=== PATIENT | female | born 1935 | race Caucasian/White ===

== ENCOUNTER 2016-11-09 23:03 | Inpatient (IN) | payer OTHER ==
[~2016-11-09] VITALS: Ht 157.5 cm; Wt 49.9 kg
--- NOTE | 2016-11-09 23:14 | NUR ---
TRIAGE: 81 Y/O FEMALE BIBA FROM HOME C/O INCREASED SOB X THIS WEEK. REPORTS HISTORY OF CHF, BUT HAS NOT SEEN A PCP IN YEARS. RECENTLY QUIT TOBACCO SMOKING. UPON EMS ARRIVAL, SPO2 LOW 80s. PLACED ON NASAL CANNULA, SPO2 IMPROVED TO 96% ON 4-5 LITERS. PLACED ON 4-5 LITERS UPON ARRIVAL - DIFFICULTY OBTAINING ACCURATE SPO2 READING ON MONITOR. WILL CONTINUE TO ATTEMPT DIFFERENT METHODS. PLACED ON APPAREL TRIMMINGS SALES REPRESENTATIVE. DR GATES AT BEDSIDE. EKG IN PROGRESS.
--- NOTE | 2016-11-09 23:15 | ED DYSPNEA/ASTHMA COMPLAINT ---
History of Present Illness General Chief Complaint: Dyspnea (COPD, CHF, Other) Stated Complaint: BIBA WITH SOB Source: patient, family, EMS Exam Limitations: no limitations Vital Signs & Intake/Output Vital Signs & Intake/Output Vital Signs Date Time Temp Pulse Resp B/P B/P Pulse O2 O2 Flow FiO2 Mean Ox Delivery Rate 11/10 0115 94 Nasal 5.0L Cannula 11/09 2307 96.1 125 22 104/58 89 Nasal 5.0L Cannula ED Intake and Output 11/10 0000 11/09 1200 Intake Total Output Total Balance Patient 120 lb Weight Weight Reported by Patient Measurement Method Allergies Coded Allergies: No Known Allergies (11/09/16) Triage Nurses Notes Reviewed? yes HPI: Patient stopped smoking approximately 4 weeks ago. Patient has not seen a primary care physician in over 20 years. Over the past week she's been having worsening dyspnea on exertion as well as occasional orthopnea. Patient states she has been sleeping on one pillow but a few times as well. She cannot breathe. Positive nonproductive but wet sounding cough. Positive anorexia. No fevers or chills. Patient denies any chest pain or chest tightness. Past History Travel History Traveled to [place] past 21 day No Medical History Any Pertinent Medical History? see below for history Cardiovascular: CHF Surgical History Surgical History: non-contributory Psychosocial History What is your primary language Chinese Tobacco Use: Quit <30 days ago ETOH Use: denies use Illicit Drug Use: denies illicit drug use Family History Hx Contributory? No Review of Systems Review of Systems Constitutional: Reports: no symptoms. EENTM: Reports: no symptoms. Respiratory: Reports: see HPI, cough, orthopnea, short of breath. Cardiovascular: Reports: no symptoms. GI: Reports: no symptoms. Genitourinary: Reports: no symptoms. Musculoskeletal: Reports: no symptoms. Skin: Reports: no symptoms. Neurological/Psychological: Reports: no symptoms. Hematologic/Endocrine: Reports: no symptoms. Immunologic/Allergic: Reports: no symptoms. All Other Systems: Reviewed and Negative Physical Exam Physical Exam General Appearance: well developed/nourished, alert, awake, anxious, moderate distress Head: atraumatic, normal appearance Eyes: Bilateral: PERRL, EOMI. Ears, Nose, Throat: normal pharynx, normal ENT inspection Neck: normal inspection, supple, full range of motion, JVD Respiratory: decreased breath sounds, rhonchi, rales, respiratory distress Cardiovascular: normal peripheral pulses, tachycardia Gastrointestinal: normal bowel sounds, soft, non-tender, no organomegaly Extremities: normal inspection, normal capillary refill, normal range of motion, no edema Neurologic/Psych: no motor/sensory deficits, awake, alert, oriented x 3, normal mood/affect Skin: intact, normal color, warm/dry Lymphatic: no anterior cervical stephanie Core Measures ACS in differential dx? Yes ASA ordered for poss ACS? Yes-ordered Severe Sepsis Present: No Septic Shock Present: No Progress Differential Diagnosis: asthma, AMI, bronchitis, CHF, COPD, pulmonary embolism, pneumonia Plan of Care: Orders Procedure Date/time Status Admit to inpatient 11/10 0131 Active Patient Data 11/10 124 Active BLOOD CULTURE 11/10 36 Active ARTERIAL BLOOD GAS (GEN) 11/09 2312 Complete Telemetry/Legal Researcher 11/09 2312 Active TROPONIN LEVEL 11/09 2312 Complete D-DIMER 11/09 2312 Complete COMPREHENSIVE METABOLIC PANEL 11/09 2312 Complete CBC WITHOUT DIFFERENTIAL 11/09 2312 Complete B-TYPE NATRIURETIC PEP (BNP) 11/09 2312 Complete EKG 11/09 2304 Active Current Medications Sig/Irma Start time Last Medication Dose Stop Time Status Admin Furosemide 40 MG ONCE ONE 11/10 144 UNVr (Lasix) 11/10 145 Azithromycin 500 MG ONCE ONE 11/10 114 AC (Zithromax) 11/104 Sodium Chloride 250 ML (Normal Saline 0.9%) Heparin Sodium 4,000 UNIT ONCE ONE 11/10 114 CAN (Porcine) 11/11 115 Heparin Sodium/ 25,000 UNIT Q24H 11/10 114 UNVr Dextrose (Heparin) Dextrose/Water 500 ML (D5W) Laboratory Tests 11/09/165: Anion Gap 16, Estimated GFR 36 L, BUN/Creatinine Ratio 27.1 H, Glucose 210 H, Calcium 8.4, Total Bilirubin 1.6 H, AST 1591 H, ALT 847 H, Alkaline Phosphatase 93, Troponin I 0.44 *H, Pbq-Q-Gtbqpkexexa Pept 42932 H, Total Protein 6.5, Albumin 3.1 L, Globulin 3.4, Albumin/Globulin Ratio 0.9 L, D- Dimer 1048 H, CBC w Diff NO MAN DIFF REQ, RBC 3.37 L, MCV 82.1, MCH 26.2 L, RDW 16.7 H, MPV 8.6, Gran % 85.8 H, Lymphocytes % 6.6 L, Monocytes % 7.5, Eosinophils % 0, Basophils % 0.1, Absolute Granulocytes 12.9 H, Absolute Lymphocytes 1.0 L, Absolute Monocytes 1.1 H, Absolute Eosinophils 0, Absolute Basophils 0, PUBS MCHC 31.9 L 11/09/165: pH 7.36, pCO2 35, pO2 77 L, HCO3 20 L, ABG O2 Sat (Measured) 93.0 L, Carboxyhemoglobin 0.1 L, O2 Concentration % 4.5L, O2 Delivery Method NC, Phlebotomy Draw Site RIGHT BRACHIAL Microbiology 11/10 36 BLOOD: Blood Culture - ORD 11/10 36 BLOOD: Blood Culture - ORD Diagnostic Imaging: Viewed by Me: Radiology Read. Discussed w/RAD: Radiology Read. CXR Impression: PATIENT: FERNANDO DALE PRESENT AGE: 81 PATIENT ACCOUNT NO: [id number] : 37 LOCATION: ER ORDERING PHYSICIAN: AFSHIN GATES MD SERVICE DATE: 11/09/16 EXAM TYPE: RAD - XRY-PORTABLE CHEST XRAY EXAMINATION: XR PORTABLE CHEST CLINICAL INFORMATION: Shortness of breath. COMPARISON: None TECHNIQUE: Portable AP view of the chest was obtained. FINDINGS: Cardiac leads overlie the chest. The lungs appear hyperexpanded. There is a right basilar patchy opacity. No large pleural effusion. No pneumothorax. The cardiomediastinal silhouette is prominent, with a calcified aorta. IMPRESSION: Hyperexpanded lungs. Patchy right basilar opacity may represent atelectasis or pneumonia. DICTATED BY: TAWANA HAILE MD DATE/ TIME DICTATED:11/09/162347 FIELD RECORDER:MIHIR DATE/TIME TRANSCRIBED: 11/09/162347 CONFIDENTIAL, DO NOT COPY WITHOUT APPROPRIATE AUTHORIZATION. < Electronically signed in Other Vendor System> SIGNED BY: TAWANA HAILE MD 11/09/16 1243 Initial ED EKG: SINUS TACHYCARDIA AT 128, BIFASCICULAR BLOCK, NONSPECIFIC st-t CHANGES, NO OLD TO COMPARE. Rhythm Strip: sinus tachycardia Departure Departure Disposition: STILL A PATIENT Condition: Stable Clinical Impression Primary Impression: ACS (acute coronary syndrome) Secondary Impressions: Pneumonia Departure Forms: Customer Survey General Discharge Information Admission Note Spoke With: MEGGAN SANCHEZ MD Documentation of Exam: Documentation of any treatments & extenuating circumstances including Concerns Regarding Discharge (functional status, medication knowledge or non-compliance, living conditions, etc.) that warrant an admission rather than observation: [ Patient has a 16,000 white count, pneumonia versus atelectasis in her chest x- ray, wet sounding cough, elevated BNP, elevated d-dimer, positive troponin. Patient's GFR is low so unable to perform a CT angiogram rule out a PE. Patient will be started on heparin for her positive troponin as well as possible PE. The patient will also receive IV Lasix for her elevated BNP. Patient given IV antibiotics as well as IV steroids and nebulizers for her pneumonia and long- standing smoking history. Patient will need telemetry monitoring and cardiology consultation. Patient she probably will need to be followed serially. Patient will need a VQ scan to rule out a PE.] Critical Care Note Critical Care Note Critical Care Time: mins: (45 MIN)
--- NOTE | 2016-11-09 23:16 | NUR ---
SUPPLEMENTAL OXYGEN REMAINS AT 5L, SPO2 94%. REMAISN SOB AT REST.
--- NOTE | 2016-11-09 23:25 | NUR ---
EKG DONE AND SHOWN TO DR. GATES.
--- NOTE | 2016-11-09 23:52 | RADIOLOGY REPORT ---
EXAMINATION: XR PORTABLE CHEST CLINICAL INFORMATION: Shortness of breath. COMPARISON: None TECHNIQUE: Portable AP view of the chest was obtained. FINDINGS: Cardiac leads overlie the chest. The lungs appear hyperexpanded. There is a right basilar patchy opacity. No large pleural effusion. No pneumothorax. The cardiomediastinal silhouette is prominent, with a calcified aorta. IMPRESSION: Hyperexpanded lungs. Patchy right basilar opacity may represent atelectasis or pneumonia.
[2016-11-10 00:21] LABS: ABSOLUTE BASOPHIL COUNT 0 /CUMM (0.0-0.2); ABSOLUTE EOSINOPHIL COUNT 0 /CUMM (0.0-0.7); ABSOLUTE GRANULOCYTE CT 12.9 /CUMM (1.4-6.5); ABSOLUTE MONOCYTE COUNT 1.1 /CUMM (0.10-0.60); BASOPHIL % 0.1 % (0.0-2.0); EOSINOPHIL % 0 % (0-5); GRANULOCYTE % 85.8 % (42.2-75.2); HEMATOCRIT 27.7 % (37-47); MEAN CORPUSCULAR HGB 26.2 PG (27.0-31.0); MEAN CORPUSCULAR HGB CONC 31.9 G/DL (33.0-37.0); MEAN CORPUSCULAR VOLUME 82.1 FL (81.0-99.0); MEAN PLATELET VOLUME 8.6 FL (7.4-10.4); PLATELET COUNT 497 /CUMM (130-400); RBC DISTRIBUTION WIDTH 16.7 % (11.5-14.5); RED BLOOD CELL CT 3.37 /CUMM (4.20-5.40)
[2016-11-10 00:53] LABS: WHITE BLOOD CELL COUNT 15.1 /CUMM (4.8-10.8)
--- NOTE | 2016-11-10 01:09 | NUR ---
CRITICAL TEST RESULTS [id number] FERNANDO DALE 81 F TESTS AND RESULTS: TROPONIN 0.44 Results received and read back by: CALI HEALY Results received date and time: 11/10/16 0110 The following provider was notified of the results, and read the results back: KODY Notified date and time: 11/10/16 at 0110
--- NOTE | 2016-11-10 01:13 | NUR ---
PAGED @ 0100 FOR Endovention RX
--- NOTE | 2016-11-10 01:59 | History & Physical ---
MARY SUAREZ,ARTI 11/10/16 0144: General Information and HPI MD Statement: I have seen and personally examined FERNANDO DALE and documented this H&P. The patient is a 81 year old F who presented with a patient stated chief complaint of [shortness of breath]. Source of Information: patient, old records Exam Limitations: no limitations History of Present Illness: This is a 81-year-old lady with no diagnosed medical problems because she has not seen a physician in over 20 years. She has a 50+ pack year smoking history quit smoking about a month ago. No history of drug or alcohol use, hepatitis, HIV, cancers, no significant family history. Per patient and family over the course of the last week or so she has been having progressive dyspnea with a wet cough, orthopnea, paroxysmal nocturnal dyspnea. She gets easily winded after barely walking 10 feet. Per ER nursing notes, she was found to be hypoxic by the paramedics and subsequently was placed on nasal cannula with appropriate correction of her oxygen saturation. At present her only complaint is dyspnea, she denies any chest pain, nausea, vomiting, diarrhea. Denies any sick contacts or recent travels. In the emergency room she was found to have a proBNP of over 22,000, and elevated white blood cell count on a positive troponin 0.44 and some T-wave flattening on the EKG. She is being admitted for the same. Allergies/Medications Allergies: Coded Allergies: No Known Allergies (11/09/16) Past History Travel History Traveled to [place] past 21 day No Surgical History Surgical History: hysterectomy Past Family/Social History Psychosocial History Smoking Status: Former Smoker ETOH Use: denies use Illicit Drug Use: denies illicit drug use Functional Ability ADLs Independent: dressing, eating, toileting, bathing. IADLs Independent: shopping, housework, finances, food prep, telephone, transportation , medication admin. Review of Systems Review of Systems Constitutional: Reports: see HPI. Exam & Diagnostic Data Last 24 Hrs of Vital Signs/I&O Vital Signs Date Time Temp Pulse Resp B/P B/P Pulse O2 O2 Flow FiO2 Mean Ox Delivery Rate 11/10 0115 94 Nasal 5.0L Cannula 11/09 2307 96.1 125 22 104/58 89 Nasal 5.0L Cannula Intake & Output 11/10 0800 11/10 0000 11/09 1600 Intake Total Output Total Balance Patient 120 lb Weight Weight Reported by Patient Measurement Method Physical Exam General Appearance Alert, Oriented X3, Cooperative, Mild Distress Skin No Rashes, No Breakdown HEENT Atraumatic, PERRLA, EOMI Neck Supple, No JVD Cardiovascular Regular Rate, Normal S1, Normal S2 Lungs Normal Air Movement, b/l crackles, rales, ronchii and wheezing Abdomen Normal Bowel Sounds, Soft, No Tenderness Neurological Normal Speech, Strength at 5/5 X4 Ext, Normal Tone, Sensation Intact, Cranial Nerves 3-12 NL Extremities No Clubbing, No Cyanosis, No Edema Last 24 Hrs of Labs/Jamaal: Laboratory Tests 11/09/16 2335: Anion Gap 16, Estimated GFR 36 L, BUN/Creatinine Ratio 27.1 H, Glucose 210 H, Calcium 8.4, Total Bilirubin 1.6 H, AST 1591 H, ALT 847 H, Alkaline Phosphatase 93, Troponin I 0.44 *H, Lxg-C-Ggktwoixjwo Pept 72395 H, Total Protein 6.5, Albumin 3.1 L, Globulin 3.4, Albumin/Globulin Ratio 0.9 L, D- Dimer 1048 H, CBC w Diff NO MAN DIFF REQ, RBC 3.37 L, MCV 82.1, MCH 26.2 L, RDW 16.7 H, MPV 8.6, Gran % 85.8 H, Lymphocytes % 6.6 L, Monocytes % 7.5, Eosinophils % 0, Basophils % 0.1, Absolute Granulocytes 12.9 H, Absolute Lymphocytes 1.0 L, Absolute Monocytes 1.1 H, Absolute Eosinophils 0, Absolute Basophils 0, PUBS MCHC 31.9 L 11/09/16 2315: pH 7.36, pCO2 35, pO2 77 L, HCO3 20 L, ABG O2 Sat (Measured) 93.0 L, Carboxyhemoglobin 0.1 L, O2 Concentration % 4.5L, O2 Delivery Method NC, Phlebotomy Draw Site RIGHT BRACHIAL Microbiology 11/10 36 BLOOD: Blood Culture - ORD 11/10 36 BLOOD: Blood Culture - ORD Diagnostic Data EKG Results Rate 129, IN 128, QRS 112, QTC 475 neck sinusitis echocardiac, mild T-wave flattening in leads 23 aVF, aVL CXR Results PATIENT: FERNANDO DALE PRESENT AGE: 81 PATIENT ACCOUNT NO: [id number] : 37 LOCATION: [facility] ORDERING PHYSICIAN: AFSHIN GATES MD SERVICE DATE: 11/09/16 EXAM TYPE: RAD - XRY-PORTABLE CHEST XRAY EXAMINATION: XR PORTABLE CHEST CLINICAL INFORMATION: Shortness of breath. COMPARISON: None TECHNIQUE: Portable AP view of the chest was obtained. FINDINGS: Cardiac leads overlie the chest. The lungs appear hyperexpanded. There is a right basilar patchy opacity. No large pleural effusion. No pneumothorax. The cardiomediastinal silhouette is prominent, with a calcified aorta. IMPRESSION: Hyperexpanded lungs. Patchy right basilar opacity may represent atelectasis or pneumonia. DICTATED BY: TAWANA HAILE MD DATE/TIME DICTATED:11/09/162347 MOLD CLAMPER:MIHIR DATE/TIME TRANSCRIBED:11/09/162347 CONFIDENTIAL, DO NOT COPY WITHOUT APPROPRIATE AUTHORIZATION. <Electronically signed in Other Vendor System> SIGNED BY: MIC SUAREZ,TAWANA 11/09 0218 Assessment/Plan Assessment: Assessment - 1. Hypoxic respiratory failure; likely secondary to CHF versus COPD versus pneumonia 2. Positive troponin 0.44, and STEMI versus secondary to acute renal failure 3. Leukocytosis of 15,100; no bands, likely secondary to pneumonia 4. Congestive heart failure, new onset, proBNP 22,600 5. Hyperkalemia, potassium 5.2 6. D-dimer elevated at 1048 7. Anemia 8. Likely newly diagnosed COPD 9. Sepsis, likely secondary to community-acquired pneumonia 10. Former smoker, 50+ pack year smoking history, quit smoking 1 month ago 11. Transaminitis 12. Hyperbilirubinemia Plan- - Telemetry admission - Vitals per protocol - Trend troponin EKG - Aspirin 325 once (already given by the ER), 81 mg daily thereafter - Hold off on beta fred for now given hypotension - Echocardiogram - Cardiology consult in the morning - Continue heparin GTT for now - Lasix 40 mg IV given in ER, reassess need for further diuresis in the AM after checking volume status and BEP - Panculture - Accu-Cheks, daily weight, strict I's and out - IV ceftriaxone and azithromycin - Hemoccult - RUQ U/S - Fractionate bilirubin - IV Solu-Medrol 40 mg every 12 hours - TRC evaluation and treatment - Add on lipid panel, TSH, free T4, vitamin B12, folic acid, iron studies, HbA1c - Reevaluate need for CT angiogram in the morning after renal function has hopefully normalized - Pain pathway - DVT prophylaxis being addressed with heparin drip - DNR/ DNI As Ranked By This Provider Problem List: 1. Pneumonia 2. ACS (acute coronary syndrome) Core Measures/Miscellaneous Acute Coronary Syndrome ACS Diagnosis: Yes No STEPHANIE/ARB d/t no echo in record ASA W/I 24hr of admit Yes Beta-Fred W/I 24hrs No No Beta-Fred d/t Hypotension LDL assessed W/I 24 hrs Yes Currently on Statin No No Statin d/t Elevated LFT Cerebrovascular Accident CVA/TIA Diagnosis: No Congestive Heart Failure CHF Diagnosis: Yes Comment: no echo in EMR Venous Thromboembolism VTE Risk Factors: Age > 40 No [facility] VTE prophylaxis d/t: No contraindications No VTE Pharm Prophylaxis d/t: No contraindications VTE Diagnosis: No VTE Type: NONE VTE Confirmed by (Test): NONE Severe Sepsis Severe Sepsis Present: No Septic Shock Septic Shock Present: No Miscellaneous Documentation Attending Case Discussed With: DR. RUEDA Primary Care Physician: PATIENT HAS NO PRIMARY CARE DR Patient sees these Specialists none Level of Patient Care: Telemetry Resident Review Statement Resident Statement: examined this patient, discussed with recording studio internship MEGGAN SANCHEZ 11/10/16 0506: General Information and HPI Allergies/Medications Home Med list No Known Home Medications Attending MD Review Statement Attending Statement Attending MD Statement: examined this patient, discuss w/resident/PA/QUALITY CONTROL REPRESENTATIVE, agreed w/resident/PA/QUALITY CONTROL REPRESENTATIVE, discussed with family, reviewed EMR data (avail), reviewed images, amended to note Attending Assessment/Plan: CC: SOB PMH: none According to patient's symptoms started approximately 2 weeks back with shortness of breath, nonproductive cough. Patient did not seek any medical help. She does not have PCP, not seen a physician in 20 years, quit smoking approximately 4 weeks back. Her breathing was progressively getting worse, family insisted to come to hospital, she kept denying. Finally the breathing was so bad that they had to call ambulance. Patient says she had some chills on and off, decreased appetite but denies fever, chest pain, chest tightness. No recent travels no sick contacts. When EMS arrived at the site patient was saturating in 80s on room air. Vitals: Max 96.1, pulse 125, RR 22 blood pressure 104/58, saturating 89% on 5 L at presentation. After patient received albuterol Atrovent treatment, IV methylprednisolone, Lasix 40 mg patient saturating 92% on 5 L, blood pressure 70 /30, heart rate in 100s. On exam: Tachypneic, tachycardic, accessory muscle and work, JVD markedly elevated, mucosa dry, no pedal edema, bibasilar crackles, S1-S2 RRR, abdomen soft nontender bowel sounds present, no obvious skin inflammation. Peripheral pulses present. No focal neurological deficit Labs: WBC 15.1, hemoglobin 8.8, MCV 82, RDW 16, platelet for 97, granulocyte 85% , sodium 138, potassium 5.2, chloride 97, bicarbonate 25, anion gap 16, BUN 38, creatinine 1.4, glucose 210, calcium 8.4, total bili 1.6, direct bilirubin 1.0, AST 1005 and 91, ALT 847, alkaline phosphatase 93, troponin 0.44, proBNP 22,600, d-dimer 1048 AB.36/35/77/20 on 4.5 L CXR:Hyperexpanded lungs. Patchy right basilar opacity may represent atelectasis or pneumonia. EKG: Right bundle branch block and left anterior fascicular block, no comparison available A and P Patient presented with severe dyspnea, desaturating on room air when EMS arrived at home, tachypneic accessory muscles in use, oxygenation improved with O2 supplementation and Lasix but her pressure dropped. Chest x-ray suggestive of pneumonia versus atelectasis she had leukocytosis with neutrophilia but no bands , no fever at home no documented hypothermia and hypothermia in ER. Her troponin is markedly elevated, along with elevated proBNP d-dimer. Patient's JVD is markedly elevated, Acute heart failure is more likely than pneumonia, or possibility of combination. PE cannot be excluded as well. Patient was started on heparin, received a dose of aspirin. Cardiology was called because of hypotension in setting of heart failure +/- pneumonia along with elevated troponins. Patient has transaminitis AST more ALT, unclear etiology, no alcohol history. I had a detailed discussion with patient and her granddaughter who is in medical profession and is well versed with all medical terms. She understand patient is critical. Patient mentions, DNR and DNI to be her wishes, but would want to give trial for pressors if required. #Acute hypoxic respiratory failure # Metabolic acidosis # Heart failure # Hypotension # Suspected pneumonia # NSTEMI # PE needs to be ruled out # Anemia # Hyperglycemia # Transaminitis # Long-standing smoking history: ? COPD - Admit to ICU - Vitals every hour - Start IV fluid normal saline at 75 mL per hour - If map persistently less than 60 start dopamine as recommended by cardiology - Check central venous pressure - Continue albuterol Atrovent nebulizations - Strict I's and O's - Continue heparin drip - CBC, BMP, LFT in Am - Trend troponin, check lactate, trend if elevated, serial EKGs - Cardiology consult, firm critical care consult - UA urine culture, blood culture, sputum culture if possible - 2-D echo in a.m. - Continue methylprednisolone 40 mg IV every 8 hour - Continue IV ceftriaxone and azithromycin - DNR/DNI, she wants her as healthcare proxy. I did not speak to , I spoke with granddaughter and patient. TTS 30 min
--- NOTE | 2016-11-10 03:14 | NUR ---
QUICK FLU SENT
--- NOTE | 2016-11-10 05:01 | NUR ---
bed 106
--- NOTE | 2016-11-10 05:07 | RADIOLOGY REPORT ---
EXAMINATION: XR PORTABLE CHEST CLINICAL INFORMATION: Central line placement COMPARISON: 11/09/2016 TECHNIQUE: Portable AP view of the chest was obtained. FINDINGS: There is a new right internal jugular central venous catheter. The catheter extends into the neck for looping and extending inferiorly. This terminates within the internal jugular vein. The lungs are hyperexpanded. Hazy right basilar opacity remains. No pleural effusion or pneumothorax. The cardiomediastinal silhouette is unchanged, with a calcified aorta. IMPRESSION: Right internal jugular central venous catheter extending superiorly into the neck before looping and terminating in the internal jugular vein. Unchanged appearance of the lungs. Hyperexpansion with hazy right basilar opacity. This critical result was discussed with Kushal Bull MD by telephone at 11/10/2016 5:02 AM and it was ascertained that the content and urgency of the report was understood at the time of direct communication.
--- NOTE | 2016-11-10 05:08 | Admission Certification ---
Admission Certification Certification Statement - As attending physician, I certify that at the time of - admission, based on clinical presentation, severity of - symptoms, need for further diagnostic testing and - therapeutic interventions, and risk of adverse outcomes - without in-hospital treatment, in my clinical assessment, - this patient requires an acute hospital stay for a minimum - of two nights or longer. I have also considered psychsocial - factors such as support system, advanced age, financial - issues, cognitive issues, and failed out-patient treatments, - past re-admission history, safety of patient, and lack of - compliance as applicable. Specific rationale supporting this admission is: Acute hypoxic respiratory failure, hypotension, suspected pneumonia, suspected heart failure
--- NOTE | 2016-11-10 05:15 | NUR ---
TLC PLACED CXR TO CONFIRM PLACEMENT
--- NOTE | 2016-11-10 05:45 | NUR ---
O2 SAT 80-84 % ON RA PLACED ON 40% VENTIMASK SAT INCREASED TO 90%
--- NOTE | 2016-11-10 05:52 | RADIOLOGY REPORT ---
EXAMINATION: XR PORTABLE CHEST CLINICAL INFORMATION: Readjustment of central venous line. COMPARISON: Radiograph from earlier today TECHNIQUE: Portable AP view of the chest was obtained. FINDINGS: Right internal jugular central venous catheter now takes a normal course and terminates over the mid SVC. Cardiac leads overlie the chest. The lungs are hyperexpanded. Minimal right basilar opacity. No pneumothorax or pleural effusion. The cardiomediastinal silhouette is unchanged, with a tortuous aorta. IMPRESSION: Right internal jugular central venous catheter terminating over the mid SVC. No pneumothorax. Lung hyperexpansion with persistent hazy right basilar opacity.
--- NOTE | 2016-11-10 05:52 | Proc Note Internal Medicine ---
Medicine Procedure Procedure Date: 11/10/16 Medical Procedure(s): central venous cath place Pre-Operative Diagnosis: hypotension Post-Operative Diagnosis: same Estimated Blood Loss: scant Anesthesia: local monitored anesthesi Procedure Findings: Informed consent was obtained from the patient regarding the procedure. Risks and benefits of the procedure were explained extensively, he wished to proceed. First, a timeout was obtained, patient identifying data was checked and verified by members of the team and by myself; after the proper patient and procedure was identified, we proceeded. The surgical area was cleaned with chlorhexidine scrub. Patient was draped in sterile fashion. Using ultrasound probe, the right internal jugular vein was isolated. 5 mL of local 1% lidocaine was used to numb the skin. Sidelinger technique used. Using a syringe the right IJ was punctured under ultrasound guidance. The syringe was again confirmed by the ultrasound. . The dilator was then removed. The 3 ports of the central line were flushed to make sure that all 3 ports Over the syringe, guidewire was placed as a syringe was removed. Skin dilator was placed over the guidewire, a small incision was made to advance the dilatorwere working appropriately. Over the guidewire, the central line was placed and advanced up to 14 cm. The central line was then secured by 4 anchor sutures. A Biopatch was applied. 3 hubs were applied to the central line and were flushed. A dry sterile Tegaderm was applied. Blood loss was scant, the patient handled the procedure extremely well. A STAT chest x-ray has been obtained, to confirm appropriate line placement, it showed the right IJ extending superiorly into the neck before looping and terminating in the neck. We then draped the patient again, cut out the anchor sutures, removed the biopatch. A guide wire was inserted through the line, the existing central line was removed. Over the guide wire a new, sterile line was placed. All hubs were flushed, bio-patch applied, anchor sutures placed and tegaderm was applied. A STAT CXR this time revealed appropriate line placement. was present during the procedure in its entiriety.
--- NOTE | 2016-11-10 06:11 | NUR ---
RPORT GIVEN TO ICU BY CALI ABEL
--- NOTE | 2016-11-10 06:12 | NUR ---
TRANSPORTED TO ICU WITH RN
--- NOTE | 2016-11-10 06:13 | NUR ---
TO ICU WITH RN
[2016-11-10 06:17] LABS: ABSOLUTE BASOPHIL COUNT 0 /CUMM (0.0-0.2); ABSOLUTE EOSINOPHIL COUNT 0 /CUMM (0.0-0.7); ABSOLUTE GRANULOCYTE CT 13.3 /CUMM (1.4-6.5); ABSOLUTE LYMPH COUNT 0.7 /CUMM (1.2-3.4); ABSOLUTE MONOCYTE COUNT 0.4 /CUMM (0.10-0.60); BASOPHIL % 0.1 % (0.0-2.0); EOSINOPHIL % 0.2 % (0-5); HEMATOCRIT 24.4 % (37-47); MEAN CORPUSCULAR HGB CONC 31.9 G/DL (33.0-37.0); MEAN CORPUSCULAR VOLUME 81.6 FL (81.0-99.0); MEAN PLATELET VOLUME 8.5 FL (7.4-10.4); PLATELET COUNT 393 /CUMM (130-400); RBC DISTRIBUTION WIDTH 16.6 % (11.5-14.5); RED BLOOD CELL CT 2.99 /CUMM (4.20-5.40)
[2016-11-10 06:41] LABS: WHITE BLOOD CELL COUNT 14.5 /CUMM (4.8-10.8)
--- NOTE | 2016-11-10 07:07 | Cons- CRCU ---
NHAN SUAREZ,[facility] 11/10/16 0707: General Information and HPI Consulting Request Date of Consult: 11/10/16 Requested By: Dr Flores Source of Information: patient, family, old records Exam Limitations: no limitations History of Present Illness: Ms. 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 Approximately 2 weeks ago the patient began to feel symptoms of a URI. This initially started with an episode of epistaxis and further developed a cough with productive sputum. Sputum was brown and green in color. Patient reports that sputum was approximately 1 tablespoon per day. She did take some over the counter medication (Mucinex). The patient resisted seeking any medical care even though it was suggested by her family members. Twenty four hours prior to admission the patients respiratory symptoms continued to worsen. Her Joe, called the EMS on 11/09/2016. At the time of arrival, the EMS found the patient to be hypoxic and desaturating to 8-% on RA. The patient does not take any medication on a daily basis. Patient does have a long-standing smoking history and has been smoking for over 70 years. She recently quit smoking approximately 2 and a half weeks ago, or has drastically reduced the amount of cigarettes she was smoking. Patient has no PCP. Patient lives at home with her Joe. Allergies/Medications Allergies: Coded Allergies: No Known Allergies (11/09/16) Home Med List: No Known Home Medications Current Medications: Current Medications Sig/Irma Start time Last Medication Dose Route Stop Time Status Admin Albuterol Sulfate 3 ML EVERY 4 HRS/AWAKE 11/10 1200 AC 11/10 INH 1158 Albuterol Sulfate 3 ML Q4H PRN 11/10 0800 AC 11/10 INH 0757 Albuterol Sulfate 3 ML ONCE ONE 11/09 2315 DC 11/10 INH 11/10 2315 0113 Aspirin 81 MG DAILY 11/10 1000 AC 11/10 PO 0924 Aspirin 325 MG ONCE ONE 11/10 011 DC 11/10 PO 11/10 0116 0142 Aspirin 0 .STK-MED ONE 11/10 0115 DC PO Azithromycin 500 MG 0200 11/11 0200 DC Sodium Chloride 250 ML IV Azithromycin 500 MG 0 11/10 2200 AC Sodium Chloride 250 ML IV Azithromycin 500 MG ONCE ONE 11/10 0115 DC 11/10 Sodium Chloride 250 ML IV 11/10 0214 0227 Ceftriaxone Sodium 1,000 MG 0 11/10 2199 AC IV Ceftriaxone Sodium 1,000 MG DAILY 11/10 0200 DC IV Ceftriaxone Sodium 0 .STK-MED ONE 11/10 0154 DC .ROUTE Ceftriaxone Sodium 1,000 MG ONCE ONE 11/10 0115 DC 11/10 IV 11/10 0116 0226 Dopamine HCl 400 MG Q12H 11/10 0500 DC Dextrose/Water 500 ML IV Furosemide 40 MG DAILY 11/10 1000 CAN IV Furosemide 0 .STK-MED ONE 11/10 0240 DC IV Furosemide 40 MG ONCE ONE 11/10 0145 DC 11/10 IV 11/10 014 0244 Heparin Sodium 2,993 UNIT ONCE ONE 11/10 1100 DC 11/10 (Porcine) IV 11/10 1101 1106 Heparin Sodium 0 .STK-MED ONE 11/10 0232 DC (Porcine) .ROUTE Heparin Sodium 4,000 UNIT ONCE ONE 11/10 0130 DC 11/10 (Porcine) IV 11/10 0131 0234 Heparin Sodium 4,000 UNIT ONCE ONE 11/10 0115 CAN (Porcine) IV 11/10 0116 Heparin Sodium/ 25,000 UNIT Q24H 11/10 1315 AC Dextrose IV Dextrose/Water 500 ML Heparin Sodium/ 0 .STK-MED ONE 11/10 0147 DC Dextrose IV Heparin Sodium/ 25,000 UNIT Q24H 11/10 0115 DC 11/10 Dextrose IV 0226 Dextrose/Water 500 ML Ipratropium [place] 2.5 ML EVERY 4 HRS/AWAKE 11/10 1200 AC 11/10 INH 1158 Ipratropium [place] 2.5 ML ONCE ONE 11/10 0800 DC 11/10 INH 11/10 0801 0757 Ipratropium [place] 2.5 ML ONCE ONE 11/09 2315 DC 11/10 INH 11/10 2315 0113 Lidocaine 0 .STK-MED ONE 11/10 0404 DC .ROUTE Lidocaine 20 ML ONCE ONE 11/10 0400 DC 11/10 ID 11/10 0401 0455 Methylprednisolone 40 MG Q12 11/10 1000 DC IV Methylprednisolone 40 MG Q12 11/10 1000 AC IV Methylprednisolone 40 MG Q8 11/10 0729 DC 11/10 IV 0923 Methylprednisolone 0 .STK-MED ONE 11/10 0153 DC .ROUTE Methylprednisolone 125 MG ONCE ONE 11/10 0115 DC 11/10 IV 11/10 0116 0227 Multivitamins 1 TAB DAILY 11/10 1000 AC 11/10 PO 0924 Sodium Chloride 1,000 ML BOLUS ONE 11/10 1100 DC 11/10 IV 11/10 1259 1056 Sodium Chloride 1,000 ML BOLUS ONE 11/10 0830 DC 11/10 IV 11/10 1029 0830 Sodium Chloride 1,000 ML Q13H 11/10 0715 AC 11/10 IV 0812 Review of Systems Review of Systems Constitutional: Reports: chills, weakness. Denies: diaphoresis, fever, malaise. EENTM: Denies: blurred vision, double vision, visual changes, eye pain. Cardiovascular: Denies: chest pain, edema, orthopena, palpitations. Respiratory: Reports: orthopnea, short of breath, sputum production. Denies: cough, hemoptysis. GI: Denies: abdominal pain, bloating, constipation, diarrhea, distention, nausea, vomiting. Genitourinary: Denies: discharge, dysuria, frequency, hematuria, hesitation. Musculoskeletal: Denies: back pain, gout, joint pain, joint swelling, muscle pain. Skin: Denies: change in skin color, change in hair/nails, dryness, erythema, jaundice, lesions. Past History Travel History Traveled to [place] past 21 day No Surgical History Surgical History: hysterectomy Family History Relations & Conditions If Any: FATHER, , Age 50-60; Cause: Hepatic artery injury. Psychosocial History Where Do You Live? Home Who Do You Live With? spouse Services at Home: None Primary Language: Mongolian Smoking Status: Former Smoker (70 PPD history) ETOH Use: occasional use Illicit Drug Use: denies illicit drug use Functional Ability ADLs Independent: dressing, eating, toileting, bathing. Ambulation: independent IADLs Independent: shopping, housework, finances, food prep, telephone, transportation , medication admin. Employment History Employment: Retired Profession/Employer: [employer] Exam & Diagnostic Data Last 24 Hrs of Vital Signs/I&O Vital Signs Date Time Temp Pulse Resp B/P B/P Pulse O2 O2 Flow FiO2 Mean Ox Delivery Rate 11/10 1222 93 Nasal 50% Cannula 11/10 1200 99 Nasal 50% Cannula 11/10 0851 Venti Mask 50% 11/10 0811 91 Venti Mask 50% 11/10 0800 94 Venti Mask 50% 11/10 0800 98.3 102 30 90/50 94 Ventilator 50% 11/10 0702 93 Venti Mask 40% 11/10 0441 95.1 98 20 80/52 92 Nasal 5.0L Cannula 11/10 0400 79/40 11/10 0355 80/37 11/10 0115 94 Nasal 5.0L Cannula 11/10 0030 94 Nasal 2.0L Cannula 11/09 2307 96.1 125 22 104/58 89 Nasal 5.0L Cannula Intake & Output 11/10 1600 11/10 0800 11/10 0000 Intake Total 0 Output Total 0 Balance 0 Intake, IV 0 Intake, Oral 0 Number 0 Bowel Movements Output, Urine 0 Patient 49.895 kg 54.431 kg Weight Weight Bed scale Reported by Patient Measurement Method Physical Exam General Appearance: alert, awake, anxious, moderate distress Head: atraumatic, normal appearance Eyes: Bilateral: normal appearance, PERRL, EOMI. Ears, Nose, Throat: normal ENT inspection, hearing grossly normal, Dry Mucous Membranes Neck: normal inspection Respiratory: normal breath sounds, chest non-tender Cardiovascular: regular rate/rhythm Breasts Inner aspect of right breast Rash. Non tender. 3 cm x 2cm. Gastrointestinal: normal bowel sounds, soft, non-tender Back: normal inspection Extremities: normal inspection, normal capillary refill, normal range of motion, no edema Neurologic/Psych: no motor/sensory deficits, awake, alert Cranial Nerves: normal hearing, normal speech, PERRL Skin: intact, normal color Last 48 Hrs of Labs/Jamaal: Laboratory Tests 11/10/16 1225: Lactic Acid 3.2 H, Troponin I 0.31 *H 11/10/16 0905: Urinalysis MOD H, Urine Color DU, Urine Clarity HAZY H, Urine pH 6.0, Ur Specific [place] >= 1.030, Urine Protein 100 H, Urine Ketones NEG, Urine Nitrite NEG, Urine Bilirubin POS@ICTO H, Urine Urobilinogen 4.0 H, Ur Leukocyte Esterase NEG, Ur Microscopic SEDIMENT EXAMINED, Urine RBC RARE, Urine WBC RARE, Ur Epithelial Cells MOD H, Urine Bacteria FEW H, Hyaline Casts 1-3 H, Urine Hemoglobin TRACE-INTACT, Urine Glucose NEG 11/10/16 0900: Lactic Acid 4.6 H, APTT 33 11/10/16 0605: Anion Gap 15, Estimated GFR 27 L, BUN/Creatinine Ratio 25.0, Troponin I 0.44 *H , CBC w Diff NO MAN DIFF REQ, RBC 2.99 L, MCV 81.6, MCH 26.0 L, RDW 16.6 H, MPV 8.5, Gran % 92.0 H, Lymphocytes % 5.1 L, Monocytes % 2.6, Eosinophils % 0.2, Basophils % 0.1, Absolute Granulocytes 13.3 H, Absolute Lymphocytes 0.7 L , Absolute Monocytes 0.4, Absolute Eosinophils 0, Absolute Basophils 0, PUBS MCHC 31.9 L 11/09/16 2335: Anion Gap 16, Estimated GFR 36 L, BUN/Creatinine Ratio 27.1 H, Glucose 210 H, Hemoglobin A1c Pending, Calcium 8.4, Iron 20 L, TIBC 257 L, Ferritin 154.0, Total Bilirubin 1.6 H, Direct Bilirubin 1.0 H, AST 1591 H, ALT 847 H, Alkaline Phosphatase 93, Troponin I 0.44 *H, Eql-E-Nlrshsymgks Pept 66509 H, Total Protein 6.5, Albumin 3.1 L, Globulin 3.4, Albumin/Globulin Ratio 0.9 L, Triglycerides 101, Cholesterol 102, LDL Cholesterol, Calc 58 L, HDL Cholesterol 24 L, Cholesterol/HDL Ratio 4, Vitamin B12 > 1000 H, 25-OH Vitamin D Total 4.7 L, Folate 18.6, TSH 0.430, Free T4 2.50 H, D-Dimer 1048 H, CBC w Diff NO MAN DIFF REQ, RBC 3.37 L, MCV 82.1, MCH 26.2 L, RDW 16.7 H, MPV 8.6, Gran % 85.8 H, Lymphocytes % 6.6 L, Monocytes % 7.5, Eosinophils % 0, Basophils % 0.1, Absolute Granulocytes 12.9 H, Absolute Lymphocytes 1.0 L, Absolute Monocytes 1.1 H, Absolute Eosinophils 0, Absolute Basophils 0, PUBS MCHC 31.9 L, Hepatitis A IgM Ab NONREACTIVE, Hep Bs Antigen NONREACTIVE, Hep B Core IgM Ab Conf NONREACTIVE, Hepatitis C Antibody NONREACTIVE, HIV 1&2 Ab Western Blot NONREACTIVE, Acetaminophen < 10.0 L, Serum Alcohol < 10.0 11/09/162314: pH 7.36, pCO2 35, pO2 77 L, HCO3 20 L, ABG O2 Sat (Measured) 93.0 L, Carboxyhemoglobin 0.1 L, O2 Concentration % 4.5L, O2 Delivery Method NC, Phlebotomy Draw Site RIGHT BRACHIAL Microbiology 11/10 309 NASOPHARYN: Influenza Virus A & B Rapid Smear - COMP Diagnostic Data CXR Results SERVICE DATE: 11/09/16 EXAM TYPE: RAD - XRY-PORTABLE CHEST XRAY EXAMINATION: XR PORTABLE CHEST CLINICAL INFORMATION: Shortness of breath. COMPARISON: None TECHNIQUE: Portable AP view of the chest was obtained. FINDINGS: Cardiac leads overlie the chest. The lungs appear hyperexpanded. There is a right basilar patchy opacity. No large pleural effusion. No pneumothorax. The cardiomediastinal silhouette is prominent, with a calcified aorta. IMPRESSION: Hyperexpanded lungs. Patchy right basilar opacity may represent atelectasis or pneumonia. DICTATED BY: MIC SUAREZ,TA[place] Other Results SERVICE DATE: 11/10/16- EXAM TYPE: CARD - ECHOCARDIOGRAM CONCLUSIONS Normal LV chamber size and wall thickness. The estimated LVEF is 60% there are no focal wall motion of modalities. There is septal wall dyssynchrony as well as flattening (predominantly in diastole). The RV chamber size is markedly dilated. There is severe global hypokinesis of the right ventricle. Right ventricular apex is akinetic. The estimated RV systolic pressure is greater than 70. Markedly dilated right atrium. There is trace to mild mitral regurgitation. There is moderate tricuspid regurgitation. Estimated PA systolic pressure is 50-60 mmHg. Assessment/Plan Impression/Plan: Ms Rosario is a 81-year-old female who presented to the emergency department with a long-standing standing smoking history with symptoms of increasing dyspnea progressively worsening over the last 2 weeks. At the time of arrival the patient was found to be hypoxic and was admitted to the ICU for further management. Respiratory. Patient is on high flow oxygen. She is saturating well. BiPAP to be needed PRN. Venous Doppler study done this a.m. did show evidence of DVT. Patient has been continued on IV heparin as per PE/DVT protocol. Repeat PTT as per protocol. Repeat chest x-ray in a.m. If symptoms continue worsen may consider VQ scan to rule out PE. May also want to consider high resolution CT with for further evaluation of chest owing to long-standing history of smoking. Solumederol 40 mg IV Q12 Continue ceftriaxone and azithromycin. Monitor cultures. Cardiology Patient has been profoundly hypotensive in the early part of this morning. Blood pressure as low as 80/30. The patient had a central line in place, however, have not needed pressors. Echocardiogram done this a.m. shows evidence of pulmonary pressures in the 70s. Likely attributed to long-standing smoking history. Elevated troponins have peaked at: 0.44. No Ekg Changes. Once patient is more stable and hemodynamically within normal physiological ranges we can begin aspirin and beta luz. The patient does have a central line and should the need for pressors arise, begin Levophed. Ensure MAP >60. Lactic acidosis elevated likley owing to hypoperfusion. Lactic Acid: 4.6-->3.2-- >2.2--> Alimentary Nicotine patch 21 mg PRN Heart healthy diet with ensure supplements given. Code DNR/DNI Consult Acknowledgment - Thank you for your consult request. JOSÉ MIGUEL VINSON MD 11/10/16 0840: Assessment/Plan Other Findings/Comments: José Miguel Luevano M.D. have examined this patient, reviewed available EMR data, personally reviewed images, discussed with resident/PA/DATA CENTER ENGINEER, discussed management plan with housestaff and nursing staff, discussed managment plan all of healthcare providers, discussed management plan with patient and/or family, agreed with resident/PA/DATA CENTER ENGINEER. The past history and parts of the chart have been autopopulated. Impression 81 year old woman * acute hypoxemic respiratory failure - desaturated to 80% on RA * hypotension secondary to severe sepsis vs cardiogenic etiology (BNP 46724) * troponinemia, can be nstemi or demand ischemia * transaminitis * tobacco dependence history Plan - cardiology consultation - monitor cvp - ins/outs, hydration - trc/nebs - monitor labs, electrolytes - troponin f/u - ECHO, and LE dopplers, previously mentioned VTE is less likely on the differential and if these tests are not suggestive, will not pursue VTE workup, however if PH, can consider v/q scan to evaluate for CTEPH - reduce solumedrol to 40mg iv q12h - cont empiric abx w/ceftriaxone/zithromax - f/u all cultures DNR/DNI TTS 40 min Consult Acknowledgment - Thank you for your consult request.
[2016-11-10 08:00] VITALS: BP 90/50
--- NOTE | 2016-11-10 08:00 | NUR ---
ADMIT ACCEPTANCE: REC'D REPORT FROM [facility] IN ER. DX: SOB & TROP+VE. RIJ TLC PLACED BUT NO DOPAMINE GTT STARTED YET SBP WAS IN 80'S WHEN ADMITTED IN THE ER & NOW SBP 100'S. CXR DONE. STARTED ON HEP GTT FOR ACS. 0625 PT ARRIVED IN THE ICU TO RM 106. TRANSFERRED PT SAFELY ONTO THE TOTAL CARE BED W/STAFF. NO SKIN ISSUES/BREAKDOWN. PLACED CARDIAC MAONITORING ST/SR W/HR 90-100'S, SBP 104/70/MANUAL & 80-90'S/AUTO. ON 40% VM UNABLE TO GET ACCURATE READING POX D/T COOL FINGERS. RT COLLINS STATED HER POX IN ABG WAS 93%. LS DIMINISHED TROUGHOUT THE LOBES. PT STATED HAD NOT VOIDED SINCE ADMITTED TO THE ER. HAD BM W/URINE 11/09 IN AM. UPDATED PT'S STATUS TO PT'S FAMILY. DENNYS IS THE POA. INFORMED DR. JUSTIN RE. NO U/O SINCE ADMITTED IN THE ER. & CAN USED THE TLC FOR IVF. ORDERS GIVEN. NO C/O PAIN VOICED. [facility].
--- NOTE | 2016-11-10 09:24 | NUR ---
0800 DO NOT START DOPAMINE PER 'S
[2016-11-10 09:40] LABS: PTT 33 SEC (25-37)
--- NOTE | 2016-11-10 11:26 | Cons- Cardiology ---
General Information and HPI Consulting Request Date of Consult: 11/10/16 Requested By: MEGGAN SANCHEZ MD Reason for Consult: Hypotension, elevated troponin isoenzyme, dyspnea Source of Information: patient, family, old records Exam Limitations: no limitations History of Present Illness: The patient is a 81-year-old woman with no significant past medical history (not followed by a medical professional), who has a long-standing smoking history. She presents with increasing dyspnea, progressive over a period of approximately 2 weeks. On arrival to the emergency room, she was noted to be hypotensive as well as hypoxic. She was noted to have a mildly elevated troponin isoenzyme as well as a markedly elevated BNP. As per the family, the patient has had a cough, occasionally productive with past several weeks as well as noting increasing dyspnea and inability to ambulate due to the same. There was no current chest pain or palpitations noted. On arrival to the emergency room, the patient was noted to have leukocytosis as well as an elevated. Her d-dimer level was markedly elevated as well as a BNP. Troponin isoenzymes were mildly elevated at 0.44. A lactic acid level (checked today) was as well elevated at 4.6. An initial chest x-ray as well demonstrated a possible right basilar infiltrate The patient was transferred to the ICU, and blood pressures improved following administration of saline. A bedside echocardiogram was as well performed which preliminarily demonstrates an overall preserved LV systolic function. The RV is markedly dilated and severely hypokinetic. There is severe pulmonary hypertension with an estimated PA systolic pressure in the 70s. There is moderate tricuspid regurgitation. Of note, blood pressures taken manually demonstrated a significantly improved level and sees 98/60 Allergies/Medications Allergies: Coded Allergies: No Known Allergies (11/09/16) Home Med List: No Known Home Medications Current Medications: Current Medications Sig/Irma Start time Last Medication Dose Route Stop Time Status Admin Albuterol Sulfate 3 ML EVERY 4 HRS/AWAKE 11/10 1200 AC INH Albuterol Sulfate 3 ML Q4H PRN 11/10 0800 AC 11/10 INH 0757 Albuterol Sulfate 3 ML ONCE ONE 11/09 2315 DC 11/10 INH 11/10 2315 0113 Aspirin 81 MG DAILY 11/10 1000 AC 11/10 PO 0924 Aspirin 325 MG ONCE ONE 11/10 0115 DC 11/10 PO 11/10 0116 0142 Aspirin 0 .STK-MED ONE 11/10 0115 DC PO Azithromycin 500 MG 0200 11/11 0200 DC Sodium Chloride 250 ML IV Azithromycin 500 MG 2200 11/100 AC Sodium Chloride 250 ML IV Azithromycin 500 MG ONCE ONE 11/10 0115 DC 11/10 Sodium Chloride 250 ML IV 11/10 0214 0227 Ceftriaxone Sodium 1,000 MG 2200 11/10 2200 AC IV Ceftriaxone Sodium 1,000 MG DAILY 11/10 0200 DC IV Ceftriaxone Sodium 0 .STK-MED ONE 11/10 0154 DC .ROUTE Ceftriaxone Sodium 1,000 MG ONCE ONE 11/10 0115 DC 11/10 IV 11/10 0116 0226 Dopamine HCl 400 MG Q12H 11/10 0500 DC Dextrose/Water 500 ML IV Furosemide 40 MG DAILY 11/10 1000 CAN IV Furosemide 0 .STK-MED ONE 11/10 0240 DC IV Furosemide 40 MG ONCE ONE 11/10 0145 DC 11/10 IV 11/10 0146 0244 Heparin Sodium 2,993 UNIT ONCE ONE 11/10 1100 DC 11/10 (Porcine) IV 11/10 1101 1106 Heparin Sodium 0 .STK-MED ONE 11/10 0232 DC (Porcine) .ROUTE Heparin Sodium 4,000 UNIT ONCE ONE 11/10 0130 DC 11/10 (Porcine) IV 11/10 013 0234 Heparin Sodium 4,000 UNIT ONCE ONE 11/10 0115 CAN (Porcine) IV 11/10 0116 Heparin Sodium/ 0 .STK-MED ONE 11/10 0147 DC Dextrose IV Heparin Sodium/ 25,000 UNIT Q24H 11/10 0115 AC 11/10 Dextrose IV 0226 Dextrose/Water 500 ML Ipratropium Terry 2.5 ML EVERY 4 HRS/AWAKE 11/10 1200 AC INH Ipratropium Terry 2.5 ML ONCE ONE 11/10 0800 DC 11/10 INH 11/10 0801 0757 Ipratropium Terry 2.5 ML ONCE ONE 11/09 2315 DC 11/10 INH 11/10 2315 0113 Lidocaine 0 .STK-MED ONE 11/10 0404 DC .ROUTE Lidocaine 20 ML ONCE ONE 11/10 0400 DC 11/10 ID 11/10 0401 0455 Methylprednisolone 40 MG Q12 11/10 1000 DC IV Methylprednisolone 40 MG Q12 11/10 1000 AC IV Methylprednisolone 40 MG Q8 11/10 0729 DC 11/10 IV 0923 Methylprednisolone 0 .STK-MED ONE 11/10 0153 DC .ROUTE Methylprednisolone 125 MG ONCE ONE 11/10 0115 DC 11/10 IV 11/10 0116 0227 Multivitamins 1 TAB DAILY 11/10 1000 AC 11/10 PO 0924 Sodium Chloride 1,000 ML BOLUS ONE 11/10 1100 AC 11/10 IV 11/10 1259 1056 Sodium Chloride 1,000 ML BOLUS ONE 11/10 0830 DC 11/10 IV 11/10 1029 0830 Sodium Chloride 1,000 ML Q13H 11/10 0715 AC 11/10 IV 0812 Review of Systems Review of Systems: The review of systems is negative for chest pains, palpitations nor lightheadedness. The remainder of the 14 point review of systems is noncontributory with the exception of above. Past History Travel History Traveled to [place] past 21 day No Medical History Blood Transfusion Hx: No Neurological: NONE EENT: NONE Cardiovascular: NONE Respiratory: NONE Gastrointestinal: NONE Hepatic: NONE Renal: NONE Musculoskeletal: NONE Psychiatric: NONE Endocrine: NONE Blood Disorders: NONE Cancer(s): NONE HEART DOCTOR/Reproductive: NONE Surgical History Surgical History: hysterectomy Psychosocial History Where Do You Live? Home Services at Home: None Smoking Status: Former Smoker ETOH Use: denies use Illicit Drug Use: denies illicit drug use Functional Ability ADLs Independent: dressing, eating, toileting, bathing. IADLs Independent: shopping, housework, finances, food prep, telephone, transportation , medication admin. Exam & Diagnostic Data Vital Signs and I&O Vital Signs Date Time Temp Pulse Resp B/P B/P Pulse O2 O2 Flow FiO2 Mean Ox Delivery Rate 11/10 0851 Venti Mask 50% 11/10 0811 91 Venti Mask 50% 11/10 0702 93 Venti Mask 40% 11/10 0441 95.1 98 20 80/52 92 Nasal 5.0L Cannula 11/10 0400 79/40 11/10 0355 80/37 11/10 0115 94 Nasal 5.0L Cannula 11/10 0030 94 Nasal 2.0L Cannula 11/09 2307 96.1 125 22 104/58 89 Nasal 5.0L Cannula Intake & Output 11/10 1600 11/10 0800 11/10 0000 11/09 1600 11/09 0800 11/09 0000 Intake Total 0 Output Total 0 Balance 0 Intake, IV 0 Intake, Oral 0 Number 0 Bowel Movements Output, Urine 0 Patient 110 lb 120 lb Weight Weight Bed scale Reported by Patient Measurement Method Physical Exam: General: Nontoxic, no apparent distress. HEENT: Sclera and conjunctiva within normal limits, without xanthelasmas. Neck: Carotids 2+ without bruits. Respiratory: Diffuse rhonchi, air movement is decreased at the right base, without accessory respiratory muscle use. Heart: Regular rate and rhythm, 2/6 systolic ejection murmur at the right sternal border, without JVD. Abdomen: Soft, nontender, no masses, normoactive bowel sounds. Extremities: Without clubbing, cyanosis, without edema. Neuro: Nonfocal exam, strength, 5 out of 5 Skin: Within normal limits without lesions. Psych: Mood and affect: Normal Labs/Jamaal Results: Laboratory Tests 11/10 11/10 0905 0900 Chemistry Lactic Acid (0.7 - 2.1 mmol/L) 4.6 H Coagulation APTT (25 - 37 SEC) 33 Urines Urinalysis MOD H Urine Color (YEL,AMB,STR) DU Urine Clarity (CLEAR) HAZY H Urine pH (5.0 - 8.0) 6.0 Ur Specific Hartman (1.001 - 1.035) >= 1.030 Urine Protein (NEG,<30 MG/DL) 100 H Urine Ketones (NEG) NEG Urine Nitrite (NEG) NEG Urine Bilirubin (NEG) POS@ICTO H Urine Urobilinogen (0.1 - 1.0 EU/dl) 4.0 H Ur Leukocyte Esterase (NEG) NEG Ur Microscopic SEDIMENT EXAMINED Urine RBC (0 - 5 /HPF) RARE Urine WBC (0 - 2 /HPF) RARE Ur Epithelial Cells (NONE,FEW) MOD H Urine Bacteria (NEG/NONE) FEW H Hyaline Casts (0/LPF) 1-3 H Urine Hemoglobin (NEG) TRACE-INTACT Urine Glucose (N MG/DL) NEG 11/10 11/09 0605 2335 Chemistry Sodium (137 - 145 mmol/L) 136 L 138 Potassium (3.5 - 5.1 mmol/L) 4.5 5.2 H Chloride (98 - 107 mmol/L) 97 L 97 L Carbon Dioxide (22 - 30 mmol/L) 24 25 Anion Gap (5 - 16) 15 16 BUN (7 - 17 mg/dL) 45 H 38 H Creatinine (0.5 - 1.0 mg/dL) 1.8 H 1.4 H Estimated GFR (>60 ml/min) 27 L 36 L BUN/Creatinine Ratio (7 - 25 %) 25.0 27.1 H Glucose (65 - 99 mg/dL) 210 H Hemoglobin A1c (4.2 - 5.8 %) Pending Calcium (8.4 - 10.2 mg/dL) 8.4 Iron (37 - 170 ug/dL) 20 L TIBC (265 - 497 ug/dL) 257 L Ferritin (11.1 - 264 ng/mL) 154.0 Total Bilirubin (0.2 - 1.3 mg/dL) 1.6 H Direct Bilirubin (< 0.4 mg/dL) 1.0 H AST (14 - 36 U/L) 1591 H ALT (9 - 52 U/L) 847 H Alkaline Phosphatase (<127 U/L) 93 Troponin I (< 0.11 ng/ml) 0.44 *H 0.44 *H [id number] Pept (<125 pg/mL) 53993 H Total Protein (6.3 - 8.2 g/dL) 6.5 Albumin (3.5 - 5.0 g/dL) 3.1 L Globulin (1.9 - 4.2 gm/dL) 3.4 Albumin/Globulin Ratio (1.1 - 2.2 %) 0.9 L Triglycerides (<150 mg/dL) 101 Cholesterol (<200 MG/DL) 102 LDL Cholesterol, Calc (65 - 129 mg/dL) 58 L HDL Cholesterol (40 - 60 mg/dL) 24 L Cholesterol/HDL Ratio (0.00 - 4.23 %) 4 Vitamin B12 (239 - 931 pg/mL) > 1000 H 25-OH Vitamin D Total (30 - 100 ng/ml) 4.7 L Folate (2.76 - 20.0 ng/mL) 18.6 TSH (0.270 - 4.200 uIU/mL) 0.430 Free T4 (0.78 - 2.44 ng/dL) 2.50 H Coagulation D-Dimer (70 - 232 ng/ml) 1048 H Hematology CBC w Diff NO MAN DIFF REQ NO MAN DIFF REQ WBC (4.8 - 10.8 /CUMM) 14.5 H 15.1 H RBC (4.20 - 5.40 /CUMM) 2.99 L 3.37 L Hgb (12.0 - 16.0 G/DL) 7.8 L 8.8 L Hct (37 - 47 %) 24.4 L 27.7 L MCV (81.0 - 99.0 FL) 81.6 82.1 MCH (27.0 - 31.0 PG) 26.0 L 26.2 L RDW (11.5 - 14.5 %) 16.6 H 16.7 H Plt Count (130 - 400 /CUMM) 393 497 H MPV (7.4 - 10.4 FL) 8.5 8.6 Gran % (42.2 - 75.2 %) 92.0 H 85.8 H Lymphocytes % (20.5 - 51.1 %) 5.1 L 6.6 L Monocytes % (1.7 - 9.3 %) 2.6 7.5 Eosinophils % (0 - 5 %) 0.2 0 Basophils % (0.0 - 2.0 %) 0.1 0.1 Absolute Granulocytes (1.4 - 6.5 /CUMM) 13.3 H 12.9 H Absolute Lymphocytes (1.2 - 3.4 /CUMM) 0.7 L 1.0 L Absolute Monocytes (0.10 - 0.60 /CUMM) 0.4 1.1 H Absolute Eosinophils (0.0 - 0.7 /CUMM) 0 0 Absolute Basophils (0.0 - 0.2 /CUMM) 0 0 PUBS MCHC (33.0 - 37.0 G/DL) 31.9 L 31.9 L Serology Hepatitis A IgM Ab (NONREACTIVE) NONREACTIVE Hep Bs Antigen (NONREACTIVE) NONREACTIVE Hep B Core IgM Ab Conf (NONREACTIVE) NONREACTIVE Hepatitis C Antibody (NONREACTIVE) NONREACTIVE HIV 1&2 Ab Western Blot (NONREACTIVE) NONREACTIVE Toxicology Acetaminophen (10.0 - 30.0 ug/mL) < 10.0 L Serum Alcohol (<10 MG/DL) < 10.0 11/095 Blood Gas pH (7.35 - 7.45 PH) 7.36 pCO2 (35 - 45 TORR) 35 pO2 (80 - 100 TORR) 77 L HCO3 (21 - 28 MEQ/L) 20 L ABG O2 Sat (Measured) (>96.0 %) 93.0 L Carboxyhemoglobin (1.5 - 5.0 %) 0.1 L O2 Concentration % 4.5L O2 Delivery Method NC Miscellaneous Phlebotomy Draw Site RIGHT BRACHIAL Assessment/Plan Assessment/Plan 81-year-old woman with no significant past medical history (not followed by a medical professional), who has a long-standing smoking history. She presents with increasing dyspnea, progressive over a period of approximately 2 weeks. On arrival to the emergency room, she was noted to be hypotensive as well as hypoxic. She was noted to have a mildly elevated troponin isoenzyme as well as a markedly elevated BNP. Hypotension: Likely multifactorial including slight volume depletion in the setting of likely systemic immune response syndrome/pneumonia. This has improved with volume resuscitation. Given the evidence of pulmonary hypertension, she is as well likely more volume dependent for maintenance of adequate cardiac output. We will continue with volume resuscitation and treatment of a possible infectious process. Elevated troponin isoenzymes: Levels should be followed to peak. In the setting of acute renal insufficiency as well as her overall presentation, the troponin isoenzyme elevation is likely not due to a type I myocardial infarction; however, rather likely due to either a type II (supply/demand mismatch) or elevation in the setting of sepsis/SIRS. If her blood pressure allows, a low-dose beta luz would prove beneficial. She has well has elevated cardiac risk, and aspirin at 81 mg daily should be initiated when acceptable. Severe pulmonary hypertension: The patient's pulmonary pressure is approximately 70s, and is likely multifactorial including long-standing smoking history. There is no clear left sided cause for her pulmonary hypertension by echocardiography. Thank you for allowing us to participate in the care of your patient. Please do not hesitate to contact us further with any questions. Sincerely, Henry Shelton MD [facility] Consult Acknowledgment - Thank you for your consult request.
--- NOTE | 2016-11-10 11:32 | NUR ---
RECEIVED REPORT FROM LUCAS RN AT 0730 PATIENT A&OX3, WEAK, TIRED, TURNER, ANXIOUS FAMILY AT BEDSIDE; T 98.3, ST 102, RR 30, BP 90/50, 50% VENTI MASK O2 SAT 94% DENIES LIGHT HEADEDNESS, CP, PALPITATIONS,PAIN, RIJ TLC, N/S @ 75 MLS/HR HUNG PER ORDER; 2 500 MLS NS BOLUS GIVEN; HEPARIN GTT INFUSING AT 12 UNITS/KG/HR PTT DRAW RESULT 33 HEPATIN BOLUS 2,993 UNITS GIVEN INCREASED HEPARIN GTT TO 16 UNITS/KG/HR PER PROTOCOL; LACTIC ACID DRAWN RESULT 4.6, NEXT TROPONIN/EKG DUE AT 1200, BEDSIDE ECHO DONE AT 0955 AHMADI INSERTED 60MLS ODOROUS CLOUDY SEDIMENT DU COLOR URINE OUPUT AHMADI AVERAGING 45 TO 60 MLS PER HOUR OUTPUT, UA/UC SENT TO LAB; B/L LE US DUE AT BEDSIDE FOR 1200 VQ SCAN ORDERED CVP SET-UP RESULT 3 PRODUCTIVE COUGH YELLOW THICK SPUTUM LUNGS DIMISHED SOLUMEDROL 40MG GIVEN ABD SOFT POSITIVE B.S., NPO OK TO GIVE SIPS W/ MEDS,ICE CHIPS ALLOWED; SKIN INTACT, MAHER IN COLOR, NO EDEMA, WARTS AT PUBIC AREA, ALL EXT. ELEVATED, CALL THOMPSON WITH IN REACH,WILL CONTINUE TO CLOSELY MONITOR
--- NOTE | 2016-11-10 13:00 | ECHOCARDIOGRAM REPORT ---
FERNANOD DALE Age: 81 : 1935 Gender: F Exam Date: 11/10/2016 09:49 Exam Location: [facility] Ht (in): 62 Wt (lb): 120 BSA: 1.55 BP: 80 / 52 Ordering Physician: ELLA HERNANDEZ M Referring Physician: Henry Shelton M.D. Technologist: Jaylyn Wylie YAYA Room Number: 106 Indications: CARDIAC MASS, ASSES LV FUNCTION Rhythm: Technical Quality: good FINDINGS Left Ventricle Normal LV chamber size and wall thickness. The estimated LVEF is 60% there are no focal wall motion of modalities. There is septal wall dyssynchrony as well as flattening (predominantly in diastole) Right Ventricle The RV chamber size is markedly dilated. There is severe global hypokinesis of the right ventricle. Right ventricular apex is akinetic. The estimated RV systolic pressure is greater than 70 Right Atrium Markedly dilated right atrium Left Atrium Grossly normal appearing left atrium Mitral Valve Normal-appearing mitral valvular leaflet structure and function. There is trace to mild mitral regurgitation Aortic Valve Mildly sclerotic aortic valvular leaflet structure and function with normal leaflet opening Tricuspid Valve Grossly normal appearing tricuspid valvular leaflets with suboptimal coaptation. There is moderate tricuspid regurgitation. Estimated PA systolic pressure is 50-60 mmHg Pulmonic Valve Grossly normal appearing pulmonic valvular leaflet structure and function Pericardium Normal pericardium Great Vessels Grossly normal appearing great vessels CONCLUSIONS Normal LV chamber size and wall thickness. The estimated LVEF is 60% there are no focal wall motion of modalities. There is septal wall dyssynchrony as well as flattening (predominantly in diastole). The RV chamber size is markedly dilated. There is severe global hypokinesis of the right ventricle. Right ventricular apex is akinetic. The estimated RV systolic pressure is greater than 70. Markedly dilated right atrium. There is trace to mild mitral regurgitation. There is moderate tricuspid regurgitation. Estimated PA systolic pressure is 50-60 mmHg. Henry Shelton M.D. (Electronically Signed) Final Date: 10 November 2016 13:00 MEASUREMENTS (Male / Female) Normal Values 2D ECHO LV Diastolic Diameter PLAX 3.1 cm 4.2 - 5.9 / 3.9 - 5.3 cm LV Systolic Diameter PLAX 1.9 cm 2.1 - 4.0 cm LV Fractional Shortening PLAX 38.7 % 25 - 46 % LV Ejection Fraction 2D Teich 70.6 % IVS Diastolic Thickness 1.2 cm LVPW Diastolic Thickness 1.1 cm LV Relative Wall Thickness 0.7 RV Internal Dim ED PLAX 4.2 cm 1.9 - 3.8 cm LVOT Diameter 1.9 cm Aortic Root Diameter 2.8 cm LA Systolic Diameter LX 3.3 cm 3.0 - 4.0 / 2.7 - 3.8 cm LA Volume 22.7 cm 18 - 58 / 22 - 52 cm LA Volume Index 14.7 cm/m 16 - 28 cm/m Ascending Aorta Diameter 3.3 cm DOPPLER AV Peak Velocity 129.0 cm/s AV Peak Gradient 6.7 mmHg AV Mean Velocity 84.8 cm/s AV Mean Gradient 4.0 mmHg AV Velocity Time Integral 18.1 cm LVOT Peak Velocity 96.1 cm/s LVOT Peak Gradient 3.7 mmHg LVOT Mean Velocity 58.1 cm/s LVOT Mean Gradient 2.0 mmHg LVOT Velocity Time Integral 12.9 cm LVOT Stroke Volume 36.6 cm AV Area Cont Eq vti 2.0 cm AV Area Cont Eq pk 2.1 cm MV Peak Velocity 93.1 cm/s MV Peak Gradient 3.5 mmHg MV Mean Velocity 47.8 cm/s MV Mean Gradient 1.0 mmHg Mitral E Point Velocity 51.3 cm/s Mitral A Point Velocity 77.5 cm/s Mitral E to A Ratio 0.7 MV PHT Velocity 52.3 cm/s MV Deceleration [place] 153.0 cm/s MV Pressure Half Time 102.5 ms MV Area PHT 2.1 cm MV Deceleration Time 214.0 ms TR Peak Velocity 402.0 cm/s TR Peak Gradient 64.6 mmHg Right Atrial Pressure 5.0 mmHg Pulmonary Artery Systolic Pressu 69.6 mmHg Right Ventricular Systolic Press 69.6 mmHg PV Peak Velocity 88.9 cm/s PV Peak Gradient 3.2 mmHg PV Mean Velocity 61.2 cm/s PV Mean Gradient 2.0 mmHg PV Velocity Time Integral 12.8 cm LV E' Lateral Velocity 12.3 cm/s Mitral E to LV E' Lateral Ratio 4.2 LV E' Septal Velocity 8.9 cm/s Mitral E to LV E' Septal Ratio 5.8
--- NOTE | 2016-11-10 13:15 | ULTRASOUND REPORT ---
EXAMINATION: US TRIPLEX LOWER EXTREMITY, BILATERAL CLINICAL INFORMATION: Increased oxygen requirements with hypotension and dyspnea COMPARISON: None TECHNIQUE: Color-flow triplex imaging with spectral analysis and compression Doppler were performed on the bilateral lower extremities. FINDINGS: Duplex Doppler compression ultrasound evaluation of the lower extremities performed bilaterally. There was normal compressibility in response to augmentation and compression maneuvers within the common femoral veins bilaterally and proximal and mid superficial femoral veins. Within the left lower extremity there is partially occluded thrombus for a short segment than what flow noted normally within the popliteal vein and proximal calf veins. Within the mid to distal left superficial femoral vein and popliteal vein there is noted to be partially occlusive thrombus. No popliteal fossa cyst identified. No popliteal artery aneurysm. IMPRESSION: Bilateral lower extremity DVT with partially occluded thrombus seen within both distal superficial femoral veins as well as left popliteal vein. This critical result was discussed with Dr. Perry at 1:10 PM on November 10, 2016 and it was ascertained that the content and urgency of the report was understood at the time of direct communication.
--- NOTE | 2016-11-10 15:30 | NUR ---
ASSUMED CARE OF PATIENT. LACTIC ACID DRAWN AND SENT TOP LAB. PATIENT SLEEPING BUT AROUSABLE, OR X 3 BIPAP ON AT 50% O2. LUNGS RHONCHOROUS AND DIMINISHED AT BASES. MONITOR SHOWS SINUS TACH WITHOUT ECTOPY, ABD SOFT NON TENDER WITH POSITIVE BOWEL SOUNDS. AHMADI INTACT DRAINING CLOUDY DU URINE. SKIN INTACT WITH ECCHYMOTIC AREA LL RIBS AND PATCHES OF MULTIPLE SKIN TAGS. FAMILY AT BEDSIDE. CENTRAL LINE INTACT DRESSING DRY RIJ.
[2016-11-10 16:00] VITALS: BP 100/54
[2016-11-10 19:09] LABS: PTT 33 SEC (25-37)
[2016-11-11] VITALS: BP 104/60; BP 108/82
[2016-11-11 00:29] LABS: PTT 54 SEC (25-37)
--- NOTE | 2016-11-11 02:19 | NUR ---
UO 20ML AT 0100 AND 10ML AT 0200. REPORTED TO . IVT INCREASED TO 100ML/H ORDERED.
[2016-11-11 06:46] LABS: ABSOLUTE BASOPHIL COUNT 0 /CUMM (0.0-0.2); ABSOLUTE EOSINOPHIL COUNT 0 /CUMM (0.0-0.7); ABSOLUTE MONOCYTE COUNT 0.4 /CUMM (0.10-0.60); BASOPHIL % 0 % (0.0-2.0); HEMATOCRIT 20.7 % (37-47); MEAN PLATELET VOLUME 8.9 FL (7.4-10.4); RBC DISTRIBUTION WIDTH 16.7 % (11.5-14.5); RED BLOOD CELL CT 2.55 /CUMM (4.20-5.40)
--- NOTE | 2016-11-11 06:48 | PN- Resident CRCU ---
Subjective HPI/CRCU Issues: Ms. Rosario was seen and examined this morning. She is resting comfortably in bed. She reports no issues overnight. Daughter was at bedside who spent part of the night with the patient states that the Mrs. Rosario was able to get some rest. She denies any fever, chills, nausea, vomiting. She is currently on high flow oxygen saturating well. 24 Hour Events: Drop In H/H: 6.6/20.7 Objective Vital Signs & I&O Last 8 Hrs of Vitals and I&O: T: 97.0 NH: 94 RR: 28 BP: 120/64 Pulse ox 94%. NC. 45% Exam General Appearance: well developed/nourished, no apparent distress, alert, awake , mild distress Head: atraumatic, normal appearance Neck: normal inspection Respiratory: normal breath sounds Cardiovascular: regular rate/rhythm Gastrointestinal: normal bowel sounds, soft, non-tender, no organomegaly Extremities: normal inspection, normal capillary refill, normal range of motion Cranial Nerves: normal hearing, normal speech Current Medications: Current Medications Sig/Irma Start time Last Medication Dose Route Stop Time Status Admin Albuterol Sulfate 3 ML EVERY 4 HRS/AWAKE 11/10 1200 AC 11/11 INH 0812 Albuterol Sulfate 3 ML Q4H PRN 11/10 0800 AC 11/10 INH 0757 Aspirin 81 MG DAILY 11/10 1000 AC 11/11 PO 0959 Azithromycin 500 MG 0200 11/11 0200 DC Sodium Chloride 250 ML IV Azithromycin 500 MG 2200 11/10 2200 AC 11/10 Sodium Chloride 250 ML IV 2209 Ceftriaxone Sodium 1,000 MG 11/10 2200 AC 11/10 IV 2210 Heparin Sodium 2,000 UNIT ONCE ONE 11/11 0050 DC 11/11 (Porcine) IV 11/11 0051 0050 Heparin Sodium 5,000 UNIT .STK-MED ONE 11/11 0046 DC (Porcine) IV 11/11 0047 Heparin Sodium 3,500 UNIT ONE ONE 11/10 1914 DC 11/10 (Porcine) IV 11/11 1915 1934 Heparin Sodium/ 25,000 UNIT Q24H 11/10 1315 AC Dextrose IV Dextrose/Water 500 ML Heparin Sodium/ 25,000 UNIT Q24H 11/10 0115 DC 11/10 Dextrose IV 0226 Dextrose/Water 500 ML Ipratropium [place] 2.5 ML EVERY 4 HRS/AWAKE 11/10 1200 AC 11/11 INH 0812 Methylprednisolone 40 MG Q12 11/10 1000 DC 11/11 IV 0959 Multivitamins 1 TAB DAILY 11/10 1000 AC 11/11 PO 0959 Prednisone 30 MG DAILY 11/14 1000 UNVr PO 11/15 1001 Prednisone 40 MG BID 11/11 2200 AC PO 11/12 1001 Sodium Chloride 1,000 ML Q10H 11/11 2015 AC IV Sodium Chloride 1,000 ML BOLUS ONE 11/10 1100 DC 11/10 IV 11/10 1259 1056 Sodium Chloride 1,000 ML Q13H 11/10 0715 DC 11/10 IV 0812 Miscellaneous Findings: SERVICE DATE: 11/11/16-599 EXAM TYPE: NUC - LUNG SCAN (V/Q) EXAMINATION: PULMONARY VENTILATION PERFUSION STUDY CLINICAL INFORMATION: Increased O2 requirements, evidence of DVT on Dopplers. COMPARISON: No previous lung scan is available for comparison. A chest radiograph dated 11/11/2016, the same date as this lung scan, is available for comparison. TECHNIQUE: Serial gamma scintillation camera images were obtained over the posterior chest during the single breath, equilibrium rebreathing and washout of 10.1 mCi Xe 133 gas. The patient then received 4.1 mCi Tc-99m MAA intravenously and a 6-view perfusion study was performed. FINDINGS: Ventilation images: On the single breath and equilibrium images there is diffusely decreased ventilation to the right lung. During the equilibrium phase there is significant redistribution into the right lung. During the washout phase there is marked retention diffusely in the right lung and mild diffuse retention in the left lung. Right hemidiaphragm appears elevated. Perfusion images: There is a segmental perfusion defect that is probably in the superior segment of the left additional subsegmental perfusion defects are present in the lung apices bilaterally in scattered in the right lung, likely involving old 3 lobes. The right hemidiaphragm appears higher than the left, but this is well matched to the ventilation images. The contemporaneous chest radiograph shows opacity in the right lower lung zone that corresponds to the region of decreased ventilation and perfusion described above but no significant abnormality is present in the region of the segmental defect that is likely in the superior segment of the left lower lobe. IMPRESSION: High probability of pulmonary embolism. A segmental defect in the left lung that is likely in the superior segment is present and in addition there are several subsegmental perfusion defects present bilaterally. DICTATED BY: BRYSON FLYNN MD Impression/Plan Impression/Problem List Impression: Ms Rosario is a 81-year-old female who presented to the emergency department with a long-standing standing smoking history with symptoms of increasing dyspnea progressively worsening over the last 2 weeks. At the time of arrival the patient was found to be hypoxic and was admitted to the ICU for further management. Respiratory. Patient is on high flow oxygen. She is saturating well. BiPAP to be needed PRN. Venous Doppler study done this a.m. did show evidence of DVT. Patient has been continued on IV heparin as per PE/DVT protocol. Repeat PTT as per protocol. Patient went for a V/Q Scan this am. Solumederol 40 mg IV Q12, Changed to Prednisone Taper, 40 mg (11/11 and 11/12.) 30mg (11/13 and 11/14), 20 mg (11/15 and 11/16), 10mg (11/17 and 11/18). Strep pneumo, Legionella negative. Continue Ceftriaxone and Czithromycin. Follow up Cultures: BC X1: [facility] Patient has been profoundly hypotensive in the early part of this morning. The patient had a central line in place, however, have not needed pressors. Consider discontinuing Central line 11/11/2016. Echocardiogram done this a.m. shows evidence of pulmonary pressures in the 70s. Likely attributed to long-standing smoking history. Elevated troponins have peaked at: 0.44. No Ekg Changes. Once patient is more stable and hemodynamically within normal physiological ranges we can begin aspirin and beta luz. The patient does have a central line and should the need for pressors arise, begin Levophed. Ensure MAP >60. Lactic acidosis elevated meryley owing to hypoperfusion. Lactic Acid: 4.6-->3.2-- >2.2-->1.7 Patient pressure has responded well to fluids. May consider decreasing fluids rate. Hematology Patient's H&H did fall from 7.8-6.6. She was transfused 1 unit of PRBC and has responded well. Will monitor CBC in the a.m. In the meantime we have ordered an extensive anemia workup. Vascular consultation obtained for evaluation of IVC placement, if AC is contraindicated. Alimentary Nicotine patch 21 mg PRN Heart healthy diet with ensure supplements given. Code DNR/DNI Problem List: 1. Pneumonia 2. ACS (acute coronary syndrome) Pain Ratin Tomorrow's Labs & Rationales: CBC ICU Bundle Plan DVT/Prophylaxis: pharmacological
[2016-11-11 06:50] LABS: ABSOLUTE GRANULOCYTE CT 18.7 /CUMM (1.4-6.5); ABSOLUTE LYMPH COUNT 0.8 /CUMM (1.2-3.4); EOSINOPHIL % 0.1 % (0-5); GRANULOCYTE % 93.8 % (42.2-75.2); MEAN CORPUSCULAR HGB 25.7 PG (27.0-31.0); MEAN CORPUSCULAR HGB CONC 31.7 G/DL (33.0-37.0); MEAN CORPUSCULAR VOLUME 81.1 FL (81.0-99.0); PLATELET COUNT 285 /CUMM (130-400); WHITE BLOOD CELL COUNT 19.9 /CUMM (4.8-10.8)
[2016-11-11 07:00] LABS: PTT 51 SEC (25-37)
[2016-11-11 08:00] VITALS: BP 120/64
--- NOTE | 2016-11-11 08:12 | RADIOLOGY REPORT ---
EXAMINATION: XR PORTABLE CHEST CLINICAL INFORMATION: Increased oxygen requirement. Abnormal chest radiograph. Evaluate worsening pulmonary opacities. Lower extremity deep vein thrombosis. COMPARISON: CXR from 11/10/2016 TECHNIQUE: Portable AP view of the chest was obtained. FINDINGS: Lungs are hyperexpanded. The bronchial garcias are thickened, as well. There is persistent airway wall thickening, linear and patchy opacity in the right lower lung zone. This could represent a combination of bronchitis and bronchopneumonia - if in the right clinical context. No pleural effusion. Cardiac silhouette exhibits stable enlargement. Thoracic aorta is calcified. Pulmonary arteries are large at each hilum. The tip of the right internal jugular central catheter is in the distal superior vena cava. Bones are unremarkable. IMPRESSION: 1. Chronic obstructive pulmonary disease is suspected. 2. Persistent bronchial wall thickening, linear and patchy opacity in right lower lung zone. This could reflect presence of bronchitis and bronchopneumonia - if in the right clinical context. 3. Cardiomegaly and large pulmonary arteries, suggestive of pulmonary arterial hypertension. No acute pulmonary edema. 4. Central line has been repositioned, its tip now located in the distal superior vena cava.
--- NOTE | 2016-11-11 10:20 | PN- CRCU ---
Subjective HPI/Critical Care Issues: Patient seen and examined this morning. She has no new complaints. She is somewhat lethargic but otherwise without any chest pain or shortness of breath at rest. Objective Current Medications: Current Medications Sig/Irma Start time Last Medication Dose Route Stop Time Status Admin Albuterol Sulfate 3 ML EVERY 4 HRS/AWAKE 11/10 1200 AC 11/11 INH 0812 Albuterol Sulfate 3 ML Q4H PRN 11/10 0800 AC 11/10 INH 0757 Aspirin 81 MG DAILY 11/10 1000 AC 11/11 PO 0959 Azithromycin 500 MG 0200 11/11 0200 DC Sodium Chloride 250 ML IV Azithromycin 500 MG 2200 11/10 2200 AC 11/10 Sodium Chloride 250 ML IV 2209 Ceftriaxone Sodium 1,000 MG 11/10 2200 AC 11/10 IV 2210 Heparin Sodium 2,000 UNIT ONCE ONE 11/11 0050 DC 11/11 (Porcine) IV 11/11 0051 0050 Heparin Sodium 5,000 UNIT .STK-MED ONE 11/11 0046 DC (Porcine) IV 11/11 0047 Heparin Sodium 3,500 UNIT ONE ONE 11/10 1915 DC 11/10 (Porcine) IV 11/10 191 1934 Heparin Sodium 2,993 UNIT ONCE ONE 11/10 1100 DC 11/10 (Porcine) IV 11/10 1101 1106 Heparin Sodium/ 25,000 UNIT Q24H 11/10 1315 AC Dextrose IV Dextrose/Water 500 ML Heparin Sodium/ 25,000 UNIT Q24H 11/10 0115 DC 11/10 Dextrose IV 0226 Dextrose/Water 500 ML Ipratropium [place] 2.5 ML EVERY 4 HRS/AWAKE 11/10 1200 AC 11/11 INH 0812 Methylprednisolone 40 MG Q12 11/10 1000 AC 11/11 IV 0959 Multivitamins 1 TAB DAILY 11/10 1000 AC 11/11 PO 0959 Sodium Chloride 1,000 ML Q10H 11/11 2015 AC IV Sodium Chloride 1,000 ML BOLUS ONE 11/10 1100 DC 11/10 IV 11/10 1259 1056 Sodium Chloride 1,000 ML BOLUS ONE 11/10 0830 DC 11/10 IV 11/10 1029 0830 Sodium Chloride 1,000 ML Q13H 11/10 0715 DC 11/10 IV 0812 Vital Signs & I&O Last 24 Hrs of Vitals and I&O: Vital Signs Date Time Temp Pulse Resp B/P B/P Pulse O2 O2 Flow FiO2 Mean Ox Delivery Rate 11/11 0834 95 Nasal 45% Cannula 11/11 0800 97.0 94 28 120/64 97 Nasal 45% Cannula 11/11 0400 96 Nasal 45% Cannula 11/11 0248 97 Nasal 45% Cannula 11/11 0103 92 Nasal 45% Cannula 11/11 0000 98 Nasal 45% Cannula 11/11 0000 96.9 100 29 104/60 98 Nasal 45% Cannula 11/10 2104 97 Nasal 45% Cannula 11/10 2000 97 Nasal 45% Cannula 11/10 1624 100 11/10 1600 92 BIPAP 45% 11/10 1600 97.4 96 22 100/54 92 BIPAP 50% 11/10 1445 109 11/10 1222 93 Nasal 50% Cannula 11/10 1200 99 Nasal 50% Cannula Intake & Output 11/11 1600 11/11 0800 11/11 0000 Intake Total 708 1156 Output Total 325 200 Balance 383 956 Intake, IV 856 Intake, Oral 300 Intake, 708 TPN/PPN Output, Gastric Drainage Output, Urine 325 200 Patient 110 lb Weight Exam Other Physical Findings: gen awake and alert heent ncat cvs s1, s2, +murmur lungs rare rhonchi abd soft bs+ ext without edema midline chest area with keratotic discoloration Results Last 24 Hrs of Lab Results: Laboratory Tests 11/11/16 0625: Anion Gap 11, Estimated GFR 36 L, Glucose 218 H, Calcium 7.1 L, Phosphorus 4.4, Magnesium 2.5 H, Iron < 10 L, TIBC 200 L, Ferritin 117.0, Total Bilirubin 0.8, AST 1172 H, ALT 1194 H, Albumin 2.4 L, Vitamin B12 Pending, Folate Pending, APTT 51 H, CBC w Diff MAN DIFF ORDERED, RBC 2.55 L, MCV 81.1, MCH 25.7 L, RDW 16.7 H, MPV 8.9, Gran % 93.8 H, Lymphocytes % 4.2 L, Monocytes % 1.9, Eosinophils % 0.1, Basophils % 0 L, Absolute Granulocytes 18.7 H, Segmented Neutrophils 87 H, Band Neutrophils 9 H, Absolute Lymphocytes 0.8 L, Lymphocytes 2 L, Monocytes 2, Absolute Monocytes 0.4, Absolute Eosinophils 0, Absolute Basophils 0, Platelet Estimate ADEQUATE, Hypochromic-Microcytic 2+, Poikilocytosis 1+, Microcytic Cells 1+, Ovalocytes 2+, PUBS MCHC 31.7 L 11/10/16 2350: APTT 54 H 11/10/16 1905: Lactic Acid 1.7 11/10/16 1710: APTT 33 11/10/16 1540: Lactic Acid 2.2 H 11/10/16 1225: Lactic Acid 3.2 H, Troponin I 0.31 *H Impression/Plan Impression/Plan Impression/Plan: Impression 81 year old woman * acute hypoxemic respiratory failure - desaturated to 80% on RA * hypotension secondary to severe sepsis vs cardiogenic etiology (BNP 85533) * troponinemia, can be nstemi or demand ischemia * transaminitis * tobacco dependence history * anemia * VTE - (DVTs) with presumed PE Plan - cardiology consultation - ins/outs, hydration - trc/nebs - monitor labs, electrolytes - dc solumedrol, begin prednisone 40mg today with a taper by 10mg every 2 days - cont empiric abx w/ceftriaxone/zithromax - f/u all cultures - vascular surgery consultation due to anemia and need for a/c, if still anemic would require an ivc filter - anemia workup, iron studies, b12, folate, guaiac, etc DNR/DNI TTS 35 min d/w pt and family
--- NOTE | 2016-11-11 10:27 | NUR ---
Received patient at 0800, sleepy from oriented x3 when awake. TURNER but c/o feeling weak. Poor skin turgor/dry mucous membranes/pale complexion noted. Otherwise skin intact/no edema. Positive pedal/radial pulses bilaterally. On 45% high flow nasal cannula satting well 94-97%. Denies SOB. Lungs clear in the upper/diminished to the bases. NSR-ST 90s-100s on the cost accounting manager. [id number]. Denies chest pain. On heparin gtt running through [place] [facility] at 24 mls/hr or 24 u/kg/hr increased to 26 mls/hr for PTT 51 and to be redrawn at 11/11 @ 1400. No signs of bleeding assessed. Abdomen soft/nontender, +BS. Shea in place draining clear janneth urine in adequate amounts. Patient to get 1 unit of PRBC's and VQ scan anticipated this morning/early afternoon. Patient given call quinteros, reoriented to room, family at bedside educated and support given.
--- NOTE | 2016-11-11 13:38 | NUCLEAR MEDICINE REPORT ---
EXAMINATION: PULMONARY VENTILATION PERFUSION STUDY CLINICAL INFORMATION: Increased O2 requirements, evidence of DVT on Dopplers. COMPARISON: No previous lung scan is available for comparison. A chest radiograph dated 11/11/2016, the same date as this lung scan, is available for comparison. TECHNIQUE: Serial gamma scintillation camera images were obtained over the posterior chest during the single breath, equilibrium rebreathing and washout of 10.1 mCi Xe 133 gas. The patient then received 4.1 mCi Tc-99m MAA intravenously and a 6-view perfusion study was performed. FINDINGS: Ventilation images: On the single breath and equilibrium images there is diffusely decreased ventilation to the right lung. During the equilibrium phase there is significant redistribution into the right lung. During the washout phase there is marked retention diffusely in the right lung and mild diffuse retention in the left lung. Right hemidiaphragm appears elevated. Perfusion images: There is a segmental perfusion defect that is probably in the superior segment of the left additional subsegmental perfusion defects are present in the lung apices bilaterally in scattered in the right lung, likely involving old 3 lobes. The right hemidiaphragm appears higher than the left, but this is well matched to the ventilation images. The contemporaneous chest radiograph shows opacity in the right lower lung zone that corresponds to the region of decreased ventilation and perfusion described above but no significant abnormality is present in the region of the segmental defect that is likely in the superior segment of the left lower lobe. IMPRESSION: High probability of pulmonary embolism. A segmental defect in the left lung that is likely in the superior segment is present and in addition there are several subsegmental perfusion defects present bilaterally.
--- NOTE | 2016-11-11 14:28 | PN- Cardiology ---
Subjective Subjective: Patient currently on high-flow oxygen. No chest pain or palpitations. Some lethargy but answers questions appropriately. Minimal dyspnea at this time. Objective Vital Signs and I&Os Vital Signs Date Time Temp Pulse Resp B/P B/P Pulse O2 O2 Flow FiO2 Mean Ox Delivery Rate 11/11 1335 94 Nasal 45% Cannula 11/11 1200 98 Nasal 45% Cannula 11/11 0834 95 Nasal 45% Cannula 11/11 0800 97.0 94 28 120/64 97 Nasal 45% Cannula 11/11 0800 95 Nasal 45% Cannula 11/11 0400 96 Nasal 45% Cannula 11/11 0248 97 Nasal 45% Cannula 11/11 0103 92 Nasal 45% Cannula 11/11 0000 98 Nasal 45% Cannula 11/11 0000 96.9 100 29 104/60 98 Nasal 45% Cannula 11/10 2104 97 Nasal 45% Cannula 11/10 2000 97 Nasal 45% Cannula 11/10 1624 100 11/10 1600 92 BIPAP 45% 11/10 1600 97.4 96 22 100/54 92 BIPAP 50% 11/10 1445 109 Intake & Output 11/11 1600 11/11 0800 11/11 0000 11/10 1600 11/10 0800 11/10 0000 Intake Total 708 1156 1917 0 Output Total 325 200 220 0 Balance 195 107 4146 0 Intake, IV 856 1737 0 Intake, Oral 300 180 0 Intake, 708 TPN/PPN Number 0 0 Bowel Movements Output, Gastric Drainage Output, Urine 325 200 220 0 Patient 110 lb 110 lb 120 lb Weight Weight Bed scale Reported by Patient Measurement Method Physical Exam: General: no apparent distress. On high-flow oxygen. Eyes: no scleral icterus HEENT: No jugular venous distention or abnormal jugular venous pulsations. Cardiovascular: Normal intensity S1/S2. Regular. Respiratory: Decreased air entry bilaterally Abdomen: no guarding or rebound tenderness. Musculoskeletal: No cyanosis noted, No edema Skin: warm Neuro: grossly nonfocal Current Medications: Current Medications Sig/Irma Start time Last Medication Dose Route Stop Time Status Admin Albuterol Sulfate 3 ML EVERY 4 HRS/AWAKE 11/10 1200 AC 11/11 INH 1321 Albuterol Sulfate 3 ML Q4H PRN 11/10 0800 AC 11/10 INH 0757 Aspirin 81 MG DAILY 11/10 1000 AC 11/11 PO 0959 Azithromycin 500 MG 0200 11/11 0200 DC Sodium Chloride 250 ML IV Azithromycin 500 MG 11/100 AC 11/10 Sodium Chloride 250 ML IV 2209 Ceftriaxone Sodium 1,000 MG 11/10 AC 11/10 IV 2210 Heparin Sodium 2,000 UNIT ONCE ONE 11/11 0050 DC 11/11 (Porcine) IV 11/11 005 0050 Heparin Sodium 5,000 UNIT .STK-MED ONE 11/11 0046 DC (Porcine) IV 11/11 0047 Heparin Sodium 3,500 UNIT ONE ONE 11/10 1914 DC 11/10 (Porcine) IV 11/11 1915 1934 Heparin Sodium/ 25,000 UNIT Q24H 11/10 1315 AC Dextrose IV Dextrose/Water 500 ML Ipratropium [place] 2.5 ML EVERY 4 HRS/AWAKE 11/10 1200 AC 11/11 INH 1321 Methylprednisolone 40 MG Q12 11/10 1000 DC 11/11 IV 0959 Multivitamins 1 TAB DAILY 11/10 1000 AC 11/11 PO 0959 Prednisone 30 MG DAILY 11/14 1000 UNVr PO 11/15 1001 Prednisone 40 MG BID 11/11 2200 AC PO 11/12 1001 Sodium Chloride 1,000 ML Q10H 11/11 2015 AC IV Sodium Chloride 1,000 ML Q13H 11/10 0715 DC 11/10 IV 0812 Results Last 48 Hrs of Labs/Mics: Laboratory Tests 11/11/16 0625: Anion Gap 11, Estimated GFR 36 L, Glucose 218 H, Calcium 7.1 L, Phosphorus 4.4, Magnesium 2.5 H, Iron < 10 L, TIBC 200 L, Ferritin 117.0, Total Bilirubin 0.8, AST 1172 H, ALT 1194 H, Albumin 2.4 L, Vitamin B12 > 1000 H, Folate 12.3, APTT 51 H, CBC w Diff MAN DIFF ORDERED, RBC 2.55 L, MCV 81.1, MCH 25.7 L, RDW 16.7 H, MPV 8.9, Gran % 93.8 H, Lymphocytes % 4.2 L, Monocytes % 1.9, Eosinophils % 0.1, Basophils % 0 L, Absolute Granulocytes 18.7 H, Segmented Neutrophils 87 H, Band Neutrophils 9 H, Absolute Lymphocytes 0.8 L, Lymphocytes 2 L, Monocytes 2, Absolute Monocytes 0.4, Absolute Eosinophils 0, Absolute Basophils 0, Platelet Estimate ADEQUATE, Hypochromic-Microcytic 2+, Poikilocytosis 1+, Microcytic Cells 1+, Ovalocytes 2+, PUBS MCHC 31.7 L 11/10/16 2350: APTT 54 H 11/10/16 1905: Lactic Acid 1.7 11/10/16 1710: APTT 33 11/10/16 1540: Lactic Acid 2.2 H 11/10/16 1225: Lactic Acid 3.2 H, Troponin I 0.31 *H 11/10/16 0905: Urinalysis MOD H, Urine Color DU, Urine Clarity HAZY H, Urine pH 6.0, Ur Specific [place] >= 1.030, Urine Protein 100 H, Urine Ketones NEG, Urine Nitrite NEG, Urine Bilirubin POS@ICTO H, Urine Urobilinogen 4.0 H, Ur Leukocyte Esterase NEG, Ur Microscopic SEDIMENT EXAMINED, Urine RBC RARE, Urine WBC RARE, Ur Epithelial Cells MOD H, Urine Bacteria FEW H, Hyaline Casts 1-3 H, Urine Hemoglobin TRACE-INTACT, Urine Glucose NEG 11/10/16 0900: Lactic Acid 4.6 H, APTT 33 11/10/16 0605: Anion Gap 15, Estimated GFR 27 L, BUN/Creatinine Ratio 25.0, Troponin I 0.44 *H , CBC w Diff NO MAN DIFF REQ, RBC 2.99 L, MCV 81.6, MCH 26.0 L, RDW 16.6 H, MPV 8.5, Gran % 92.0 H, Lymphocytes % 5.1 L, Monocytes % 2.6, Eosinophils % 0.2, Basophils % 0.1, Absolute Granulocytes 13.3 H, Absolute Lymphocytes 0.7 L , Absolute Monocytes 0.4, Absolute Eosinophils 0, Absolute Basophils 0, PUBS MCHC 31.9 L 11/09/16 2335: Anion Gap 16, Estimated GFR 36 L, BUN/Creatinine Ratio 27.1 H, Glucose 210 H, Hemoglobin A1c 6.2 H, Calcium 8.4, Iron 20 L, TIBC 257 L, Ferritin 154.0, Total Bilirubin 1.6 H, Direct Bilirubin 1.0 H, AST 1591 H, ALT 847 H, Alkaline Phosphatase 93, Troponin I 0.44 *H, Pkn-W-Ulybkvbdprm Pept 84250 H, Total Protein 6.5, Albumin 3.1 L, Globulin 3.4, Albumin/Globulin Ratio 0.9 L, Triglycerides 101, Cholesterol 102, LDL Cholesterol, Calc 58 L, HDL Cholesterol 24 L, Cholesterol/HDL Ratio 4, Vitamin B12 > 1000 H, 25-OH Vitamin D Total 4.7 L, Folate 18.6, TSH 0.430, Free T4 2.50 H, D-Dimer 1048 H, CBC w Diff NO MAN DIFF REQ, RBC 3.37 L, MCV 82.1, MCH 26.2 L, RDW 16.7 H, MPV 8.6, Gran % 85.8 H, Lymphocytes % 6.6 L, Monocytes % 7.5, Eosinophils % 0, Basophils % 0.1, Absolute Granulocytes 12.9 H, Absolute Lymphocytes 1.0 L, Absolute Monocytes 1.1 H, Absolute Eosinophils 0, Absolute Basophils 0, PUBS MCHC 31.9 L, Hepatitis A IgM Ab NONREACTIVE, Hep Bs Antigen NONREACTIVE, Hep B Core IgM Ab Conf NONREACTIVE, Hepatitis C Antibody NONREACTIVE, HIV 1&2 Ab Western Blot NONREACTIVE, Acetaminophen < 10.0 L, Serum Alcohol < 10.0 11/09/16 2315: pH 7.36, pCO2 35, pO2 77 L, HCO3 20 L, ABG O2 Sat (Measured) 93.0 L, Carboxyhemoglobin 0.1 L, O2 Concentration % 4.5L, O2 Delivery Method NC, Phlebotomy Draw Site RIGHT BRACHIAL Microbiology 11/10 904 URINE ROUT: Legionella Antigen - COMP 11/10 904 URINE ROUT: Streptococcus pneumoniae Antigen (M - COMP 11/10 0700 GI: Surveillance Culture - COMP 11/10 0645 UPPER RESP: Surveillance Culture - COMP 11/10 0310 NASOPHARYN: Influenza Virus A & B Rapid Smear - COMP Recent Imaging Studies: Telemetry tracings were personally reviewed and shows sinus rhythm and sinus tachycardia with a short SVT burst V/Q scan: IMPRESSION: High probability of pulmonary embolism. A segmental defect in the left lung that is likely in the superior segment is present and in addition there are several subsegmental perfusion defects present bilaterally. Echocardiogram Normal LV chamber size and wall thickness. The estimated LVEF is 60% there are no focal wall motion of modalities. There is septal wall dyssynchrony as well as flattening (predominantly in diastole). The RV chamber size is markedly dilated. There is severe global hypokinesis of the right ventricle. Right ventricular apex is akinetic. The estimated RV systolic pressure is greater than 70. Markedly dilated right atrium. There is trace to mild mitral regurgitation. There is moderate tricuspid regurgitation. Estimated PA systolic pressure is 50-60 mmHg. Henry Shelton M.D. (Electronically Signed) Final Date: 10 November 2016 13:00 Assessment/Plan Assessment/Plan 1. Respiratory insufficiency with evidence of pulmonary embolism/DVT 2. Extensive smoking history with pulmonary hypertension on Echo 3. Elevated troponin likely due to demand ischemia in the setting of acute pulmonary embolism with respiratory insufficiency 4. Renal insufficiency 5. Anemia of unclear etiology requiring transfusion 6. Severe right ventricular dilatation / dysfunction on echocardiogram 7. Hypotension, improving 8. Possible sepsis The patient was on high-flow O2 this morning but appeared reasonably comfortable. Blood pressure trend appears to be improving. I suspect she has a component of preload dependence given the significant RV dysfunction by echocardiogram. She is being treated for acute DVT/pulmonary embolism with intravenous heparin infusion. Anemia evaluation per the primary team but I would agree that if unable to continue safely with the anticoagulation she would then be a candidate for IVC filter placement. She is currently receiving IV antibiotics. Condition remains guarded. Code status is currently listed as DNR/ DNI. Tone Hernandez MD [facility] Continue telemetry? Yes
[2016-11-11 15:30] LABS: ABSOLUTE BASOPHIL COUNT 0 /CUMM (0.0-0.2); ABSOLUTE EOSINOPHIL COUNT 0 /CUMM (0.0-0.7); ABSOLUTE GRANULOCYTE CT 16.5 /CUMM (1.4-6.5); ABSOLUTE LYMPH COUNT 0.6 /CUMM (1.2-3.4); ABSOLUTE MONOCYTE COUNT 0.4 /CUMM (0.10-0.60); BASOPHIL % 0 % (0.0-2.0); EOSINOPHIL % 0 % (0-5); GRANULOCYTE % 94.3 % (42.2-75.2); HEMATOCRIT 25.5 % (37-47); MEAN CORPUSCULAR HGB 26.6 PG (27.0-31.0); MEAN CORPUSCULAR HGB CONC 32.3 G/DL (33.0-37.0); MEAN CORPUSCULAR VOLUME 82.3 FL (81.0-99.0); MEAN PLATELET VOLUME 9.4 FL (7.4-10.4); PLATELET COUNT 255 /CUMM (130-400); RBC DISTRIBUTION WIDTH 16.4 % (11.5-14.5); WHITE BLOOD CELL COUNT 17.5 /CUMM (4.8-10.8)
[2016-11-11 16:00] VITALS: BP 132/78
[2016-11-11 16:08] LABS: PTT 60 SEC (25-37)
--- NOTE | 2016-11-11 16:41 | Cons- Vascular Surgery ---
General Information and HPI Consulting Request Date of Consult: 11/11/16 Requested By: MEGGAN SANCHEZ MD Reason for Consult: DVT, possible IVC filter History of Present Illness: 81 yo female admitted with left leg DVT. Patient is quite inactive, had other issues, shortness of breath. Upon workup, found to have bilateral femoral vein DVT, left popliteal DVT. Started on IV heparin. Since starting IV heparin, her hemoglobin has dropped. However no evidence of bleeding at this time. No diarrhea, no GI issues, no abdominal pain. Patient is not seen primary care physician in many years. Upon further questioning, patient is quite an active overall. Vascular history has been asked to evaluate for possible IVC filter placement. Allergies/Medications Allergies: Coded Allergies: No Known Allergies (11/09/16) Home Med List: No Known Home Medications Current Medications: Current Medications Sig/Irma Start time Last Medication Dose Route Stop Time Status Admin Albuterol Sulfate 3 ML EVERY 4 HRS/AWAKE 11/10 1200 AC 11/11 INH 1635 Albuterol Sulfate 3 ML Q4H PRN 11/10 0800 AC 11/10 INH 0757 Aspirin 81 MG DAILY 11/10 1000 AC 11/11 PO 0959 Azithromycin 500 MG 0200 11/11 0200 DC Sodium Chloride 250 ML IV Azithromycin 500 MG 2200 11/10 2200 AC 11/10 Sodium Chloride 250 ML IV 2209 Ceftriaxone Sodium 1,000 MG 2200 11/10 2200 AC 11/10 IV 2210 Heparin Sodium 2,000 UNIT ONCE ONE 11/11 0050 DC 11/11 (Porcine) IV 11/11 0051 0050 Heparin Sodium 5,000 UNIT .STK-MED ONE 11/11 0046 DC (Porcine) IV 11/11 0047 Heparin Sodium 3,500 UNIT ONE ONE 11/10 1915 DC 11/10 (Porcine) IV 11/10 191 1934 Heparin Sodium/ 25,000 UNIT Q24H 11/10 1315 AC Dextrose IV Dextrose/Water 500 ML Ipratropium [place] 2.5 ML EVERY 4 HRS/AWAKE 11/10 1200 AC 11/11 INH 1631 Methylprednisolone 40 MG Q12 11/10 1000 DC 11/11 IV 0959 Multivitamins 1 TAB DAILY 11/10 1000 AC 11/11 PO 0959 Prednisone 30 MG DAILY 11/14 1000 CAN PO 11/15 1001 Prednisone 40 MG ONCE ONE 11/12 1000 AC PO 11/12 1001 Prednisone 40 MG BID 11/11 2199 CAN PO 11/12 1001 Prednisone 40 MG ONCE ONE 11/12 1999 AC PO 11/11 2000 Sodium Chloride 1,000 ML Q10H 11/11 2014 AC IV Sodium Chloride 1,000 ML Q13H 11/10 07 DC 11/10 IV 0812 Past History Medical History Blood Transfusion Hx: No Neurological: NONE EENT: NONE Cardiovascular: NONE Respiratory: NONE Gastrointestinal: NONE Hepatic: NONE Renal: NONE Musculoskeletal: NONE Psychiatric: NONE Endocrine: NONE Blood Disorders: NONE Cancer(s): NONE 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 Psychosocial History Where Do You Live? Home Who Do You Live With? spouse Services at Home: None Primary Language: Monegasque Smoking Status: Former Smoker (70 PPD history) ETOH Use: occasional use Illicit Drug Use: denies illicit drug use Functional Ability ADLs Independent: dressing, eating, toileting, bathing. Ambulation: independent IADLs Independent: shopping, housework, finances, food prep, telephone, transportation , medication admin. Employment History Employment: Retired Profession/Employer: [employer] Review of Systems Review of Systems Constitutional: Denies: no symptoms. EENTM: Denies: no symptoms. Cardiovascular: Denies: chest pain. Respiratory: Reports: short of breath. GI: Denies: abdominal pain. Musculoskeletal: Denies: no symptoms. Exam & Diagnostic Data Vital Signs and I&O Vital Signs Date Time Temp Pulse Resp B/P B/P Pulse O2 O2 Flow FiO2 Mean Ox Delivery Rate 11/11 1335 94 Nasal 45% Cannula 11/11 1200 98 Nasal 45% Cannula 11/11 0834 95 Nasal 45% Cannula 11/11 0800 97.0 94 28 120/64 97 Nasal 45% Cannula 11/11 0800 95 Nasal 45% Cannula 11/11 0400 96 Nasal 45% Cannula 11/11 0248 97 Nasal 45% Cannula 11/11 0103 92 Nasal 45% Cannula 11/11 0000 98 Nasal 45% Cannula 11/11 0000 96.9 100 29 104/60 98 Nasal 45% Cannula 11/10 2104 97 Nasal 45% Cannula 11/11 1999 97 Nasal 45% Cannula Intake & Output 11/11 1600 11/11 0800 11/11 0000 11/10 1600 11/10 0800 11/10 0000 Intake Total 708 1156 1917 0 Output Total 325 200 220 0 Balance 690 900 9010 0 Intake, IV 856 1737 0 Intake, Oral 300 180 0 Intake, 708 TPN/PPN Number 0 0 Bowel Movements Output, Gastric Drainage Output, Urine 325 200 220 0 Patient 49.895 kg 49.895 kg 54.431 kg Weight Weight Bed scale Reported by Patient Measurement Method Physical Exam General Appearance: well developed/nourished, no apparent distress Head: atraumatic, normal appearance Eyes: Bilateral: normal appearance. Ears, Nose, Throat: hearing grossly normal Neck: normal inspection Respiratory: no respiratory distress Cardiovascular: regular rate/rhythm Peripheral Pulses: 2+ popliteal (R), 2+ popliteal (L), 2+ dorsalis pedis (R), 2+ dorsalis pedis (L) Gastrointestinal: soft, non-tender Extremities: normal inspection, normal range of motion, no edema Assessment/Plan Assessment/Plan Bilateral lower extremity DVT. Would workup for DVT, possible hypercoagulability, other causes of DVT. Agree with anticoagulation indefinitely at this time. Ambulatory status as tolerated when on anticoagulation Although hemoglobin has dropped recently, there is no evidence of bleeding. Continue workup for decreased Hb. If there is a reason she can not tolerate or there is a contraindication to anticoagulation, then an IVC filter would be beneficial. Thank you. Problem List: 1. DVT, bilateral lower limbs Other Findings/Comments: PATIENT: FERNANDO DALE PRESENT AGE: 81 PATIENT ACCOUNT NO: [id number] : 37 LOCATION: [facility] ORDERING PHYSICIAN: ELIA JUSTIN MD SERVICE DATE: 11/10/16- EXAM TYPE: US - US-EXT BILAT VENOUS DOPPLER EXAMINATION: US TRIPLEX LOWER EXTREMITY, BILATERAL CLINICAL INFORMATION: Increased oxygen requirements with hypotension and dyspnea COMPARISON: None TECHNIQUE: Color-flow triplex imaging with spectral analysis and compression Doppler were performed on the bilateral lower extremities. FINDINGS: Duplex Doppler compression ultrasound evaluation of the lower extremities performed bilaterally. There was normal compressibility in response to augmentation and compression maneuvers within the common femoral veins bilaterally and proximal and mid superficial femoral veins. Within the left lower extremity there is partially occluded thrombus for a short segment than what flow noted normally within the popliteal vein and proximal calf veins. Within the mid to distal left superficial femoral vein and popliteal vein there is noted to be partially occlusive thrombus. No popliteal fossa cyst identified. No popliteal artery aneurysm. IMPRESSION: Bilateral lower extremity DVT with partially occluded thrombus seen within both distal superficial femoral veins as well as left popliteal vein. Consult Acknowledgment - Thank you for your consult request.
--- NOTE | 2016-11-11 18:15 | NUR ---
PT REMOVED HIGH FLOW O2, C/O OF IRRITATION TO NOSE, REFUSED TO USE HIGH FLOW. OFFERED PT BIPAP, BUT ALSO REFUSED. PLACED ON NASAL CANNULA AT 8L, WITH SATS OF 86-94%. RN AWARE. MASK OFFERED, BUT PT DECLINED AT THIS TIME.
--- NOTE | 2016-11-11 18:37 | NUR ---
1704: Patient's IVF decreased from 100 mls/hr normal saline to 75 mls/hr. Over the hour, patient's urine output went from 100 mls/hr to 15 mls/hr for 1800. Informed Dr. Ellis. Normal saline increased back to 100 mls/hr per Dr. Ellis at 1820. Scattered rhonchi noted upon auscultation of lung headley at this time. Patient denies worsening SOB. O2 sats 94-96% Continuing to monitor.
--- NOTE | 2016-11-11 18:41 | NUR ---
1805: Patient states nose is burning and wants to come off the high flow oxygen. Placed on 50% venti mask and patient states feeling better on the mask. 1840: Patient placed on 5 L nasal cannula by RT Reyez and tolerating well w/ o2 sats of 94%. Continuing to monitor.
[2016-11-11 23:00] VITALS: BP 108/82
[2016-11-11 23:24] LABS: PTT 77 SEC (25-37)
[2016-11-12 05:06] LABS: ABSOLUTE BASOPHIL COUNT 0 /CUMM (0.0-0.2); ABSOLUTE EOSINOPHIL COUNT 0 /CUMM (0.0-0.7); ABSOLUTE GRANULOCYTE CT 13.8 /CUMM (1.4-6.5); ABSOLUTE LYMPH COUNT 0.9 /CUMM (1.2-3.4); ABSOLUTE MONOCYTE COUNT 0.7 /CUMM (0.10-0.60); BASOPHIL % 0.1 % (0.0-2.0); EOSINOPHIL % 0 % (0-5); GRANULOCYTE % 89.3 % (42.2-75.2); HEMATOCRIT 25.4 % (37-47); MEAN CORPUSCULAR HGB 26.6 PG (27.0-31.0); MEAN CORPUSCULAR HGB CONC 32.2 G/DL (33.0-37.0); MEAN CORPUSCULAR VOLUME 82.8 FL (81.0-99.0); MEAN PLATELET VOLUME 9.3 FL (7.4-10.4); PLATELET COUNT 226 /CUMM (130-400); RBC DISTRIBUTION WIDTH 16.4 % (11.5-14.5); RED BLOOD CELL CT 3.07 /CUMM (4.20-5.40); WHITE BLOOD CELL COUNT 15.4 /CUMM (4.8-10.8)
--- NOTE | 2016-11-12 06:16 | PN- Resident CRCU ---
Subjective HPI/CRCU Issues: Ms. Rosario was seen and examined this morning. She is resting comfortably in bed. She endorses no acute issues overnight and states that she was able to get some rest. She is currently saturating well on nasal cannula 6 L. She denies any fever, chills, nausea, vomiting. She still continues to have poor by mouth intake owing to a decreased appetite. Her , daughter and great-granddaughter were at the bedside. 24 Hour Events: No Events Noted. Objective Vital Signs & I&O Last 8 Hrs of Vitals and I&O: T: 97-98.1 HR: 87-102. NSR RR: 19-35 Cuff: 91/54-139/77 HF NC 45%-->NC 7.0L O2 Sat: 88%-96% S I: 450 SII: 400 SIII: 250 Exam General Appearance: well developed/nourished, no apparent distress, alert, awake , anxious Neck: normal inspection, supple Respiratory: normal breath sounds, chest non-tender Cardiovascular: regular rate/rhythm, edema, gallop Gastrointestinal: normal bowel sounds, soft, non-tender, no organomegaly Extremities: normal inspection, normal capillary refill Cranial Nerves: normal hearing, normal speech Skin: intact, normal color Current Medications: Current Medications Sig/Irma Start time Last Medication Dose Route Stop Time Status Admin Albuterol Sulfate 3 ML EVERY 4 HRS/AWAKE 11/10 1200 AC 11/12 INH 0835 Albuterol Sulfate 3 ML Q4H PRN 11/10 0800 AC 11/10 INH 0757 Aspirin 81 MG DAILY 11/10 1000 AC 11/12 PO 0927 Azithromycin 500 MG 11/10 AC 11/11 Sodium Chloride 250 ML IV 220 Ceftriaxone Sodium 1,000 MG 11/10 2200 AC 11/11 IV 2205 Heparin Sodium/ 25,000 UNIT Q24H 11/10 1315 AC 11/11 Dextrose IV 2248 Dextrose/Water 500 ML Ipratropium [place] 2.5 ML EVERY 4 HRS/AWAKE 11/10 1200 AC 11/12 INH 0835 Multivitamins 1 TAB DAILY 11/10 1000 AC 11/12 PO 0927 Prednisone 30 MG DAILY 11/14 1000 CAN PO 11/15 1001 Prednisone 40 MG ONCE ONE 11/12 1000 DC 11/12 PO 11/12 1001 0928 Prednisone 40 MG BID 11/11 2200 CAN PO 11/12 1001 Prednisone 40 MG ONCE ONE 11/12 1999 DC 11/11 PO 11/11 Sodium Chloride 1,000 ML Q10H 11/11 2014 DC 11/12 IV 0459 Impression/Plan Impression/Problem List Impression: Ms Rosario is a 81-year-old female who presented to the emergency department with a long-standing standing smoking history with symptoms of increasing dyspnea progressively worsening over the last 2 weeks. At the time of arrival the patient was found to be hypoxic and was admitted to the ICU for further management. Respiratory. Patient is on high flow oxygen. She is saturating well. BiPAP to be needed PRN. Venous Doppler study done this a.m. did show evidence of DVT. Patient has been continued on IV heparin as per PE/DVT protocol. Repeat PTT as per protocol. Patient went for a V/Q Scan this am. Solumederol 40 mg IV Q12, Changed to Prednisone Taper, 40 mg (11/11 and 11/12.) 30mg (11/13 and 11/14), 20 mg (11/15 and 11/16), 10mg (11/17 and 11/18). Strep pneumo, Legionella negative. Continue Ceftriaxone (day three) and Azithromycin (day three). Follow up Cultures: BC X1: [facility] Patient has been profoundly hypotensive in the early part of this morning. The patient had a central line in place, however, have not needed pressors. Consider discontinuing Central line 11/12/2016. Echocardiogram done this a.m. shows evidence of pulmonary pressures in the 70s. Likely attributed to long-standing smoking history. Elevated troponins have peaked at: 0.44. No Ekg Changes. Once patient is more stable and hemodynamically within normal physiological ranges we can begin aspirin and beta luz. The patient does have a central line and should the need for pressors arise, begin Levophed. Ensure MAP >60. Lactic acidosis elevated meryley owing to hypoperfusion. Lactic Acid: 4.6-->3.2-- >2.2-->1.7 Patient pressure has responded well to fluids. Fluids decreased. Hematology Patient's H&H Stable: 8.2/25.4 She was transfused 1 unit of PRBC and has responded well. Will monitor CBC in the a.m. In the meantime we have ordered an extensive anemia workup. Vascular consultation obtained on 11/11/2016. If patient has contraindications to anticoagulation may consider IVC filter for now patient will likely be sent home on oral anticoagulants if H&H remains stable. CBC in a.m. Alimentary Nicotine patch 21 mg PRN Heart healthy diet with ensure supplements given. Code DNR/DNI Problem List: 1. DVT, bilateral lower limbs 2. DVT of axillary vein, acute right 3. Dvt femoral (deep venous thrombosis) 4. Pulmonary embolism Pain Ratin Tomorrow's Labs & Rationales: CBC ICU Bundle Plan DVT/Prophylaxis: pharmacological
[2016-11-12 08:00] VITALS: BP 112/58
--- NOTE | 2016-11-12 09:11 | PN- Cardiology ---
Subjective Subjective: Patient is awake and alert. She denies chest pain or shortness of breath. She still complains of cough but unable to produce sputum. Review of Systems: Eyes no blurred or double vision Ears no deafness or ringing Nose and throat no recurrent sinusitis Lungs per history of present illness Heart per history of present illness Abdomen no nausea vomiting Musculoskeletal occasional muscle and joint pains Psych no anxiety or depression Neuro without recurrent headache or seizures Endocrine no heat or cold intolerance Objective Vital Signs and I&Os Vital Signs Date Time Temp Pulse Resp B/P B/P Pulse O2 O2 Flow FiO2 Mean Ox Delivery Rate 11/12 0835 99 Nasal 8L Cannula 11/12 0800 95 Nasal 7.0L Cannula 11/12 0400 95 Nasal 7.0L Cannula 11/12 0000 96 Nasal 7.0L Cannula 11/11 2300 96.7 94 26 108/82 96 Nasal 7.0L Cannula 11/11 2000 93 Nasal 7.0L Cannula 11/11 1650 93 Nasal 45% Cannula 11/11 1600 93 Nasal 45% Cannula 11/11 1600 97.0 98 32 132/78 92 Nasal 45% Cannula 11/11 1335 94 Nasal 45% Cannula 11/11 1200 98 Nasal 45% Cannula Intake & Output 11/12 1600 11/12 0800 11/12 0000 11/11 1600 11/11 0800 11/11 0000 Intake Total 956 1073 9247 822 2802 Output Total 250 400 450 325 200 Balance 706 673 973 383 956 Intake, IV 722 603 8793 856 Intake, Oral 0 220 400 300 Intake, 708 TPN/PPN Number 0 0 Bowel Movements Output, Gastric Drainage Output, Urine 250 400 450 325 200 Patient 110 lb Weight Physical Exam: Patient is a well-developed well-nourished female appearing in mild respiratory distress HEENT is unremarkable Neck is supple there is no JVD Lungs diffuse rhonchi and wheezes bilaterally Heart regular rhythm S1 and S2 are normal no murmurs gallops or rubs Abdomen bowel sounds positive Extremities without edema Current Medications: Current Medications Sig/Irma Start time Last Medication Dose Route Stop Time Status Admin Albuterol Sulfate 3 ML EVERY 4 HRS/AWAKE 11/10 1200 AC 11/12 INH 0835 Albuterol Sulfate 3 ML Q4H PRN 11/10 0800 AC 11/10 INH 0757 Aspirin 81 MG DAILY 11/10 1000 AC 11/11 PO 0959 Azithromycin 500 MG 11/10 AC 11/11 Sodium Chloride 250 ML IV 2204 Ceftriaxone Sodium 1,000 MG 11/10 2200 AC 11/11 IV 2205 Heparin Sodium/ 25,000 UNIT Q24H 11/10 1315 AC 11/11 Dextrose IV 2248 Dextrose/Water 500 ML Ipratropium [place] 2.5 ML EVERY 4 HRS/AWAKE 11/10 1200 AC 11/12 INH 0835 Methylprednisolone 40 MG Q12 11/10 1000 DC 11/11 IV 0959 Multivitamins 1 TAB DAILY 11/10 1000 AC 11/11 PO 0959 Prednisone 30 MG DAILY 11/14 1000 CAN PO 11/15 1001 Prednisone 40 MG ONCE ONE 11/12 1000 AC PO 11/12 1001 Prednisone 40 MG BID 11/110 CAN PO 11/12 1001 Prednisone 40 MG ONCE ONE 11/12 1999 DC 11/11 PO 11/11 Sodium Chloride 1,000 ML Q10H 11/11 2014 AC 11/12 IV 0459 Results Last 48 Hrs of Labs/Mics: Laboratory Tests 11/12/16 0358: Anion Gap 10, Estimated GFR > 60, BUN/Creatinine Ratio 45.6 H, Phosphorus 3.6, Magnesium 2.7 H, CBC w Diff MAN DIFF ORDERED, RBC 3.07 L, MCV 82.8, MCH 26.6 L, RDW 16.4 H, MPV 9.3, Gran % 89.3 H, Lymphocytes % 6.1 L, Monocytes % 4.5, Eosinophils % 0, Basophils % 0.1, Absolute Granulocytes 13.8 H, Segmented Neutrophils 91 H, Absolute Lymphocytes 0.9 L, Lymphocytes 9 L, Absolute Monocytes 0.7 H, Absolute Eosinophils 0, Absolute Basophils 0, Nucleated RBCs 2 H, Platelet Estimate ADEQUATE, Polychromasia 1+, Hypochromic-Microcytic 1+, Poikilocytosis 1+, Basophilic Stippling 1+, Ovalocytes 1+, PUBS MCHC 32.2 L, Fld Total RBCs Counted 100 11/11/162304: APTT 77 H 11/11/162204: pH 7.39, pCO2 40, pO2 60 L, HCO3 23, ABG O2 Sat (Measured) 88.0 L, P-50 (Temp Corrected) N, Carboxyhemoglobin 0.3 L, O2 Concentration % 8L, Temperature 98.1, O2 Delivery Method NC, Phlebotomy Draw Site RIGHT BRACHIAL 11/11/16 1500: APTT 60 H, CBC w Diff MAN DIFF ORDERED, RBC 3.10 L, MCV 82.3, MCH 26.6 L, RDW 16.4 H, MPV 9.4, Gran % 94.3 H, Lymphocytes % 3.6 L, Monocytes % 2.1, Eosinophils % 0, Basophils % 0 L, Absolute Granulocytes 16.5 H, Segmented Neutrophils 88 H, Band Neutrophils 7 H, Absolute Lymphocytes 0.6 L, Lymphocytes 2 L, Monocytes 2, Absolute Monocytes 0.4, Absolute Eosinophils 0, Absolute Basophils 0, Metamyelocytes 1, Platelet Estimate VERIFIED BY SMEAR, Polychromasia 1+, Poikilocytosis 1+, Anisocytosis 1+, PUBS MCHC 32.3 L 11/11/16 0625: Anion Gap 11, Estimated GFR 36 L, Glucose 218 H, Calcium 7.1 L, Phosphorus 4.4, Magnesium 2.5 H, Iron < 10 L, TIBC 200 L, Ferritin 117.0, Total Bilirubin 0.8, AST 1172 H, ALT 1194 H, Albumin 2.4 L, Vitamin B12 > 1000 H, Folate 12.3, APTT 51 H, CBC w Diff MAN DIFF ORDERED, RBC 2.55 L, MCV 81.1, MCH 25.7 L, RDW 16.7 H, MPV 8.9, Gran % 93.8 H, Lymphocytes % 4.2 L, Monocytes % 1.9, Eosinophils % 0.1, Basophils % 0 L, Absolute Granulocytes 18.7 H, Segmented Neutrophils 87 H, Band Neutrophils 9 H, Absolute Lymphocytes 0.8 L, Lymphocytes 2 L, Monocytes 2, Absolute Monocytes 0.4, Absolute Eosinophils 0, Absolute Basophils 0, Platelet Estimate ADEQUATE, Hypochromic-Microcytic 2+, Poikilocytosis 1+, Microcytic Cells 1+, Ovalocytes 2+, PUBS MCHC 31.7 L 11/10/16 2350: APTT 54 H 11/10/16 1905: Lactic Acid 1.7 11/10/16 1710: APTT 33 11/10/16 1540: Lactic Acid 2.2 H 11/10/16 1225: Lactic Acid 3.2 H, Troponin I 0.31 *H 11/10/16 0905: Urinalysis MOD H, Urine Color DU, Urine Clarity HAZY H, Urine pH 6.0, Ur Specific [place] >= 1.030, Urine Protein 100 H, Urine Ketones NEG, Urine Nitrite NEG, Urine Bilirubin POS@ICTO H, Urine Urobilinogen 4.0 H, Ur Leukocyte Esterase NEG, Ur Microscopic SEDIMENT EXAMINED, Urine RBC RARE, Urine WBC RARE, Ur Epithelial Cells MOD H, Urine Bacteria FEW H, Hyaline Casts 1-3 H, Urine Hemoglobin TRACE-INTACT, Urine Glucose NEG Microbiology 11/10 904 URINE ROUT: Urine Culture - COMP 11/10 904 URINE ROUT: Legionella Antigen - COMP 11/10 904 URINE ROUT: Streptococcus pneumoniae Antigen (M - COMP Telemetry personally reviewed sinus rhythm Recent Imaging Studies: Echocardiogram CONCLUSIONS Normal LV chamber size and wall thickness. The estimated LVEF is 60% there are no focal wall motion of modalities. There is septal wall dyssynchrony as well as flattening (predominantly in diastole). The RV chamber size is markedly dilated. There is severe global hypokinesis of the right ventricle. Right ventricular apex is akinetic. The estimated RV systolic pressure is greater than 70. Markedly dilated right atrium. There is trace to mild mitral regurgitation. There is moderate tricuspid regurgitation. Estimated PA systolic pressure is 50-60 mmHg. Henry Shelton M.D. Assessment/Plan Assessment/Plan 1. Respiratory insufficiency with evidence of pulmonary embolism/DVT 2. Extensive smoking history with pulmonary hypertension on Echo 3. Elevated troponin likely due to demand ischemia in the setting of acute pulmonary embolism with respiratory insufficiency 4. Renal insufficiency 5. Anemia of unclear etiology requiring transfusion 6. Severe right ventricular dilatation / dysfunction on echocardiogram 7. Hypotension, improving 8. Possible sepsis Recommendations 1. Continue heparin for DVT/PE 2. Peripheral vascular surgery consult continue anticoagulation was unable to tolerate then would consider a IVC filter 3. Patient is DNR/DNI 4. Continue antibiotics Continue telemetry? Yes
--- NOTE | 2016-11-12 09:53 | PN- CRCU ---
Subjective HPI/Critical Care Issues: Patient seen and examined this morning. She appears to be doing significantly better and her anemia is stable. Her V/Q scan is consistent with segmental defects in the left lung and several subsegmental perfusion defects bilaterally. Objective Current Medications: Current Medications Sig/Irma Start time Last Medication Dose Route Stop Time Status Admin Albuterol Sulfate 3 ML EVERY 4 HRS/AWAKE 11/10 1200 AC 11/12 INH 0835 Albuterol Sulfate 3 ML Q4H PRN 11/10 0800 AC 11/10 INH 0757 Aspirin 81 MG DAILY 11/10 1000 AC 11/11 PO 0959 Azithromycin 500 MG 11/10 2200 AC 11/11 Sodium Chloride 250 ML IV 2205 Ceftriaxone Sodium 1,000 MG 11/10 2200 AC 11/11 IV 2205 Heparin Sodium/ 25,000 UNIT Q24H 11/10 1315 AC 11/11 Dextrose IV 2248 Dextrose/Water 500 ML Ipratropium [place] 2.5 ML EVERY 4 HRS/AWAKE 11/10 1200 AC 11/12 INH 0835 Methylprednisolone 40 MG Q12 11/10 1000 DC 11/11 IV 0959 Multivitamins 1 TAB DAILY 11/10 1000 AC 11/11 PO 0959 Prednisone 30 MG DAILY 11/14 1000 CAN PO 11/15 1001 Prednisone 40 MG ONCE ONE 11/12 1000 AC PO 11/12 1001 Prednisone 40 MG BID 11/11 2200 CAN PO 11/12 1001 Prednisone 40 MG ONCE ONE 11/11 2000 DC 11/11 PO 11/11 Sodium Chloride 1,000 ML Q10H 11/11 2015 AC 11/12 IV 0459 Vital Signs & I&O Last 24 Hrs of Vitals and I&O: Vital Signs Date Time Temp Pulse Resp B/P B/P Pulse O2 O2 Flow FiO2 Mean Ox Delivery Rate 11/12 0835 99 Nasal 8L Cannula 11/12 0800 95 Nasal 7.0L Cannula 11/12 0400 95 Nasal 7.0L Cannula 11/12 0000 96 Nasal 7.0L Cannula 11/11 2300 96.7 94 26 108/82 96 Nasal 7.0L Cannula 11/11 2000 93 Nasal 7.0L Cannula 11/11 1650 93 Nasal 45% Cannula 11/11 1600 93 Nasal 45% Cannula 11/11 1600 97.0 98 32 132/78 92 Nasal 45% Cannula 11/11 1335 94 Nasal 45% Cannula 11/11 1200 98 Nasal 45% Cannula Intake & Output 11/12 1600 11/12 0800 11/12 0000 Intake Total 956 1073 Output Total 250 400 Balance 706 673 Intake, IV 956 853 Intake, Oral 0 220 Number 0 0 Bowel Movements Output, Urine 250 400 Exam Other Physical Findings: gen awake and alert heent ncat cvs s1, s2, +murmur lungs rare rhonchi abd soft bs+ ext without edema midline chest area with keratotic discoloration Results Last 24 Hrs of Lab Results: Laboratory Tests 11/12/16 0358: Anion Gap 10, Estimated GFR > 60, BUN/Creatinine Ratio 45.6 H, Phosphorus 3.6, Magnesium 2.7 H, CBC w Diff MAN DIFF ORDERED, RBC 3.07 L, MCV 82.8, MCH 26.6 L, RDW 16.4 H, MPV 9.3, Gran % 89.3 H, Lymphocytes % 6.1 L, Monocytes % 4.5, Eosinophils % 0, Basophils % 0.1, Absolute Granulocytes 13.8 H, Segmented Neutrophils 91 H, Absolute Lymphocytes 0.9 L, Lymphocytes 9 L, Absolute Monocytes 0.7 H, Absolute Eosinophils 0, Absolute Basophils 0, Nucleated RBCs 2 H, Platelet Estimate ADEQUATE, Polychromasia 1+, Hypochromic-Microcytic 1+, Poikilocytosis 1+, Basophilic Stippling 1+, Ovalocytes 1+, PUBS MCHC 32.2 L, Fld Total RBCs Counted 100 11/11/165: APTT 77 H 11/11/162204: pH 7.39, pCO2 40, pO2 60 L, HCO3 23, ABG O2 Sat (Measured) 88.0 L, P-50 (Temp Corrected) N, Carboxyhemoglobin 0.3 L, O2 Concentration % 8L, Temperature 98.1, O2 Delivery Method NC, Phlebotomy Draw Site RIGHT BRACHIAL 11/11/16 1500: APTT 60 H, CBC w Diff MAN DIFF ORDERED, RBC 3.10 L, MCV 82.3, MCH 26.6 L, RDW 16.4 H, MPV 9.4, Gran % 94.3 H, Lymphocytes % 3.6 L, Monocytes % 2.1, Eosinophils % 0, Basophils % 0 L, Absolute Granulocytes 16.5 H, Segmented Neutrophils 88 H, Band Neutrophils 7 H, Absolute Lymphocytes 0.6 L, Lymphocytes 2 L, Monocytes 2, Absolute Monocytes 0.4, Absolute Eosinophils 0, Absolute Basophils 0, Metamyelocytes 1, Platelet Estimate VERIFIED BY SMEAR, Polychromasia 1+, Poikilocytosis 1+, Anisocytosis 1+, PUBS MCHC 32.3 L Impression/Plan Impression/Plan Impression/Plan: Impression 81 year old woman * acute hypoxemic respiratory failure - desaturated to 80% on RA * hypotension secondary to severe sepsis vs cardiogenic etiology (BNP 45538) * troponinemia, can be nstemi or demand ischemia * transaminitis * tobacco dependence history * anemia * VTE - DVT + PE, 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 Plan - cardiology consultation appreciated - ins/outs, hydration - trc/nebs - monitor labs, electrolytes - prednisone 40mg today with a taper by 10mg every 2 days - cont empiric abx w/ceftriaxone/zithromax - f/u all cultures - if significant anemia returns, then ivc filter would be warranted, in the meantime a/c and can transition to coumadin once stabilized DNR/DNI TTS 35 min d/w pt and family DG to tele if okay with cardiology
[2016-11-12 13:19] LABS: PTT 96 SEC (25-37)
[2016-11-12 16:00] VITALS: BP 100/70
--- NOTE | 2016-11-12 18:48 | NUR ---
Received patient at 0800 sleepy but easily arousable, bright eyed and in better spirits than yesterday. Titrated from 8L to 7L nasal cannula. Clear breath sounds in the upper and diminished to the lower. RR 30s and patient states she feels better and less short of breath than yesterday. Less distress noted. NSR-ST on the manager cardiac 90s-100s, YEY=[id number]. No complaints of chest pain. Positive pedal and radial pulses bilaterally. Skin intact. Right bottom red/blanching. Shea in place draining clear janneth urine. NS @ 75 mls/hr d/c'd by 11 am. RIJ TLC removed around 1700. Heparin gtt remains running but titrated from 28 mls/hr to 26 mls/hr per heparin protocol. Abdomen soft/nontender, +BS. Patient denies complaints. Encouraged to cough/deep breathe. Poor po intake. Given call quinteros and emotional reassurance.
--- NOTE | 2016-11-12 20:43 | NUR ---
PT DROWSY, EASILY AROUSABLE TO VERBAL STIMULI, FOLLOWS COMMANDS, ORIENTED X3. DENIES ANY PAIN AT PRESENT. BREATH SOUNDS CLEAR WITH DIMINISHED BREATH SOUNDS AT BASES BILATERALLY. CONGESTED COUGH NOTED-NO SPUTUM EXPECTORATED AT PRESENT. PT TACHYPENIC, SOB WITH SPEECH AND ON EXERTION. SEE FLOW SHEET FOR VS, 02 SAT, I/O'S. MONITOR SHOW ST, NO ECTOPY NOTED AT PRESENT. BP STABLE AT PRESENT. ABD SOFT, NONTENDER, NONDISTENDED, POSITIVE BOWEL SOUNDS. AHMADI IN PLACE-DRAINING ADEQUATE AMT OF CLEAR YELLOW URINE AT PRESENT. SKIN INTACT-BUTTOCKS SLIGHLTY RED, BLANCHABLE. DAUGHTER TO SPEND NIGHT WITH PT
[2016-11-12 20:59] LABS: PTT 82 SEC (25-37)
[2016-11-12 23:00] VITALS: BP 120/84
[2016-11-13 05:51] LABS: ABSOLUTE BASOPHIL COUNT 0 /CUMM (0.0-0.2); ABSOLUTE EOSINOPHIL COUNT 0 /CUMM (0.0-0.7); ABSOLUTE LYMPH COUNT 0.9 /CUMM (1.2-3.4); ABSOLUTE MONOCYTE COUNT 0.6 /CUMM (0.10-0.60); BASOPHIL % 0.1 % (0.0-2.0); EOSINOPHIL % 0.1 % (0-5); GRANULOCYTE % 85.8 % (42.2-75.2); HEMATOCRIT 24.6 % (37-47); MEAN CORPUSCULAR HGB 26.6 PG (27.0-31.0); MEAN CORPUSCULAR HGB CONC 31.9 G/DL (33.0-37.0); MEAN CORPUSCULAR VOLUME 83.6 FL (81.0-99.0); MEAN PLATELET VOLUME 9.7 FL (7.4-10.4); PLATELET COUNT 193 /CUMM (130-400); RBC DISTRIBUTION WIDTH 17.6 % (11.5-14.5); RED BLOOD CELL CT 2.94 /CUMM (4.20-5.40); WHITE BLOOD CELL COUNT 10.5 /CUMM (4.8-10.8)
--- NOTE | 2016-11-13 06:21 | PN- Resident CRCU ---
Subjective HPI/CRCU Issues: Ms Rosario was seen and examined this morning she is resting comfortably in bed. She states that she still feels tired although her daughter reports she was able to sleep from 11 PM onwards. She continues to saturate well on a nasal cannula currently on 7 L. She also reports poor by mouth intake, however family is encouraging patient to increase PO intake. Patient denies any fever, chills, nausea, vomiting. Objective Vital Signs & I&O Last 8 Hrs of Vitals and I&O: T: 97.9 AL: 95 RR: 29 BP: 118/60 Pulse Ox: 96 NC 6.0L Exam General Appearance: well developed/nourished, no apparent distress, alert, awake Ears, Nose, Throat: normal pharynx Neck: normal inspection Respiratory: normal breath sounds Cardiovascular: regular rate/rhythm, edema, gallop Gastrointestinal: normal bowel sounds, soft, non-tender Extremities: normal inspection, normal capillary refill, normal range of motion, no edema Cranial Nerves: PERRL Skin: intact, normal color Skin Temp/Moisture Exam: Warm/Dry Current Medications: Current Medications Sig/Irma Start time Last Medication Dose Route Stop Time Status Admin Albuterol Sulfate 3 ML EVERY 4 HRS/AWAKE 11/10 1200 AC 11/13 INH 1222 Albuterol Sulfate 3 ML Q4H PRN 11/10 0800 AC 11/10 INH 0757 Aspirin 81 MG DAILY 11/10 1000 AC 11/13 PO 1031 Azithromycin 500 MG 11/100 11/12 Sodium Chloride 250 ML IV 2123 Ceftriaxone Sodium 1,000 MG 0 11/10 2200 AC 11/12 IV 2114 Ferrous Sulfate 325 MG DAILY 11/13 1233 AC PO Guaifenesin 600 MG Q12 11/12 1245 AC 11/13 PO 1031 Heparin Sodium/ 25,000 UNIT Q24H 11/10 1315 AC 11/13 Dextrose IV 1024 Dextrose/Water 500 ML Ipratropium [place] 2.5 ML EVERY 4 HRS/AWAKE 11/10 1200 AC 11/13 INH 1222 Metoprolol Tartrate 12.5 MG BID 11/13 1228 AC PO Multivitamins 1 TAB DAILY 11/10 1000 AC 11/13 PO 1031 Phosphate 250 MG PC AND AT BEDTIME 11/13 1300 AC PO Prednisone 10 MG DAILY 11/17 1000 AC PO 11/18 1001 Prednisone 20 MG DAILY 11/15 1000 AC PO 11/16 1001 Prednisone 30 MG DAILY 11/13 1000 AC 11/13 PO 11/14 1001 1031 Impression/Plan Impression/Problem List Impression: Ms Rosario is a 81-year-old female who presented to the emergency department with a long-standing standing smoking history with symptoms of increasing dyspnea progressively worsening over the last 2 weeks. At the time of arrival the patient was found to be hypoxic and was admitted to the ICU for further management. Respiratory. Patient is on NC. She is saturating well. BiPAP to be needed PRN. Venous Doppler study, did show evidence of DVT. Patient has been continued on IV heparin as per PE/DVT protocol. Repeat PTT as per protocol. V/Q Scan: High probability of pulmonary embolism. Solumederol 40 mg IV Q12, Changed to Prednisone Taper, 40 mg (11/11 and 11/12.) 30mg (11/13 and 11/14), 20 mg (11/15 and 11/16), 10mg (11/17 and 11/18). Strep pneumo, Legionella negative. Continue Ceftriaxone (day Four) and Azithromycin (day Four). Follow up Cultures: BC X1: [facility] Line discontinued 11/12/2016. Echocardiogram done. shows evidence of pulmonary pressures in the 70s. Likely attributed to long-standing smoking history. Elevated troponins have peaked at: 0.44. No Ekg Changes. Once patient is more stable and hemodynamically within normal physiological ranges we Continue aspirin. Owing to some runs of SVT overnight, we will beging the patient on Metoprolol 12.5 mg BID. Lactic acidosis on admission hypoperfusion. Lactic Acid: 4.6-->3.2-->2.2-->1.7 Hematology Anemia, likely Patient's H&H: 7.8/24.6. She is S/P 1 unit PRBC. Repeat CBC in AM. If below &, transfuse additional Unit. Vascular consultation obtained on 11/11/2016. If patient has contraindications to anticoagulation may consider IVC filter. May consider GI work up as an outpatient for questionable blood loss anemoa, unless H/H falls 11/14/2018. Ferrous Sulfate Tab 325 mg Guiaic all stools. CBC in a.m. Alimentary Nicotine patch 21 mg PRN. Patient was counseled extensively on the importance of maintaining adequate nutritional intake. She does agree to comply. Regular diet with Ensure supplements given. Code DNR/DNI Problem List: 1. Dvt femoral (deep venous thrombosis) 2. DVT of axillary vein, acute right 3. DVT, bilateral lower limbs 4. Pulmonary embolism Pain Ratin Tomorrow's Labs & Rationales: CBC ICU Bundle Plan DVT/Prophylaxis: pharmacological
--- NOTE | 2016-11-13 07:43 | NUR ---
PT SLEPT THOUGHOUT NIGHT. PT'S DAUGHTER JUAN SPENT NIGHT WITH PT. 02 SATS 95-100% WHILE SLEEPING, EASILY SOBOE. BREATH SOUNDS REMAIN CLEAR. NSR, RARE PVC NOTED, BP STABLE THOUGHOUT SHIFT. NO EVIDENCE OF BLEEDING THOUGHOUT SHIFT. HEPARIN GTT INFUSING AT 26UNITS/KG/HR. NO OTHER CHANGE IN PT ASSESSMENTS THOUGHOUT SHIFT
[2016-11-13 08:00] VITALS: BP 118/60
--- NOTE | 2016-11-13 09:27 | PN- CRCU ---
Subjective HPI/Critical Care Issues: pt seen and examined 99% on 6LNC - will taper o2 afebrile hgb 7.8 and stable leukocytosis resolved feeling better macho resolved significant improvement in lfts Objective Current Medications: Current Medications Sig/Irma Start time Last Medication Dose Route Stop Time Status Admin Albuterol Sulfate 3 ML EVERY 4 HRS/AWAKE 11/10 1200 AC 11/13 INH 0821 Albuterol Sulfate 3 ML Q4H PRN 11/10 0800 AC 11/10 INH 0757 Aspirin 81 MG DAILY 11/10 1000 AC 11/12 PO 0927 Azithromycin 500 MG 11/10 2200 AC 11/12 Sodium Chloride 250 ML IV 212 Ceftriaxone Sodium 1,000 MG 11/10 2200 AC 11/12 IV 2114 Guaifenesin 600 MG Q12 11/12 1245 AC 11/12 PO 2123 Heparin Sodium/ 25,000 UNIT Q24H 11/10 1315 AC 11/12 Dextrose IV 1603 Dextrose/Water 500 ML Ipratropium [place] 2.5 ML EVERY 4 HRS/AWAKE 11/10 1200 AC 11/13 INH 0821 Multivitamins 1 TAB DAILY 11/10 1000 AC 11/12 PO 0927 Phosphate 250 MG PC AND AT BEDTIME 11/13 1300 AC PO Prednisone 10 MG DAILY 11/17 1000 AC PO 11/18 1001 Prednisone 20 MG DAILY 11/15 1000 AC PO 11/16 1001 Prednisone 30 MG DAILY 11/13 1000 AC PO 11/14 1001 Prednisone 40 MG ONCE ONE 11/12 1000 DC 11/12 PO 11/12 1001 0928 Sodium Chloride 1,000 ML Q10H 11/11 2015 DC 11/12 IV 0459 Vital Signs & I&O Last 24 Hrs of Vitals and I&O: Vital Signs Date Time Temp Pulse Resp B/P B/P Pulse O2 O2 Flow FiO2 Mean Ox Delivery Rate 11/13 0825 99 Nasal 6.0L Cannula 11/13 0400 97 Nasal 7.0L Cannula 11/13 0000 96 Nasal 7.0L Cannula 11/12 2300 96.8 87 20 120/84 96 Nasal 7.0L Cannula 11/12 2000 96 Nasal 7.0L Cannula 11/12 1614 94 Nasal 6.0L Cannula 11/12 1600 96 Nasal 7.0L Cannula 11/12 1600 96.9 100 33 100/70 96 Nasal 7.0L Cannula 11/12 1200 100 Nasal 8L Cannula Intake & Output 11/13 1600 11/13 0800 11/13 0000 Intake Total 263 669 Output Total 280 315 Balance -17 354 Intake, IV 203 449 Intake, Oral 60 220 Number 0 0 Bowel Movements Output, Urine 280 315 Exam Other Physical Findings: gen awake and alert heent ncat cvs s1, s2, +murmur lungs rare rhonchi abd soft bs+ ext without edema midline chest area with keratotic discoloration Results Last 24 Hrs of Lab Results: Laboratory Tests 11/13/16 0900: APTT Pending 11/13/16 0438: Anion Gap 9, Estimated GFR > 60, Glucose 252 H, Calcium 7.9 L, Phosphorus 2.6, Magnesium 2.7 H, Total Bilirubin 0.6, AST 150 H, ALT 620 H, Albumin 2.4 L, CBC w Diff MAN DIFF ORDERED, RBC 2.94 L, MCV 83.6, MCH 26.6 L, RDW 17.6 H, MPV 9.7, Gran % 85.8 H, Lymphocytes % 8.5 L, Monocytes % 5.5, Eosinophils % 0.1, Basophils % 0.1, Absolute Granulocytes 9.0 H, Segmented Neutrophils 92 H, Absolute Lymphocytes 0.9 L, Lymphocytes 5 L, Monocytes 3, Absolute Monocytes 0.6, Absolute Eosinophils 0, Absolute Basophils 0, Nucleated RBCs 4 H, Platelet Estimate ADEQUATE, Polychromasia 1+, Hypochromic-Microcytic 1+, Poikilocytosis 1 +, Basophilic Stippling SLIGHT, Ovalocytes 1+, Elliptocytes FEW, PUBS MCHC 31.9 L, Fld Total RBCs Counted 100 11/12/16 2026: APTT 82 H 11/12/16 1110: APTT 96 H Impression/Plan Impression/Plan Impression/Plan: Impression 81 year old woman * acute hypoxemic respiratory failure - desaturated to 80% on RA * RESOLVED hypotension secondary to severe sepsis vs cardiogenic etiology (BNP 07248) * troponinemia, can be nstemi or demand ischemia * resolving transaminitis * tobacco dependence history * anemia * VTE - DVT + PE, 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 Plan Respiratory - reduce fio2 as tolerated - prednisone taper as ordered - incentive spirometry - oob to chair ID - complete course of abx - monitor fevers, leukocytosis resolved CVS - f/u cardiology recommendations Heme - monitor hemoglobin and coags - anemia is likely underlying iron deficiency and chronic disease - would add iron supplementation and would require a gi workup likely as an outpatient unless any deterioration in hgb Metabolic - resolved macho and improved transaminitis all likely from initial hypotension Alimentary - diet as tolerated, monitor glucose Neuro - no acute issues DVT prophylaxis at all times - on heparin for VTE (DVT + PE) TTS 40 min DNR/DNI DG to telemetry if okay with cardiology
[2016-11-13 10:18] LABS: PTT 86 SEC (25-37)
--- NOTE | 2016-11-13 10:59 | PN- Cardiology ---
Subjective Subjective: Patient resting comfortably. She does feel her breathing is improving. Remains on nasal cannula oxygen. Denies chest pain. Feels her throat is dry. Objective Vital Signs and I&Os Vital Signs Date Time Temp Pulse Resp B/P B/P Pulse O2 O2 Flow FiO2 Mean Ox Delivery Rate 11/13 0825 99 Nasal 6.0L Cannula 11/13 0400 97 Nasal 7.0L Cannula 11/13 0000 96 Nasal 7.0L Cannula 11/12 2300 96.8 87 20 120/84 96 Nasal 7.0L Cannula 11/12 2000 96 Nasal 7.0L Cannula 11/12 1614 94 Nasal 6.0L Cannula 11/12 1600 96 Nasal 7.0L Cannula 11/12 1600 96.9 100 33 100/70 96 Nasal 7.0L Cannula 11/12 1200 100 Nasal 8L Cannula Intake & Output 11/13 1600 11/13 0800 11/13 0000 11/12 1600 11/12 0800 11/12 0000 Intake Total 236 725 8125 956 1073 Output Total 280 315 350 250 400 Balance -17 354 652 706 673 Intake, IV 203 449 652 956 853 Intake, Oral 60 220 350 0 220 Number 0 0 0 0 Bowel Movements Output, Urine 280 315 350 250 400 Physical Exam: General: no apparent distress. On NC oxygen. Eyes: no scleral icterus HEENT: No jugular venous distention or abnormal jugular venous pulsations. Cardiovascular: Normal intensity S1/S2. Regular. Respiratory: Decreased air entry bilaterally Abdomen: no guarding or rebound tenderness. Musculoskeletal: No cyanosis noted, No edema Skin: warm Neuro: grossly nonfocal Current Medications: Current Medications Sig/Irma Start time Last Medication Dose Route Stop Time Status Admin Albuterol Sulfate 3 ML EVERY 4 HRS/AWAKE 11/10 1200 11/13 INH 0821 Albuterol Sulfate 3 ML Q4H PRN 11/10 0800 11/10 INH 0757 Aspirin 81 MG DAILY 11/10 1000 11/13 PO 1031 Azithromycin 500 MG 11/10 Sodium Chloride 250 ML IV 2123 Ceftriaxone Sodium 1,000 MG 11/10 AC 11/12 IV 2114 Guaifenesin 600 MG Q12 11/12 1245 AC 11/13 PO 1031 Heparin Sodium/ 25,000 UNIT Q24H 11/10 1315 11/13 Dextrose IV 1024 Dextrose/Water 500 ML Ipratropium [place] 2.5 ML EVERY 4 HRS/AWAKE 11/10 1200 AC 11/13 INH 0821 Multivitamins 1 TAB DAILY 11/10 1000 AC 11/13 PO 1031 Phosphate 250 MG PC AND AT BEDTIME 11/13 1300 AC PO Prednisone 10 MG DAILY 11/17 1000 AC PO 11/18 1001 Prednisone 20 MG DAILY 11/15 1000 AC PO 11/16 1001 Prednisone 30 MG DAILY 11/13 1000 AC 11/13 PO 11/14 1001 1031 Sodium Chloride 1,000 ML Q10H 11/11 2014 DC 11/12 IV 0459 Results Last 48 Hrs of Labs/Mics: Laboratory Tests 11/13/16 0900: APTT 86 H 11/13/16 0438: Anion Gap 9, Estimated GFR > 60, Glucose 252 H, Calcium 7.9 L, Phosphorus 2.6, Magnesium 2.7 H, Total Bilirubin 0.6, AST 150 H, ALT 620 H, Albumin 2.4 L, CBC w Diff MAN DIFF ORDERED, RBC 2.94 L, MCV 83.6, MCH 26.6 L, RDW 17.6 H, MPV 9.7, Gran % 85.8 H, Lymphocytes % 8.5 L, Monocytes % 5.5, Eosinophils % 0.1, Basophils % 0.1, Absolute Granulocytes 9.0 H, Segmented Neutrophils 92 H, Absolute Lymphocytes 0.9 L, Lymphocytes 5 L, Monocytes 3, Absolute Monocytes 0.6, Absolute Eosinophils 0, Absolute Basophils 0, Nucleated RBCs 4 H, Platelet Estimate ADEQUATE, Polychromasia 1+, Hypochromic-Microcytic 1+, Poikilocytosis 1 +, Basophilic Stippling SLIGHT, Ovalocytes 1+, Elliptocytes FEW, PUBS MCHC 31.9 L, Fld Total RBCs Counted 100 11/12/16 2026: APTT 82 H 11/12/16 1110: APTT 96 H 11/12/16 0358: Anion Gap 10, Estimated GFR > 60, BUN/Creatinine Ratio 45.6 H, Phosphorus 3.6, Magnesium 2.7 H, CBC w Diff MAN DIFF ORDERED, RBC 3.07 L, MCV 82.8, MCH 26.6 L, RDW 16.4 H, MPV 9.3, Gran % 89.3 H, Lymphocytes % 6.1 L, Monocytes % 4.5, Eosinophils % 0, Basophils % 0.1, Absolute Granulocytes 13.8 H, Segmented Neutrophils 91 H, Absolute Lymphocytes 0.9 L, Lymphocytes 9 L, Absolute Monocytes 0.7 H, Absolute Eosinophils 0, Absolute Basophils 0, Nucleated RBCs 2 H, Platelet Estimate ADEQUATE, Polychromasia 1+, Hypochromic-Microcytic 1+, Poikilocytosis 1+, Basophilic Stippling 1+, Ovalocytes 1+, PUBS MCHC 32.2 L, Fld Total RBCs Counted 100 11/11/16 2305: APTT 77 H 11/11/165: pH 7.39, pCO2 40, pO2 60 L, HCO3 23, ABG O2 Sat (Measured) 88.0 L, P-50 (Temp Corrected) N, Carboxyhemoglobin 0.3 L, O2 Concentration % 8L, Temperature 98.1, O2 Delivery Method NC, Phlebotomy Draw Site RIGHT BRACHIAL 11/11/16 1500: APTT 60 H, CBC w Diff MAN DIFF ORDERED, RBC 3.10 L, MCV 82.3, MCH 26.6 L, RDW 16.4 H, MPV 9.4, Gran % 94.3 H, Lymphocytes % 3.6 L, Monocytes % 2.1, Eosinophils % 0, Basophils % 0 L, Absolute Granulocytes 16.5 H, Segmented Neutrophils 88 H, Band Neutrophils 7 H, Absolute Lymphocytes 0.6 L, Lymphocytes 2 L, Monocytes 2, Absolute Monocytes 0.4, Absolute Eosinophils 0, Absolute Basophils 0, Metamyelocytes 1, Platelet Estimate VERIFIED BY SMEAR, Polychromasia 1+, Poikilocytosis 1+, Anisocytosis 1+, PUBS MCHC 32.3 L Recent Imaging Studies: Telemetry tracings were personally reviewed and shows sinus rhythm with short SVT/atrial tachycardia bursts Assessment/Plan Assessment/Plan 1. Respiratory insufficiency with evidence of pulmonary embolism/DVT 2. Extensive smoking history with pulmonary hypertension on Echo 3. Elevated troponin likely due to demand ischemia in the setting of acute pulmonary embolism with respiratory insufficiency 4. Renal insufficiency 5. Anemia of unclear etiology requiring transfusion 6. Severe right ventricular dilatation / dysfunction on echocardiogram 7. Hypotension, improving 8. Possible sepsis Patient feels her breathing is improving. Still with some tachypnea on exam. Remains on intravenous heparin. Hemoglobin 7.8 today. Blood pressure has improved. If no objection from pulmonary would recommend starting on low-dose beta luz metoprolol titrate 12.5 mg by mouth twice a day given the short SVT runs on telemetry and the right ventricular dysfunction. OK from a cardiac standpoint to downgrade the patient to telemetry. She remains DNR/DNI. Tone Hernandez MD FAC Continue telemetry? Yes
[2016-11-13 19:07] VITALS: BP 118/70
[2016-11-13 22:08] LABS: PTT 81 SEC (25-37)
[2016-11-14] VITALS: BP 138/66
[2016-11-14 03:32] LABS: ABSOLUTE BASOPHIL COUNT 0.3 /CUMM (0.0-0.2); ABSOLUTE EOSINOPHIL COUNT 0 /CUMM (0.0-0.7); ABSOLUTE GRANULOCYTE CT 8.9 /CUMM (1.4-6.5); ABSOLUTE LYMPH COUNT 0.9 /CUMM (1.2-3.4); ABSOLUTE MONOCYTE COUNT 0.7 /CUMM (0.10-0.60); BASOPHIL % 2.4 % (0.0-2.0); EOSINOPHIL % 0.1 % (0-5); GRANULOCYTE % 82.5 % (42.2-75.2); HEMATOCRIT 26.2 % (37-47); MEAN CORPUSCULAR HGB 26.3 PG (27.0-31.0); MEAN CORPUSCULAR HGB CONC 31.6 G/DL (33.0-37.0); MEAN CORPUSCULAR VOLUME 83.3 FL (81.0-99.0); PLATELET COUNT 202 /CUMM (130-400); RBC DISTRIBUTION WIDTH 16.8 % (11.5-14.5); RED BLOOD CELL CT 3.14 /CUMM (4.20-5.40); WHITE BLOOD CELL COUNT 10.8 /CUMM (4.8-10.8)
--- NOTE | 2016-11-14 06:15 | PN- Resident CRCU ---
Subjective HPI/CRCU Issues: Ms. Rosario was seen and examined this morning. She is resting comfortably in bed. She denies any issues overnight. Continues to saturate well on nasal cannula,4L . Patient states she was able to get some sleep. Currently feels tired although denies any fever, chills, nausea, vomiting. She is currently pain free. Daughter Candace at bedside. 24 Hour Events: No acute events reported overnight. Objective Vital Signs & I&O Last 8 Hrs of Vitals and I&O: Telemetry hold. Exam General Appearance: well developed/nourished, no apparent distress, alert, awake , comfortable Respiratory: normal breath sounds Cardiovascular: regular rate/rhythm Gastrointestinal: normal bowel sounds, soft, non-tender Extremities: normal inspection, normal capillary refill Cranial Nerves: normal hearing, normal speech, PERRL Skin: intact Current Medications: Current Medications Sig/Irma Start time Last Medication Dose Route Stop Time Status Admin Albuterol Sulfate 3 ML EVERY 4 HRS/AWAKE 11/10 1200 AC 11/14 INH 0807 Albuterol Sulfate 3 ML Q4H PRN 11/10 0800 AC 11/10 INH 0757 Aspirin 81 MG DAILY 11/10 1000 AC 11/13 PO 1031 Azithromycin 500 MG 0 11/10 2200 AC 11/13 Sodium Chloride 250 ML IV 2255 Ceftriaxone Sodium 1,000 MG 0 11/10 2200 AC 11/13 IV 2255 Ferrous Sulfate 325 MG DAILY 11/13 1233 AC 11/13 PO 1336 Guaifenesin 600 MG Q12 11/12 1245 AC 11/13 PO 2257 Heparin Sodium/ 25,000 UNIT Q24H 11/10 1315 AC 11/13 Dextrose IV 1024 Dextrose/Water 500 ML Insulin Aspart 0 TIDAC 11/14 0800 AC 11/14 SC 0814 Ipratropium [place] 2.5 ML EVERY 4 HRS/AWAKE 11/10 1200 AC 11/14 INH 0807 Metoprolol Tartrate 25 MG BID 11/14 2200 AC PO Metoprolol Tartrate 12.5 MG BID 11/13 1228 DC 11/13 PO 2257 Multivitamins 1 TAB DAILY 11/10 1000 AC 11/13 PO 1031 Phosphate 250 MG ONCE ONE 11/14 0700 DC 11/14 PO 11/14 0701 0816 Phosphate 250 MG PC AND AT BEDTIME 11/13 1300 AC 11/14 PO 0816 Prednisone 10 MG DAILY 11/17 1000 AC PO 11/18 1001 Prednisone 20 MG DAILY 11/15 1000 AC PO 11/16 1001 Prednisone 30 MG DAILY 11/13 1000 DC 11/13 PO 11/14 1001 1031 Impression/Plan Impression/Problem List Impression: Ms Rosario is a 81-year-old female who presented to the emergency department with a long-standing standing smoking history with symptoms of increasing dyspnea progressively worsening over the last 2 weeks. At the time of arrival the patient was found to be hypoxic and was admitted to the ICU for further management. Respiratory. Patient is on NC. She is saturating well. BiPAP to be needed PRN. Venous Doppler study, did show evidence of DVT. Patient has been continued on IV heparin as per PE/DVT protocol. Repeat PTT as per protocol. We will transition her to Pradaxa 11/15/2016. Heparin Drip can be discontinued 4 hours after initial Pradaxa dosing. 150 mg BID (dose confirmed with Pharmacy). Will need to monitor H/H. V/Q Scan: IMPRESSION: High probability of pulmonary embolism. A segmental defect in the left lung that is likely in the superior segment is present and in addition there are several subsegmental perfusion defects present bilaterally. Solumederol 40 mg IV Q12, Changed to Prednisone Taper, 40 mg (11/11 and 11/12.) 30mg (11/13 and 11/14), 20 mg (11/15 and 11/16), 10mg (11/17 and 11/18). Strep pneumo, Legionella negative. Continue Ceftriaxone (day five) and Azithromycin (day five). Follow up Cultures: BC X1: [facility] Line discontinued 11/12/2016. Echocardiogram done. shows evidence of pulmonary pressures in the 70s. Likely attributed to long-standing smoking history. Elevated troponins have peaked at: 0.44. No Ekg Changes. Continue Aspirin. Owing tachycardia, we will increase Metoprolol Dose 25 mg BID. Lactic acidosis on admission hypoperfusion. Lactic Acid: 4.6-->3.2-->2.2-->1.7 Hematology Anemia, likely Patient's H&H: 8.3/26.2. If below &, transfuse additional Unit. Vascular consultation obtained on 11/11/2016. If patient has contraindications to anticoagulation may consider IVC filter. May consider GI work up as an outpatient for questionable blood loss anemoa, unless H/H continues to fall. Ferrous Sulfate Tab 325 mg. Guiaic all stools. CBC in a.m. Alimentary Nicotine patch 21 mg PRN. Patient was counseled extensively on the importance of maintaining adequate nutritional intake. She does agree to comply. Regular diet with Ensure supplements given. Musculoskeletal Physical Therapy Consultation Placed. Code DNR/DNI Problem List: 1. Pneumonia 2. Dvt femoral (deep venous thrombosis) 3. DVT, bilateral lower limbs 4. DVT of axillary vein, acute right 5. Pulmonary embolism Pain Ratin Tomorrow's Labs & Rationales: CBC ICU Bundle Plan DVT/Prophylaxis: pharmacological
--- NOTE | 2016-11-14 08:55 | PN- Cardiology ---
Subjective Subjective: Telemetry sinus rhythm. No arrhythmic events overnight. Detailed discussion held with the family around the bedside. Objective Vital Signs and I&Os Vital Signs Date Time Temp Pulse Resp B/P B/P Pulse O2 O2 Flow FiO2 Mean Ox Delivery Rate 11/14 0809 96 Nasal 5.0L Cannula 11/14 0122 96 Nasal 5.0L Cannula 11/14 0000 97.1 81 20 138/66 99 Nasal 5.0L Cannula 11/13 2257 96 26 118/64 11/13 1907 97 Nasal 5.0L Cannula 11/13 1907 97.0 88 26 118/70 97 Nasal 5.0L Cannula 11/13 1630 92 Nasal 5.0L Cannula 11/13 1337 97 119/66 11/13 1227 96 Nasal 6.0L Cannula Intake & Output 11/14 1600 11/14 0800 11/14 0000 11/13 1600 11/13 0811/13 0000 Intake Total 208 740 388 263 669 Output Total 300 400 225 280 315 Balance -92 340 163 -17 354 Intake, IV 208 260 208 203 449 Intake, Oral 480 180 60 220 Number 0 0 0 Bowel Movements Output, Urine 300 400 225 280 315 Physical Exam: Gen. exam patient appears comfortable although closes her eyes and although awake reluctant to answer questions. Head normocephalic atraumatic Eyes sclera anicteric conjunctiva showed pallor extraocular muscles normal Neck minimal jugular venous distention no carotid bruits no thyroid masses no palpable nodes Chest lungs reveal scattered wheezes bilaterally Heart regular rhythm grade 1/6 systolic murmur Abdomen soft no organomegaly nontender neck and extremities no edema clubbing or cyanosis Neurological was not tested Current Medications: Current Medications Sig/Irma Start time Last Medication Dose Route Stop Time Status Admin Albuterol Sulfate 3 ML EVERY 4 HRS/AWAKE 11/10 1200 AC 11/14 INH 0807 Albuterol Sulfate 3 ML Q4H PRN 11/10 0800 AC 11/10 INH 0757 Aspirin 81 MG DAILY 11/10 1000 AC 11/13 PO 1031 Azithromycin 500 MG 11/10 AC 11/13 Sodium Chloride 250 ML IV 2255 Ceftriaxone Sodium 1,000 MG 11/10 2200 AC 11/13 IV 2255 Ferrous Sulfate 325 MG DAILY 11/13 1233 AC 11/13 PO 1336 Guaifenesin 600 MG Q12 11/12 1245 AC 11/13 PO 2257 Heparin Sodium/ 25,000 UNIT Q24H 11/10 1315 AC 11/13 Dextrose IV 1024 Dextrose/Water 500 ML Insulin Aspart 0 TIDAC 11/14 0800 AC 11/14 SC 0814 Ipratropium [place] 2.5 ML EVERY 4 HRS/AWAKE 11/10 1200 AC 11/14 INH 0807 Metoprolol Tartrate 12.5 MG BID 11/13 1228 AC 11/13 PO 2257 Multivitamins 1 TAB DAILY 11/10 1000 AC 11/13 PO 1031 Phosphate 250 MG ONCE ONE 11/14 0700 DC 11/14 PO 11/14 0701 0816 Phosphate 250 MG PC AND AT BEDTIME 11/13 1300 AC 11/14 PO 0816 Prednisone 10 MG DAILY 11/17 1000 AC PO 11/18 1001 Prednisone 20 MG DAILY 11/15 1000 AC PO 11/16 1001 Prednisone 30 MG DAILY 11/13 1000 AC 11/13 PO 11/14 1001 1031 Results Last 48 Hrs of Labs/Mics: Laboratory Tests 11/14/16 0320: Anion Gap 9, Estimated GFR > 60, Glucose 259 H, Hemoglobin A1c Pending, Calcium 7.9 L, Phosphorus 2.5, Magnesium 2.5 H, Total Bilirubin 0.5, AST 96 H, ALT 506 H, Albumin 2.4 L, CBC w Diff MAN DIFF ORDERED, RBC 3.14 L, MCV 83.3, MCH 26.3 L, RDW 16.8 H, MPV 10.0, Gran % 82.5 H, Lymphocytes % 8.6 L, Monocytes % 6.4, Eosinophils % 0.1, Basophils % 2.4 H, Absolute Granulocytes 8.9 H, Segmented Neutrophils 81 H, Band Neutrophils 6 H, Absolute Lymphocytes 0.9 L, Lymphocytes 9 L, Monocytes 2, Absolute Monocytes 0.7 H, Absolute Eosinophils 0 , Absolute Basophils 0.3, Metamyelocytes 2 H, Nucleated RBCs 3 H, Platelet Estimate ADEQUATE, Polychromasia 2+, Poikilocytosis 1+, Basophilic Stippling 2+, Anisocytosis 2+, Microcytic Cells 1+, Elliptocytes RARE, PUBS MCHC 31.6 L 11/13/16 2120: APTT 81 H 11/13/16 0900: APTT 86 H 11/13/16 0438: Anion Gap 9, Estimated GFR > 60, Glucose 252 H, Calcium 7.9 L, Phosphorus 2.6, Magnesium 2.7 H, Total Bilirubin 0.6, AST 150 H, ALT 620 H, Albumin 2.4 L, CBC w Diff MAN DIFF ORDERED, RBC 2.94 L, MCV 83.6, MCH 26.6 L, RDW 17.6 H, MPV 9.7, Gran % 85.8 H, Lymphocytes % 8.5 L, Monocytes % 5.5, Eosinophils % 0.1, Basophils % 0.1, Absolute Granulocytes 9.0 H, Segmented Neutrophils 92 H, Absolute Lymphocytes 0.9 L, Lymphocytes 5 L, Monocytes 3, Absolute Monocytes 0.6, Absolute Eosinophils 0, Absolute Basophils 0, Nucleated RBCs 4 H, Platelet Estimate ADEQUATE, Polychromasia 1+, Hypochromic-Microcytic 1+, Poikilocytosis 1 +, Basophilic Stippling SLIGHT, Ovalocytes 1+, Elliptocytes FEW, PUBS MCHC 31.9 L, Fld Total RBCs Counted 100 11/12/16 2026: APTT 82 H 11/12/16 1110: APTT 96 H Assessment/Plan Assessment/Plan In summary this 81-year-old female has the following problems 1. Respiratory insufficiency with evidence of pulmonary embolism/DVT 2. Extensive smoking history with pulmonary hypertension on Echo 3. Elevated troponin likely due to demand ischemia in the setting of acute pulmonary embolism with respiratory insufficiency 4. Renal insufficiency 5. Anemia of unclear etiology requiring transfusion 6. Severe right ventricular dilatation / dysfunction on echocardiogram 7. Hypotension, improving 8. Possible sepsis X She has been on intravenous heparin. Hemoglobin and hematocrit has been stable. No obvious source of bleed is noted. Apparently she has had a history of anemia in the past but cannot tolerate iron because of constipation. I will defer treatment for this to the primary doctor. With regards to transition to oral anticoagulation she may be a candidate to start Pradaxa after 5 days of intravenous heparin. Family is quite concerned that they should be an antidote. Pradaxa in the treatment of pulmonary a.m. was and requires lead-in with intravenous heparin for about 5 days. Thereafter IV heparin can be stopped per probably 4 hours after the initial Pradaxa dosing. Definite attention to follow -up hematocrit. Would probably increase metoprolol tartrate 25 mg twice a day and see if tolerated in hospital. Continue telemetry? Yes
--- NOTE | 2016-11-14 09:36 | PN- CRCU ---
Subjective HPI/Critical Care Issues: pt seen and examined afebrile hemodynamically stable reduced to 5LNC saturating 96%, can continue to go down on fio2 comfortable without pain some lethargy Objective Current Medications: Current Medications Sig/Irma Start time Last Medication Dose Route Stop Time Status Admin Albuterol Sulfate 3 ML EVERY 4 HRS/AWAKE 11/10 1200 AC 11/14 INH 0807 Albuterol Sulfate 3 ML Q4H PRN 11/10 0800 AC 11/10 INH 0757 Aspirin 81 MG DAILY 11/10 1000 AC 11/13 PO 1031 Azithromycin 500 MG 0 11/10 2200 AC 11/13 Sodium Chloride 250 ML IV 2255 Ceftriaxone Sodium 1,000 MG 2200 11/10 2200 AC 11/13 IV 2255 Ferrous Sulfate 325 MG DAILY 11/13 1233 AC 11/13 PO 1336 Guaifenesin 600 MG Q12 11/12 1245 AC 11/13 PO 2257 Heparin Sodium/ 25,000 UNIT Q24H 11/10 1315 AC 11/13 Dextrose IV 1024 Dextrose/Water 500 ML Insulin Aspart 0 TIDAC 11/14 0800 AC 11/14 SC 0814 Ipratropium [place] 2.5 ML EVERY 4 HRS/AWAKE 11/10 1200 AC 11/14 INH 0807 Metoprolol Tartrate 12.5 MG BID 11/13 1228 AC 11/13 PO 2257 Multivitamins 1 TAB DAILY 11/10 1000 AC 11/13 PO 1031 Phosphate 250 MG ONCE ONE 11/14 0700 DC 11/14 PO 11/14 0701 0816 Phosphate 250 MG PC AND AT BEDTIME 11/13 1300 AC 11/14 PO 0816 Prednisone 10 MG DAILY 11/17 1000 AC PO 11/18 1001 Prednisone 20 MG DAILY 11/15 1000 AC PO 11/16 1001 Prednisone 30 MG DAILY 11/13 1000 AC 11/13 PO 11/14 1001 1031 Vital Signs & I&O Last 24 Hrs of Vitals and I&O: Vital Signs Date Time Temp Pulse Resp B/P B/P Pulse O2 O2 Flow FiO2 Mean Ox Delivery Rate 11/14 0809 96 Nasal 5.0L Cannula 11/14 0122 96 Nasal 5.0L Cannula 11/14 0000 97.1 81 20 138/66 99 Nasal 5.0L Cannula 11/13 2257 96 26 118/64 11/13 1907 97 Nasal 5.0L Cannula 11/13 1907 97.0 88 26 118/70 97 Nasal 5.0L Cannula 11/13 1630 92 Nasal 5.0L Cannula 11/13 1337 97 119/66 11/13 1227 96 Nasal 6.0L Cannula Intake & Output 11/14 1600 11/14 0800 11/14 0000 Intake Total 208 740 Output Total 300 400 Balance -92 340 Intake, IV 208 260 Intake, Oral 480 Output, Urine 300 400 Exam Other Physical Findings: gen awake and alert heent ncat cvs s1, s2, +murmur lungs rare rhonchi abd soft bs+ ext without edema midline chest area with keratotic discoloration Results Last 24 Hrs of Lab Results: Laboratory Tests 11/14/16 0320: Anion Gap 9, Estimated GFR > 60, Glucose 259 H, Hemoglobin A1c 6.5 H, Calcium 7.9 L, Phosphorus 2.5, Magnesium 2.5 H, Total Bilirubin 0.5, AST 96 H, ALT 506 H, Albumin 2.4 L, CBC w Diff MAN DIFF ORDERED, RBC 3.14 L, MCV 83.3, MCH 26.3 L, RDW 16.8 H, MPV 10.0, Gran % 82.5 H, Lymphocytes % 8.6 L, Monocytes % 6.4, Eosinophils % 0.1, Basophils % 2.4 H, Absolute Granulocytes 8.9 H, Segmented Neutrophils 81 H, Band Neutrophils 6 H, Absolute Lymphocytes 0.9 L, Lymphocytes 9 L, Monocytes 2, Absolute Monocytes 0.7 H, Absolute Eosinophils 0 , Absolute Basophils 0.3, Metamyelocytes 2 H, Nucleated RBCs 3 H, Platelet Estimate ADEQUATE, Polychromasia 2+, Poikilocytosis 1+, Basophilic Stippling 2+, Anisocytosis 2+, Microcytic Cells 1+, Elliptocytes RARE, PUBS MCHC 31.6 L 11/13/160: APTT 81 H Impression/Plan Impression/Plan Impression/Plan: Impression 81 year old woman * acute hypoxemic respiratory failure - desaturated to 80% on RA * RESOLVED hypotension secondary to severe sepsis vs cardiogenic etiology (BNP 26495) * troponinemia, can be nstemi or demand ischemia * resolving transaminitis * tobacco dependence history * anemia * VTE - DVT + PE, 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 Plan Respiratory - reduce fio2 as tolerated - prednisone taper as ordered - incentive spirometry - oob to chair ID - complete course of abx - monitor fevers, leukocytosis resolved CVS - f/u cardiology recommendations Heme - monitor hemoglobin and coags - anemia is likely underlying iron deficiency and chronic disease - would add iron supplementation and would require a gi workup likely as an outpatient unless any deterioration in hgb Metabolic - resolved macho and improved transaminitis all likely from initial hypotension Alimentary - diet as tolerated, monitor glucose Neuro - no acute issues DVT prophylaxis at all times - on heparin for VTE (DVT + PE) TTS 35 min DNR/DNI Tele DG today
[2016-11-14 11:20] LABS: PTT 94 SEC (25-37)
--- NOTE | 2016-11-14 13:06 | NUR ---
NURSING NOTE: PT IS A&O X 3. VERY TIRE TODAY ACCEPTED TO GET OOB, BUT WHEN THE TIME CAME REFUSED. PT IS SOB WITH MINIMAL EXCERTION. TOOK SEVERAL MINUTES TO GIVE MEDICATIONS DUE TO THE 3-5 MINUTES TO CATCH BREATH BETWEEN PILLS. SHE DID TAKE 2-3 AT ONE TIME. RESP: FiO2 DECREASED TO 4 LITER. O2 SAT REMAINS ABOVE 95%. IS SOB WITH ANY EXCERTION. CARDIO: METOPROLOL INCREASED FROM 12.5 TO 25 MG BID. HR TODAY WAS BETWEEN [address] CUNNINGHAM SUGGESTED MOVING TO PO ANTICOAG. ADDITIONAL HEPARIN GTT TIME NEEDED BEFORE TRANSITION. : AHMADI IN PLACE OUTPUT IS GOOD. URINE IS CONCENTRATED. APPROX. 400 ML OUT. GI: NO BM TODAY.
--- NOTE | 2016-11-14 14:35 | NUR ---
PHYSICAL THERAPY- CONSULT RECEIVED, CHART REVIEWED. NSG ATTEMPTED TO GET PT OOB MULTIPLE TIMES TODAY; PT W/ SOME SOB AND REFUSING OOB. ATTEMPTED TO SEE PT THIS PM FOR EVAL AND OOBTC. PT REFUSED, STATING "I'M TIRED, I WANT TO REST". PT AGREES TO GET OOB W/ P.T. IN AM. WRITTEN ON WHITEBOARD AND D/W NSG. RISKS OF IMMOBILITY AND BEDREST DISCUSSED W/ PT. WILL FOLLOW.
[2016-11-14 16:25] VITALS: BP 104/58
--- NOTE | 2016-11-14 17:42 | Transfer of Care Summary ---
Hospital Course Course Hospital Course: Ms. Rosario is a 81-year-old lady with limited past medical history owing to the fact that she has not seen a PCP since 1996 years who presented to the emergency department at [facility] on 11/09/2016 after EMS found the patient was profoundly hypoxic (down to 80%) on room air. Two weeks prior to admission the patient had symptoms of a URI. She had took [id number] medications in an effort to reduce his symptoms however 72 hours prior to admission her symptoms gradually worsened. Her family called EMS after she continued to experience worsening dyspnea and shortness of breath. While she was admitted to the intensive care unit the following problems were addressed: Respiratory insufficiency with evidence of pulmonary embolism and deep vein thrombosis On day one of admission the patient met sepsis criteria: HR 125, RR >22, T: 96.1 A venous Doppler study done on day one of admission showed bilateral lower extremity DVT. She was started on heparin IV. A VQ scan done on day 2 of admission confirmed that the patient had also developed a high probability of pulmonary embolism. The patient was continued on IV heparin. A vascular consult was obtained to assess the patient should the need for an IVC filter arise. On 11/14/2016 the patient will have completed 5 days of heparin therapy. Cardiology recommendations are to attempt to again the patient on oral Pradaxa. This dose was confirmed with pharmacy at 150 mg twice a day. Owing to long-standing smoking history and questionable COPD, The patient was also administered IV Solu-Medrol. On day two of admission, she was started on a prednisone taper which has been highlighted as follows: Prednisone Taper, 40 mg (11/11 and 11/12.) 30mg (11/13 and 11/14), 20 mg (11/15 and 11/16), 10mg (11/17 and 11/18 ). At the time of admission the patient was also started on Ceftriaxone (Day five of Abx as of 11/14) and Azithromycin (Day five of Abx as of 11/14) for suspected pneumonia. Elevated troponin due to demand ischemia in the setting of acute PE On day one of admission the patient did have elevated troponin. 0.44-->0.44--> 0.31. Echocardiogram done on the day of admission shows evidence of pulmonary pressures in the 70s. Likely attributed to long-standing smoking history. The patient was continued on aspirin. On day 4 of admission the patient was started on metoprolol 12.5 twice a day owing to a short run of SVT. On day five of admission the metoprolol was increased to 25 mg twice a day. Acute blood loss anemia Multifactorial combination of iron deficiency anemia and anemia of chronic disease. Since the patient was admitted she has been transfused 1 unit PRBC. Ferrous sulfate 325 mg ordered. We were unable to guaiac stools as the patient had decreased by mouth intake and has not had a bowel movement. The patient will need a GI follow-up for workup as an outpatient. Monitor CBC in a.m. Cachexia Patient was counseled extensively on the importance of maintaining adequate nutritional intake. She does agree to comply. She declined the idea of an NG tube for additional feeding. Ensure supplements ordered. Diet: Chopped & Regular Physical Deconditioning Physical Therapy Consultation Placed. Patient was encouraged to attempt to get out of bed to chair. Code DNR/DNI Complications: EXAMINATION: PULMONARY VENTILATION PERFUSION STUDY CLINICAL INFORMATION: Increased O2 requirements, evidence of DVT on Dopplers. COMPARISON: No previous lung scan is available for comparison. A chest radiograph dated 11/11/2016, the same date as this lung scan, is available for comparison. TECHNIQUE: Serial gamma scintillation camera images were obtained over the posterior chest during the single breath, equilibrium rebreathing and washout of 10.1 mCi Xe 133 gas. The patient then received 4.1 mCi Tc-99m MAA intravenously and a 6-view perfusion study was performed. FINDINGS: Ventilation images: On the single breath and equilibrium images there is diffusely decreased ventilation to the right lung. During the equilibrium phase there is significant redistribution into the right lung. During the washout phase there is marked retention diffusely in the right lung and mild diffuse retention in the left lung. Right hemidiaphragm appears elevated. Perfusion images: There is a segmental perfusion defect that is probably in the superior segment of the left additional subsegmental perfusion defects are present in the lung apices bilaterally in scattered in the right lung, likely involving old 3 lobes. The right hemidiaphragm appears higher than the left, but this is well matched to the ventilation images. The contemporaneous chest radiograph shows opacity in the right lower lung zone that corresponds to the region of decreased ventilation and perfusion described above but no significant abnormality is present in the region of the segmental defect that is likely in the superior segment of the left lower lobe. IMPRESSION: High probability of pulmonary embolism. A segmental defect in the left lung that is likely in the superior segment is present and in addition there are several subsegmental perfusion defects present bilaterally. DICTATED BY: BRYSON FLYNN MD EXAM TYPE: US - US-EXT BILAT VENOUS DOPPLER CLINICAL INFORMATION: Increased oxygen requirements with hypotension and dyspnea COMPARISON: None TECHNIQUE: Color-flow triplex imaging with spectral analysis and compression Doppler were performed on the bilateral lower extremities. FINDINGS: Duplex Doppler compression ultrasound evaluation of the lower extremities performed bilaterally. There was normal compressibility in response to augmentation and compression maneuvers within the common femoral veins bilaterally and proximal and mid superficial femoral veins. Within the left lower extremity there is partially occluded thrombus for a short segment than what flow noted normally within the popliteal vein and proximal calf veins. Within the mid to distal left superficial femoral vein and popliteal vein there is noted to be partially occlusive thrombus. No popliteal fossa cyst identified. No popliteal artery aneurysm. IMPRESSION: Bilateral lower extremity DVT with partially occluded thrombus seen within both distal superficial femoral veins as well as left popliteal vein. This critical result was discussed with Dr. Perry at 1:10 PM on November 10, 2016 and it was ascertained that the content and urgency of the report was understood at the time of direct communication. SERVICE DATE: 11/10/16- EXAM TYPE: CARD - ECHOCARDIOGRAM FINDINGS Left Ventricle Normal LV chamber size and wall thickness. The estimated LVEF is 60% there are no focal wall motion of modalities. There is septal wall dyssynchrony as well as flattening (predominantly in diastole) Right Ventricle The RV chamber size is markedly dilated. There is severe global hypokinesis of the right ventricle. Right ventricular apex is akinetic. The estimated RV systolic pressure is greater than 70 Right Atrium Markedly dilated right atrium Left Atrium Grossly normal appearing left atrium Mitral Valve Normal-appearing mitral valvular leaflet structure and function. There is trace to mild mitral regurgitation Aortic Valve Mildly sclerotic aortic valvular leaflet structure and function with normal leaflet opening Tricuspid Valve Grossly normal appearing tricuspid valvular leaflets with suboptimal coaptation. There is moderate tricuspid regurgitation. Estimated PA systolic pressure is 50-60 mmHg Pulmonic Valve Grossly normal appearing pulmonic valvular leaflet structure and function Pericardium Normal pericardium Great Vessels Grossly normal appearing great vessels CONCLUSIONS Normal LV chamber size and wall thickness. The estimated LVEF is 60% there are no focal wall motion of modalities. There is septal wall dyssynchrony as well as flattening (predominantly in diastole). The RV chamber size is markedly dilated. There is severe global hypokinesis of the right ventricle. Right ventricular apex is akinetic. The estimated RV systolic pressure is greater than 70. Markedly dilated right atrium. There is trace to mild mitral regurgitation. There is moderate tricuspid regurgitation. Estimated PA systolic pressure is 50-60 mmHg. Henry Shelton M.D. Assessment/Plan: The following problems and recommendations need to be addressed. 1) On 11/15/2016 please confirm the dose of Pradaxa for the patient. 4 hours after initiating Pradaxa the IV heparin can be discontinued. 2) The patient will need a GI follow-up likely as an outpatient. This is to further assess the cause for her anemia. 3) Patient has had a nutritional consult while she has been admitted. She needs to continue to be encouraged to increase by mouth intake. Assessment/Plan: The following problems and recommendations need to be addressed. 1) On 11/15/2016 please confirm the dose of Pradaxa for the patient. 4 hours after initiating Pradaxa the IV heparin can be discontinued. 2) The patient will need a GI follow-up likely as an outpatient. This is to further assess the cause for her anemia. 3) Patient has had a nutritional consult while she has been admitted. She needs to continue to be encouraged to increase by mouth intake.
[2016-11-14 19:56] LABS: PTT 55 SEC (25-37)
[2016-11-14 23:58] VITALS: BP 90/60
[2016-11-15 03:08] LABS: PTT 97 SEC (25-37)
--- NOTE | 2016-11-15 07:23 | PN- Housestaff ---
Subjective Follow-up For: Acute hypoxemic respiratory failure secondary to PE Bilateral DVT Concern for malignancy Tele-Events Since Last Visit: Normal sinus rhythm HR 74-82 6-beat run of V-tach and PVCs Subjective: No acute events overnight. Patient seen and examined this morning. She feels that her shortness of breath is about the same. She remains on 4 L NC. She denies chest pain or palpitations. She has not started ambulating yet. Review of Systems Constitutional: Reports: see HPI. Objective Last 24 Hrs of Vital Signs/I&O Vital Signs Date Time Temp Pulse Resp B/P B/P Pulse O2 O2 Flow FiO2 Mean Ox Delivery Rate 11/15 1558 98.1 98 20 100/56 91 Nasal 4.0L Cannula 11/15 1549 91 Nasal 4.0L Cannula 11/15 0840 89 112/64 11/15 0825 98.3 77 16 118/60 92 Nasal 4.0L Cannula 11/15 0802 96 Nasal 4.0L Cannula 11/15 0800 Nasal 4.0L Cannula 11/15 0000 92 Nasal 4.0L Cannula 11/14 2358 99.1 82 20 90/60 97 Nasal 4.0L Cannula 11/14 2153 91 112/60 11/14 2020 95 Nasal 4.0L Cannula Intake & Output 11/15 1600 11/15 0800 11/15 0000 Intake Total 492 200 636 Output Total 250 375 325 Balance 242 -175 311 Intake, IV 192 200 196 Intake, Oral 300 440 Number 0 Bowel Movements Output, Urine 250 375 325 Physical Exam General Appearance: Alert, Oriented X3, No Acute Distress HEENT: Atraumatic, Mucous Membr. moist/pink Neck: Supple Cardiovascular: Regular Rate, Normal S1, Normal S2 Lungs: Diminished Breath Sounds Abdomen: Soft, No Tenderness, Positive Bowel Sounds Extremities: No Clubbing, No Cyanosis, No Edema Current Medications: Current Medications Sig/Imra Start time Last Medication Dose Route Stop Time Status Admin Albuterol Sulfate 3 ML EVERY 4 HRS/AWAKE 11/10 1200 AC 11/15 INH 1544 Albuterol Sulfate 3 ML Q4H PRN 11/10 0800 AC 11/10 INH 0757 Aspirin 81 MG DAILY 11/10 1000 AC 11/15 PO 0834 Azithromycin 500 MG 11/10 DC 11/14 Sodium Chloride 250 ML IV 215 Ceftriaxone Sodium 1,000 MG 11/10 DC 11/14 IV 2150 Docusate Sodium 100 MG DAILY NEEDED PRN 11/14 2045 AC 11/14 PO 2154 Ergocalciferol 50,000 IU ONCE A WEEK 11/15 1115 AC 11/15 PO 1644 Ferrous Sulfate 325 MG DAILY 11/13 1233 AC 11/15 PO 0834 Guaifenesin 10 ML Q4P PRN 11/14 2215 PO Guaifenesin 600 MG Q12 11/12 1245 HI 11/14 PO 1024 Heparin Sodium/ 25,000 UNIT Q24H 11/10 1315 AC 11/15 Dextrose IV 0554 Dextrose/Water 500 ML Insulin Aspart 3 UNITS ONCE ONE 11/14 2215 DC 11/14 SC 11/14 221 221 Insulin Aspart 0 TIDAC 11/14 0800 AC 11/15 SC 1826 Ipratropium Mercer 2.5 ML EVERY 4 HRS/AWAKE 11/10 1200 AC 11/15 INH 1544 Metoprolol Tartrate 25 MG BID 11/14 2200 AC 11/15 PO 0840 Multivitamins 1 TAB DAILY 11/10 1000 AC 11/15 PO 0834 Phosphate 250 MG PC AND AT BEDTIME 11/13 1300 AC 11/15 PO 1644 Prednisone 10 MG DAILY 11/17 1000 AC PO 11/18 1001 Prednisone 20 MG DAILY 11/15 1000 AC 11/15 PO 11/16 1001 0834 Senna 187 MG AT BEDTIME 11/14 2199 AC 11/14 PO 2154 Last 24 Hrs of Lab/Jamaal Results Last 24 Hrs of Labs/Mics: Laboratory Tests 11/15/16 0900: Anion Gap 5, Estimated GFR > 60, Glucose 104 H, Calcium 8.1 L, Phosphorus 2.4 L, Magnesium 2.0, Total Bilirubin 0.7, AST 70 H, ALT 364 H, Albumin 2.3 L, APTT 61 H, CBC w Diff MAN DIFF ORDERED, RBC 2.99 L, MCV 84.9, MCH 27.3, RDW 17.3 H, MPV 10.1, Segmented Neutrophils 84 H, Band Neutrophils 2, Lymphocytes 8 L, Monocytes 1 L, Metamyelocytes 2 H, Myelocytes 3 H, Nucleated RBCs 5 H, Platelet Estimate ADEQUATE, Polychromasia 1+, Poikilocytosis 1+, Anisocytosis 1+ , PUBS MCHC 32.1 L 11/15/16 0240: APTT 97 H Assessment/Plan Assessment: 81 y/o F with no significant PMHx other than longstanding smoking history, not seen a physician in >20 years, who presented with acute hypoxemic respiratory failure, found to have bilateral DVT and PE as well as CHARLEEN, now resolved. #PE/bilateral DVT: Plan was to transition to Pradaxa after 5 days of IV heparin. Remains on 4 L NC. Now that she is stable, patient will need malignancy workup in view of longstanding smoking history and thromboembolic events. * Pulmonology and cardiology following. Appreciate their recs. * Continue IV heparin drip (11/11-). * Continue prednisone taper. * CT Chest W/O IV Contrast ordered to evaluate for lung mass. * Consider transitioning to Pradaxa tomorrow if CT Chest is without evidence of hemorrhagic lesions. * Encourage incentive spirometry. * Continue PT. * Wean down oxygen as tolerated. * Discontinue Shea catheter. #T2DM: Diagnosed during current admission with HbA1c of 6.5. * Start diabetic diet. * Accu-checks and medium dose sliding scale Novolog TIDAC. #Anemia: H/H stable. Iron studies consistent with mixed anemia secondary to iron deficiency and anemia of chronic disease. * Monitor H/H and transfuse as needed to keep Hgb >7. * Continue ferrous sulfate 325 mg PO daily. #Vitamin D deficiency: Vitamin D very low at 4.7. * Start vitamin D 50,000 IU once per week. Diet: Diabetic - Full chopped and thin liquids DVT PPx: IV heparin CODE: DNR/DNI Problem List: 1. Pulmonary embolism 2. DVT, bilateral lower limbs 3. Newly diagnosed diabetes 4. T2DM (type 2 diabetes mellitus) 5. Iron deficiency anemia 6. Anemia of chronic disease 7. Vitamin D deficiency 8. Acute hypoxemic respiratory failure Pain Ratin Pain Location: N/A Pain Goal: Remain pain free Pain Plan: N/A Tomorrow's Labs & Rationales: CBC to monitor H/H in the setting of anemia BMP, Mg and Phos to monitor lytes in the setting of electrolyte disturbances LFTs to monitor transaminitis
[2016-11-15 08:25] VITALS: BP 118/60
--- NOTE | 2016-11-15 08:31 | PN- Pulmonary ---
Subjective HPI/Critical Care Issues: pt seen and examined 92% on 4LNC 98.3 temp hemodynamically stable no tachycardia transferred out of icu Objective Current Medications: Current Medications Sig/Irma Start time Last Medication Dose Route Stop Time Status Admin Albuterol Sulfate 3 ML EVERY 4 HRS/AWAKE 11/10 1200 AC 11/15 INH 0758 Albuterol Sulfate 3 ML Q4H PRN 11/10 0800 AC 11/10 INH 0757 Aspirin 81 MG DAILY 11/10 1000 AC 11/14 PO 1025 Azithromycin 500 MG 11/10 DC 11/14 Sodium Chloride 250 ML IV 2150 Ceftriaxone Sodium 1,000 MG 11/10 2200 DC 11/14 IV 2150 Docusate Sodium 100 MG DAILY NEEDED PRN 11/14 2045 AC 11/14 PO 215 Ferrous Sulfate 325 MG DAILY 11/13 1233 AC 11/14 PO 1024 Guaifenesin 10 ML Q4P PRN 11/14 2215 AC PO Guaifenesin 600 MG Q12 11/12 1245 DC 11/14 PO 1024 Heparin Sodium/ 25,000 UNIT Q24H 11/10 1315 AC 11/15 Dextrose IV 0554 Dextrose/Water 500 ML Insulin Aspart 3 UNITS ONCE ONE 11/14 2215 DC 11/14 SC 11/14 2216 2218 Insulin Aspart 0 TIDAC 11/14 0800 AC 11/14 SC 1743 Ipratropium Marshall 2.5 ML EVERY 4 HRS/AWAKE 11/10 1200 AC 11/15 INH 0758 Metoprolol Tartrate 25 MG BID 11/14 2200 AC 11/14 PO 2153 Metoprolol Tartrate 12.5 MG ONCE ONE 11/14 1100 DC 11/14 PO 11/14 1101 1225 Metoprolol Tartrate 12.5 MG BID 11/13 1228 DC 11/14 PO 1100 Multivitamins 1 TAB DAILY 11/10 1000 AC 11/14 PO 1024 Phosphate 250 MG PC AND AT BEDTIME 11/13 1300 AC 11/14 PO 2153 Prednisone 10 MG DAILY 11/17 1000 AC PO 11/18 1001 Prednisone 20 MG DAILY 11/15 1000 AC PO 11/16 1001 Prednisone 30 MG DAILY 11/13 1000 DC 11/14 PO 11/14 1001 1024 Senna 187 MG AT BEDTIME 11/14 2200 AC 11/14 PO 2154 Vital Signs & I&O Last 24 Hrs of Vitals and I&O: Vital Signs Date Time Temp Pulse Resp B/P B/P Pulse O2 O2 Flow FiO2 Mean Ox Delivery Rate 11/15 0825 98.3 77 16 118/60 92 Nasal 4.0L Cannula 11/15 0802 96 Nasal 4.0L Cannula 11/15 0000 92 Nasal 4.0L Cannula 11/14 2358 99.1 82 20 90/60 97 Nasal 4.0L Cannula 11/14 2153 91 112/60 11/14 2020 95 Nasal 4.0L Cannula 11/14 1625 98.1 90 18 104/58 92 Nasal 4.0L Cannula 11/14 1600 92 Nasal 4.0L Cannula 11/14 1225 92 18 106/62 11/14 1034 Nasal 5.0L Cannula Intake & Output 11/15 1600 11/15 0800 11/15 0000 Intake Total 200 636 Output Total 375 325 Balance -175 311 Intake, IV 200 196 Intake, Oral 440 Number 0 Bowel Movements Output, Urine 375 325 Exam Other Physical Findings: gen awake and alert heent ncat cvs s1, s2, +murmur lungs rare rhonchi abd soft bs+ ext without edema midline chest area with keratotic discoloration Results Last 24 Hrs of Lab Results: Laboratory Tests 11/15/16 0240: APTT 97 H 11/14/16 1910: APTT 55 H 11/14/16 0950: APTT 94 H Impression/Plan Impression/Plan Impression/Plan: Impression 81 year old woman * IMPROVED acute hypoxemic respiratory failure - secondary to VTE - desaturated to 80% on RA * RESOLVED hypotension secondary to severe sepsis vs cardiogenic etiology (BNP 00425) * troponinemia, can be nstemi or demand ischemia * resolving transaminitis * tobacco dependence history * anemia * VTE - DVT + PE, 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
[2016-11-15 09:55] LABS: PTT 61 SEC (25-37)
[2016-11-15 10:16] LABS: RBC DISTRIBUTION WIDTH 17.3 % (11.5-14.5)
[2016-11-15 10:32] LABS: HEMATOCRIT 25.4 % (37-47); MEAN CORPUSCULAR HGB 27.3 PG (27.0-31.0); MEAN CORPUSCULAR HGB CONC 32.1 G/DL (33.0-37.0); MEAN CORPUSCULAR VOLUME 84.9 FL (81.0-99.0); MEAN PLATELET VOLUME 10.1 FL (7.4-10.4); PLATELET COUNT 192 /CUMM (130-400); RED BLOOD CELL CT 2.99 /CUMM (4.20-5.40); WHITE BLOOD CELL COUNT 9.6 /CUMM (4.8-10.8)
--- NOTE | 2016-11-15 11:51 | Discharge Summary ---
Visit Information Visit Dates Admission Date: 11/10/16 Discharge Date: 11/18/2016 Hospital Course Course Attending Physician: ZULEIKA SUAREZ,LANA Angel Primary Care Physician: PATIENT HAS NO PRIMARY CARE DR Hospital Course: Mrs. Rosario is a 81-year-old lady with limited past medical history owing to the fact that she has not seen a PCP since 1996 years who presented to the emergency department at [facility] on 11/09/2016 after EMS found the patient was profoundly hypoxic (down to 80%) on room air. Two weeks prior to admission the patient had symptoms of a URI. She had took [id number] medications in an effort to reduce his symptoms however 72 hours prior to admission her symptoms gradually worsened. Her family called EMS after she continued to experience worsening dyspnea and shortness of breath. Vital Signs Date Time Temp Pulse Resp B/P B/P Pulse O2 O2 Flow FiO2 Mean Ox Delivery Rate 11/10 0115 94 Nasal 5.0L Cannula 11/09 2307 96.1 125 22 104/58 89 Nasal 5.0L Cannula Physical Exam General Appearance Alert, Oriented X3, Cooperative, Mild Distress Skin No Rashes, No Breakdown HEENT Atraumatic, PERRLA, EOMI Neck Supple, No JVD Cardiovascular Regular Rate, Normal S1, Normal S2 Lungs Normal Air Movement, b/l crackles, rales, ronchii and wheezing Abdomen Normal Bowel Sounds, Soft, No Tenderness Neurological Normal Speech, Strength at 5/5 X4 Ext, Normal Tone, Sensation Intact, Cranial Nerves 3-12 NL Extremities No Clubbing, No Cyanosis, No Edema Last 24 Hrs of Labs/Jamaal: Laboratory Tests 11/09/16 2335: Anion Gap 16, Estimated GFR 36 L, BUN/Creatinine Ratio 27.1 H, Glucose 210 H, Calcium 8.4, Total Bilirubin 1.6 H, AST 1591 H, ALT 847 H, Alkaline Phosphatase 93, Troponin I 0.44 *H, Big-S-Uhnazzdfixo Pept 38085 H, Total Protein 6.5, Albumin 3.1 L, Globulin 3.4, Albumin/Globulin Ratio 0.9 L, D- Dimer 1048 H, CBC w Diff NO MAN DIFF REQ, RBC 3.37 L, MCV 82.1, MCH 26.2 L, RDW 16.7 H, MPV 8.6, Gran % 85.8 H, Lymphocytes % 6.6 L, Monocytes % 7.5, Eosinophils % 0, Basophils % 0.1, Absolute Granulocytes 12.9 H, Absolute Lymphocytes 1.0 L, Absolute Monocytes 1.1 H, Absolute Eosinophils 0, Absolute Basophils 0, PUBS MCHC 31.9 L 11/09/16 2315: pH 7.36, pCO2 35, pO2 77 L, HCO3 20 L, ABG O2 Sat (Measured) 93.0 L, Carboxyhemoglobin 0.1 L, O2 Concentration % 4.5L, O2 Delivery Method NC, Phlebotomy Draw Site RIGHT BRACHIAL She was admitted to ICU unit and then transferred to telemetry and she was treated for these medical conditions: Respiratory insufficiency with evidence of pulmonary embolism and deep vein thrombosis On day one of admission the patient met sepsis criteria: HR 125, RR >22, T: 96.1 A venous Doppler study done on day one of admission showed bilateral lower extremity DVT. She was started on heparin IV. A VQ scan done on day 2 of admission confirmed that the patient had also developed a high probability of pulmonary embolism. The patient was continued on IV heparin. A vascular consult was also on board if patient needed an IVC filter in future. after 5 days of heparin therapy we changed her to NOACs per Cardiology recommendations. Owing to long-standing smoking history and questionable COPD, The patient was also administered IV Solu-Medrol with tapering to prednisone. At the time of admission the patient was also started azithromycin with Total days of 5 days. patient still needs 4 L oxygen therapy upon discharge. Elevated troponin due to demand ischemia in the setting of acute PE On day one of admission the patient did have elevated troponin. 0.44-->0.44--> 0.31. Echocardiogram done on the day of admission shows evidence of pulmonary pressures in the 70s. Likely attributed to long-standing smoking history. The patient was continued on aspirin. On day 4 of admission the patient was started on metoprolol owing to a short run of SVT. she was discharged with metoprolol 12.5 BID. no major arrthymias was seen after the start of the medication Acute blood loss anemia Multifactorial combination of iron deficiency anemia and anemia of chronic disease. Since the patient was admitted she has been transfused 1 unit PRBC.Ferrous sulfate 325 mg ordered. The patient will need a GI follow-up for workup as an outpatient. H&H were stabel during the rest of the hospitalization. Physical Deconditioning Physical Therapy Consultation Placed. Patient was encouraged to attempt to get out of bed to chair. She will go to [facility]. Allergies: Coded Allergies: No Known Allergies (11/09/16) Disposition Summary Disposition Principal Diagnosis: Pulmonary embolism Additional Diagnosis: Anemia COPD Discharge Disposition: SNF Discharge Instructions General Discharge Information Code Status: Do Not Resucitate/Intubat Patient's Diet: Heart healthy diet Patient's Activity: as tolerated Follow-Up Instructions/Appts: -Please follow-up with your primary care provider within 7 days after discharge. -Please follow-up with your assistant production manager 7 days after discharge -Please follow-up with your mobile patrol officer 7 days after discharge. -We have made changes to your home medications, please read the instructions carefully. -Please come back to the hospital if your symptoms got worse. Medications at Discharge Discharge Medications: Start taking the following new medications: Ipratropium Arbela (Ipratropium Arbela) 0.2 MG/ML (0.02 %) SOLUTION 2.5 Milliliters Inhale through mouth EVERY 4 HRS WHILE AWAKE Days = 28 No Refills Comments: Last Taken: 11/18/16 Time: 1 pm Albuterol Sulfate (Albuterol Sulfate) 2.5 MG/3 ML (0.083 %) VIAL.NEB 3 Milliliters Inhale through mouth Q4H as needed for SHORTNESS OF BREATH Days = 28 No Refills Comments: Last Taken: 11/18/16 Time: 1 pm Ferrous Sulfate (Ferrous Sulfate) 325 MG (65 MG IRON) TABLET.DR 325 Milligram ORAL DAILY Days = 28 No Refills Comments: Last Taken: 11/18/16 Time: 11 am Aspirin (Aspirin*) 81 MG TAB.CHEW 81 Milligram ORAL DAILY Days = 28 No Refills Comments: Last Taken: 11/18/16 Time: 11 am Guaifenesin (Guaifenesin) 100 MG/5 ML LIQUID 10 Milliliters ORAL EVERY 4 HOURS NEEDED as needed for COUGH Days = 28 No Refills Comments: not given in hospital Sennosides/Docusate Sodium (Senna-Time S Tablet) 8.6 MG-50 MG TABLET 187 Milligram ORAL AT BEDTIME Days = 28 No Refills Comments: Last Taken: 11/17/16 Time: 9 pm Ergocalciferol (Vitamin D2) (Vitamin D2) 50,000 UNIT CAPSULE 50,000 International Unit ORAL ONCE A WEEK Qty = 7 No Refills Comments: Last Taken: 11/15/16 Time: 5 pm Dabigatran Etexilate Mesylate (Pradaxa 150 MG) 150 MG CAPSULE 150 Milligram ORAL TWICE DAILY Days = 28 No Refills Comments: Last Taken: 11/18/16 Time: 11 am Metoprolol Tartrate (Metoprolol Tartrate) 25 MG TABLET 12.5 Milligram ORAL TWICE DAILY Days = 28 No Refills Comments: Last Taken: 11/18/16 Time: 11 am Polyethylene Glycol 3350 (Miralax) 17 GRAM/DOSE POWDER 17 Gram ORAL DAILY Days = 10 No Refills Comments: Last Taken: 11/18/16 Time: 11 am Copies To: RYAN SUAREZ,JANY Ni; ELENITA SUAREZ,SHAYAN DEL ROSARIO; KAREL SUAREZ,OLI Attending MD Review Statement Documenting Attending: MARGAUX HUMPHREY MD Other Findings: The patient was seen on the day of discharge. Agree with the plan of care as outlined. One discharged from rehab needs malignancy workup to be coordinated by Dr. Mota (as well as pulmonary follow-up). The patient prefers Dr. Friedman to provide primary care as well as her cardilogy care. Will discuss with Dr. Cris Mcwilliams, otherwise needs to establish PCP.
--- NOTE | 2016-11-15 11:57 | PN- Cardiology ---
Subjective Subjective: Dyspnea is stable. Not ambulating yet. No palpitations or chest pain. Objective Vital Signs and I&Os Vital Signs Date Time Temp Pulse Resp B/P B/P Pulse O2 O2 Flow FiO2 Mean Ox Delivery Rate 11/15 0840 89 112/64 11/15 0825 98.3 77 16 118/60 92 Nasal 4.0L Cannula 11/15 0802 96 Nasal 4.0L Cannula 11/15 0800 Nasal 4.0L Cannula 11/15 0000 92 Nasal 4.0L Cannula 11/14 2358 99.1 82 20 90/60 97 Nasal 4.0L Cannula 11/14 2153 91 112/60 11/14 2020 95 Nasal 4.0L Cannula 11/14 1625 98.1 90 18 104/58 92 Nasal 4.0L Cannula 11/14 1600 92 Nasal 4.0L Cannula 11/14 1225 92 18 106/62 Intake & Output 11/15 1600 11/15 0800 11/15 0000 11/14 1600 11/14 0800 11/14 0000 Intake Total 200 636 208 740 Output Total 375 325 300 400 Balance -175 311 -92 340 Intake, IV 200 196 208 260 Intake, Oral 440 480 Number 0 Bowel Movements Output, Urine 375 325 300 400 Physical Exam: General: no apparent distress. On NC oxygen. Eyes: no scleral icterus HEENT: No jugular venous distention or abnormal jugular venous pulsations. Cardiovascular: Normal intensity S1/S2. Regular. Respiratory: Decreased air entry bilaterally Abdomen: no guarding or rebound tenderness. Musculoskeletal: No cyanosis noted, No edema Skin: warm Neuro: grossly nonfocal Current Medications: Current Medications Sig/Irma Start time Last Medication Dose Route Stop Time Status Admin Albuterol Sulfate 3 ML EVERY 4 HRS/AWAKE 11/10 1200 AC 11/15 INH 0758 Albuterol Sulfate 3 ML Q4H PRN 11/10 0800 AC 11/10 INH 0757 Aspirin 81 MG DAILY 11/10 1000 AC 11/15 PO 0834 Azithromycin 500 MG 11/10 DC 11/14 Sodium Chloride 250 ML IV 2150 Ceftriaxone Sodium 1,000 MG 11/10 DC 11/14 IV 2150 Docusate Sodium 100 MG DAILY NEEDED PRN 11/14 2045 AC 11/14 PO 2154 Ergocalciferol 50,000 IU ONCE A WEEK 11/15 1115 AC PO Ferrous Sulfate 325 MG DAILY 11/13 1233 AC 11/15 PO 0834 Guaifenesin 10 ML Q4P PRN 11/14 2215 AC PO Guaifenesin 600 MG Q12 11/12 1245 DC 11/14 PO 1024 Heparin Sodium/ 25,000 UNIT Q24H 11/10 1315 AC 11/15 Dextrose IV 0554 Dextrose/Water 500 ML Insulin Aspart 3 UNITS ONCE ONE 11/14 2215 DC 11/14 SC 11/14 2216 2218 Insulin Aspart 0 TIDAC 11/14 0800 AC 11/15 SC 0830 Ipratropium Ringling 2.5 ML EVERY 4 HRS/AWAKE 11/10 1200 AC 11/15 INH 0758 Metoprolol Tartrate 25 MG BID 11/14 2200 AC 11/15 PO 0840 Multivitamins 1 TAB DAILY 11/10 1000 AC 11/15 PO 0834 Phosphate 250 MG PC AND AT BEDTIME 11/13 1300 AC 11/15 PO 0834 Prednisone 10 MG DAILY 11/17 1000 AC PO 11/18 1001 Prednisone 20 MG DAILY 11/15 1000 AC 11/15 PO 11/16 1001 0834 Senna 187 MG AT BEDTIME 11/14 2200 AC 11/14 PO 2154 Results Last 48 Hrs of Labs/Mics: Laboratory Tests 11/15/16 0900: Anion Gap 5, Estimated GFR > 60, Glucose 104 H, Calcium 8.1 L, Phosphorus 2.4 L, Magnesium 2.0, Total Bilirubin 0.7, AST 70 H, ALT 364 H, Albumin 2.3 L, APTT 61 H, CBC w Diff MAN DIFF ORDERED, RBC 2.99 L, MCV 84.9, MCH 27.3, RDW 17.3 H, MPV 10.1, Segmented Neutrophils 84 H, Band Neutrophils 2, Lymphocytes 8 L, Monocytes 1 L, Metamyelocytes 2 H, Myelocytes 3 H, Nucleated RBCs 5 H, Platelet Estimate ADEQUATE, Polychromasia 1+, Poikilocytosis 1+, Anisocytosis 1+ , PUBS MCHC 32.1 L 11/15/16 0240: APTT 97 H 11/14/16 1910: APTT 55 H 11/14/16 0950: APTT 94 H 11/14/16 0320: Anion Gap 9, Estimated GFR > 60, Glucose 259 H, Hemoglobin A1c 6.5 H, Calcium 7.9 L, Phosphorus 2.5, Magnesium 2.5 H, Total Bilirubin 0.5, AST 96 H, ALT 506 H, Albumin 2.4 L, CBC w Diff MAN DIFF ORDERED, RBC 3.14 L, MCV 83.3, MCH 26.3 L, RDW 16.8 H, MPV 10.0, Gran % 82.5 H, Lymphocytes % 8.6 L, Monocytes % 6.4, Eosinophils % 0.1, Basophils % 2.4 H, Absolute Granulocytes 8.9 H, Segmented Neutrophils 81 H, Band Neutrophils 6 H, Absolute Lymphocytes 0.9 L, Lymphocytes 9 L, Monocytes 2, Absolute Monocytes 0.7 H, Absolute Eosinophils 0 , Absolute Basophils 0.3, Metamyelocytes 2 H, Nucleated RBCs 3 H, Platelet Estimate ADEQUATE, Polychromasia 2+, Poikilocytosis 1+, Basophilic Stippling 2+, Anisocytosis 2+, Microcytic Cells 1+, Elliptocytes RARE, PUBS MCHC 31.6 L 11/13/160: APTT 81 H Recent Imaging Studies: Telemetry tracings personally reviewed show sinus rhythm with short SVT bursts and one 6 beat wide complex run Assessment/Plan Assessment/Plan 1. Respiratory insufficiency with evidence of pulmonary embolism/DVT 2. Extensive smoking history with pulmonary hypertension on Echo 3. Elevated troponin likely due to demand ischemia in the setting of acute pulmonary embolism with respiratory insufficiency 4. Acute Renal insufficiency, improved 5. Anemia of unclear etiology requiring transfusion 6. Severe right ventricular dilatation / dysfunction on echocardiogram 7. Hypotension, improving 8. Possible sepsis, improved 9. Nonsustained supraventricular runs on telemetry Remains on nasal cannula oxygen. Dyspnea slowly improving. Has not ambulated much. Remains on intravenous heparin. Hemoglobin grossly stable. Continue on the twice a day metoprolol. After she has completed at least 5 days of intravenous heparin infusion can plan to transition to the twice a day Pradaxa. Will need malignancy screening given the thromboembolic events and long smoking history. She remains DNR/DNI. Tone Hernandez MD FACC Continue telemetry? Yes
--- NOTE | 2016-11-15 15:02 | PN- Att Addend ---
Attending MD Review Statement Attending Statement Attending MD Statement: examined this patient, discuss w/resident/PA/ASSORTMENT PLANNER, agreed w/resident/PA/ASSORTMENT PLANNER, reviewed EMR data (avail), discussed w/nursing, discussed w/ case mgmt Attending Assessment/Plan: Laboratory Tests 11/15/16 0900: Anion Gap 5, Estimated GFR > 60, Glucose 104 H, Calcium 8.1 L, Phosphorus 2.4 L, Magnesium 2.0, Total Bilirubin 0.7, AST 70 H, ALT 364 H, Albumin 2.3 L, APTT 61 H, CBC w Diff MAN DIFF ORDERED, RBC 2.99 L, MCV 84.9, MCH 27.3, RDW 17.3 H, MPV 10.1, Segmented Neutrophils 84 H, Band Neutrophils 2, Lymphocytes 8 L, Monocytes 1 L, Metamyelocytes 2 H, Myelocytes 3 H, Nucleated RBCs 5 H, Platelet Estimate ADEQUATE, Polychromasia 1+, Poikilocytosis 1+, Anisocytosis 1+ , PUBS MCHC 32.1 L 11/15/16 0240: APTT 97 H 11/14/16 1910: APTT 55 H Vital Signs Date Time Temp Pulse Resp B/P B/P Pulse O2 O2 Flow FiO2 Mean Ox Delivery Rate 11/15 0840 89 112/64 11/15 0825 98.3 77 16 118/60 92 Nasal 4.0L Cannula 11/15 0802 96 Nasal 4.0L Cannula 11/15 0800 Nasal 4.0L Cannula 11/15 0000 92 Nasal 4.0L Cannula 11/14 2358 99.1 82 20 90/60 97 Nasal 4.0L Cannula 11/14 2153 91 112/60 11/14 2020 95 Nasal 4.0L Cannula 11/14 1625 98.1 90 18 104/58 92 Nasal 4.0L Cannula 11/14 1600 92 Nasal 4.0L Cannula Patient seen and examined at bedside. Discussed with patient as well as patient 's at bedside the care plan. 81-year-old female with past medical history of nicotine dependence who last saw her primary care physician in 1996. Patient was brought in by EMS to the emergency room for acute hypoxic respiratory failure. Patient was admitted to the ICU with respiratory failure and the was found to have bilateral DVT and pulmonary embolism. Patient also had acute kidney injury at admission. Patient currently is on heparin drip and plan is to switch her to Pradaxa. Her acute kidney injury has resolved. Patient was also found to be diabetic with high blood sugar and A1c checked was 6.5. Given her weight loss as well as long-term smoking history we would want to do a CT chest with IV contrast to rule out underlying malignancy. We will also DC her Shea catheter. Her vitamin D level was found to be very low at 4.7 so we have started her on high-dose vitamin D supplementation. Her Cetamide and level was low suggestive of iron deficiency anemia and she's been started on iron supplementation.
[2016-11-15 15:58] VITALS: BP 100/56
[2016-11-15] MEDS ORDERED: IPRATROPIU0.2 MG/1 M INH (17:12)
[2016-11-15] MEDS ORDERED: ALBUTEROL2.5 MG/3 M INH (17:12)
[2016-11-15] MEDS ORDERED: DOCUSATE SODIU100 M3 PO (17:12)
[2016-11-15] MEDS ORDERED: METOPROLOL TART25 M1 PO (17:12)
[2016-11-15] MEDS ORDERED: GUAIFENESI100 MG/5 M PO (17:12)
[2016-11-15] MEDS ORDERED: SENNA-TIME S T1 EACH PO (17:12)
[2016-11-15] MEDS ORDERED: VITAMIN D250000 UNIT PO (17:12)
[2016-11-15] MEDS ORDERED: ASPIRIN81 M4 PO (17:12)
[2016-11-15] MEDS ORDERED: FERROUS SULFAT325 M2 PO (17:12)
--- NOTE | 2016-11-15 17:14 | Patient Discharge Instructions ---
Discharge Instructions General Discharge Information You were seen/treated for: Pulmonary embolism Special Instructions: -Please follow-up with your primary care provider within 7 days after discharge. -Please follow-up with your slat pickler 7 days after discharge -Please follow-up with your alarm service technician 7 days after discharge. -We have made changes to your home medications, please read the instructions carefully. -Please come back to the hospital if your symptoms got worse. Diet Recommended Diet: Heart Healthy Activity Full Activity/No Limits: Yes (as tolerated) Acute Coronary Syndrome Inclusion Criteria At DC or during hospital stay patient has or had the following: ACS DIAGNOSIS No Discharge Core Measures Meds if any: Prescribed or Continued at Discharge Meds if any: NOT Prescribed or Continued at Discharge Congestive Heart Failure Inclusion Criteria At DC or during hospital stay patient has or had the following: CHF DIAGNOSIS No Discharge Core Measures Meds if any: Prescribed or Continued at Discharge Meds if any: NOT Prescribed or Continued at Discharge Cerebrovascular accident Inclusion Criteria At DC or during hospital stay patient has or had the following: CVA/TIA Diagnosis No Discharge Core Measures Meds if any: Prescribed or Continued at Discharge Meds if any: NOT Prescribed or Continued at Discharge Venous thromboembolism Inclusion Criteria VTE Diagnosis Yes VTE Type Pulmonary Embolism VTE Confirmed by (Test) LUNG SCAN (V/Q) Discharge Core Measures - Per Current guidelines, there needs to be overlap - treatment for the first 5 days of Warfarin therapy. - If discharged on Warfarin prior to 5 days of - overlap therapy, the patient will need to be - assessed for post discharge needs including - *Post discharge parental anticoagulation - *Warfarin and/or parental anticoagulation education - *Follow up date to check INR post discharge At least 5 days overlap therapy as Inpatient Yes Meds if any: Prescribed or Continued at Discharge Note: Overlap Therapy is Warfarin and Anticoagulant Meds if any: NOT Prescribed or Continued at Discharge
--- NOTE | 2016-11-15 18:03 | CT SCAN REPORT ---
EXAMINATION: CT CHEST WITHOUT CONTRAST CLINICAL INFORMATION: Right lower lobe lung opacity on chest x-ray. Concern for malignancy. COMPARISON: Chest x-ray 11/11/2016 TECHNIQUE: Multidetector volumetric CT imaging of the chest was done. Axial MIP volume rendering provided. Sagittal and coronal reformatted images were obtained. DLP: 201.96 mGy-cm FINDINGS: LUNGS: There is advanced Torres emphysematous lung. There is focal consolidation with air bronchograms in the right lower lobe posteriorly. There is a small focal nodular opacity at the posterior right upper lobe along the major fissure. There is bronchial wall thickening at the right lung base involving lower lobe bronchi. There are a few scattered reticular and groundglass opacities bilaterally. No suspicious mass. MEDIASTINUM: Shotty subcentimeter lymph nodes in the pretracheal retrovascular space and AP window. No bulky lymphadenopathy. There is vascular calcification of aorta and great vessels and coronary arteries. No pericardial effusion. PLEURA: Small to moderate volume right pleural effusion. There is a small left pleural effusion layering dependently. AXILLA: No lymphadenopathy. UPPER ABDOMEN: Small amount of ascites seen around the liver margin and spleen in the upper abdomen. Left adrenal gland is enlarged. Measures 3.1 x 2.6 cm. This has a density measurement of 30 Hounsfield units which is indeterminate. No focal lesions seen of the visualized portions of liver, spleen, pancreas or kidneys. OSSEOUS STRUCTURES: Unremarkable. IMPRESSION: 1. Emphysematous changes of lung. 2. Right lower lobe infiltrate. 3. Bilateral pleural effusions right larger in volume than left. 4. Enlarged left adrenal gland. Dedicated CT adrenal study would be helpful for further characterization 5. Small amount of ascites in the upper abdomen.
[2016-11-15 21:57] LABS: PTT 89 SEC (25-37)
[2016-11-15 23:51] VITALS: BP 100/60
[2016-11-16 08:00] VITALS: BP 108/64
[2016-11-16 08:50] LABS: ABSOLUTE BASOPHIL COUNT 0 /CUMM (0.0-0.2); ABSOLUTE EOSINOPHIL COUNT 0 /CUMM (0.0-0.7); ABSOLUTE GRANULOCYTE CT 5.5 /CUMM (1.4-6.5); ABSOLUTE LYMPH COUNT 1.4 /CUMM (1.2-3.4); ABSOLUTE MONOCYTE COUNT 0.7 /CUMM (0.10-0.60); BASOPHIL % 0.2 % (0.0-2.0); EOSINOPHIL % 0.1 % (0-5); GRANULOCYTE % 72.1 % (42.2-75.2); HEMATOCRIT 24.7 % (37-47); MEAN CORPUSCULAR HGB 26.1 PG (27.0-31.0); MEAN CORPUSCULAR HGB CONC 31.2 G/DL (33.0-37.0); MEAN CORPUSCULAR VOLUME 83.6 FL (81.0-99.0); MEAN PLATELET VOLUME 10.1 FL (7.4-10.4); PLATELET COUNT 193 /CUMM (130-400); RBC DISTRIBUTION WIDTH 17.7 % (11.5-14.5); RED BLOOD CELL CT 2.95 /CUMM (4.20-5.40); WHITE BLOOD CELL COUNT 7.7 /CUMM (4.8-10.8)
[2016-11-16 09:00] LABS: PTT 59 SEC (25-37)
--- NOTE | 2016-11-16 09:42 | PN- Housestaff ---
KALYN SUAREZ,SHARIF 11/16/16 0934: Subjective Follow-up For: Acute hypoxemic respiratory failure secondary to PE Bilateral DVT Concern for malignancy Complaints: pt has mild dyspnea Tele-Events Since Last Visit: SR 70s, at 4am sinus tachycardia at 150s Subjective: Pt was seen and examined at bedside. She is sitting on the bed comfortably, on 4L oxygen. She has mild shortness of breath. Denies chest pain / palpitation. She denies any abdomianl pain, n/v. She doesn't have a PCP to follow after discharge. Review of Systems Constitutional: Denies: chills, fever, weakness. EENTM: Reports: no symptoms. Cardiovascular: Denies: chest pain, palpitations, peripheral edema. Respiratory: Reports: cough, short of breath. Denies: hemoptysis, sputum production. Gastrointestinal: Reports: abdominal pain. Denies: nausea, vomiting. Genitourinary: Reports: no symptoms. Musculoskeletal: Reports: no symptoms. Skin: Reports: no symptoms. Neurological/Psychological: Reports: no symptoms. Hematologic/Endocrine: Reports: no symptoms. Objective Last 24 Hrs of Vital Signs/I&O Vital Signs Date Time Temp Pulse Resp B/P B/P Pulse O2 O2 Flow FiO2 Mean Ox Delivery Rate 11/16 0826 93 Nasal 4.0L Cannula 11/16 0800 97.9 87 20 108/64 91 Nasal 4.0L Cannula 11/16 0000 94 Nasal 4.5L Cannula 11/15 2351 98.0 84 20 100/60 94 Nasal 2.0L Cannula 11/15 1558 98.1 98 20 100/56 91 Nasal 4.0L Cannula 11/15 1549 91 Nasal 4.0L Cannula Intake & Output 11/16 1600 11/16 0800 11/16 0000 Intake Total 360 192 Output Total 450 0 Balance -90 192 Intake, IV 240 72 Intake, Oral 120 120 Output, Urine 450 0 Physical Exam General Appearance: Alert, Oriented X3, Cooperative, No Acute Distress Skin: No Rashes, No Breakdown, No Significant Lesion Skin Temp/Moisture Exam: Warm/Dry HEENT: Atraumatic, PERRLA, EOMI Neck: Supple, No JVD, No LAD Lymphatic: Cervical nl Cardiovascular: Regular Rate, Normal S1, Normal S2, No Murmurs Lungs: Clear to Auscultation, Normal Air Movement Abdomen: Normal Bowel Sounds, Soft, No Tenderness Neurological: Normal Speech, Strength at 5/5 X4 Ext, Normal Tone, Sensation Intact Extremities: No Edema, Normal Pulses Vascular: Normal Pulses, Pulses Symmetrical Current Medications: Current Medications Sig/Irma Start time Last Medication Dose Route Stop Time Status Admin Albuterol Sulfate 3 ML EVERY 4 HRS/AWAKE 11/10 1200 AC 11/16 INH 0800 Albuterol Sulfate 3 ML Q4H PRN 11/10 0800 AC 11/10 INH 0757 Aspirin 81 MG DAILY 11/10 1000 AC 11/15 PO 0834 Docusate Sodium 100 MG DAILY NEEDED PRN 11/14 2045 AC 11/14 PO 2154 Ergocalciferol 50,000 IU ONCE A WEEK 11/15 1115 AC 11/15 PO 1644 Ferrous Sulfate 325 MG DAILY 11/13 1233 AC 11/15 PO 0834 Guaifenesin 10 ML Q4P PRN 11/14 2215 AC PO Heparin Sodium/ 25,000 UNIT Q24H 11/10 1315 AC 11/15 Dextrose IV 0554 Dextrose/Water 500 ML Insulin Aspart 0 TIDAC 11/14 0800 AC 11/15 SC 1826 Ipratropium [place] 2.5 ML EVERY 4 HRS/AWAKE 11/10 1200 AC 11/16 INH 0800 Metoprolol Tartrate 25 MG BID 11/14 2200 AC 11/15 PO 2105 Multivitamins 1 TAB DAILY 11/10 1000 AC 11/15 PO 0834 Phosphate 250 MG PC AND AT BEDTIME 11/13 1300 AC 11/15 PO 2107 Prednisone 10 MG DAILY 11/17 1000 AC PO 11/18 1001 Prednisone 20 MG DAILY 11/15 1000 AC 11/15 PO 11/16 1001 0834 Senna 187 MG AT BEDTIME 11/14 2200 AC 11/15 PO 2105 Last 24 Hrs of Lab/Jamaal Results Last 24 Hrs of Labs/Mics: Laboratory Tests 11/16/16 0750: Anion Gap 7, Estimated GFR > 60, BUN/Creatinine Ratio 28.3 H, Phosphorus 3.6, Magnesium 1.9, Total Bilirubin 0.7, Direct Bilirubin 0.3, AST 46 H, ALT 276 H, Alkaline Phosphatase 107, Total Protein 4.9 L, Albumin 2.2 L, APTT 59 H, CBC w Diff MAN DIFF ORDERED, RBC 2.95 L, MCV 83.6, MCH 26.1 L, RDW 17.7 H, MPV 10.1, Gran % 72.1, Lymphocytes % 18.3 L, Monocytes % 9.3, Eosinophils % 0.1, Basophils % 0.2, Absolute Granulocytes 5.5, Segmented Neutrophils Pending, Absolute Lymphocytes 1.4, Absolute Monocytes 0.7 H, Absolute Eosinophils 0, Absolute Basophils 0, PUBS MCHC 31.2 L 11/15/162120: APTT 89 H Lines/Diet/Fluids Lines: peripheral lines Assessment/Plan Assessment: 81 y/o F with no significant PMHx other than longstanding smoking history, not seen a physician in >20 years, who presented with acute hypoxemic respiratory failure, found to have bilateral DVT and PE as well as CHARLEEN, now resolved. #PE/bilateral DVT: Plan was to transition to Pradaxa after 5 days of IV heparin. Remains on 4 L NC. Now that she is stable, patient will need malignancy workup in view of longstanding smoking history and thromboembolic events. * Pulmonology and cardiology following. Appreciate their recs. * IV heparin drip was given from 11/10, pt completed 5-d IV heparin course (day 7 ) -> would switch to po pradaxa 150mg bid. * Continue prednisone taper. * CT Chest W/O IV Contrast showed no evidence of lung mass. * Encourage incentive spirometry. * Continue PT. * Wean down oxygen as tolerated. * Pt would benefit from CT chest abd and pelvis with IVc to rule out malignancy in the next few weeks to rule out malignancy. #T2DM: Diagnosed during current admission with HbA1c of 6.5. * Start diabetic diet. * Accu-checks and medium dose sliding scale Novolog TIDAC. #Anemia: H/H stable. Iron studies consistent with mixed anemia secondary to iron deficiency and anemia of chronic disease. * Monitor H/H and transfuse as needed to keep Hgb >7. Today Hb 7.7 * Continue ferrous sulfate 325 mg PO daily. #Vitamin D deficiency: Vitamin D very low at 4.7. * Start vitamin D 50,000 IU once per week. Diet: Diabetic - Full chopped and thin liquids DVT PPx: IV heparin -> po pradaxa CODE: DNR/DNI Problem List: 1. Acute hypoxemic respiratory failure 2. Pulmonary embolism 3. DVT, bilateral lower limbs 4. Newly diagnosed diabetes 5. Iron deficiency anemia 6. Vitamin D deficiency Pain Ratin Pain Location: NA Pain Goal: Remain pain free Pain Plan: NA Tomorrow's Labs & Rationales: CBC - switch to pradaxa DVT/Prophylaxis: pharmacological Discharge Plan Stable for Discharge? No BILLY SUAREZ,LEGER 11/16/16 1436: Attending MD Review Statement Attending Statement Attending MD Statement: examined this patient, discuss w/resident/PA/LEGAL RECORDS MANAGER, agreed w/resident/PA/LEGAL RECORDS MANAGER, discussed with family, reviewed EMR data (avail), discussed with nursing, reviewed images, amended to note Attending Assessment/Plan: 81-year-old female with past medical history significant for nicotine dependence has been admitted with acute hypoxic respiratory failure in the setting of bilateral DVT and PE. Patient also had acute kidney injury on admission which has been resolved. Patient was seen and examined while sitting in the chair. Her breathing has improved but still requiring 4 L of oxygen on nasal cannula and is saturating 92%, hemodynamically stable. CT chest was done with no evidence of malignancy. Cardiology and pulmonology on board. Patient has been switched over to Pradexa 150 mg per oral twice a day. Plan is to further evaluate her by doing a CT abdomen and pelvis to rule her out for malignancy as she was found to have enlargement of her left adrenal gland. Plan discussed with the patient and the family. Patient is to be patched up with her primary care physician after discharge as she has not seen a physician in more than 20 years.
--- NOTE | 2016-11-16 11:43 | PN- Cardiology ---
Subjective Subjective: * Breathing is improved compared to admission but not yet to her baseline. No chest discomfort. * Sinus rhythm * hepatic transaminases are trending down Objective Vital Signs and I&Os Vital Signs Date Time Temp Pulse Resp B/P B/P Pulse O2 O2 Flow FiO2 Mean Ox Delivery Rate 11/16 0952 87 98/46 11/16 0826 93 Nasal 4.0L Cannula 11/16 0800 97.9 87 20 108/64 91 Nasal 4.0L Cannula 11/16 0000 94 Nasal 4.5L Cannula 11/15 2351 98.0 84 20 100/60 94 Nasal 2.0L Cannula 11/15 1558 98.1 98 20 100/56 91 Nasal 4.0L Cannula 11/15 1549 91 Nasal 4.0L Cannula Intake & Output 11/16 1600 11/16 0800 11/16 0000 11/15 1600 11/15 0800 11/15 0000 Intake Total 360 192 492 200 636 Output Total 450 0 250 375 325 Balance -90 192 242 -175 311 Intake, IV 240 72 192 200 196 Intake, Oral 120 120 300 440 Number 0 Bowel Movements Output, Urine 450 0 250 375 325 Physical Exam: General: WD/ WN female in NAD; alert and oriented x 3 Neck: no JVD Heart: RRR without mumur Lungs: decreased air movement throughout without crackles or wheezing Extemities: 1+ right pedal edema, no edema on left Assessment/Plan Assessment/Plan * Continue Pradaxa 150mg PO BID. * renal function has normalized. Continue telemetry? Yes
--- NOTE | 2016-11-16 12:20 | PN- Pulmonary ---
Subjective HPI/Critical Care Issues: pt seen and examined 92% on 4LNC 98.3 temp hemodynamically stable no tachycardia Objective Current Medications: Current Medications Sig/Irma Start time Last Medication Dose Route Stop Time Status Admin Albuterol Sulfate 3 ML EVERY 4 HRS/AWAKE 11/10 1200 AC 11/16 INH 1132 Albuterol Sulfate 3 ML Q4H PRN 11/10 0800 AC 11/10 INH 0757 Aspirin 81 MG DAILY 11/10 1000 AC 11/16 PO 0950 Dabigatran 150 MG BID 11/16 1000 AC PO Docusate Sodium 100 MG DAILY NEEDED PRN 11/14 2045 AC 11/14 PO 2154 Ergocalciferol 50,000 IU ONCE A WEEK 11/15 1115 AC 11/15 PO 1644 Ferrous Sulfate 325 MG DAILY 11/13 1233 AC 11/16 PO 0950 Guaifenesin 10 ML Q4P PRN 11/14 2215 AC PO Heparin Sodium/ 25,000 UNIT Q24H 11/10 1315 DC 11/15 Dextrose IV 0554 Dextrose/Water 500 ML Insulin Aspart 0 TIDAC 11/14 0800 AC 11/15 SC 1826 Ipratropium [place] 2.5 ML EVERY 4 HRS/AWAKE 11/10 1200 AC 11/16 INH 1132 Magnesium Oxide 400 MG DAILY 11/16 1115 AC PO Metoprolol Tartrate 25 MG BID 11/14 2200 AC 11/15 PO 2105 Multivitamins 1 TAB DAILY 11/10 1000 AC 11/16 PO 0950 Phosphate 250 MG PC AND AT BEDTIME 11/13 1300 AC 11/16 PO 0950 Prednisone 10 MG DAILY 11/17 1000 AC PO 11/18 1001 Prednisone 20 MG DAILY 11/15 1000 DC 11/16 PO 11/16 1001 0950 Senna 187 MG AT BEDTIME 11/14 2200 AC 11/15 PO 2105 Vital Signs & I&O Last 24 Hrs of Vitals and I&O: Laboratory Tests 11/16 11/15 0750 2121 Chemistry Sodium (137 - 145 mmol/L) 137 Potassium (3.5 - 5.1 mmol/L) 4.5 Chloride (98 - 107 mmol/L) 99 Carbon Dioxide (22 - 30 mmol/L) 31 H Anion Gap (5 - 16) 7 BUN (7 - 17 mg/dL) 17 Creatinine (0.5 - 1.0 mg/dL) 0.6 Estimated GFR (>60 ml/min) > 60 BUN/Creatinine Ratio (7 - 25 %) 28.3 H Phosphorus (2.5 - 4.5 mg/dL) 3.6 Magnesium (1.6 - 2.3 mg/dL) 1.9 Total Bilirubin (0.2 - 1.3 mg/dL) 0.7 Direct Bilirubin (< 0.4 mg/dL) 0.3 AST (14 - 36 U/L) 46 H ALT (9 - 52 U/L) 276 H Alkaline Phosphatase (<127 U/L) 107 Total Protein (6.3 - 8.2 g/dL) 4.9 L Albumin (3.5 - 5.0 g/dL) 2.2 L Coagulation APTT (25 - 37 SEC) 59 H 89 H Hematology CBC w Diff MAN DIFF ORDERED WBC (4.8 - 10.8 /CUMM) 7.7 RBC (4.20 - 5.40 /CUMM) 2.95 L Hgb (12.0 - 16.0 G/DL) 7.7 L Hct (37 - 47 %) 24.7 L MCV (81.0 - 99.0 FL) 83.6 MCH (27.0 - 31.0 PG) 26.1 L RDW (11.5 - 14.5 %) 17.7 H Plt Count (130 - 400 /CUMM) 193 MPV (7.4 - 10.4 FL) 10.1 Gran % (42.2 - 75.2 %) 72.1 Lymphocytes % (20.5 - 51.1 %) 18.3 L Monocytes % (1.7 - 9.3 %) 9.3 Eosinophils % (0 - 5 %) 0.1 Basophils % (0.0 - 2.0 %) 0.2 Absolute Granulocytes (1.4 - 6.5 /CUMM) 5.5 Segmented Neutrophils (42.2 - 75.2 %) 74 Band Neutrophils (0.0 - 5.0 %) 1 Absolute Lymphocytes (1.2 - 3.4 /CUMM) 1.4 Lymphocytes (20.5 - 51.1 %) 15 L Monocytes (1.7 - 9.3 %) 8 Absolute Monocytes (0.10 - 0.60 /CUMM) 0.7 H Absolute Eosinophils (0.0 - 0.7 /CUMM) 0 Absolute Basophils (0.0 - 0.2 /CUMM) 0 Metamyelocytes (0.0 - 1.0 %) 2 H Nucleated RBCs (0.0 - 0.0 /100WBC) 2 H Platelet Estimate (ADEQUATE) VERIFIED BY SMEAR Polychromasia 1+ Poikilocytosis 1+ Basophilic Stippling SLIGHT Anisocytosis 1+ Ovalocytes 1+ PUBS MCHC (33.0 - 37.0 G/DL) 31.2 L 11/15 11/15 11/14 0900 0240 1910 Chemistry Sodium (137 - 145 mmol/L) 140 Potassium (3.5 - 5.1 mmol/L) 4.3 Chloride (98 - 107 mmol/L) 102 Carbon Dioxide (22 - 30 mmol/L) 33 H Anion Gap (5 - 16) 5 BUN (7 - 17 mg/dL) 19 H Creatinine (0.5 - 1.0 mg/dL) 0.6 Estimated GFR (>60 ml/min) > 60 Glucose (65 - 99 mg/dL) 104 H Calcium (8.4 - 10.2 mg/dL) 8.1 L Phosphorus (2.5 - 4.5 mg/dL) 2.4 L Magnesium (1.6 - 2.3 mg/dL) 2.0 Total Bilirubin (0.2 - 1.3 mg/dL) 0.7 AST (14 - 36 U/L) 70 H ALT (9 - 52 U/L) 364 H Albumin (3.5 - 5.0 g/dL) 2.3 L Coagulation APTT (25 - 37 SEC) 61 H 97 H 55 H Hematology CBC w Diff MAN DIFF ORDERED WBC (4.8 - 10.8 /CUMM) 9.6 RBC (4.20 - 5.40 /CUMM) 2.99 L Hgb (12.0 - 16.0 G/DL) 8.2 L Hct (37 - 47 %) 25.4 L MCV (81.0 - 99.0 FL) 84.9 MCH (27.0 - 31.0 PG) 27.3 RDW (11.5 - 14.5 %) 17.3 H Plt Count (130 - 400 /CUMM) 192 MPV (7.4 - 10.4 FL) 10.1 Segmented Neutrophils (42.2 - 75.2 %) 84 H Band Neutrophils (0.0 - 5.0 %) 2 Lymphocytes (20.5 - 51.1 %) 8 L Monocytes (1.7 - 9.3 %) 1 L Metamyelocytes (0.0 - 1.0 %) 2 H Myelocytes (0 - 0 %) 3 H Nucleated RBCs (0.0 - 0.0 /100WBC) 5 H Platelet Estimate (ADEQUATE) ADEQUATE Polychromasia 1+ Poikilocytosis 1+ Anisocytosis 1+ PUBS MCHC (33.0 - 37.0 G/DL) 32.1 L Vital Signs Date Time Temp Pulse Resp B/P B/P Pulse O2 O2 Flow FiO2 Mean Ox Delivery Rate 11/16 0952 87 98/46 11/16 0826 93 Nasal 4.0L Cannula 11/16 08 93 Nasal 4.0L Cannula 11/16 08 97.9 87 20 108/64 91 Nasal 4.0L Cannula 11/16 0000 94 Nasal 4.5L Cannula 11/15 2351 98.0 84 20 100/60 94 Nasal 2.0L Cannula 11/15 1558 98.1 98 20 100/56 91 Nasal 4.0L Cannula 11/15 1549 91 Nasal 4.0L Cannula Intake & Output 11/16 1600 11/16 0800 11/16 0000 Intake Total 360 192 Output Total 450 0 Balance -90 192 Intake, IV 240 72 Intake, Oral 120 120 Output, Urine 450 0 Impression/Plan Impression/Plan Impression/Plan: General: no apparent distress. On NC oxygen. Eyes: no scleral icterus HEENT: No jugular venous distention or abnormal jugular venous pulsations. Cardiovascular: Normal intensity S1/S2. Regular. Respiratory: Decreased air entry bilaterally Abdomen: no guarding or rebound tenderness. Musculoskeletal: No cyanosis noted, No edema Skin: warm Neuro: grossly nonfocal 81 y/o F with no significant PMHx other than longstanding smoking history, not seen a physician in >20 years, who presented with acute hypoxemic respiratory failure, found to have bilateral DVT and PE as well as CHARLEEN, now resolved. ISSUES SIg VTE with sig clot burden now better NO sig malignancy in the ct chest DM Anemia VIt D def Diabetes Tobacco dep Anemia PRob chronic vte REC REduce fio2 if hemant Increase activity Incentive spirometry Cont ANticoag as planned Pt would benefit from CT chest abd and pelvis with IVc to rule out malignancy in the next few weeks to rule out malignancy
[2016-11-16 16:10] VITALS: BP 107/62
[2016-11-16 23:33] VITALS: BP 90/56
--- NOTE | 2016-11-17 07:00 | PN- Pulmonary ---
Subjective HPI/Critical Care Issues: pt seen and examined 95% on 4LNC Feels much improved afebrile Objective Current Medications: Current Medications Sig/Irma Start time Last Medication Dose Route Stop Time Status Admin Albuterol Sulfate 3 ML EVERY 4 HRS/AWAKE 11/10 1200 AC 11/16 INH 2040 Albuterol Sulfate 3 ML Q4H PRN 11/10 0800 AC 11/10 INH 0757 Aspirin 81 MG DAILY 11/10 1000 AC 11/16 PO 0950 Cholecalciferol 1,000 IU DAILY 11/16 1300 CAN PO Dabigatran 150 MG BID 11/16 1000 AC 11/16 PO 2143 Docusate Sodium 100 MG DAILY NEEDED PRN 11/14 2045 AC 11/16 PO 1217 Ergocalciferol 50,000 IU ONCE A WEEK 11/15 1115 AC 11/15 PO 1644 Ferrous Sulfate 325 MG DAILY 11/13 1233 AC 11/16 PO 0950 Guaifenesin 10 ML Q4P PRN 11/14 2215 AC PO Heparin Sodium/ 25,000 UNIT Q24H 11/10 1315 DC 11/15 Dextrose IV 0554 Dextrose/Water 500 ML Insulin Aspart 0 TIDAC 11/14 0800 AC 11/16 SC 1705 Ipratropium [place] 2.5 ML EVERY 4 HRS/AWAKE 11/10 1200 AC 11/16 INH 2040 Magnesium Oxide 400 MG DAILY 11/16 1115 AC 11/16 PO 1209 Metoprolol Tartrate 25 MG BID 11/14 2200 AC 11/16 PO 2144 Multivitamins 1 TAB DAILY 11/10 1000 AC 11/16 PO 0950 Phosphate 250 MG PC AND AT BEDTIME 11/13 1300 AC 11/16 PO 2143 Prednisone 10 MG DAILY 11/17 1000 AC PO 11/18 1001 Prednisone 20 MG DAILY 11/15 1000 DC 11/16 PO 11/16 1001 0950 Senna 187 MG AT BEDTIME 11/14 2200 AC 11/16 PO 2144 Vital Signs & I&O Last 24 Hrs of Vitals and I&O: Vital Signs Date Time Temp Pulse Resp B/P B/P Pulse O2 O2 Flow FiO2 Mean Ox Delivery Rate 11/17 0000 92 Nasal 4.0L Cannula 11/16 2333 97.8 90 16 90/56 93 Nasal Cannula 11/16 2144 94 107/62 11/16 1629 95 Nasal 4.0L Cannula 11/16 1610 97.9 94 16 107/62 91 Nasal 4.0L Cannula 11/16 0952 87 98/46 11/16 0826 93 Nasal 4.0L Cannula 11/16 08 93 Nasal 4.0L Cannula 11/16 08 97.9 87 20 108/64 91 Nasal 4.0L Cannula Intake & Output 11/17 0800 11/17 0000 11/16 1600 Intake Total 480 200 640 Output Total 825 400 Balance -345 200 240 Intake, Oral 480 200 640 Output, Urine 825 400 Impression/Plan Impression/Plan Impression/Plan: General: no apparent distress. On NC oxygen. Eyes: no scleral icterus HEENT: No jugular venous distention or abnormal jugular venous pulsations. Cardiovascular: Normal intensity S1/S2. Regular. Respiratory: Decreased air entry bilaterally Abdomen: no guarding or rebound tenderness. Musculoskeletal: No cyanosis noted, No edema Skin: warm Neuro: grossly nonfocal 81 y/o F with no significant PMHx other than longstanding smoking history, not seen a physician in >20 years, who presented with acute hypoxemic respiratory failure, found to have bilateral DVT and PE as well as CHARLEEN, now resolved. ISSUES SIg VTE with sig clot burden now better, oxygenation is improving NO sig malignancy in the ct chest, but does have an infiltrate in the lower lobe DM Anemia VIt D def Diabetes Tobacco dep Anemia PRob chronic vte REC REduce fio2 if hemant Increase activity Incentive spirometry Cont ANticoag as planned Pt would benefit from CT chest abd and pelvis with IVc to rule out malignancy in the next few weeks to rule out malignancy
[2016-11-17 07:57] VITALS: BP 90/48
--- NOTE | 2016-11-17 08:33 | PN- Housestaff ---
DANY SUAREZ,GE 11/17/16 0832: Subjective Follow-up For: Acute hypoxemic respiratory failure secondary to PE Bilateral DVT Suspected malignancy Tele-Events Since Last Visit: Normal sinus rhythm HR 69-91 PVCs and PACs throughout the night Subjective: No acute events overnight. Patient seen and examined this morning. She feels much better today with improvement of shortness of breath. She remains on 4 L NC. Review of Systems Constitutional: Reports: see HPI. Objective Last 24 Hrs of Vital Signs/I&O Vital Signs Date Time Temp Pulse Resp B/P B/P Pulse O2 O2 Flow FiO2 Mean Ox Delivery Rate 11/18 0016 98.5 80 20 90/50 98 11/18 0000 Nasal 4.0L Cannula 11/17 2100 97 11/17 1652 94 Nasal 4.0L Cannula 11/17 1612 98.2 87 19 104/51 97 Nasal 4.0L Cannula 11/17 1028 92 98/50 11/17 0842 93 Nasal 4.0L Cannula 11/17 0800 92 Nasal 4.0L Cannula 11/17 0757 97.7 96 18 90/48 95 Nasal 4.0L Cannula Intake & Output 11/18 0800 11/18 0000 11/17 1600 Intake Total 250 740 Output Total 350 650 Balance -100 90 Intake, IV 10 Intake, Oral 240 740 Output, Urine 350 650 Physical Exam General Appearance: Alert, Oriented X3, No Acute Distress HEENT: Atraumatic, Mucous Membr. moist/pink Neck: Supple Cardiovascular: Regular Rate, Normal S1, Normal S2 Lungs: Diminished Breath Sounds Abdomen: Soft, No Tenderness, Positive Bowel Sounds Extremities: No Clubbing, No Cyanosis, No Edema Current Medications: Current Medications Sig/Irma Start time Last Medication Dose Route Stop Time Status Admin Albuterol Sulfate 3 ML EVERY 4 HRS/AWAKE 11/10 1200 AC 11/17 INH 2124 Albuterol Sulfate 3 ML Q4H PRN 11/10 0800 AC 11/10 INH 0757 Aspirin 81 MG DAILY 11/10 1000 AC 11/17 PO 1021 Dabigatran 150 MG BID 11/16 1000 AC 11/17 PO 2100 Docusate Sodium 100 MG DAILY 11/17 1000 AC 11/17 PO 1021 Docusate Sodium 100 MG DAILY NEEDED PRN 11/145 DC 11/16 PO 1217 Ergocalciferol 50,000 IU ONCE A WEEK 11/15 1115 AC 11/15 PO 1644 Ferrous Sulfate 325 MG DAILY 11/13 1233 AC 11/17 PO 1022 Guaifenesin 10 ML Q4P PRN 11/14 2215 AC PO Insulin Aspart 0 TIDAC 11/14 0800 AC 11/17 SC 1834 Ipratropium [place] 2.5 ML EVERY 4 HRS/AWAKE 11/10 1200 AC 11/17 INH 2124 Magnesium Oxide 400 MG DAILY 11/16 1115 AC 11/17 PO 1022 Metoprolol Tartrate 25 MG BID 11/14 2200 AC 11/17 PO 2100 Multivitamins 1 TAB DAILY 11/10 1000 AC 11/17 PO 1022 Phosphate 250 MG PC AND AT BEDTIME 11/13 1300 AC 11/17 PO 2059 Polyethylene Glycol 17 GM DAILY 11/17 1000 AC 11/17 PO 1029 Prednisone 10 MG DAILY 11/17 1000 AC 11/17 PO 11/18 1001 1022 Senna 187 MG AT BEDTIME 11/14 2200 AC 11/17 PO 2100 Last 24 Hrs of Lab/Jamaal Results Last 24 Hrs of Labs/Mics: Laboratory Tests 11/17/16 0755: CBC w Diff NO MAN DIFF REQ, RBC 3.06 L, MCV 83.5, MCH 26.1 L, RDW 18.0 H, MPV 10.2, Gran % 70.6, Lymphocytes % 19.1 L, Monocytes % 9.4 H, Eosinophils % 0.8, Basophils % 0.1, Absolute Granulocytes 6.1, Absolute Lymphocytes 1.6, Absolute Monocytes 0.8 H, Absolute Eosinophils 0.1, Absolute Basophils 0, PUBS MCHC 31.3 L Assessment/Plan Assessment: 81 y/o F with no significant PMHx other than longstanding smoking history, not seen a physician in >20 years, who presented with acute hypoxemic respiratory failure, found to have bilateral DVT and PE as well as CHARLEEN, now resolved. #PE/bilateral DVT: Started on Pradaxa yesterday. Remains on 4 L NC. * Pulmonology and cardiology following. Appreciate their recs. * Continue Pradaxa 150 mg PO BID. * Continue prednisone taper. * Encourage incentive spirometry. * Continue PT. * Wean down oxygen as tolerated. #Suspected malignancy: In light of longstanding smoking history and thromboembolic events. CT Chest W/O IV Contrast with right lower lobe infiltrate. * Consider CT Chest/Abdomen/Pelvis W/ IV Contrast to rule out malignancy. #T2DM: Diagnosed during current admission with HbA1c of 6.5. * Accu-checks and medium dose sliding scale Novolog TIDAC. #Anemia: H/H stable. Iron studies consistent with mixed anemia secondary to iron deficiency and anemia of chronic disease. * Monitor H/H and transfuse as needed to keep Hgb >7. * Continue ferrous sulfate 325 mg PO daily. #Vitamin D deficiency: * Continue vitamin D 50,000 IU once per week. Diet: Diabetic - Full chopped and thin liquids DVT PPx: Pradaxa and ALPs CODE: DNR/DNI Problem List: 1. Acute hypoxemic respiratory failure 2. T2DM (type 2 diabetes mellitus) 3. DVT, bilateral lower limbs 4. Pulmonary embolism 5. Iron deficiency anemia 6. Anemia of chronic disease 7. Vitamin D deficiency 8. Newly diagnosed diabetes Pain Ratin Pain Location: N/A Pain Goal: Remain pain free Pain Plan: N/A Tomorrow's Labs & Rationales: CBC to monitor H/H in the setting of anemia BMP to monitor lytes and kidney function in the setting of electrolyte disturbances and Mg LFTs to monitor transaminitis BILLY SUAREZ,[facility] 11/17/16 1558: Attending MD Review Statement Attending Statement Attending MD Statement: examined this patient, discuss w/resident/PA/SUTURE GAUGER, agreed w/resident/PA/SUTURE GAUGER, reviewed EMR data (avail), discussed with nursing, discussed with case mgmt, reviewed images, amended to note Attending Assessment/Plan: 81-year-old female with past medical history significant for nicotine dependence has been admitted with acute hypoxic respiratory failure in the setting of bilateral DVT and PE. Patient also had acute kidney injury on admission which has been resolved. Patient was seen and examined while sitting in the chair. Her breathing has improved but still requiring 4 L of oxygen on nasal cannula and is saturating 92%, hemodynamically stable. CT chest was done with no evidence of malignancy. Cardiology and pulmonology on board. Patient has been switched over to Pradexa 150 mg per oral twice a day. Plan is to further evaluate her by doing a CT abdomen and pelvis to rule her out for malignancy as she was found to have enlargement of her left adrenal gland. Plan discussed with the patient and the family. Patient is to be patched up with a primary care physician after discharge as she has not seen a physician in more than 20 years.
[2016-11-17 08:58] LABS: ABSOLUTE BASOPHIL COUNT 0 /CUMM (0.0-0.2); ABSOLUTE EOSINOPHIL COUNT 0.1 /CUMM (0.0-0.7); ABSOLUTE GRANULOCYTE CT 6.1 /CUMM (1.4-6.5); ABSOLUTE LYMPH COUNT 1.6 /CUMM (1.2-3.4); ABSOLUTE MONOCYTE COUNT 0.8 /CUMM (0.10-0.60); BASOPHIL % 0.1 % (0.0-2.0); EOSINOPHIL % 0.8 % (0-5); GRANULOCYTE % 70.6 % (42.2-75.2); HEMATOCRIT 25.5 % (37-47); MEAN CORPUSCULAR HGB 26.1 PG (27.0-31.0); MEAN CORPUSCULAR HGB CONC 31.3 G/DL (33.0-37.0); MEAN CORPUSCULAR VOLUME 83.5 FL (81.0-99.0); MEAN PLATELET VOLUME 10.2 FL (7.4-10.4); PLATELET COUNT 214 /CUMM (130-400); RED BLOOD CELL CT 3.06 /CUMM (4.20-5.40); WHITE BLOOD CELL COUNT 8.6 /CUMM (4.8-10.8)
[2016-11-17 16:12] VITALS: BP 104/51
[2016-11-18 00:16] VITALS: BP 90/50
[2016-11-18 05:33] LABS: ABSOLUTE BASOPHIL COUNT 0 /CUMM (0.0-0.2); ABSOLUTE EOSINOPHIL COUNT 0.1 /CUMM (0.0-0.7); ABSOLUTE GRANULOCYTE CT 4.4 /CUMM (1.4-6.5); ABSOLUTE LYMPH COUNT 1.4 /CUMM (1.2-3.4); ABSOLUTE MONOCYTE COUNT 0.5 /CUMM (0.10-0.60); BASOPHIL % 0.5 % (0.0-2.0); EOSINOPHIL % 0.9 % (0-5); HEMATOCRIT 27.1 % (37-47); MEAN CORPUSCULAR HGB 26.4 PG (27.0-31.0); MEAN CORPUSCULAR HGB CONC 31.7 G/DL (33.0-37.0); MEAN CORPUSCULAR VOLUME 83.4 FL (81.0-99.0); MEAN PLATELET VOLUME 10.3 FL (7.4-10.4); PLATELET COUNT 236 /CUMM (130-400); RBC DISTRIBUTION WIDTH 18.5 % (11.5-14.5); RED BLOOD CELL CT 3.25 /CUMM (4.20-5.40); WHITE BLOOD CELL COUNT 6.5 /CUMM (4.8-10.8)
--- NOTE | 2016-11-18 07:20 | PN- Housestaff ---
See Addendum Subjective Follow-up For: Acute hypoxemic respiratory failure secondary to PE Suspected malignancy Tele-Events Since Last Visit: Normal sinus rhythm HR 70s PACs and PVCs Subjective: No acute events overnight. Patient seen and examined this morning. She feels well and has no complaints. She remains on 4 L NC. She denies chest pain, palpitations or shortness of breath. She is significantly fatigued according to physical therapy and has not been ambulating much. Review of Systems Constitutional: Reports: see HPI. Objective Last 24 Hrs of Vital Signs/I&O Vital Signs Date Time Temp Pulse Resp B/P B/P Pulse O2 O2 Flow FiO2 Mean Ox Delivery Rate 11/18 1628 98.3 87 19 92/50 11/18 1438 Nasal 5.0L Cannula 11/18 1432 Nasal 5.0L Cannula 11/18 1052 87 92/50 11/18 0918 96 Nasal 4.0L Cannula 11/18 0838 98.3 87 19 89/43 93 Nasal 4.0L Cannula 11/18 0800 Nasal 4.0L Cannula 11/18 0016 98.5 80 20 90/50 98 05/01 0000 Nasal 4.0L Cannula 11/17 2100 97 Intake & Output 11/18 1600 11/18 0800 11/18 0000 Intake Total 480 60 250 Output Total 550 350 Balance 480 -490 -100 Intake, IV 10 10 Intake, Oral 480 50 240 Output, Urine 550 350 Physical Exam General Appearance: Alert, Oriented X3, No Acute Distress HEENT: Atraumatic, Mucous Membr. moist/pink Neck: Supple Cardiovascular: Regular Rate, Normal S1, Normal S2 Lungs: Diminished Breath Sounds Abdomen: Soft, No Tenderness, Positive Bowel Sounds Extremities: No Clubbing, No Cyanosis, No Edema Current Medications: Current Medications Sig/Irma Start time Last Medication Dose Route Stop Time Status Admin Albuterol Sulfate 3 ML EVERY 4 HRS/AWAKE 11/10 1200 DCD 11/18 INH 1323 Albuterol Sulfate 3 ML Q4H PRN 11/10 0800 DCD 11/10 INH 0757 Aspirin 81 MG DAILY 11/10 1000 DCD 11/18 PO 1048 Bisacodyl 10 MG ONCE ONE 11/18 1615 DC 11/18 IA 11/18 1616 1620 Dabigatran 150 MG BID 11/16 1000 DCD 05 PO 1049 Docusate Sodium 100 MG DAILY 11/17 1000 DCD 11/18 PO 1049 Ergocalciferol 50,000 IU ONCE A WEEK 11/15 1115 DCD 11/15 PO 1644 Ferrous Sulfate 325 MG DAILY 11/13 1233 DCD 11/18 PO 1049 Guaifenesin 10 ML Q4P PRN 11/14 2215 DCD PO Insulin Aspart 0 TIDAC 11/14 0800 DCD 11/18 SC 1243 Ipratropium [place] 2.5 ML EVERY 4 HRS/AWAKE 11/10 1200 DCD 11/18 INH 1323 Magnesium Oxide 400 MG DAILY 11/16 1115 DCD 11/18 PO 1049 Metoprolol Tartrate 12.5 MG BID 11/18 1050 DCD 11/18 PO 1052 Metoprolol Tartrate 25 MG BID 11/14 2200 DC 11/17 PO 2100 Multivitamins 1 TAB DAILY 11/10 1000 DCD 11/18 PO 1050 Phosphate 250 MG PC AND AT BEDTIME 11/13 1300 DCD 11/18 PO 1705 Polyethylene Glycol 17 GM DAILY 11/17 1000 DCD 11/18 PO 1047 Prednisone 10 MG DAILY 11/17 1000 DC 11/18 PO 11/18 1001 1049 Senna 187 MG AT BEDTIME 11/14 220 DCD 11/17 PO 2100 Last 24 Hrs of Lab/Jamaal Results Last 24 Hrs of Labs/Mics: Laboratory Tests 11/18/16 0500: Anion Gap 3 L, Estimated GFR > 60, BUN/Creatinine Ratio 25.0, Magnesium 1.9, Total Bilirubin 0.8, Direct Bilirubin 0.3, AST 44 H, ALT 208 H, Alkaline Phosphatase 102, Total Protein 5.3 L, Albumin 2.5 L, CBC w Diff NO MAN DIFF REQ, RBC 3.25 L, MCV 83.4, MCH 26.4 L, RDW 18.5 H, MPV 10.3, Gran % 68.0, Lymphocytes % 22.3, Monocytes % 8.3, Eosinophils % 0.9, Basophils % 0.5, Absolute Granulocytes 4.4, Absolute Lymphocytes 1.4, Absolute Monocytes 0.5, Absolute Eosinophils 0.1, Absolute Basophils 0, PUBS MCHC 31.7 L Assessment/Plan Assessment: 81 y/o F with no significant PMHx other than longstanding smoking history, not seen a physician in >20 years, who presented with acute hypoxemic respiratory failure, found to have bilateral DVT and PE. #PE/bilateral DVT: Transitioned to Pradaxa. Remains on 4 L NC. * Discharge to STR today. * Follow up with pulmonology and vascular surgery after discharge. * Continue Pradaxa 150 mg PO BID on discharge. * Ipratropium and albuterol nebulizers and guanifenesin Q4H PRN for cough added to discharge medications. #Suspected malignancy: In light of longstanding smoking history and thromboembolic events. CT Chest W/O IV Contrast with right lower lobe infiltrate. * Malignancy work up including CT Chest/Abdomen/Pelvis W/ IV Contrast to be pursued as outpatient. #NSVT: Patient started on metoprolol for NSVT runs on telemetry and severe right ventricular dysfunction and dilatation on ECHO. * Continue aspirin 81 mg PO daily. * Decrease metoprolol to 12.5 mg PO BID given borderline hypotension. * Follow up with cardiology after discharge. #Anemia: H/H stable. Iron studies consistent with mixed anemia secondary to iron deficiency and anemia of chronic disease. * Monitor H/H and transfuse as needed to keep Hgb >7. * Continue ferrous sulfate 325 mg PO daily on discharge. #Vitamin D deficiency: * Continue vitamin D 50,000 IU once per week on discharge. #Constipation: * Aggressive bowel regimen with Miralax and Senna on discharge. Diet: Diabetic - Full chopped and thin liquids DVT PPx: Pradaxa and ALPs CODE: DNR/DNI Problem List: 1. DVT, bilateral lower limbs 2. Pulmonary embolism 3. Iron deficiency anemia 4. Anemia of chronic disease 5. Acute hypoxemic respiratory failure 6. Vitamin D deficiency 7. NSVT (nonsustained ventricular tachycardia) 8. Right ventricular dysfunction Pain Ratin Pain Location: N/A Pain Goal: Remain pain free Pain Plan: None Tomorrow's Labs & Rationales: None Discharge Plan Discharge Disposition: STR/NH Stable for Discharge? Yes Anticipated Discharge (Day): today
[2016-11-18 08:38] VITALS: BP 89/43
[2016-11-18] MEDS ORDERED: PRADAXA150 M1 PO (09:41)
--- NOTE | 2016-11-18 09:45 | PN- Pulmonary ---
See Addendum Subjective HPI/Critical Care Issues: pt seen and examined on 4LNC afebrile borderline bp, no tachycardia no cp, no palpitations, no n/v/d/c Objective Current Medications: Current Medications Sig/Irma Start time Last Medication Dose Route Stop Time Status Admin Albuterol Sulfate 3 ML EVERY 4 HRS/AWAKE 11/10 1200 AC 11/18 INH 0910 Albuterol Sulfate 3 ML Q4H PRN 11/10 0800 AC 11/10 INH 0757 Aspirin 81 MG DAILY 11/10 1000 AC 11/17 PO 1021 Dabigatran 150 MG BID 11/16 1000 AC 11/17 PO 2100 Docusate Sodium 100 MG DAILY 11/17 1000 AC 11/17 PO 1021 Ergocalciferol 50,000 IU ONCE A WEEK 11/15 1115 AC 11/15 PO 1644 Ferrous Sulfate 325 MG DAILY 11/13 1233 AC 11/17 PO 1022 Guaifenesin 10 ML Q4P PRN 11/14 2215 AC PO Insulin Aspart 0 TIDAC 11/14 0800 AC 11/17 SC 1834 Ipratropium [place] 2.5 ML EVERY 4 HRS/AWAKE 11/10 1200 AC 11/18 INH 0910 Magnesium Oxide 400 MG DAILY 11/16 1115 AC 11/17 PO 1022 Metoprolol Tartrate 25 MG BID 11/14 2200 AC 11/17 PO 2100 Multivitamins 1 TAB DAILY 11/10 1000 AC 11/17 PO 1022 Phosphate 250 MG PC AND AT BEDTIME 11/13 1300 AC 11/17 PO 2059 Polyethylene Glycol 17 GM DAILY 11/17 1000 AC 11/17 PO 1029 Prednisone 10 MG DAILY 11/17 1000 AC 11/17 PO 11/18 1001 1022 Senna 187 MG AT BEDTIME 11/14 2200 AC 11/17 PO 2100 Vital Signs & I&O Last 24 Hrs of Vitals and I&O: Vital Signs Date Time Temp Pulse Resp B/P B/P Pulse O2 O2 Flow FiO2 Mean Ox Delivery Rate 11/18 0918 96 Nasal 4.0L Cannula 11/18 0838 98.3 87 19 89/43 93 Nasal 4.0L Cannula 11/18 0016 98.5 80 20 90/50 98 / 0000 Nasal 4.0L Cannula 11/17 2100 97 11/17 1652 94 Nasal 4.0L Cannula 11/17 1612 98.2 87 19 104/51 97 Nasal 4.0L Cannula 11/17 1028 92 98/50 Intake & Output 11/18 1600 11/18 0800 11/18 0000 Intake Total 60 250 Output Total 550 350 Balance -490 -100 Intake, IV 10 10 Intake, Oral 50 240 Output, Urine 550 350 Exam Other Physical Findings: gen awake and alert heent ncat cvs s1, s2, +murmur lungs rare rhonchi abd soft bs+ ext without edema midline chest area with keratotic discoloration Results Last 24 Hrs of Lab Results: Laboratory Tests 11/18/16 0500: Anion Gap 3 L, Estimated GFR > 60, BUN/Creatinine Ratio 25.0, Magnesium 1.9, Total Bilirubin 0.8, Direct Bilirubin 0.3, AST 44 H, ALT 208 H, Alkaline Phosphatase 102, Total Protein 5.3 L, Albumin 2.5 L, CBC w Diff NO MAN DIFF REQ, RBC 3.25 L, MCV 83.4, MCH 26.4 L, RDW 18.5 H, MPV 10.3, Gran % 68.0, Lymphocytes % 22.3, Monocytes % 8.3, Eosinophils % 0.9, Basophils % 0.5, Absolute Granulocytes 4.4, Absolute Lymphocytes 1.4, Absolute Monocytes 0.5, Absolute Eosinophils 0.1, Absolute Basophils 0, PUBS MCHC 31.7 L Impression/Plan Impression/Plan Impression/Plan: Impression 81 year old woman * IMPROVED acute hypoxemic respiratory failure - secondary to VTE and RLL infiltrate - desaturated to 80% on RA * RESOLVED hypotension secondary to severe sepsis vs cardiogenic etiology (BNP 53866) * troponinemia, can be nstemi or demand ischemia * resolving transaminitis * tobacco dependence history * anemia * VTE - DVT + PE, 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
--- NOTE | 2016-11-18 11:50 | PN- Cardiology ---
Subjective Subjective: Patient resting comfortably in bed today. Denies dyspnea at rest. Has not ambulated much per her report. Denies chest pain or palpitations. Denies dizziness. Objective Vital Signs and I&Os Vital Signs Date Time Temp Pulse Resp B/P B/P Pulse O2 O2 Flow FiO2 Mean Ox Delivery Rate 11/18 1052 87 92/50 11/18 0918 96 Nasal 4.0L Cannula 11/18 0838 98.3 87 19 89/43 93 Nasal 4.0L Cannula 11/18 0016 98.5 80 20 90/50 98 11/18 0000 Nasal 4.0L Cannula 11/17 2100 97 11/17 1652 94 Nasal 4.0L Cannula 11/17 1612 98.2 87 19 104/51 97 Nasal 4.0L Cannula Intake & Output 11/18 1600 11/18 0811/18 0000 11/17 1600 11/17 0800 11/17 0000 Intake Total 60 250 740 480 200 Output Total 550 350 650 825 Balance -490 -100 90 -345 200 Intake, IV 10 10 Intake, Oral 50 240 740 480 200 Output, Urine 550 350 650 825 Physical Exam: General: no apparent distress. On NC oxygen. Eyes: no scleral icterus HEENT: No jugular venous distention or abnormal jugular venous pulsations. Cardiovascular: Normal intensity S1/S2. Regular. Respiratory: Decreased air entry bilaterally Abdomen: no guarding or rebound tenderness. Musculoskeletal: No cyanosis noted, No edema Skin: warm Neuro: grossly nonfocal Current Medications: Current Medications Sig/Irma Start time Last Medication Dose Route Stop Time Status Admin Albuterol Sulfate 3 ML EVERY 4 HRS/AWAKE 11/10 1200 AC 11/18 INH 0910 Albuterol Sulfate 3 ML Q4H PRN 11/10 0800 AC 11/10 INH 0757 Aspirin 81 MG DAILY 11/10 1000 AC 11/18 PO 1048 Dabigatran 150 MG BID 11/16 1000 AC 11/18 PO 1049 Docusate Sodium 100 MG DAILY 11/17 1000 AC 11/18 PO 1049 Ergocalciferol 50,000 IU ONCE A WEEK 11/15 1115 AC 11/15 PO 1644 Ferrous Sulfate 325 MG DAILY 11/13 1233 AC 11/18 PO 1049 Guaifenesin 10 ML Q4P PRN 11/14 2215 AC PO Insulin Aspart 0 TIDAC 11/14 0800 AC 11/17 SC 1834 Ipratropium [place] 2.5 ML EVERY 4 HRS/AWAKE 11/10 1200 AC 11/18 INH 0910 Magnesium Oxide 400 MG DAILY 11/16 1115 AC 11/18 PO 1049 Metoprolol Tartrate 12.5 MG BID 11/18 1050 AC 11/18 PO 1052 Metoprolol Tartrate 25 MG BID 11/14 2200 DC 11/17 PO 2100 Multivitamins 1 TAB DAILY 11/10 1000 AC 11/18 PO 1050 Phosphate 250 MG PC AND AT BEDTIME 11/13 1300 AC 11/18 PO 1044 Polyethylene Glycol 17 GM DAILY 11/17 1000 AC 11/18 PO 1047 Prednisone 10 MG DAILY 11/17 1000 DC 11/18 PO 11/18 1001 1049 Senna 187 MG AT BEDTIME 11/14 2200 AC 11/17 PO 2100 Results Last 48 Hrs of Labs/Mics: Laboratory Tests 11/18/16 0500: Anion Gap 3 L, Estimated GFR > 60, BUN/Creatinine Ratio 25.0, Magnesium 1.9, Total Bilirubin 0.8, Direct Bilirubin 0.3, AST 44 H, ALT 208 H, Alkaline Phosphatase 102, Total Protein 5.3 L, Albumin 2.5 L, CBC w Diff NO MAN DIFF REQ, RBC 3.25 L, MCV 83.4, MCH 26.4 L, RDW 18.5 H, MPV 10.3, Gran % 68.0, Lymphocytes % 22.3, Monocytes % 8.3, Eosinophils % 0.9, Basophils % 0.5, Absolute Granulocytes 4.4, Absolute Lymphocytes 1.4, Absolute Monocytes 0.5, Absolute Eosinophils 0.1, Absolute Basophils 0, PUBS MCHC 31.7 L 11/17/16 0755: CBC w Diff NO MAN DIFF REQ, RBC 3.06 L, MCV 83.5, MCH 26.1 L, RDW 18.0 H, MPV 10.2, Gran % 70.6, Lymphocytes % 19.1 L, Monocytes % 9.4 H, Eosinophils % 0.8, Basophils % 0.1, Absolute Granulocytes 6.1, Absolute Lymphocytes 1.6, Absolute Monocytes 0.8 H, Absolute Eosinophils 0.1, Absolute Basophils 0, PUBS MCHC 31.3 L Recent Imaging Studies: Telemetry tracings were personally reviewed and shows sinus rhythm Assessment/Plan Assessment/Plan 1. Respiratory insufficiency with evidence of pulmonary embolism/DVT 2. Extensive smoking history with pulmonary hypertension on Echo 3. Elevated troponin likely due to demand ischemia in the setting of acute pulmonary embolism with respiratory insufficiency 4. Acute Renal insufficiency, improved 5. Anemia of unclear etiology requiring transfusion 6. Severe right ventricular dilatation / dysfunction on echocardiogram 7. Hypotension, improving 8. Possible sepsis, improved 9. Nonsustained supraventricular runs on telemetry Patient feels comfortable at rest. Remains on nasal cannula oxygen. She has been transitioned to oral anticoagulation. As the blood pressure is mildly decreased her beta luz has been decreased to 12.5 mg by mouth twice a day. Hemoglobin remains grossly stable. She remains DNR/DNI. Tone Hernandez MD FACC Continue telemetry? No
[2016-11-18] MEDS ORDERED: DOCUSATE SODIU100 M3 PO (14:53)
[2016-11-18] MEDS ORDERED: MIRALAX119 GM PO (14:53)
[2016-11-18] MEDS ORDERED: METOPROLOL TART25 M1 PO (14:53)
[2016-11-18 16:28] VITALS: BP 92/50
== END 2016-11-18 17:38 | DRG 871 ==
LOC: ERH 23:03 → ERHI 11-10 01:25 → 1NO 11-10 01:25 → CRI 11-10 01:25 → EDBEDREQ 11-10 04:36 → ENRESERV 11-10 04:44 → ERHI 11-10 04:45 → CRI 11-10 06:38 → 1NO 11-14 16:21 → ENPENDDIS 11-18 16:15 → 1NO 11-18 17:38
PROVIDERS: Dermatology; Emergency Medicine; Internal Medicine; Student in an Organized Health Care Education/Training Program; ADMIT Internal Medicine
PROC: 05HM33Z Insertion of Infusion Device into Right Internal Jugular Vein, Percutaneous Approach (ICD-10-PCS; 2016-11-10)
PROC: 30233N1 Transfusion of Nonautologous Red Blood Cells into Peripheral Vein, Percutaneous Approach (ICD-10-PCS; principal; 2016-11-11)
DX: A41.9 Sepsis, unspecified organism (principal); I26.99 Other pulmonary embolism without acute cor pulmonale; J96.01 Acute respiratory failure with hypoxia; N17.9 Acute kidney failure, unspecified; I24.8 Other forms of acute ischemic heart disease; I82.4Z3 Acute embolism and thrombosis of unspecified deep veins of distal lower extremity, bilateral; E87.5 Hyperkalemia; I27.2 Other secondary pulmonary hypertension; J18.9 Pneumonia, unspecified organism; E87.2 Acidosis; D64.9 Anemia, unspecified; Z87.891 Personal history of nicotine dependence; E80.6 Other disorders of bilirubin metabolism; D50.9 Iron deficiency anemia, unspecified; Z66 Do not resuscitate; E55.9 Vitamin D deficiency, unspecified; R65.20 Severe sepsis without septic shock
CPT/HCPCS: 1NP; CCU; 36415; 78582; 81001; 82436; 86920; 87040; 87070; 87086; 87147; 87389; 87449; 87450; 87804; 87804-59; 93005; 93010; 93306; 93970; 97110-GO; 97161-GP; 97530-GO; 99291; A9540; A9558; G0480; J0456; J0696; J1265; J1644; J1815; J1940; J2920; J2930; J3490; J7040; J7060; J7512; P9016

== ENCOUNTER 2016-11-22 18:12 | Inpatient (IN) | payer OTHER ==
[~2016-11-22] VITALS: Ht 157.5 cm; Wt 49.9 kg
[~2016-11-22 18:12] MED LIST: ALBUTEROL2.5 MG/3 M INH; ASPIRIN81 M4 PO; DOCUSATE SODIU100 M3 PO; FERROUS SULFAT325 M2 PO; GUAIFENESI100 MG/5 M PO; IPRATROPIU0.2 MG/1 M INH; METOPROLOL TART25 M1 PO; MIRALAX119 GM PO; PRADAXA150 M1 PO; SENNA-TIME S T1 EACH PO; VITAMIN D250000 UNIT PO
--- NOTE | 2016-11-22 18:23 | ED GENERAL ADULT ---
History of Present Illness General Chief Complaint: General Adult Stated Complaint: BIBA LOW HEMGLOBIN AND HEMATOCRIT Vital Signs & Intake/Output Vital Signs & Intake/Output Vital Signs Date Time Temp Pulse Resp B/P B/P Pulse O2 O2 Flow FiO2 Mean Ox Delivery Rate 11/22 1813 97.5 70 22 102/56 97 Nasal 3.0L Cannula Allergies Coded Allergies: No Known Allergies (11/09/16) Reconcile Medications Albuterol Sulfate 2.5 MG/3 ML (0.083 %) VIAL.NEB 3 ML INH Q4H PRN SHORTNESS OF BREATH Aspirin (Aspirin*) 81 MG TAB.CHEW 81 MG PO DAILY heart Dabigatran Etexilate Mesylate (Pradaxa 150 MG) 150 MG CAPSULE 150 MG PO BID pumonary emblolism Docusate Sodium (Colace) 100 MG CAPSULE 1 CAP PO TID STOOL SOFTENER (Reported ) Ergocalciferol (Vitamin D2) (Vitamin D2) 50,000 UNIT CAPSULE 50,000 IU PO ONCE A WEEK low vit D Ferrous Sulfate 325 MG (65 MG IRON) TABLET 1 TAB PO TID SUPPLEMENT (Reported) Ferrous Sulfate 325 MG (65 MG IRON) TABLET.DR 325 MG PO DAILY blood Guaifenesin 100 MG/5 ML LIQUID 10 ML PO Q4P PRN COUGH Ipratropium [place] 0.2 MG/ML (0.02 %) SOLUTION 2.5 ML INH EVERY 4 HRS/AWAKE SOB Metoprolol Tartrate 25 MG TABLET 12.5 MG PO BID BP Mineral Oil/Hydrophil Petrolat (Dermaphor Ointment) 106 GM OINT...G. 1 OLIVERIO TOP BID COCCYX (Reported) Polyethylene Glycol 3350 (Miralax) 17 GRAM/DOSE POWDER 17 GM PO DAILY constipation Sennosides/Docusate Sodium (Senna S Tablet) 8.6 MG-50 MG TABLET 1 TAB PO DAILY CONSTIPATION (Reported) Sennosides/Docusate Sodium (Senna-Time S Tablet) 8.6 MG-50 MG TABLET 187 MG PO AT BEDTIME constipation Triage Note: BIBA FOR EVAL OF LOW HGB/HCT RECENT ADMISSION Past History Travel History Traveled to [place] past 21 day No Medical History Neurological: NONE EENT: NONE Cardiovascular: NONE Respiratory: NONE Gastrointestinal: NONE Hepatic: NONE Renal: NONE Musculoskeletal: NONE Psychiatric: NONE Endocrine: NONE Blood Disorders: NONE Cancer(s): NONE COPY READER/Reproductive: NONE History of MRSA: No History of VRE: No History of CDIFF: No Surgical History Surgical History: hysterectomy Psychosocial History Who do you live with Spouse Services at Home None What is your primary language [place] Family History Family History, If Any: FATHER, , Age 50-60; Cause: Hepatic artery injury. Departure Departure Condition: Stable Referrals: PATIENT HAS NO PRIMARY CARE DR (PCP/Family) Departure Forms: Customer Survey General Discharge Information
--- NOTE | 2016-11-22 18:26 | ED GENERAL ADULT ---
History of Present Illness General Chief Complaint: General Adult Stated Complaint: BIBA LOW HEMGLOBIN AND HEMATOCRIT Source: patient, family, old records Exam Limitations: no limitations Vital Signs & Intake/Output Vital Signs & Intake/Output Vital Signs Date Time Temp Pulse Resp B/P B/P Pulse O2 O2 Flow FiO2 Mean Ox Delivery Rate 11/22 2342 97.2 78 18 124/67 97 Nasal 3.0L Cannula 11/22 2258 97.3 84 20 100/58 99 Nasal 3.0L Cannula 11/22 2230 97.0 80 18 98/54 98 Nasal 3.0L Cannula 11/22 2215 97.0 78 18 108/58 98 Nasal 3.0L Cannula 11/22 2122 97.6 86 20 126/58 98 Nasal 3.0L Cannula 11/22 1813 97.5 70 22 102/56 97 Nasal 3.0L Cannula Allergies Coded Allergies: No Known Allergies (11/09/16) Reconcile Medications Acetaminophen (Acephen) 650 MG SUPP.RECT 1 SUPP [place] Q4H PRN PAIN/TEMP>101 ( Reported) Acetaminophen (Pharbetol) 325 MG TABLET 2 TAB PO Q4H PRN PAIN/TEMP>101 ( Reported) Albuterol Sulfate 2.5 MG/3 ML (0.083 %) VIAL.NEB 3 ML INH Q4H PRN SHORTNESS OF BREATH Aspirin (Aspirin*) 81 MG TAB.CHEW 81 MG PO DAILY heart Bisacodyl (Dulcolax) 10 MG SUPP.RECT 1 SUP RC PRN CONSTIPATION (Reported) Dabigatran Etexilate Mesylate (Pradaxa 150 MG) 150 MG CAPSULE 150 MG PO BID pumonary emblolism Dextrose (Glucose Gel) 40 % GEL..GRAM. 1 OLIVERIO PO AD PRN HYPOGLYCEMIA (Reported ) Docusate Sodium (Colace) 100 MG CAPSULE 1 CAP PO TID STOOL SOFTENER (Reported ) Ergocalciferol (Vitamin D2) (Vitamin D2) 50,000 UNIT CAPSULE 50,000 IU PO ONCE A WEEK low vit D Ferrous Sulfate 325 MG (65 MG IRON) TABLET 1 TAB PO TID SUPPLEMENT (Reported) Glucagon,Human Recombinant (Glucagon Emergency Kit) 1 MG KIT 1 MG IM AD PRN HYPOGLYCEMIA (Reported) Guaifenesin 100 MG/5 ML LIQUID 10 ML PO Q4P PRN COUGH Ipratropium [place] 0.2 MG/ML (0.02 %) SOLUTION 2.5 ML INH EVERY 4 HRS/AWAKE SOB Magnesium Hydroxide (Milk Of Magnesia) 400 MG/5 ML ORAL.SUSP 30 ML PO PRN CONSTIPATION (Reported) Metoprolol Tartrate 25 MG TABLET 12.5 MG PO BID BP Mineral Oil/Hydrophil Petrolat (Dermaphor Ointment) 106 GM OINT...G. 1 OLIVERIO TOP BID COCCYX (Reported) Na Phos,M-B/Na Phos,Di-Ba (Fleet Enema) 19 GRAM-7 GRAM/118 ML ENEMA 1 E RC PRN CONSTIPATION (Reported) Polyethylene Glycol 3350 (Miralax) 17 GRAM/DOSE POWDER 17 GM PO DAILY constipation Saliva Substitute Combo No.9 (Biotene) 473 ML MOUTHWASH 15 ML PO 4XDAILY SWISH AND SPIT ORAL CARE (Reported) Sennosides/Docusate Sodium (Senna S Tablet) 8.6 MG-50 MG TABLET 1 TAB PO DAILY CONSTIPATION (Reported) Triage Note: BIBA FOR EVAL OF LOW HGB/HCT RECENT ADMISSION Triage Nurses Notes Reviewed? yes Onset: Gradual Duration: constant Timing: recent history Injury Environment: home Severity: moderate Severity Numbers: 5 No Modifying Factors: none HPI: Patient is a 81-year-old female who past medical history per old records note that patient has not seen a doctor for many decades however patient was admitted here at [facility] on November 10 and discharged on November 18 for concerns of DVT PE anemia and COPD. Patient was placed with Pradaxa for anticoagulation and was also administered home O2 at all times at 4L, patient was discharged on November 18 it was anticoagulation still continue however she states that the staff at her F noted patient to have concerns of GI BLEED yesterday after a bowel movement and today patient was advised to present to the emergency room for concerns of anemia and low hemoglobin and hematocrit. Patient currently is asymptomatic denies any lightheaded sensation dizziness abdominal pain nausea vomiting Shortness of breath chest pain and arm pain jaw pain. Patient states that many years ago she had a colonoscopy with unremarkable findings. (FATEMEH ADAME) Past History Travel History Traveled to [place] past 21 day No Medical History Any Pertinent Medical History? see below for history Neurological: NONE EENT: NONE Cardiovascular: NONE Respiratory: NONE Gastrointestinal: NONE Hepatic: NONE Renal: NONE Musculoskeletal: NONE Psychiatric: NONE Endocrine: NONE Blood Disorders: NONE Cancer(s): NONE BEACH ATTENDANT/Reproductive: NONE Other Medical Hx: DVT, PE History of MRSA: No History of VRE: No History of CDIFF: No Surgical History Surgical History: hysterectomy Psychosocial History Who do you live with Spouse Services at Home None What is your primary language Somali Family History Family History, If Any: FATHER, , Age 50-60; Cause: Hepatic artery injury. Hx Contributory? No (FATEMEH ADAME) Review of Systems Review of Systems Constitutional: Reports: no symptoms. EENTM: Reports: no symptoms. Respiratory: Reports: no symptoms. Cardiovascular: Reports: no symptoms. GI: Reports: see HPI, changes in stool. Genitourinary: Reports: no symptoms. Musculoskeletal: Reports: no symptoms. Skin: Reports: no symptoms. Neurological/Psychological: Reports: no symptoms. Hematologic/Endocrine: Reports: no symptoms. Immunologic/Allergic: Reports: no symptoms. All Other Systems: Reviewed and Negative (FATEMEH ADAME) Physical Exam Physical Exam General Appearance: no apparent distress, alert, comfortable Rectal: normal rectal tone, BLACK STOOL NOTED POSITIVE FECAL OCCULT BLOOD TEST Comments: Well-developed well-nourished person in no acute distress HEENT: Normal EENT exam. Neck: Supple, no lymphadenopathy, normal range of motion without pain or tenderness Back: Nontender, no CVA tenderness. Cardiovascular: Regular rate and rhythms no murmurs rubs or gallops, normal JVP Respiratory: Chest nontender. No respiratory distress.breath sounds clear to auscultation bilaterally Abdomen: Soft, nontender nondistended, no appreciable organomegaly. Normal bowel sounds. No ascites Extremity: No edema, no calf tenderness to palpation, normal and equal pulses. Neuro: Alert oriented x3, motor sensory normal, Skin: No appreciable rash on exposed skin, skin is warm and dry. Psych: Mood and affect is normal, memory and judgment is normal. Core Measures ACS in differential dx? No CVA/TIA Diagnosis: No Severe Sepsis Present: No Septic Shock Present: No (FATEMEH ADAME) Progress Differential Diagnoses I considered the following diagnoses in my evaluation of the patient: [GI bleed, PE, DVT, anemia,SEPSIS,] Plan of Care: Orders Procedure Date/time Status Nothing by Mouth 11/23 B Active CBC WITHOUT DIFFERENTIAL 11/23 1200 Active CBC WITHOUT DIFFERENTIAL 11/23 06 Active BASIC ELECTROLYTES PLUS BUN&CR 11/23 06 Active Pathway - chart 11/22 2310 Active Code Status 11/22 231 Active Intake & Output 11/22 2236 Active LACTIC ACID 11/22 2204 Active Patient Data 11/22 2200 Active Patient Data 11/22 2154 Active Saline Lock 11/22 2150 Active Misc Message 11/22 2150 Active ED Holding Orders 11/22 2150 Active Admit to inpatient 11/22 2150 Active Vital Signs 11/22 2150 Active Code Status 11/22 2150 Complete BLOOD PRODUCT PICKUP 11/22 2117 Active LEUKOCYTE POOR (PACKED CELLS) 11/22 2052 Active LACTIC ACID 11/22 1904 Complete TROPONIN LEVEL 11/23 1903 Complete PARTIAL THROMBOPLASTIN TIME 11/23 1903 Complete PROTHROMBIN TIME 11/23 1903 Complete MAGNESIUM 11/23 1903 Complete COMPREHENSIVE METABOLIC PANEL 11/23 1903 Complete CBC WITHOUT DIFFERENTIAL 11/23 1903 Complete EKG 11/23 1903 Active TYPE & SCREEN (NOT X-MATCH) 11/23 1903 Active TRC EVALUATION (GEN) 11/22 UNK Active Current Medications Sig/Irma Start time Last Medication Dose Stop Time Status Admin Docusate Sodium 100 MG TID 11/23 1000 AC (Colace) Ferrous Sulfate 325 MG TID 11/23 1000 AC (Feosol) Pantoprazole Sodium 40 MG BID 11/22 235 AC (Protonix) Acetaminophen 650 MG Q6P PRN 11/22 2314 AC (Tylenol) Guaifenesin 10 ML Q4P PRN 11/22 231 AC (Robitussin) Laboratory Tests 11/22/161929: Lactic Acid 1.2 11/22/161929: Anion Gap 8, Estimated GFR > 60, BUN/Creatinine Ratio 30.0 H, Glucose 82, Calcium 8.2 L, Magnesium 2.0, Total Bilirubin 0.8, AST 46 H, ALT 113 H, Alkaline Phosphatase 73, Troponin I 0.03, Total Protein 5.4 L, Albumin 2.7 L, Globulin 2.7, Albumin/Globulin Ratio 1.0 L, PT 12.5, INR 1.19, APTT 22 L, CBC w Diff NO MAN DIFF REQ, RBC 2.58 L, MCV 84.9, MCH 26.8 L, RDW 19.8 H, MPV 8.5 , Gran % 73.2, Lymphocytes % 15.3 L, Monocytes % 10.9 H, Eosinophils % 0.1, Basophils % 0.5, Absolute Granulocytes 5.3, Absolute Lymphocytes 1.1 L, Absolute Monocytes 0.8 H, Absolute Eosinophils 0, Absolute Basophils 0, PUBS MCHC 31.6 L Patient currently is resting comfortably in no apparent distress nontender abdomen no active bleeding noted Patient initially was extremely hesitant to be admitted however one daughter did present to the emergency room she was convinced to say. Patient requires repeat labs, IV blood transfusion patient did sign consent form. (FATEMEH ADAME) Initial ED EK BPM, NSR (FATEMEH ADAME) Departure Departure Disposition: STILL A PATIENT Condition: Guarded Clinical Impression Primary Impression: Anemia Secondary Impressions: GI bleed, Hypotension Referrals: PATIENT HAS NO PRIMARY CARE DR (PCP/Family) Departure Forms: Customer Survey General Discharge Information Admission Note Spoke With: MEGGAN SANCHEZ MD Documentation of Exam: Documentation of any treatments & extenuating circumstances including Concerns Regarding Discharge (functional status, medication knowledge or non-compliance, living conditions, etc.) that warrant an admission rather than observation: [ Discussed patient with Dr. SANCHEZ who agrees with admission for concerns of anemia and GI bleed. Patient requests repeat labs, IV transfusion, gastroenterology consultation and pharmacy reconciliation of anticoagulation. Outpatient treatment at this time would be medically harmful] (FATEMEH ADAME) PA/SOLAR ENERGY CONSULTANT AND DESIGNER Co-Sign Statement Statement: ED Attending supervision documentation- [] I saw and evaluated the patient. I have also reviewed all the pertinent lab results and diagnostic results. I agree with the findings and the plan of care as documented in the PA's/SOLAR ENERGY CONSULTANT AND DESIGNER's documentation. [x] I have reviewed the ED Record and agree with the PA's/SOLAR ENERGY CONSULTANT AND DESIGNER's documentation. [] Additions or exceptions (if any) to the PAs/SOLAR ENERGY CONSULTANT AND DESIGNER's note and plan are summarized below: [] (MARYANN SUAREZ,EVA Polk) Critical Care Note Critical Care Note Critical Care Time: 30-74 min (FATEMEH ADAME)
[2016-11-22] MEDS ORDERED: SENNA S TABLET1 EACH PO (18:43)
[2016-11-22] MEDS ORDERED: COLACE100 M1 PO (18:44)
[2016-11-22] MEDS ORDERED: DERMAPHOR OINT106 GM TOP (18:46)
[2016-11-22] MEDS ORDERED: FERROUS SULFAT325 M3 PO (18:47)
[2016-11-22] MEDS ORDERED: ACEPHEN650 M1 PR (18:59)
[2016-11-22] MEDS ORDERED: BIOTENE473 ML PO (19:00)
[2016-11-22] MEDS ORDERED: PHARBETOL325 MG PO (19:03)
[2016-11-22] MEDS ORDERED: DULCOLAX10 M1 RC (19:04)
[2016-11-22] MEDS ORDERED: MILK OF MA400 MG/52 PO (19:04)
[2016-11-22] MEDS ORDERED: FLEET ENEMA133 ML RC (19:05)
[2016-11-22] MEDS ORDERED: GLUCAGON EMERGEN1 M1 IM (19:05)
[2016-11-22] MEDS ORDERED: GLUCOSE GEL38 GM PO (19:06)
[2016-11-22 19:52] LABS: ABSOLUTE BASOPHIL COUNT 0 /CUMM (0.0-0.2); ABSOLUTE EOSINOPHIL COUNT 0 /CUMM (0.0-0.7); ABSOLUTE GRANULOCYTE CT 5.3 /CUMM (1.4-6.5); ABSOLUTE LYMPH COUNT 1.1 /CUMM (1.2-3.4); ABSOLUTE MONOCYTE COUNT 0.8 /CUMM (0.10-0.60); BASOPHIL % 0.5 % (0.0-2.0); EOSINOPHIL % 0.1 % (0-5); GRANULOCYTE % 73.2 % (42.2-75.2); MEAN CORPUSCULAR HGB 26.8 PG (27.0-31.0); MEAN CORPUSCULAR HGB CONC 31.6 G/DL (33.0-37.0); MEAN CORPUSCULAR VOLUME 84.9 FL (81.0-99.0); MEAN PLATELET VOLUME 8.5 FL (7.4-10.4); PLATELET COUNT 280 /CUMM (130-400); RBC DISTRIBUTION WIDTH 19.8 % (11.5-14.5); RED BLOOD CELL CT 2.58 /CUMM (4.20-5.40); WHITE BLOOD CELL COUNT 7.3 /CUMM (4.8-10.8)
[2016-11-22 20:06] LABS: HEMATOCRIT 21.9 % (37-47)
[2016-11-22 20:09] LABS: PT 12.5 SEC (9.4-12.5); PTT 22 SEC (25-37)
--- NOTE | 2016-11-22 23:03 | History & Physical ---
FELICITAS SUAREZ,[facility] 11/22/16 2259: General Information and HPI MD Statement: I have seen and personally examined FERNANDO DALE and documented this H&P. The patient is a 81 year old F who presented with a patient stated chief complaint of [low Hb]. Source of Information: patient, old records, W10 Exam Limitations: no limitations History of Present Illness: Ms. 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 Patient was discharged to [facility], she reported overall improvement of her health status, doing good with physical therapy session. Patient had 2 days ago BM that was tested positive for guaiac (as an order from the facility doctor of guaiac stool 3) and it happened to be her last bowel movement, today lab work was done in the facility and hemoglobin was 6.8, patient BIBA for further evaluation. Patient denied any history of fatigue, weakness, chest pain, palpitation, headache, visual changes, diaphoresis, excessive shortness of breath. She reported an episode of lightheadedness today that she contribute to being "hungry", she uses walker and had a physical therapy session this morning without any issues. Patient denied any abdominal pain, nausea, vomiting, diarrhea or constipation. She has a 50+ pack year smoking history quit smoking about 2 month ago, occasional alcohol consumption, no HX of drug illict. Patient last dose of paradaxa was on 11/21 given positive guaiac stool. Allergies/Medications Allergies: Coded Allergies: No Known Allergies (11/09/16) Home Med list Acetaminophen (Acephen) 650 MG SUPP.RECT 1 SUPP MO Q4H PRN PAIN/TEMP>101 ( Reported) Acetaminophen (Pharbetol) 325 MG TABLET 2 TAB PO Q4H PRN PAIN/TEMP>101 ( Reported) Albuterol Sulfate 2.5 MG/3 ML (0.083 %) VIAL.NEB 3 ML INH Q4H PRN SHORTNESS OF BREATH Aspirin (Aspirin*) 81 MG TAB.CHEW 81 MG PO DAILY heart Bisacodyl (Dulcolax) 10 MG SUPP.RECT 1 SUP RC PRN CONSTIPATION (Reported) Dabigatran Etexilate Mesylate (Pradaxa 150 MG) 150 MG CAPSULE 150 MG PO BID pumonary emblolism Dextrose (Glucose Gel) 40 % GEL..GRAM. 1 OLIVERIO PO AD PRN HYPOGLYCEMIA (Reported ) Docusate Sodium (Colace) 100 MG CAPSULE 1 CAP PO TID STOOL SOFTENER (Reported ) Ergocalciferol (Vitamin D2) (Vitamin D2) 50,000 UNIT CAPSULE 50,000 IU PO ONCE A WEEK low vit D Ferrous Sulfate 325 MG (65 MG IRON) TABLET 1 TAB PO TID SUPPLEMENT (Reported) Glucagon,Human Recombinant (Glucagon Emergency Kit) 1 MG KIT 1 MG IM AD PRN HYPOGLYCEMIA (Reported) Guaifenesin 100 MG/5 ML LIQUID 10 ML PO Q4P PRN COUGH Ipratropium [place] 0.2 MG/ML (0.02 %) SOLUTION 2.5 ML INH EVERY 4 HRS/AWAKE SOB Magnesium Hydroxide (Milk Of Magnesia) 400 MG/5 ML ORAL.SUSP 30 ML PO PRN CONSTIPATION (Reported) Metoprolol Tartrate 25 MG TABLET 12.5 MG PO BID BP Mineral Oil/Hydrophil Petrolat (Dermaphor Ointment) 106 GM OINT...G. 1 OLIVERIO TOP BID COCCYX (Reported) Na Phos,M-B/Na Phos,Di-Ba (Fleet Enema) 19 GRAM-7 GRAM/118 ML ENEMA 1 E RC PRN CONSTIPATION (Reported) Polyethylene Glycol 3350 (Miralax) 17 GRAM/DOSE POWDER 17 GM PO DAILY constipation Saliva Substitute Combo No.9 (Biotene) 473 ML MOUTHWASH 15 ML PO 4XDAILY SWISH AND SPIT ORAL CARE (Reported) Sennosides/Docusate Sodium (Senna S Tablet) 8.6 MG-50 MG TABLET 1 TAB PO DAILY CONSTIPATION (Reported) Past History Travel History Traveled to [place] past 21 day No Medical History Neurological: NONE EENT: NONE Cardiovascular: NONE Respiratory: NONE Gastrointestinal: NONE Hepatic: NONE Renal: NONE Musculoskeletal: NONE Psychiatric: NONE Endocrine: NONE Blood Disorders: NONE Cancer(s): NONE 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 Psychosocial History Who Do You Live With? spouse Services at Home: None Primary Language: Kinyarwanda ETOH Use: denies use Functional Ability ADLs Independent: dressing, eating, toileting, bathing. Ambulation: independent IADLs Independent: shopping, housework, finances, food prep, telephone, transportation , medication admin. Review of Systems Review of Systems Constitutional: Denies: chills, fever, weakness. EENTM: Denies: blurred vision, hearing changes, nasal congestion, epistaxis. Cardiovascular: Denies: chest pain, orthopena, palpitations, syncope. Respiratory: Denies: cough, orthopnea, wheezing. GI: Denies: abdominal pain, diarrhea, nausea, vomiting. Genitourinary: Denies: dysuria, hematuria. Musculoskeletal: Denies: back pain, muscle pain. Skin: Denies: change in skin color, change in hair/nails. Neurological/Psychological: Denies: headache, paresthesia. Exam & Diagnostic Data Last 24 Hrs of Vital Signs/I&O Vital Signs Date Time Temp Pulse Resp B/P B/P Pulse O2 O2 Flow FiO2 Mean Ox Delivery Rate 11/23 0103 98.5 78 16 110/52 97 Nasal 4.0L Cannula 11/23 0100 Nasal 4.0L Cannula 11/22 2342 97.2 78 18 124/67 97 Nasal 3.0L Cannula 11/22 2258 97.3 84 20 100/58 99 Nasal 3.0L Cannula 11/22 2230 97.0 80 18 98/54 98 Nasal 3.0L Cannula 11/22 2215 97.0 78 18 108/58 98 Nasal 3.0L Cannula 11/22 2122 97.6 86 20 126/58 98 Nasal 3.0L Cannula 11/22 1813 97.5 70 22 102/56 97 Nasal 3.0L Cannula Intake & Output 11/23 0800 05/06 0000 05 1600 Intake Total 200 Output Total Balance 200 Intake, IV 200 Patient 49.895 kg 51.256 kg Weight Physical Exam General Appearance Alert, Oriented X3, Cooperative, No Acute Distress Skin No Rashes, No Breakdown, 10x5 bruse on the medial surface of right arm Skin Temp/Moisture Exam: Warm/Dry HEENT Atraumatic, PERRLA, EOMI, Mucous Membr. moist/pink Neck Supple, No JVD Lymphatic no cervical lymphadenopathy Cardiovascular Regular Rate, Normal S1, Normal S2, No Murmurs Lungs Clear to Auscultation, Normal Air Movement Abdomen Normal Bowel Sounds, Soft, No Tenderness Neurological Normal Gait, Normal Speech, Strength at 5/5 X4 Ext, Normal Tone, Sensation Intact, Cranial Nerves 3-12 NL, Reflexes 2+ Extremities No Clubbing, No Cyanosis, No Edema, Trace BL LE pedal edema Vascular Normal Pulses Assessment/Plan Assessment: Ms. Dale is 81 year old female with PMH of COPD on 4 L home oxygen, diabetes mellitus, vitamin D deficiency, bilateral lower extremity DVT and massive PE on paradaxa (last dose 11/21), iron deficiency anemia, anemia of chronic disease, pulmonary hypertension, severe right ventricular dilatation and dysfunction, was discharged recently on November 15 from [facility] after she was treated for PE/DVT. BIBA from [facility] for further evaluation after lab work result in the facility of hemoglobin was 6.8. On admission Vitals temperature 97.5, pulse 70, blood pressure 102/56, respiratory rate 22 with saturation 97% on 4 L Labs H&H 6.9/21.9, WBC 7.3, platelet 280, sodium 134, potassium 4.1, BUN/ creatinine 15/0.5, glucose 82, lactic acid 1.2, calcium 8.2, corrected calcium 9.2, AST 46, ALT 113, alkaline phosphatase 73, troponin 0.03 Problem list #Acute on chronic anemia of blood loss #GI bleeding upper GI bleeding versus lower GI bleeding ?colon cancer #History of PE and DVT on paradaxa #Hypotension #Transaminitis could be as result of right ventricular severe dilatation and dysfunction Plan -Admit to telemetry floor for close monitoring -Transfuse 2 units of blood -Measure H&H every 62 -GI consultation in a.m. for possible colonoscopy -Guaiac all stools -Nothing by mouth for possible GI procedure -We'll keep patient off heparin drip given possible massive GI bleeding -We will hold aspirin -We'll hold metoprolol given hypotension -Consider obtaining abdominal ultrasound for transaminitis -Repeat Trops and EKG -Protonix 40 mg twice a day IV -Code full -DVT prophylaxis Alps risk of bleeding -Diet nothing by mouth As Ranked By This Provider Problem List: 1. Hypotension 2. Anemia 3. GI bleed 4. Right ventricular dysfunction Core Measures/Miscellaneous Acute Coronary Syndrome ACS Diagnosis: No Cerebrovascular Accident CVA/TIA Diagnosis: No Congestive Heart Failure CHF Diagnosis: No Venous Thromboembolism VTE Risk Factors: Age > 40 No [facility] VTE prophylaxis d/t: No contraindications No VTE Pharm Prophylaxis d/t: Active bleeding VTE Diagnosis: No VTE Type: NONE VTE Confirmed by (Test): NONE Severe Sepsis Severe Sepsis Present: No Septic Shock Septic Shock Present: No Miscellaneous Documentation Attending Case Discussed With: LAURA SUAREZ,MEGGAN Primary Care Physician: PATIENT HAS NO PRIMARY CARE DR Patient sees these Specialists none Level of Patient Care: Telemetry SHANISHARON 11/23/16 0109: Resident Review Statement Resident Statement: examined this patient, discussed with photo intern, agreed with photo intern, amended to note Other Findings: 81-year-old lady with past medical history of recently diagnosed PE, with pulmonary hypertension, anemia, who was recently discharged from the [facility] to rehabilitation was sent back with chief complaint of positive guaiac /dark stool? from [facility]. Patient denies any nausea, vomiting, abdominal pain, chest pain,, hematemesis, hematuria. She does not remember that she had blood in her stool but she was told that there is blood in his stool. Patient reports of dizziness today but does not report of feeling weak or blurry vision. According to the [facility] notes patient with guaiac positive and also in the ED patient had very dark brown stool guaiac positive. Patient was off apixaban for one day. vital signs are stable except BP 98/54 which improved after IV hydration Hemoglobin 6.9, mild transaminases which is improving, first set troponin negative,albumin 2.7 EKG showed sinus rhythm, 87, inverted v2, QTC 448 Assessment and plan #GI BLEED -Admit to telemetry -CBC every 6 hours 2 -Transfuse 1 unit of blood -Hold aspirin and Except bun for now -NPO for now -Mild IV hydration in the morning if needed -GI consultation the morning -IV PPI twice a day for now -Avoid NSAIDs -contune iron pills -EKG trops x 2 -Call was made to patient's house and the message was left for them to call us back and discuss about the plan. #PE on NOACs/COPD/short run of SVT? -hold up axpixaban and consult GI in the morning for starting patient on heparin or NOAC -TRC Nebs -HOLD metoprolol for now/ restart in the morning if BP Holds up elevated h1ac -HgA1c was 6.5 and last admission -We will put the patient on fingersticks for now Full code, DVT prophylaxis is mechanical for now, NPO for now MEGGAN SANCHEZ 11/23/16 0445: Attending MD Review Statement Attending Statement Attending MD Statement: examined this patient, discuss w/resident/PA/CHIEF SPECIALIST LEED, agreed w/resident/PA/CHIEF SPECIALIST LEED, reviewed EMR data (avail), reviewed images, amended to note Attending Assessment/Plan: CC: Sent from assisted living for low hemoglobin PMH: COPD, recently diagnosed pulmonary embolism, diastolic heart failure Patient was recently admitted and discharged on November 18, was found to have extensive pulmonary embolism, and discharged on Pradaxa and 4 L O2 by [place]. Aid at assisted living found patient's stool was black and tarry, labs were repeated which showed low hemoglobin and hematocrit, so she was sent to ER. Patient denies chest pain, palpitation, abdominal pain, dizziness, loss of consciousness. Vitals: Afebrile, HR in 70s, RR 20s, blood pressure 126/58, saturating well on 4 L NC On exam: A O 3, cooperative, no acute distress, neck supple, JVD normal, no lymphadenopathy, mucosa moist, no focal neurological deficit, no dependent edema , no obvious skin rashes or inflammation CVS: S1-S2, RRR. RS: Clear to auscultate bilaterally. Abdomen: Soft, NT, ND, bowel sounds present. Rectal examination done by JEANETTE in ER showed black colored stool with Hemoccult positive. Labs: Hemoglobin 6.9 (8.6 on November 18), hematocrit 21.9, MCV 84, RDW 19, platelet 280, sodium 134, creatinine 0.5, glucose 82, lactate 1.2, AST 46, ALT 113, albumin 2.7. A and P Patient's hemoglobin dropped markedly since discharge. When asked, patient says that she does not look at her stool and does not know that whether she passes blood or black colored stool. It's only when the aide noticed black tarry stool they rechecked hemoglobin which was low. Of note patient's hemoglobin was low, and received 1 unit PRBC. Iron studies obtain and that time shows iron of less than 10, TIBC 200, ferritin 117, transferrin saturation indicates severe iron deficiency anemia. Given her black tarry stool chronic GI bleed can be source unclear whether upper GI or lower GI bleed. In view of fourth recent PE it was suggested that malignancy should be ruled out outpatient, patient would benefit from colonoscopy in-house. Transaminases are trending down as compared to previous labs. Pradaxa was held since yesterday. Given her recent demand ischemia, and current low H&H she would benefit from telemetry monitoring in view of risk of demand ischemia. + Acute on chronic blood loss anemia + GI bleed + Recently diagnosed Pulmonary embolism - Admit to telemetry - H&H every 6 hours 2 - Type and screen 2 units transfused 1 unit PRBC - GI consult in a.m. - Nothing by mouth - Protonix IV twice a day - Hold aspirin - Old Pradaxa - Serial EKG, troponin - Hold metoprolol - Gentle hydration - If blood pressure drops, informed GI stat. - Full code I discussed risks of holding anticoagulation in setting of recent PE with patient, she understands the risks of GI bleed versus PE, with a recent DVT, and agrees to hold anticoagulation. Attempt was made to call the patient's family but could not be reached.
[2016-11-23 01:03] VITALS: BP 110/52
--- NOTE | 2016-11-23 04:47 | Admission Certification ---
Admission Certification Certification Statement - As attending physician, I certify that at the time of - admission, based on clinical presentation, severity of - symptoms, need for further diagnostic testing and - therapeutic interventions, and risk of adverse outcomes - without in-hospital treatment, in my clinical assessment, - this patient requires an acute hospital stay for a minimum - of two nights or longer. I have also considered psychsocial - factors such as support system, advanced age, financial - issues, cognitive issues, and failed out-patient treatments, - past re-admission history, safety of patient, and lack of - compliance as applicable. Specific rationale supporting this admission is: Acute on chronic blood loss anemia, history of PE
--- NOTE | 2016-11-23 08:41 | Cons- Gastroenterology ---
General Information and HPI Consulting Request Date of Consult: 11/23/16 Requested By: MEGGAN SANCHEZ MD Reason for Consult: Guaiac positive stool, anemia. Source of Information: patient, old records Exam Limitations: no limitations History of Present Illness: Ms. 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 She has been on pradaxa since she was discharged from at the end of October and she has been without any reports of melena, brbpr, or any hematemesis. She has also been without any complaints of abdominal pain with eating, heartburn, dysphagia or vomiting. She has also been without any chest pain, weakness, or syncopal episodes. She was noted to have guaiac positive stool with stool that was described as dark brown the day before admission for which the pradaxa was stopped. Today a hgb returned at 6.8 for which she was trasnferred to for transfusion and further evaluation. She was admitted to telemetry and she was transfussd with one unit of packed red blood cells and she was also kept NPO and started on IV protonix. She has been hemodynamically stable since admission and she hasn't had any bowel movements. A decision was made not to start IV heparin last night out of concern for GI bleeding. Allergies/Medications Allergies: Coded Allergies: No Known Allergies (11/09/16) Home Med List: Acetaminophen (Acephen) 650 MG SUPP.RECT 1 SUPP SD Q4H PRN PAIN/TEMP>101 ( Reported) Acetaminophen (Pharbetol) 325 MG TABLET 2 TAB PO Q4H PRN PAIN/TEMP>101 ( Reported) Albuterol Sulfate 2.5 MG/3 ML (0.083 %) VIAL.NEB 3 ML INH Q4H PRN SHORTNESS OF BREATH Aspirin (Aspirin*) 81 MG TAB.CHEW 81 MG PO DAILY heart Bisacodyl (Dulcolax) 10 MG SUPP.RECT 1 SUP RC PRN CONSTIPATION (Reported) Dabigatran Etexilate Mesylate (Pradaxa 150 MG) 150 MG CAPSULE 150 MG PO BID pumonary emblolism Dextrose (Glucose Gel) 40 % GEL..GRAM. 1 OLIVERIO PO AD PRN HYPOGLYCEMIA (Reported ) Docusate Sodium (Colace) 100 MG CAPSULE 1 CAP PO TID STOOL SOFTENER (Reported ) Ergocalciferol (Vitamin D2) (Vitamin D2) 50,000 UNIT CAPSULE 50,000 IU PO ONCE A WEEK low vit D Ferrous Sulfate 325 MG (65 MG IRON) TABLET 1 TAB PO TID SUPPLEMENT (Reported) Glucagon,Human Recombinant (Glucagon Emergency Kit) 1 MG KIT 1 MG IM AD PRN HYPOGLYCEMIA (Reported) Guaifenesin 100 MG/5 ML LIQUID 10 ML PO Q4P PRN COUGH Ipratropium Sophia 0.2 MG/ML (0.02 %) SOLUTION 2.5 ML INH EVERY 4 HRS/AWAKE SOB Magnesium Hydroxide (Milk Of Magnesia) 400 MG/5 ML ORAL.SUSP 30 ML PO PRN CONSTIPATION (Reported) Metoprolol Tartrate 25 MG TABLET 12.5 MG PO BID BP Mineral Oil/Hydrophil Petrolat (Dermaphor Ointment) 106 GM OINT...G. 1 OLIVERIO TOP BID COCCYX (Reported) Na Phos,M-B/Na Phos,Di-Ba (Fleet Enema) 19 GRAM-7 GRAM/118 ML ENEMA 1 E RC PRN CONSTIPATION (Reported) Polyethylene Glycol 3350 (Miralax) 17 GRAM/DOSE POWDER 17 GM PO DAILY constipation Saliva Substitute Combo No.9 (Biotene) 473 ML MOUTHWASH 15 ML PO 4XDAILY SWISH AND SPIT ORAL CARE (Reported) Sennosides/Docusate Sodium (Senna S Tablet) 8.6 MG-50 MG TABLET 1 TAB PO DAILY CONSTIPATION (Reported) Current Medications: Current Medications Sig/Irma Start time Last Medication Dose Route Stop Time Status Admin Acetaminophen 650 MG Q6P PRN 11/22 2315 AC PO Bisacodyl 10 MG ONCE ONE 11/22 231 DC SD 11/22 2316 Docusate Sodium 100 MG TID 11/23 1000 AC PO Ferrous Sulfate 325 MG TID 11/23 1000 AC PO Guaifenesin 10 ML Q4P PRN 11/22 2315 AC PO Pantoprazole Sodium 40 MG BID 11/22 2353 AC IV Sodium Chloride 1,000 ML BOLUS ONE 11/22 2244 DC IV 11/22 2344 Sodium Chloride 1,000 ML BOLUS ONE 11/22 1914 DC 11/22 IV 11/22 2113 2100 Past History Travel History Traveled to [place] past 21 day No Medical History Blood Transfusion Hx: Yes Neurological: NONE EENT: NONE Cardiovascular: NONE Respiratory: COPD, pulmonary embolism, 4L NC Gastrointestinal: NONE Hepatic: NONE Renal: NONE Musculoskeletal: NONE Psychiatric: NONE Endocrine: NONE Blood Disorders: anemia, DVT Cancer(s): NONE WAX PUMPER/Reproductive: NONE Other Medical Hx: DVT, PE Surgical History Surgical History: hysterectomy Family History Relations & Conditions If Any: FATHER, , Age 50-60; Cause: Hepatic artery injury. Psychosocial History Where Do You Live? Acute Rehab Who Do You Live With? spouse Services at Home: Oxygen Primary Language: Nepalese Smoking Status: Former Smoker ETOH Use: denies use Functional Ability ADLs Independent: dressing, eating, toileting, bathing. Ambulation: independent IADLs Independent: shopping, housework, finances, food prep, telephone, transportation , medication admin. Review of Systems Review of Systems Constitutional: Reports: malaise, weakness. Denies: fever, unexplained weight loss. EENTM: Denies: no symptoms. Cardiovascular: Denies: chest pain, edema. Respiratory: Reports: short of breath. Denies: cough, hemoptysis. GI: Denies: see HPI. Genitourinary: Denies: no symptoms. Musculoskeletal: Reports: joint pain, muscle pain. Denies: joint swelling, muscle stiffness. Skin: Denies: no symptoms. Neurological/Psychological: Denies: no symptoms. Hematologic/Endocrine: Denies: no symptoms. Immunologic/Allergic: Denies: no symptoms. All Other Systems: Reviewed and Negative Exam & Diagnostic Data Vital Signs and I&O Vital Signs Date Time Temp Pulse Resp B/P B/P Pulse O2 O2 Flow FiO2 Mean Ox Delivery Rate 11/23 0103 98.5 78 16 110/52 97 Nasal 4.0L Cannula 11/23 010 Nasal 4.0L Cannula 11/22 2342 97.2 78 18 124/67 97 Nasal 3.0L Cannula 11/22 2258 97.3 84 20 100/58 99 Nasal 3.0L Cannula 11/22 2230 97.0 80 18 98/54 98 Nasal 3.0L Cannula 11/225 97.0 78 18 108/58 98 Nasal 3.0L Cannula 05/05 2122 97.6 86 20 126/58 98 Nasal 3.0L Cannula 11/22 1812 97.5 70 22 102/56 97 Nasal 3.0L Cannula Intake & Output 11/23 Intake Total 470 200 Output Total Balance 470 200 Intake, Blood 350 Product Intake, IV 200 Intake, Oral 120 Patient 110 lb Weight Physical Exam General Appearance: no apparent distress, thin Head: atraumatic, normal appearance Eyes: Bilateral: normal appearance. Ears, Nose, Throat: normal pharynx, normal ENT inspection Neck: normal inspection, supple Respiratory: chest non-tender, decreased breath sounds Cardiovascular: regular rate/rhythm Gastrointestinal: normal bowel sounds, soft, non-tender, no organomegaly Rectal: deferred, heme + per ED Back: normal inspection, normal range of motion Extremities: normal inspection, no edema Neurologic/Psych: no motor/sensory deficits, awake, alert, oriented x 3 Skin: intact, normal color, warm/dry Results Pertinent Lab Results: Laboratory Tests 11/23 11/22 11/22 0705 2204 1929 Chemistry Sodium Pending Potassium Pending Chloride Pending Carbon Dioxide Pending Anion Gap Pending BUN Pending Creatinine Pending BUN/Creatinine Ratio Pending Lactic Acid (0.7 - 2.1 mmol/L) Cancelled 1.2 Troponin I Pending Hematology CBC w Diff Pending WBC Pending RBC Pending Hgb Pending Hct Pending MCV Pending MCH Pending RDW Pending Plt Count Pending MPV Pending PUBS MCHC Pending 11/22 1929 Chemistry Sodium (137 - 145 mmol/L) 134 L Potassium (3.5 - 5.1 mmol/L) 4.1 Chloride (98 - 107 mmol/L) 98 Carbon Dioxide (22 - 30 mmol/L) 28 Anion Gap (5 - 16) 8 BUN (7 - 17 mg/dL) 15 Creatinine (0.5 - 1.0 mg/dL) 0.5 Estimated GFR (>60 ml/min) > 60 BUN/Creatinine Ratio (7 - 25 %) 30.0 H Glucose (65 - 99 mg/dL) 82 Calcium (8.4 - 10.2 mg/dL) 8.2 L Magnesium (1.6 - 2.3 mg/dL) 2.0 Total Bilirubin (0.2 - 1.3 mg/dL) 0.8 AST (14 - 36 U/L) 46 H ALT (9 - 52 U/L) 113 H Alkaline Phosphatase (<127 U/L) 73 Troponin I (< 0.11 ng/ml) 0.03 Total Protein (6.3 - 8.2 g/dL) 5.4 L Albumin (3.5 - 5.0 g/dL) 2.7 L Globulin (1.9 - 4.2 gm/dL) 2.7 Albumin/Globulin Ratio (1.1 - 2.2 %) 1.0 L Coagulation PT (9.4 - 12.5 SEC) 12.5 INR (0.90 - 1.19) 1.19 APTT (25 - 37 SEC) 22 L Hematology CBC w Diff NO MAN DIFF REQ WBC (4.8 - 10.8 /CUMM) 7.3 RBC (4.20 - 5.40 /CUMM) 2.58 L Hgb (12.0 - 16.0 G/DL) 6.9 *L Hct (37 - 47 %) 21.9 L MCV (81.0 - 99.0 FL) 84.9 MCH (27.0 - 31.0 PG) 26.8 L RDW (11.5 - 14.5 %) 19.8 H Plt Count (130 - 400 /CUMM) 280 MPV (7.4 - 10.4 FL) 8.5 Gran % (42.2 - 75.2 %) 73.2 Lymphocytes % (20.5 - 51.1 %) 15.3 L Monocytes % (1.7 - 9.3 %) 10.9 H Eosinophils % (0 - 5 %) 0.1 Basophils % (0.0 - 2.0 %) 0.5 Absolute Granulocytes (1.4 - 6.5 /CUMM) 5.3 Absolute Lymphocytes (1.2 - 3.4 /CUMM) 1.1 L Absolute Monocytes (0.10 - 0.60 /CUMM) 0.8 H Absolute Eosinophils (0.0 - 0.7 /CUMM) 0 Absolute Basophils (0.0 - 0.2 /CUMM) 0 PUBS MCHC (33.0 - 37.0 G/DL) 31.6 L Assessment/Plan Assessment/Recommendations: Assessment: Ms. Rosario is a 81 year old female with COPD on oxygen and a recent DVT/PE on anticoagulation who was re-admitted to [facility] yesterday with guaiac positive stool and a worsening anemia. She is without overt GI bleeding as she has not had any brbpr, melena or hematemesis and therefore I don't feel she is actively GI bleeding and restarting her anticoagulation should be strongly considered with her recently having a PE. Her iron studies are consistent with anemia of chronic disease, but as her saturation is low and she is guaiac positive it is certainly possible that occult GI blood losses may be contributing to her anemia so as she has not had a colonoscopy in over 10 years it would not be unreasonable to pursue an endoscopic work up on this admission to rule out an occult GI malignancy which may be contributing to her anemia and may make treatment with director long term care anticoagulation less advisable. As she is without overt GI bleeding though performing an endoscopic work up isn't urgent so I would recommend restarting IV heparin until this is done (probably on Friday) as this can be stopped if overt GI bleeding ensues which I feel is unlikely to happen as she has been without any overt GI bleeding since her anticoagulation was started a few weeks ago. Recommendations: 1. Follow CBC q12hrs and transfuse as needed to keep hgb > 7 or as per cardiology recommendations. 2. Diet as tolerated and would put on a full liquid diet tomorrow with nothing red in anticipation of getting a bowel prep for a diagnostic colonoscopy tomorrow night for a colonoscopy/egd on Friday. 3. Would start iv heparin drip which will be held on Friday morning for a colonoscopy/EGD. 4. Notify GI for signs of overt GI bleeding (ie. melena, brbpr, or hematemesis) and would stop the heparin drip if this occurs 5. Prep tomorrow night with 2 dulcolax tablets to be given after a full liquid dinner followed by 1/2 gallon of colyte and another 1/2 gallon of colyte on Friday morning. 6. Place on an oral PPI and would d/c IV protonix 7. 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 8. Discontinue oral iron supplemenation for now as this can make it more difficult to 'clean out' for the colonoscopy. I will continue to follow this patient and make further recommendations based on her clinical course and results of repeat blood work and the endoscopic work up which I tentatively will plan to do on Friday, but will do sooner if hemodynamically significant bleeding ensues. Consult Acknowledgment - Thank you for your consult request.
--- NOTE | 2016-11-23 08:49 | PN- Housestaff ---
DANY SUAREZ,[facility] [place] 11/23/16 0849: Subjective Follow-up For: Acute on chronic anemia History of PE and DVT Tele-Events Since Last Visit: Normal sinus rhythm PVCs Subjective: No acute events overnight. She remained hemodynamically stable without any reported episodes of bloody stools. Patient seen and examined this morning. She reports feeling tired, weak and hungry. She denies chest pain, abdominal pain, shortness of breath or palpitations. Review of Systems Constitutional: Reports: see HPI. Objective Last 24 Hrs of Vital Signs/I&O Vital Signs Date Time Temp Pulse Resp B/P B/P Pulse O2 O2 Flow FiO2 Mean Ox Delivery Rate 11/23 195 98 Nasal 4.0L Cannula 11/23 1600 93 Nasal 4.0L Cannula 11/23 1548 98.5 95 18 108/50 93 Nasal 4.0L Cannula 11/23 1221 Nasal 4.0L Cannula 11/23 1221 98 Nasal 4.0L Cannula 11/23 0851 98.5 88 18 108/54 94 11/23 0800 94 Nasal 4.0L Cannula 11/23 0103 98.5 78 16 110/52 97 Nasal 4.0L Cannula 11/23 0100 Nasal 4.0L Cannula Intake & Output 11/24 0800 05/ 0000 11/23 1600 Intake Total 400 Output Total Balance 400 Intake, Oral 400 Number 1 Bowel Movements Physical Exam General Appearance: Alert, Oriented X3, No Acute Distress HEENT: Atraumatic, Mucous Membr. moist/pink Cardiovascular: Regular Rate, Normal S1, Normal S2, No Murmurs, Gallops, Rubs Lungs: Clear to Auscultation Abdomen: Soft, No Tenderness, Positive Bowel Sounds Extremities: No Clubbing, No Cyanosis, No Edema Current Medications: Current Medications Sig/Irma Start time Last Medication Dose Route Stop Time Status Admin Acetaminophen 650 MG Q6P PRN 11/22 2315 AC PO Albuterol Sulfate 3 ML BID 11/23 1215 AC 11/23 INH 1953 Dextrose/Sodium 1,000 ML Q13H 11/25 0000 AC Chloride IV Dextrose/Sodium 1,000 ML Q13H 11/23 1215 DC Chloride IV Docusate Sodium 100 MG TID / 1000 AC / PO 1619 Ferrous Sulfate 325 MG TID 11/23 1000 DC /06 PO 1028 Guaifenesin 10 ML Q4P PRN 05/05 2315 AC PO Heparin Sodium 25,000 UNIT Q24H 11/23 1230 AC 11/23 (Porcine) IV 1447 Sodium Chloride 500 ML Ipratropium [place] 2.5 ML BID 11/23 1215 AC 11/23 INH 1950 Omeprazole 40 MG DAILY AC 11/24 0700 AC PO Pantoprazole Sodium 40 MG BID 11/22 2353 DC 11/23 IV 1028 Patient Medication 1 UNIT ONE NR 11/23 1830 DC Teaching ED 11/23 1900 Polyethylene Glycol 1 GAL ONCE ONE 11/23 1215 CAN PO 11/23 1216 Potassium Chloride 20 MEQ ONCE ONE 11/23 1515 DC 11/23 PO 11/23 1516 1619 Last 24 Hrs of Lab/Jamaal Results Last 24 Hrs of Labs/Mics: Laboratory Tests 11/23/16 2307: APTT 40 H 11/23/16 1800: APTT Cancelled, CBC w Diff Cancelled, WBC Cancelled, RBC Cancelled, Hgb Cancelled, Hct Cancelled, MCV Cancelled, MCH Cancelled, RDW Cancelled, Plt Count Cancelled, MPV Cancelled, PUBS MCHC Cancelled 11/23/16 1605: Troponin I 0.03, CBC w Diff NO MAN DIFF REQ, RBC 3.13 L, MCV 85.5, MCH 27.6, RDW 18.7 H, MPV 8.6, Gran % 74.3, Lymphocytes % 12.9 L, Monocytes % 12.4 H, Eosinophils % 0.3, Basophils % 0.1, Absolute Granulocytes 5.1, Absolute Lymphocytes 0.9 L, Absolute Monocytes 0.8 H, Absolute Eosinophils 0, Absolute Basophils 0, PUBS MCHC 32.3 L 11/23/16 0705: Anion Gap 7, Estimated GFR > 60, BUN/Creatinine Ratio 22.0, Troponin I 0.03, CBC w Diff NO MAN DIFF REQ, RBC 2.93 L, MCV 85.1, MCH 27.6, RDW 18.4 H, MPV 8.5, Gran % 72.7, Lymphocytes % 14.2 L, Monocytes % 12.4 H, Eosinophils % 0, Basophils % 0.7, Absolute Granulocytes 4.2, Absolute Lymphocytes 0.8 L, Absolute Monocytes 0.7 H, Absolute Eosinophils 0, Absolute Basophils 0, PUBS MCHC 32.4 L Assessment/Plan Assessment: 81 y/o F with PMHx of COPD on oxygen, recently admitted to [place] where she was diagnosed with bilateral DVT and discharged to [facility] on Pradaxa 6 days ago, who was sent in for further evaluation of decreased H/H and guaiac positive stool. #Acute on chronic anemia: H/H improved to 8.1/24.9 this morning after receiving one unit of pRBCs. H/H stable this afternoon. Remained hemodynamically stable with no episodes of bleeding. Per GI, patient is not actively bleeding in the absence of overt GI bleeding. Iron studies consistent with anemia of chronic disease although it is possible that occult GI blood losses may be contributory to her anemia in view of guaiac positive stools. * GI following. Appreciate their recs. * Check CBC Q12H. * Continue Protonix 40 mg IV BID. Switch to prilosec 40 mg PO AC daily in the AM. * Urgent endoscopic work up is not indicated as patient is not felt to be actively bleeding, although this can be done sooner if patient becomes hemodynamically unstable. * Resume IV heparin. * If patient develops overt GI bleeding, stop IV heparin and alert GI. * Diagnostic colonoscopy/EGD planned on Friday. * Hold IV heparin on Friday morning for colonoscopy/EGD. * Start regular diet today. Put patient on a full liquid diet tomorrow with no reds. After dinner administer two dulcolax tablets followed by 1/2 gallon of GoLYTELY and another 1/2 gallon of GoLYTELY on Friday morning. * No need to guaiac stools. * Discontinue oral iron supplementation per GI recs as it makes cleaning out for the colonoscopy more difficult. NPO: Regular DVT PPx: IV heparin and ALPs CODE: FULL Problem List: 1. Anemia of chronic disease 2. Guaiac positive stools 3. DVT, bilateral lower limbs 4. Pulmonary embolism Pain Ratin Pain Location: Abdomen Pain Goal: Remain pain free Pain Plan: Tylenol 650 mg PO Q6H Tomorrow's Labs & Rationales: CBC to monitor H/H in the setting of anemia BMP to monitor lytes and kidney function to ensure stability SCHUYLER MARTINEZ MD 11/23/16 1541: Attending Review Statement Attending Statement Attending MD Statement: examined this patient, discuss w/resident/PA/GRAIN TRIMMER, agreed w/resident/PA/GRAIN TRIMMER, reviewed EMR data (avail), discussed with nursing, discussed with case mgmt, amended to note Attending Assessment/Plan: Patient seen and examined. Case discussed with at the bedside. Alert and oriented 3. Hemodynamically stable. She is eager to eat. No episodes of bloody stools overnight. Her hemoglobin level has improved with transfusion overnight. She denies any abdominal pain. On examination abdomen is soft and nontender. GI follow-up appreciated. She will be placed on a clear liquid diet with plans for colonoscopy/EGD on Friday. We'll monitor hemoglobin levels as well as hemodynamic status closely. The GI service has cleared her to be started on IV heparin due to her recently diagnosed bilateral lower extremity DVT and massive PE. Further recommendations about long-term anticoagulation to be determined post endoscopy.
[2016-11-23 08:51] VITALS: BP 108/54
[2016-11-23 09:11] LABS: ABSOLUTE BASOPHIL COUNT 0 /CUMM (0.0-0.2); ABSOLUTE EOSINOPHIL COUNT 0 /CUMM (0.0-0.7); ABSOLUTE GRANULOCYTE CT 4.2 /CUMM (1.4-6.5); ABSOLUTE LYMPH COUNT 0.8 /CUMM (1.2-3.4); ABSOLUTE MONOCYTE COUNT 0.7 /CUMM (0.10-0.60); BASOPHIL % 0.7 % (0.0-2.0); EOSINOPHIL % 0 % (0-5); GRANULOCYTE % 72.7 % (42.2-75.2); HEMATOCRIT 24.9 % (37-47); MEAN CORPUSCULAR HGB 27.6 PG (27.0-31.0); MEAN CORPUSCULAR HGB CONC 32.4 G/DL (33.0-37.0); MEAN CORPUSCULAR VOLUME 85.1 FL (81.0-99.0); MEAN PLATELET VOLUME 8.5 FL (7.4-10.4); PLATELET COUNT 268 /CUMM (130-400); RBC DISTRIBUTION WIDTH 18.4 % (11.5-14.5); RED BLOOD CELL CT 2.93 /CUMM (4.20-5.40); WHITE BLOOD CELL COUNT 5.7 /CUMM (4.8-10.8)
[2016-11-23 15:48] VITALS: BP 108/50
[2016-11-23 16:55] LABS: ABSOLUTE BASOPHIL COUNT 0 /CUMM (0.0-0.2); ABSOLUTE EOSINOPHIL COUNT 0 /CUMM (0.0-0.7); ABSOLUTE GRANULOCYTE CT 5.1 /CUMM (1.4-6.5); ABSOLUTE LYMPH COUNT 0.9 /CUMM (1.2-3.4); ABSOLUTE MONOCYTE COUNT 0.8 /CUMM (0.10-0.60); BASOPHIL % 0.1 % (0.0-2.0); EOSINOPHIL % 0.3 % (0-5); GRANULOCYTE % 74.3 % (42.2-75.2); HEMATOCRIT 26.7 % (37-47); MEAN CORPUSCULAR HGB 27.6 PG (27.0-31.0); MEAN CORPUSCULAR HGB CONC 32.3 G/DL (33.0-37.0); MEAN CORPUSCULAR VOLUME 85.5 FL (81.0-99.0); MEAN PLATELET VOLUME 8.6 FL (7.4-10.4); PLATELET COUNT 283 /CUMM (130-400); RBC DISTRIBUTION WIDTH 18.7 % (11.5-14.5); RED BLOOD CELL CT 3.13 /CUMM (4.20-5.40); WHITE BLOOD CELL COUNT 6.8 /CUMM (4.8-10.8)
[2016-11-23 23:35] LABS: PTT 40 SEC (25-37)
[2016-11-24 00:49] VITALS: BP 100/50
[2016-11-24 08:34] VITALS: BP 108/62
--- NOTE | 2016-11-24 08:42 | PN- Housestaff ---
TIM SUAREZ,SUSAN 11/24/16 0842: Subjective Follow-up For: Acute on chronic anemia History of PE and DVT Complaints: no complaints Tele-Events Since Last Visit: Normal sinus rhythm, heart rate ranging from 70-79, PVCs and PACs. Subjective: Patient followed up and examined by me today. She is resting comfortably in bed , not in distress, and offers no complaint, is awaiting colonoscopy tomorrow, vital signs have been stable, overnight telemetry events noted as above, no active issues. Review of Systems Constitutional: Reports: no symptoms. Objective Last 24 Hrs of Vital Signs/I&O Vital Signs Date Time Temp Pulse Resp B/P B/P Pulse O2 O2 Flow FiO2 Mean Ox Delivery Rate 11/25 2031 92 Nasal 4.0L Cannula 11/24 1713 97 Nasal 4.0L Cannula 11/24 1645 98.6 80 18 110/68 96 Nasal 5.0L Cannula 11/24 1025 96 Nasal 4.0L Cannula 11/24 0914 97 Nasal 4.0L Cannula 11/24 0834 98.6 85 18 108/62 94 11/24 0049 98.7 83 20 100/50 98 Room Air 11/24 0000 Nasal 4.0L Cannula Intake & Output 11/24 1600 11/24 0800 11/24 0000 Intake Total 500 100 600 Output Total 500 Balance 0 100 600 Intake, IV 100 Intake, Oral 400 100 600 Number 1 Bowel Movements Output, Urine 500 Physical Exam General Appearance: Alert, Oriented X3, Cooperative, No Acute Distress Other Physical Findings: HEENT: Atraumatic, Mucous Membr. moist/pink Cardiovascular: Regular Rate, Normal S1, Normal S2, No Murmurs, Gallops, Rubs Lungs: Clear to Auscultation Abdomen: Soft, No Tenderness, Positive Bowel Sounds Extremities: No Clubbing, No Cyanosis, No Edema Current Medications: Current Medications Sig/Irma Start time Last Medication Dose Route Stop Time Status Admin Acetaminophen 650 MG Q6P PRN 11/22 2315 AC PO Albuterol Sulfate 3 ML BID 11/23 1215 AC 11/24 INH 2030 Bisacodyl 10 MG AT BEDTIME 11/24 2200 AC PO Dextrose/Sodium 1,000 ML Q13H 11/25 0000 AC Chloride IV Docusate Sodium 100 MG TID 11/23 1000 AC 11/24 PO 1548 Guaifenesin 10 ML Q4P PRN 11/22 2315 PO Heparin Sodium 25,000 UNIT Q24H 11/23 1230 AC 11/24 (Porcine) IV 11/25 08 1544 Sodium Chloride 500 ML Ipratropium [place] 2.5 ML BID 11/23 1215 AC 11/24 INH 2031 Omeprazole 40 MG DAILY AC 11/24 0700 AC 11/24 PO 0631 Polyethylene Glycol 0.5 GAL 0700 11/25 07 AC PO 11/25 07 Polyethylene Glycol 0.5 GAL AT BEDTIME 11/24 2199 AC PO 11/24 2200 Last 24 Hrs of Lab/Jamaal Results Last 24 Hrs of Labs/Mics: Laboratory Tests 11/24/161910: APTT 74 H, CBC w Diff NO MAN DIFF REQ, RBC 3.06 L, MCV 86.1, MCH 27.8, RDW 19.4 H, MPV 8.3, Gran % 67.7, Lymphocytes % 19.8 L, Monocytes % 11.0 H, Eosinophils % 1.0, Basophils % 0.5, Absolute Granulocytes 4.1, Absolute Lymphocytes 1.2, Absolute Monocytes 0.7 H, Absolute Eosinophils 0.1, Absolute Basophils 0, PUBS MCHC 32.3 L 11/24/16 07: Anion Gap 5, Estimated GFR > 60, BUN/Creatinine Ratio 23.3, APTT 70 H, CBC w Diff NO MAN DIFF REQ, RBC 2.84 L, MCV 86.2, MCH 27.8, RDW 19.1 H, MPV 8.6, Gran % 75.4 H, Lymphocytes % 13.4 L, Monocytes % 10.4 H, Eosinophils % 0.3, Basophils % 0.5, Absolute Granulocytes 4.9, Absolute Lymphocytes 0.9 L, Absolute Monocytes 0.7 H, Absolute Eosinophils 0, Absolute Basophils 0, PUBS MCHC 32.3 L 11/23/167: APTT 40 H Assessment/Plan Assessment: 81 y/o F with PMHx of COPD on oxygen, recently admitted to [place] where she was diagnosed with bilateral DVT and discharged to [facility] on Pradaxa 6 days ago, who was sent in for further evaluation of decreased H/H and guaiac positive stool. #Acute on chronic anemia: H/H improved to 7.9/24.5 this morning. She has received 1 unit of PRBC so far. Gastroenterology service on board. Appreciate the recommendation. Checking CBCs 12 hourly. Continuing PPI daily. She is being kept nothing by mouth after midnight tonight for colonoscopy tomorrow. Bowel preparation has been ordered accordingly. * Checking CBC later at 6 PM, with a target hemoglobin of more than 7. Plan to transfuse PRBC if hemoglobin is less than 7. * Discontinue oral iron supplementation per GI recs as it makes cleaning out for the colonoscopy more difficult. NPO: Regular DVT PPx: IV heparin and ALPs CODE: FULL Problem List: 1. Anemia Pain Ratin Pain Location: - Pain Goal: Pain 4 or less Pain Plan: prn Tomorrow's Labs & Rationales: CBC, BEP to f/u anemia and candelario MARTINEZ MD,SCHUYLER 11/24/16 1338: Attending MD Review Statement Attending Statement Attending MD Statement: examined this patient, discuss w/resident/PA/OUTSIDE SALES ENGINEER, agreed w/resident/PA/OUTSIDE SALES ENGINEER, reviewed EMR data (avail), discussed with nursing, amended to note Attending Assessment/Plan: Patient seen and examined. Resting comfortably and not in acute distress. Denies any bloody stools. Denies abdominal pain. Denies shortness of breath or chest pain. She also restarted on anticoagulation with IV therapy yesterday per recommendations of the GI service. This morning her hemoglobin level has trended down slightly. She remains hemodynamically stable. On exam abdomen is soft and nontender. Bowel sounds are normal. Recommendations: -Repeat H&H this afternoon. Notify the GI service urgently levels continue to trend downwards. For now she is tentatively planned for EGD/colonoscopy tomorrow. -Continue clear liquid diets for now. -Discontinue telemetry monitoring.
[2016-11-24 09:29] LABS: ABSOLUTE BASOPHIL COUNT 0 /CUMM (0.0-0.2); ABSOLUTE EOSINOPHIL COUNT 0 /CUMM (0.0-0.7); ABSOLUTE GRANULOCYTE CT 4.9 /CUMM (1.4-6.5); ABSOLUTE LYMPH COUNT 0.9 /CUMM (1.2-3.4); ABSOLUTE MONOCYTE COUNT 0.7 /CUMM (0.10-0.60); BASOPHIL % 0.5 % (0.0-2.0); EOSINOPHIL % 0.3 % (0-5); GRANULOCYTE % 75.4 % (42.2-75.2); HEMATOCRIT 24.5 % (37-47); MEAN CORPUSCULAR HGB 27.8 PG (27.0-31.0); MEAN CORPUSCULAR HGB CONC 32.3 G/DL (33.0-37.0); MEAN CORPUSCULAR VOLUME 86.2 FL (81.0-99.0); MEAN PLATELET VOLUME 8.6 FL (7.4-10.4); PLATELET COUNT 259 /CUMM (130-400); RBC DISTRIBUTION WIDTH 19.1 % (11.5-14.5); RED BLOOD CELL CT 2.84 /CUMM (4.20-5.40); WHITE BLOOD CELL COUNT 6.5 /CUMM (4.8-10.8)
[2016-11-24 09:40] LABS: PTT 70 SEC (25-37)
[2016-11-24 16:45] VITALS: BP 110/68
[2016-11-24 19:51] LABS: ABSOLUTE BASOPHIL COUNT 0 /CUMM (0.0-0.2); ABSOLUTE EOSINOPHIL COUNT 0.1 /CUMM (0.0-0.7); ABSOLUTE GRANULOCYTE CT 4.1 /CUMM (1.4-6.5); ABSOLUTE LYMPH COUNT 1.2 /CUMM (1.2-3.4); ABSOLUTE MONOCYTE COUNT 0.7 /CUMM (0.10-0.60); BASOPHIL % 0.5 % (0.0-2.0); GRANULOCYTE % 67.7 % (42.2-75.2); HEMATOCRIT 26.4 % (37-47); MEAN CORPUSCULAR HGB 27.8 PG (27.0-31.0); MEAN CORPUSCULAR HGB CONC 32.3 G/DL (33.0-37.0); MEAN CORPUSCULAR VOLUME 86.1 FL (81.0-99.0); MEAN PLATELET VOLUME 8.3 FL (7.4-10.4); PLATELET COUNT 281 /CUMM (130-400); RBC DISTRIBUTION WIDTH 19.4 % (11.5-14.5); RED BLOOD CELL CT 3.06 /CUMM (4.20-5.40); WHITE BLOOD CELL COUNT 6.1 /CUMM (4.8-10.8)
[2016-11-24 20:00] LABS: PTT 74 SEC (25-37)
[2016-11-25 00:34] VITALS: BP 118/80
--- NOTE | 2016-11-25 07:19 | PN- Housestaff ---
See Addendum Subjective Follow-up For: Anemia with guaiac positive stool Subjective: No acute events overnight. Patient seen and examined this morning. She is sitting comfortably in bed and reports feeling good. She reports an episode of epistaxis last night. Otherwise she has no complaints. She denies shortness of breath, chest pain and palpitations. Review of Systems Constitutional: Reports: see HPI. Objective Last 24 Hrs of Vital Signs/I&O Vital Signs Date Time Temp Pulse Resp B/P B/P Pulse O2 O2 Flow FiO2 Mean Ox Delivery Rate 11/25 0902 95 Nasal 2.0L Cannula 11/25 0758 98.8 94 20 118/60 96 11/25 0034 98.4 80 20 118/80 100 11/25 0000 96 Nasal 4.0L Cannula 11/24 2032 92 Nasal 4.0L Cannula 11/24 1713 97 Nasal 4.0L Cannula 11/24 1645 98.6 80 18 110/68 96 Nasal 5.0L Cannula Intake & Output 11/25 1600 11/25 0800 05 0000 Intake Total 626 240 Output Total 600 Balance 26 240 Intake, IV 626 Intake, Oral 240 Number 1 Bowel Movements Output, Urine 600 Physical Exam General Appearance: Alert, Oriented X3, No Acute Distress HEENT: Atraumatic, Mucous Membr. moist/pink Cardiovascular: Regular Rate, Normal S1, Normal S2, No Murmurs, Gallops, Rubs Lungs: Clear to Auscultation Abdomen: Soft, No Tenderness, Positive Bowel Sounds Extremities: No Clubbing, No Cyanosis, No Edema Current Medications: Current Medications Sig/Irma Start time Last Medication Dose Route Stop Time Status Admin Acetaminophen 650 MG Q6P PRN 11/22 2315 AC PO Albuterol Sulfate 3 ML BID 11/23 1215 AC 11/24 INH 2030 Bisacodyl 10 MG AT BEDTIME 11/24 2200 AC PO Dextrose/Sodium 1,000 ML Q13H 11/25 0000 AC 11/25 Chloride IV 0003 Docusate Sodium 100 MG TID 11/23 1000 AC 11/24 PO 1548 Guaifenesin 10 ML Q4P PRN 11/22 2315 AC PO Heparin Sodium 25,000 UNIT Q24H 11/23 1230 DC 11/24 (Porcine) IV 11/25 0800 1544 Sodium Chloride 500 ML Ipratropium [place] 2.5 ML BID 11/23 1215 AC 11/24 INH 2031 Omeprazole 40 MG DAILY AC 11/24 699 AC 11/24 PO 06 Polyethylene Glycol 0.5 GAL 0700 11/25 699 DC 11/25 PO 11/25 700 0624 Polyethylene Glycol 0.5 GAL AT BEDTIME 11/24 2199 DC 11/24 PO 11/24 2200 2133 Potassium Chloride 40 MEQ ONCE ONE 11/25 914 DC 11/25 PO 11/25 0916 1046 Last 24 Hrs of Lab/Jamaal Results Last 24 Hrs of Labs/Mics: Laboratory Tests 11/25/16726: Anion Gap 5, Estimated GFR > 60, BUN/Creatinine Ratio 11.7, APTT 68 H, CBC w Diff NO MAN DIFF REQ, RBC 2.94 L, MCV 86.5, MCH 27.5, RDW 20.3 H, MPV 8.1, Gran % 72.0, Lymphocytes % 13.6 L, Monocytes % 13.2 H, Eosinophils % 0.1, Basophils % 1.1, Absolute Granulocytes 4.1, Absolute Lymphocytes 0.8 L, Absolute Monocytes 0.8 H, Absolute Eosinophils 0, Absolute Basophils 0.1, PUBS MCHC 31.9 L 11/24/161910: APTT 74 H, CBC w Diff NO MAN DIFF REQ, RBC 3.06 L, MCV 86.1, MCH 27.8, RDW 19.4 H, MPV 8.3, Gran % 67.7, Lymphocytes % 19.8 L, Monocytes % 11.0 H, Eosinophils % 1.0, Basophils % 0.5, Absolute Granulocytes 4.1, Absolute Lymphocytes 1.2, Absolute Monocytes 0.7 H, Absolute Eosinophils 0.1, Absolute Basophils 0, PUBS MCHC 32.3 L Assessment/Plan Assessment: 81 y/o F with PMHx of COPD on oxygen, recently admitted to [facility] where she was diagnosed with bilateral DVT and discharged to [facility] on Pradaxa 6 days ago, who was sent in for further evaluation of decreased H/H and guaiac positive stool. 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 Iron studies consistent with anemia of chronic disease. * Follow up with GI for pathology results and outpatient small bowel PillCam to evaluate for small bowel source of bleeding. * Resume ferrous sulfate 325 mg PO TID. * Continue Prilosec 40 mg PO AC daily. * Hold off anticoagulation today in view of polypectomies and start Pradaxa 150 mg PO BID tomorrow. * Avoid or minimize NSAID use. * Advance to regular diet for dinner. NPO: Regular DVT PPx: ALPs CODE: FULL Problem List: 1. Guaiac positive stools 2. Anemia 3. Colonic polyp 4. Sigmoid diverticulosis 5. Hemorrhoids, external 6. Hemorrhoids, internal 7. Arteriovenous malformation of duodenum 8. Erosive gastritis 9. Atrophic gastritis Pain Ratin Pain Location: N/A Pain Goal: Remain pain free Pain Plan: Tylenol 650 mg PO Q6H Tomorrow's Labs & Rationales: CBC to monitor H/H in the setting of anemia
[2016-11-25 07:58] VITALS: BP 118/60
[2016-11-25 08:02] LABS: ABSOLUTE BASOPHIL COUNT 0.1 /CUMM (0.0-0.2); ABSOLUTE EOSINOPHIL COUNT 0 /CUMM (0.0-0.7); ABSOLUTE GRANULOCYTE CT 4.1 /CUMM (1.4-6.5); ABSOLUTE LYMPH COUNT 0.8 /CUMM (1.2-3.4); ABSOLUTE MONOCYTE COUNT 0.8 /CUMM (0.10-0.60); BASOPHIL % 1.1 % (0.0-2.0); EOSINOPHIL % 0.1 % (0-5); HEMATOCRIT 25.5 % (37-47); MEAN CORPUSCULAR HGB 27.5 PG (27.0-31.0); MEAN CORPUSCULAR HGB CONC 31.9 G/DL (33.0-37.0); MEAN CORPUSCULAR VOLUME 86.5 FL (81.0-99.0); MEAN PLATELET VOLUME 8.1 FL (7.4-10.4); PLATELET COUNT 250 /CUMM (130-400); RBC DISTRIBUTION WIDTH 20.3 % (11.5-14.5); RED BLOOD CELL CT 2.94 /CUMM (4.20-5.40); WHITE BLOOD CELL COUNT 5.7 /CUMM (4.8-10.8)
[2016-11-25 08:15] LABS: PTT 68 SEC (25-37)
--- NOTE | 2016-11-25 11:30 | Discharge Summary ---
Visit Information Visit Dates Admission Date: 11/22/16 Discharge Date: 11/27/2016 Hospital Course Course Attending Physician: MARGAUX HUMPHREY MD Primary Care Physician: will set it with Dr. WANG Layton Hospital Course: 81-year-old lady with past medical history of recently diagnosed PE, with pulmonary hypertension, anemia, who was recently discharged from the [facility] to rehabilitation was sent back with chief complaint of positive guaiac /dark stool? from [facility]. Patient denieD any nausea, vomiting, abdominal pain, chest pain,, hematemesis, hematuria. She DID not remember that she had blood in her stool but she was told that there was blood in the stool. According to the [facility] notes patient with guaiac positive and also in the ED patient had very dark brown stool guaiac positive. Patient was off apixaban for one day. vital signs are stable except BP 98/54 which improved after IV hydration Physical Exam General Appearance Alert, Oriented X3, Cooperative, No Acute Distress Skin No Rashes, No Breakdown, 10x5 bruse on the medial surface of right arm Skin Temp/Moisture Exam: Warm/Dry HEENT Atraumatic, PERRLA, EOMI, Mucous Membr. moist/pink Neck Supple, No JVD Lymphatic no cervical lymphadenopathy Cardiovascular Regular Rate, Normal S1, Normal S2, No Murmurs Lungs Clear to Auscultation, Normal Air Movement Abdomen Normal Bowel Sounds, Soft, No Tenderness Neurological Normal Gait, Normal Speech, Strength at 5/5 X4 Ext, Normal Tone, Sensation Intact, Cranial Nerves 3-12 NL, Reflexes 2+ Extremities No Clubbing, No Cyanosis, No Edema, Trace BL LE pedal edema Hemoglobin 6.9, mild transaminases which is improving, first set troponin negative,albumin 2.7 EKG showed sinus rhythm, 87, inverted v2, QTC 448 she was admitted to telemetry floor and treated for these medical condition: #GI BLEED patient received unit of blood.ACS was ruled out.aspirin and axpixaban stopped and she was put on IV heparin. patient was put on PPI. Colonoscopy results :1. 2 polyps status post removal via snare polypectomy with placement of 2 prophylactic" over the larger polypectomy site in the transverse colon, but the polypectomy site in the sigmoid colon was not able to be identified to place a Hemoclip. 2. Sigmoid diverticulosis. 3. Inflamed internal and external hemorrhoids. EGD results: 1. 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 2. Mild erosive and atrophic gastritis status post biopsies.3. No active bleeding appreciated. Patient is to follow-up with GI for outpatient PillCam. we restated axpixaban and aspirin. patient received another 1 unit of blood. Her H& H remained stable upon discharge. #PE on NOACs/COPD/short run of SVT? patient was put on IV heparin for EGD/colonoscopy. after that we restarted apixaba and metoprolol. We continued to nebulizers for COPD. elevated h1ac -HgA1c was 6.5 last admission and this admission is 5.9 patient was put on low- dose sliding scale insulin. we did not discharge the patient on insulin. Allergies: Coded Allergies: No Known Allergies (11/09/16) Disposition Summary Disposition Principal Diagnosis: GI bleeding Additional Diagnosis: Pulmonary embolism Anemia COPD Discharge Disposition: SNF Discharge Instructions General Discharge Information Code Status: Full Code Patient's Diet: Heart healthy Patient's Activity: As tolerated Follow-Up Instructions/Appts: -Please follow-up with your primary care provider within 7 days after discharge. -Please follow-up with your management lecturer 7 days after discharge, for Pillcam study. -We have made changes to your home medications, please read the instructions carefully. -Please come back to the hospital if your symptoms got worse. Medications at Discharge Discharge Medications: Continue taking these medications: Ipratropium [place] (Ipratropium [place]) 0.2 MG/ML (0.02 %) SOLUTION 2.5 Milliliters Inhale through mouth EVERY 4 HRS WHILE AWAKE Days = 28 Comments: Last Taken: 11/27/16 Time: 11:34A.M Albuterol Sulfate (Albuterol Sulfate) 2.5 MG/3 ML (0.083 %) VIAL.NEB 3 Milliliters Inhale through mouth Q4H as needed for SHORTNESS OF BREATH Days = 28 Comments: Last Taken: 11/27/16 Time:11:33A.M Aspirin (Aspirin*) 81 MG TAB.CHEW 81 Milligram ORAL DAILY Days = 28 Comments: Last Taken: 11/27/16 Time: 10:13A.M Guaifenesin (Guaifenesin) 100 MG/5 ML LIQUID 10 Milliliters ORAL EVERY 4 HOURS NEEDED as needed for COUGH Days = 28 Comments: not given in hospital Ergocalciferol (Vitamin D2) (Vitamin D2) 50,000 UNIT CAPSULE 50,000 International Unit ORAL ONCE A WEEK Qty = 7 Comments: Last Taken: 11/15/16 Time: 5 pm Dabigatran Etexilate Mesylate (Pradaxa 150 MG) 150 MG CAPSULE 150 Milligram ORAL TWICE DAILY Days = 28 Comments: Last Taken: 11/27/16 Time: 10:14A.M Metoprolol Tartrate (Metoprolol Tartrate) 25 MG TABLET 12.5 Milligram ORAL TWICE DAILY Days = 28 Comments: Last Taken: 11/27/16 Time: 10:14A.M Polyethylene Glycol 3350 (Miralax) 17 GRAM/DOSE POWDER 17 Gram ORAL DAILY Days = 10 Comments: Last Taken: 11/25/16 Time: 6:24A.M Sennosides/Docusate Sodium (Senna S Tablet) 8.6 MG-50 MG TABLET 1 Tablet ORAL DAILY Comments: NOT GIVEN THIS ADMISSION Docusate Sodium (Colace) 100 MG CAPSULE 1 Capsule ORAL THREE TIMES DAILY Comments: Last Taken:11/27/16 Time:10:14A.M Mineral Oil/Hydrophil Petrolat (Dermaphor Ointment) 106 GM OINT...G. 1 Application On the skin TWICE DAILY Comments: NOT GIVEN THIS ADMISSION Ferrous Sulfate (Ferrous Sulfate) 325 MG (65 MG IRON) TABLET 1 Tablet ORAL THREE TIMES DAILY Comments: Last Taken:11/27/16 Time:10:14A.M Acetaminophen (Acephen) 650 MG SUPP.RECT 1 SUPPOSITORY RECTALLY Q4H as needed for PAIN/TEMP>101 Comments: NOT GIVEN THIS ADMISSION Saliva Substitute Combo No.9 (Biotene) 473 ML MOUTHWASH 15 Milliliters ORAL 4XDAILY Comments: NOT GIVEN THIS ADMISSION Acetaminophen (Pharbetol) 325 MG TABLET 2 Tablet ORAL Q4H as needed for PAIN/TEMP>101 Comments: NOT GIVEN THIS ADMISSION Magnesium Hydroxide (Milk Of Magnesia) 400 MG/5 ML ORAL.SUSP 30 Milliliters ORAL as needed for CONSTIPATION Comments: NOT GIVEN THIS ADMISSION Bisacodyl (Dulcolax) 10 MG SUPP.RECT 1 Suppository RECTAL as needed for CONSTIPATION Comments: NOT GIVEN THIS ADMISSION Na Phos,M-B/Na Phos,Di-Ba (Fleet Enema) 19 GRAM-7 GRAM/118 ML ENEMA 1 Enema RECTAL as needed for CONSTIPATION Comments: Last Taken:11/25/16 Time:12:45P.M Glucagon,Human Recombinant (Glucagon Emergency Kit) 1 MG KIT 1 Milligram INTRAMUSC As Directed as needed for HYPOGLYCEMIA Comments: NOT GIVEN THIS ADMISSION Dextrose (Glucose Gel) 40 % GEL..GRAM. 1 Application ORAL As Directed as needed for HYPOGLYCEMIA Comments: Last Taken:NOT GIVEN THIS ADMISSION Time: Copies To: FELIPE SUAREZ,LIZ Polk Attending MD Review Statement Documenting Attending: MARGAUX HUMPHREY MD Other Findings: The patient was seen and agree with plan of care as outlined.
--- NOTE | 2016-11-25 14:20 | Proc Note Endoscopy ---
Endoscopy Procedure Medical History: unchanged (see meditech consult) Mental Status: alert/oriented Heart/Lung Eval Prior to Sedation: within normal limits Candidate for Sedation? Yes Procedure Date: 11/25/16 Procedure Type: EGD w/biopsy Entry Level Sales Associate: Drew Buck MD ASA Classification: III Indications: Anemia, guaiac positive stool. Instrument: diagnostic gastroscope Meds Received: MAC Patient's Tolerance: good Complications: none Extent Reached: second part of duodenum Procedure: After getting written informed consent the patient was placed in the left lateral decubitus position with pulse oximetry, cardiac monitoring, and supplemental oxygen given. A bite block was inserted and IV sedation was given until the desired effect was achieved. A high definition upper Olympus endoscope was then inserted into the mouth and advanced to the second portion of the duodenum with little difficulty. Retroflexed views and photodocumentation was obtained. Findings: Esophagus: The esophageal mucosa was grossly normal in appearance and there was a normal-appearing Z line at 43 cm from the incisors. Stomach: The antral mucosa was mildly erythematous with a few scattered erosions. The remainder of the gastric mucosa was atrophic in appearance. There were no ulcers or masses appreciated. Distention and peristalsis of the stomach appeared normal. Retroflexed views were normal and did not reveal a significant hiatal hernia. Random biopsies were obtained from the antrum with cold biopsy forceps and were sent to pathology for further evaluation. Duodenum: There was one nonbleeding AVM in the duodenal bulb and another nonbleeding AVM was appreciated in the distal second portion of the duodenum. The remainder of the small bowel was normal in appearance and the villi were normal in appearance. Impression: 1. 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 2. Mild erosive and atrophic gastritis status post biopsies. 3. No active bleeding appreciated. Recommendations: 1. She should be continued on oral PPI. 2. She should avoid or minimize her use of [id number] NSAIDs. 3. She should follow up the pathology results with me as an outpatient. 4. Will proceed with a colonoscopy now for further evaluation of her anemia.
--- NOTE | 2016-11-25 14:46 | Proc Note Colonoscopy ---
Colonoscopy Procedure Medical History: unchanged (see meditech consult) Mental Status: alert/oriented Heart/Lung Eval Prior to Sedation: within normal limits Candidate for Sedation? Yes Date of Last Colonoscopy: Over 10 years ago. Procedure Date: 11/25/16 Procedure Type: colonoscopy w/polypectomy Animal Control Licensing Worker: Drew Buck MD ASA Classification: III Indications: Unexplained anemia, guaiac positive stool. Instrument (Colonoscope): single channel Meds Received: MAC Patient's Tolerance: good Complications: none Extent Reached: terminal ileum Prep: good Procedure: After getting written informed consent the patient was placed in the left lateral decubitus position with pulse oximetry, cardiac monitoring, and supplemental oxygen was given. IV sedation was given until the desired effect was achieved. A rectal exam was performed which revealed moderate size inflamed external hemorrhoids. A high definition variable stiffness Olympus colonoscope was then inserted into the anus and advanced to the cecum with little difficulty. Retroflexed views were obtained and photodocumentation was obtained. Close inspection of the colonic mucosa was performed on insertion and withdrawal of the colonoscope with a withdrawal time that was adequate in length to closely inspect all folds and garcias of the colon. Findings: There was a 1cm sessile polyp in the transverse colon which was removed with snare polypectomy and monopolar cautery and 2 prophylactic Hemoclips were placed over the polypectomy site without any significant bleeding ensuing. There was a 5 mm sessile polyp in the rectosigmoid colon which was removed with snare polypectomy and monopolar cautery, but it was not able to be retrieved and the polypectomy site was not able to be clearly identified after the polyp was removed secondary to diverticular disease and therefore no Hemoclip was able to be placed over this site. No significant bleeding ensued with taking out that polyp. There were several scattered diverticula in the sigmoid colon. The remainder of the visualized colonic mucosa was grossly unremarkable. There were no large polyps, masses, or AVMs appreciated. Retroflexed views in the rectum revealed inflamed internal hemorrhoids. Impression: 1. 2 polyps status post removal via snare polypectomy with placement of 2 prophylactic" over the larger polypectomy site in the transverse colon, but rectosigmoid colon polyp was not able to be successfully retrieved and that polypectomy site was not able to be identified to place a Hemoclip. 2. Sigmoid diverticulosis. 3. Inflamed internal and external hemorrhoids. Recommendations: 1. Her diet should be advanced as tolerated. 2. She should follow up the pathology results with me as an outpatient. 3. Would resume anticoagulation with Pradaxa tomorrow and would hold additional anticoagulation today considering the polypectomies that were performed. 4. She should be started on oral iron supplementation. 5. Will arrange for an outpatient small bowel PillCam to evaluate for a small bowel source of anemia or blood loss. 6. Based on the results of the pathology consideration should be given to repeat a colonoscopy in 3-5 years time if it is clinically appropriate at that time. Followup Colonscopy Screen In: pending biopsy result(s)
[2016-11-25 16:01] VITALS: BP 108/60
[2016-11-25 22:48] VITALS: BP 100/50
--- NOTE | 2016-11-26 07:56 | PN- Housestaff ---
See Addendum Subjective Follow-up For: Anemia with guaiac-positive stool Subjective: Hemodynamically stable. No acute overnight events reported. Patient is laying on bed looks relaxed and comfortable. Patient denies nausea, vomiting, or abdominal pain. She also denies palpitation, chest pain, or shortness breath. Patient still in 2.5 L of oxygen. Review of Systems Constitutional: Reports: see HPI. Objective Last 24 Hrs of Vital Signs/I&O Vital Signs Date Time Temp Pulse Resp B/P B/P Pulse O2 O2 Flow FiO2 Mean Ox Delivery Rate 11/26 1032 98.5 84 20 108/56 11/26 0800 98.5 84 20 108/56 97 Nasal 2.5L Cannula 11/26 0000 92 Nasal 2.0L Cannula 11/25 2248 99.0 90 20 100/50 93 Nasal Cannula 11/25 2045 85 Room Air 11/25 1601 97.6 92 20 108/60 93 Nasal Cannula Intake & Output 11/26 1600 11/26 0800 11/26 0000 Intake Total 100 Output Total Balance 100 Intake, Oral 100 Physical Exam General Appearance: Alert, Oriented X3, Cooperative, No Acute Distress HEENT: Atraumatic, PERRLA, EOMI, Mucous Membr. moist/pink Cardiovascular: Regular Rate, Normal S1, Normal S2, No Murmurs Lungs: Clear to Auscultation Abdomen: Normal Bowel Sounds, Soft, No Tenderness Neurological: Normal Speech Extremities: No Clubbing, No Cyanosis, No Edema Current Medications: Current Medications Sig/Irma Start time Last Medication Dose Route Stop Time Status Admin Acetaminophen 650 MG Q6P PRN 11/22 2315 AC PO Albuterol Sulfate 3 ML BID 11/23 1215 AC 11/26 INH 0944 Aspirin 81 MG DAILY 11/26 1036 AC PO Bisacodyl 10 MG AT BEDTIME 11/24 2200 AC 11/25 PO 2140 Chlorhexidine 2 GM .STK-MED ONE 11/25 1501 DC Gluconate TOP 11/25 1502 Dabigatran 150 MG BID 11/26 1000 AC 11/26 PO 1025 Dextrose 25 GM ONCE ONE 11/25 1145 DC 11/25 IV 11/25 1146 1246 Dextrose/Sodium 1,000 ML Q13H 11/25 0000 DC 11/25 Chloride IV 0003 Docusate Sodium 100 MG TID 05/06 1000 AC 11/25 PO 2139 Ferrous Sulfate 325 MG TID 11/25 1600 AC 11/26 PO 1023 Guaifenesin 10 ML Q4P PRN 11/22 2315 AC PO Ipratropium [place] 2.5 ML BID 11/23 1215 AC 11/26 INH 0944 Metoprolol Tartrate 6.25 MG BID 11/26 1000 AC 11/26 PO 1032 Omeprazole 40 MG DAILY AC 11/24 0700 AC 11/26 PO 0530 Sodium Phosphate 1 UNIT ONCE ONE 11/25 1115 DC 11/25 FL 11/25 1116 1246 Sodium Phosphate 1 UNIT ONCE ONE 11/25 1115 DC 11/25 FL 11/25 1116 1245 Last 24 Hrs of Lab/Jamaal Results Last 24 Hrs of Labs/Mics: Laboratory Tests 11/26/16 0715: CBC w Diff NO MAN DIFF REQ, RBC 2.76 L, MCV 86.2, MCH 27.8, RDW 20.8 H, MPV 8.5, Gran % 60.7, Lymphocytes % 26.9, Monocytes % 10.4 H, Eosinophils % 1.4, Basophils % 0.6, Absolute Granulocytes 2.5, Absolute Lymphocytes 1.1 L, Absolute Monocytes 0.4, Absolute Eosinophils 0.1, Absolute Basophils 0, PUBS MCHC 32.3 L 11/25/16 1230: Glucose 158 H Assessment/Plan Assessment: 81 y/o F with PMHx of COPD on oxygen, recently admitted to [place] where she was diagnosed with bilateral DVT and discharged to [facility] on Pradaxa 6 days ago, who was sent in for further evaluation of decreased H/H and guaiac positive stool. 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 Iron studies consistent with anemia of chronic disease but also associated iron deficiency anemia is possible giving the high RDW. * Follow up with GI for pathology results and outpatient small bowel PillCam to evaluate for small bowel source of bleeding. * Resume ferrous sulfate 325 mg PO TID. * Resume Pradaxa 150 mg PO BID * Resume aspirin 81 mg daily * Continue Prilosec 40 mg PO AC daily. * Avoid or minimize NSAID use. * Continue regular diet as tolerated NPO: Regular DVT PPx: ALPs & Pradaxa CODE: FULL Problem List: 1. Anemia 2. Colonic polyp 3. Sigmoid diverticulosis 4. Hemorrhoids, internal 5. Hemorrhoids, external 6. Arteriovenous malformation of duodenum 7. Erosive gastritis 8. Atrophic gastritis Pain Ratin Pain Location: N/A Pain Goal: Remain pain free Pain Plan: See A&P Tomorrow's Labs & Rationales: CBC for H&H
[2016-11-26 08:00] VITALS: BP 108/56
[2016-11-26 08:24] LABS: ABSOLUTE BASOPHIL COUNT 0 /CUMM (0.0-0.2); ABSOLUTE EOSINOPHIL COUNT 0.1 /CUMM (0.0-0.7); ABSOLUTE GRANULOCYTE CT 2.5 /CUMM (1.4-6.5); ABSOLUTE LYMPH COUNT 1.1 /CUMM (1.2-3.4); ABSOLUTE MONOCYTE COUNT 0.4 /CUMM (0.10-0.60); BASOPHIL % 0.6 % (0.0-2.0); EOSINOPHIL % 1.4 % (0-5); GRANULOCYTE % 60.7 % (42.2-75.2); HEMATOCRIT 23.8 % (37-47); MEAN CORPUSCULAR HGB 27.8 PG (27.0-31.0); MEAN CORPUSCULAR HGB CONC 32.3 G/DL (33.0-37.0); MEAN CORPUSCULAR VOLUME 86.2 FL (81.0-99.0); MEAN PLATELET VOLUME 8.5 FL (7.4-10.4); PLATELET COUNT 207 /CUMM (130-400); RBC DISTRIBUTION WIDTH 20.8 % (11.5-14.5); RED BLOOD CELL CT 2.76 /CUMM (4.20-5.40); WHITE BLOOD CELL COUNT 4.1 /CUMM (4.8-10.8)
--- NOTE | 2016-11-26 09:44 | Patient Discharge Instructions ---
Discharge Instructions General Discharge Information You were seen/treated for: GI bleeding Special Instructions: -Please follow-up with your primary care provider within 7 days after discharge. -His follow-up with your gauger delivery 7 days after discharge, for Pillcam study. -We have made changes to your home medications, please read the instructions carefully. -Please come back to the hospital if your symptoms got worse. Diet Recommended Diet: Heart Healthy Activity Full Activity/No Limits: Yes (as tolerated) Acute Coronary Syndrome Inclusion Criteria At DC or during hospital stay patient has or had the following: ACS DIAGNOSIS No Discharge Core Measures Meds if any: Prescribed or Continued at Discharge Meds if any: NOT Prescribed or Continued at Discharge Congestive Heart Failure Inclusion Criteria At DC or during hospital stay patient has or had the following: CHF DIAGNOSIS No Discharge Core Measures Meds if any: Prescribed or Continued at Discharge Meds if any: NOT Prescribed or Continued at Discharge Cerebrovascular accident Inclusion Criteria At DC or during hospital stay patient has or had the following: CVA/TIA Diagnosis No Discharge Core Measures Meds if any: Prescribed or Continued at Discharge Meds if any: NOT Prescribed or Continued at Discharge Venous thromboembolism Inclusion Criteria VTE Diagnosis No VTE Type NONE VTE Confirmed by (Test) NONE Discharge Core Measures - Per Current guidelines, there needs to be overlap - treatment for the first 5 days of Warfarin therapy. - If discharged on Warfarin prior to 5 days of - overlap therapy, the patient will need to be - assessed for post discharge needs including - *Post discharge parental anticoagulation - *Warfarin and/or parental anticoagulation education - *Follow up date to check INR post discharge At least 5 days overlap therapy as Inpatient No Meds if any: Prescribed or Continued at Discharge Note: Overlap Therapy is Warfarin and Anticoagulant Meds if any: NOT Prescribed or Continued at Discharge
[2016-11-26 15:49] VITALS: BP 94/50
[2016-11-26 22:00] VITALS: BP 96/70
[2016-11-26 22:09] LABS: ABSOLUTE BASOPHIL COUNT 0 /CUMM (0.0-0.2); ABSOLUTE EOSINOPHIL COUNT 0 /CUMM (0.0-0.7); ABSOLUTE GRANULOCYTE CT 3.4 /CUMM (1.4-6.5); ABSOLUTE LYMPH COUNT 1.4 /CUMM (1.2-3.4); ABSOLUTE MONOCYTE COUNT 0.5 /CUMM (0.10-0.60); BASOPHIL % 0.3 % (0.0-2.0); EOSINOPHIL % 0.5 % (0-5); GRANULOCYTE % 63.7 % (42.2-75.2); HEMATOCRIT 26.9 % (37-47); MEAN CORPUSCULAR HGB CONC 32.8 G/DL (33.0-37.0); MEAN CORPUSCULAR VOLUME 85.5 FL (81.0-99.0); MEAN PLATELET VOLUME 8.1 FL (7.4-10.4); PLATELET COUNT 198 /CUMM (130-400); RBC DISTRIBUTION WIDTH 19.9 % (11.5-14.5); RED BLOOD CELL CT 3.14 /CUMM (4.20-5.40); WHITE BLOOD CELL COUNT 5.3 /CUMM (4.8-10.8)
[2016-11-27 08:02] VITALS: BP 122/64
[2016-11-27 09:39] LABS: ABSOLUTE BASOPHIL COUNT 0.1 /CUMM (0.0-0.2); ABSOLUTE EOSINOPHIL COUNT 0.2 /CUMM (0.0-0.7); ABSOLUTE GRANULOCYTE CT 3.2 /CUMM (1.4-6.5); ABSOLUTE LYMPH COUNT 0.9 /CUMM (1.2-3.4); ABSOLUTE MONOCYTE COUNT 0.5 /CUMM (0.10-0.60); BASOPHIL % 1.4 % (0.0-2.0); EOSINOPHIL % 3.2 % (0-5); GRANULOCYTE % 67.1 % (42.2-75.2); HEMATOCRIT 28.6 % (37-47); MEAN CORPUSCULAR HGB 27.9 PG (27.0-31.0); MEAN CORPUSCULAR HGB CONC 32.6 G/DL (33.0-37.0); MEAN CORPUSCULAR VOLUME 85.5 FL (81.0-99.0); MEAN PLATELET VOLUME 8.4 FL (7.4-10.4); PLATELET COUNT 199 /CUMM (130-400); RBC DISTRIBUTION WIDTH 18.7 % (11.5-14.5); RED BLOOD CELL CT 3.34 /CUMM (4.20-5.40); WHITE BLOOD CELL COUNT 4.7 /CUMM (4.8-10.8)
--- NOTE | 2016-11-27 11:48 | PN- Housestaff ---
Subjective Follow-up For: Anemia with guaiac-positive stool Subjective: Hemodynamically stable. No acute overnight events reported. Patient is laying on bed looks relaxed and comfortable. Patient denies nausea, vomiting, or abdominal pain. She also denies palpitation, chest pain, or shortness breath. Patient saturating well on 2 L of oxygen. H&H is stable posttransfusion. Most likely she will be discharged to a short-term rehabilitation later today. Review of Systems Constitutional: Reports: no symptoms. Objective Last 24 Hrs of Vital Signs/I&O Vital Signs Date Time Temp Pulse Resp B/P B/P Pulse O2 O2 Flow FiO2 Mean Ox Delivery Rate 11/27 1314 97.7 90 20 130/70 11/27 1138 96 Nasal 1.5L Cannula 11/27 1013 90 130/70 11/27 0942 Nasal 2.0L Cannula 11/27 0802 97.7 84 20 122/64 96 11/27 0800 99 Nasal 2.0L Cannula 11/27 0000 94 Nasal 2.0L Cannula 11/26 2200 98.2 94 20 96/70 94 Nasal 2.0L Cannula 11/26 2052 94 96/70 11/26 1639 92 Nasal 2.0L Cannula 11/26 1600 Nasal 2.0L Cannula 11/26 1549 98.2 92 18 94/50 93 Nasal 1.0L Cannula Intake & Output 11/27 1600 11/27 0800 11/27 0000 Intake Total 200 100 Output Total Balance 200 100 Intake, Oral 200 100 Physical Exam General Appearance: Alert, Oriented X3, Cooperative, No Acute Distress HEENT: Atraumatic, PERRLA, EOMI, Mucous Membr. moist/pink Cardiovascular: Regular Rate, Normal S1, Normal S2, No Murmurs Lungs: Clear to Auscultation, Normal Air Movement Abdomen: Soft, No Tenderness Neurological: Normal Speech Extremities: No Clubbing, No Cyanosis, No Edema Current Medications: Current Medications Sig/Irma Start time Last Medication Dose Route Stop Time Status Admin Acetaminophen 650 MG Q6P PRN 11/22 2315 DCD PO Albuterol Sulfate 3 ML BID 11/23 1215 DCD 11/27 INH 1133 Aspirin 81 MG DAILY 11/26 1036 DCD 11/27 PO 1013 Bisacodyl 10 MG AT BEDTIME 11/24 2199 DCD 11/26 PO 205 Dabigatran 150 MG BID 11/26 1000 DCD 11/27 PO 1014 Docusate Sodium 100 MG TID 11/23 1000 DCD 11/27 PO 1014 Ferrous Sulfate 325 MG TID 11/25 1600 DCD 11/27 PO 1014 Guaifenesin 10 ML Q4P PRN 11/22 2315 DCD PO Ipratropium Bonnyman 2.5 ML BID 11/23 1215 DCD 11/27 INH 1134 Metoprolol Tartrate 6.25 MG BID 11/26 1000 DCD 11/27 PO 1013 Omeprazole 40 MG DAILY AC 11/24 0700 DCD 11/27 PO 0656 Last 24 Hrs of Lab/Jamaal Results Last 24 Hrs of Labs/Mics: Laboratory Tests 11/27/16 0853: CBC w Diff NO MAN DIFF REQ, RBC 3.34 L, MCV 85.5, MCH 27.9, RDW 18.7 H, MPV 8.4, Gran % 67.1, Lymphocytes % 18.7 L, Monocytes % 9.6 H, Eosinophils % 3.2, Basophils % 1.4, Absolute Granulocytes 3.2, Absolute Lymphocytes 0.9 L, Absolute Monocytes 0.5, Absolute Eosinophils 0.2, Absolute Basophils 0.1, PUBS MCHC 32.6 L 11/26/162119: CBC w Diff NO MAN DIFF REQ, RBC 3.14 L, MCV 85.5, MCH 28.0, RDW 19.9 H, MPV 8.1, Gran % 63.7, Lymphocytes % 25.7, Monocytes % 9.8 H, Eosinophils % 0.5, Basophils % 0.3, Absolute Granulocytes 3.4, Absolute Lymphocytes 1.4, Absolute Monocytes 0.5, Absolute Eosinophils 0, Absolute Basophils 0, PUBS MCHC 32.8 L Assessment/Plan Assessment: 81 y/o F with PMHx of COPD on oxygen, recently admitted to [place] where she was diagnosed with bilateral DVT and discharged to [facility] on Pradaxa 6 days ago, who was sent in for further evaluation of decreased H/H and guaiac positive stool. 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 Iron studies consistent with anemia of chronic disease but also associated iron deficiency anemia is possible giving the high RDW. * Follow up with GI for pathology results and outpatient small bowel PillCam to evaluate for small bowel source of bleeding. * Continue ferrous sulfate 325 mg PO TID. * Continue Pradaxa 150 mg PO BID * Continue aspirin 81 mg daily * Continue Prilosec 40 mg PO AC daily. * Avoid or minimize NSAID use. * Continue regular diet as tolerated NPO: Regular DVT PPx: ALPs & Pradaxa CODE: FULL Problem List: 1. Atrophic gastritis 2. Erosive gastritis 3. Arteriovenous malformation of duodenum 4. Hemorrhoids, internal 5. Hemorrhoids, external 6. Sigmoid diverticulosis 7. Colonic polyp 8. Guaiac positive stools 9. Anemia Pain Ratin Pain Location: na Pain Goal: Remain pain free Pain Plan: See A&P Tomorrow's Labs & Rationales: None as patient most likely discharged today
[2016-11-27 13:14] VITALS: BP 130/70
== END 2016-11-27 13:55 | DRG 378 ==
LOC: ERH 18:12 → ERHI 21:51 → 1NO 21:51 → EDBEDREQ 22:09 → ENRESERV 22:19 → 1NO 11-23 00:20 → ENPENDDIS 11-27 13:19 → 1NO 11-27 13:55
PROVIDERS: Dermatology; Emergency Medicine; Internal Medicine; Physician Assistant; Student in an Organized Health Care Education/Training Program; ADMIT Internal Medicine
PROC: 30233N1 Transfusion of Nonautologous Red Blood Cells into Peripheral Vein, Percutaneous Approach (ICD-10-PCS; principal; 2016-11-22)
PROC: 0DBL8ZX Excision of Transverse Colon, Via Natural or Artificial Opening Endoscopic, Diagnostic (ICD-10-PCS; 2016-11-25)
PROC: 0DBN8ZX Excision of Sigmoid Colon, Via Natural or Artificial Opening Endoscopic, Diagnostic (ICD-10-PCS; 2016-11-25)
PROC: 0DB68ZX Excision of Stomach, Via Natural or Artificial Opening Endoscopic, Diagnostic (ICD-10-PCS; 2016-11-25)
DX: K92.2 Gastrointestinal hemorrhage, unspecified (principal); D62 Acute posthemorrhagic anemia; I27.2 Other secondary pulmonary hypertension; J44.9 Chronic obstructive pulmonary disease, unspecified; Z86.718 Personal history of other venous thrombosis and embolism; Z79.01 Long term (current) use of anticoagulants; Z87.891 Personal history of nicotine dependence; D12.3 Benign neoplasm of transverse colon; D12.7 Benign neoplasm of rectosigmoid junction; K64.4 Residual hemorrhoidal skin tags; K57.90 Diverticulosis of intestine, part unspecified, without perforation or abscess without bleeding; K64.8 Other hemorrhoids; Q27.33 Arteriovenous malformation of digestive system vessel; K29.40 Chronic atrophic gastritis without bleeding; I10 Essential (primary) hypertension
CPT/HCPCS: 1NSP; ERO; 36415; 82436; 86920; 88305; 88312; 93005; 93010; 97116-GO; 97161-GP; 97530-GO; 99291; J1644; J3490; J7042; P9016

== ENCOUNTER 2017-01-27 16:11 | Observation (INO) | payer OTHER ==
[~2017-01-27] VITALS: Ht 157.5 cm; Wt 52.2 kg
[~2017-01-27 16:11] MED LIST changes: +ACEPHEN650 M1 PR; +BIOTENE473 ML PO; +COLACE100 M1 PO; +DERMAPHOR OINT106 GM TOP; +DULCOLAX10 M1 RC; +FERROUS SULFAT325 M3 PO; +FLEET ENEMA133 ML RC; +GLUCAGON EMERGEN1 M1 IM; +GLUCOSE GEL38 GM PO; +MILK OF MA400 MG/52 PO; +PHARBETOL325 MG PO; +SENNA S TABLET1 EACH PO
--- NOTE | 2017-01-27 16:29 | NUR ---
81 YO FEMALE SENT IN BY DR REBOLLEDO FOR EKG CHANGES AND LIGHTHEADNESS. STATES THE LIGHTDEADED IS NOW GONE. DENIES CHEST PAIN. STATES SHE IS SOB "THATS NOT NEW FOR ME, IM ALWAYS SHORT OF BREATH"
[2017-01-27 17:20] LABS: ABSOLUTE BASOPHIL COUNT 0 /CUMM (0.0-0.2); ABSOLUTE EOSINOPHIL COUNT 0.1 /CUMM (0.0-0.7); ABSOLUTE GRANULOCYTE CT 3.3 /CUMM (1.4-6.5); ABSOLUTE LYMPH COUNT 1.4 /CUMM (1.2-3.4); ABSOLUTE MONOCYTE COUNT 0.5 /CUMM (0.10-0.60); BASOPHIL % 0.8 % (0.0-2.0); EOSINOPHIL % 2.5 % (0-5); GRANULOCYTE % 61.4 % (42.2-75.2); HEMATOCRIT 33.3 % (37-47); MEAN CORPUSCULAR HGB 28.3 PG (27.0-31.0); MEAN CORPUSCULAR HGB CONC 31.8 G/DL (33.0-37.0); MEAN CORPUSCULAR VOLUME 88.9 FL (81.0-99.0); MEAN PLATELET VOLUME 7.6 FL (7.4-10.4); PLATELET COUNT 252 /CUMM (130-400); RED BLOOD CELL CT 3.75 /CUMM (4.20-5.40); WHITE BLOOD CELL COUNT 5.3 /CUMM (4.8-10.8)
--- NOTE | 2017-01-27 17:36 | NUR ---
TRIAGE NOTE ACKNOWLEDGED AND RN CARE ASSUMED PT BOUGHT TO ROOM # [address] MUNIZ
--- NOTE | 2017-01-27 17:45 | RADIOLOGY REPORT ---
EXAMINATION: XR PORTABLE CHEST CLINICAL INFORMATION: Dizziness. Pneumonia. COMPARISON: 01/01/2017. TECHNIQUE: Portable frontal view of the chest was obtained. FINDINGS: The cardiomediastinal silhouette is stable appearing with cardiomegaly and a tortuous descending thoracic aorta. Lungs remain markedly hyperexpanded and clear without evidence of congestion, consolidation, or significant appearing effusion or atelectasis. There is no evidence of pneumothorax or pulmonary edema. Included osseous structures appear largely unremarkable. IMPRESSION: Stable appearing chest x-ray, no acute intrathoracic process is seen.
--- NOTE | 2017-01-27 17:51 | ED SYNCOPE COMPLAINT ---
History of Present Illness General Chief Complaint: General Adult Stated Complaint: SIB DR. HENDRICKSON FOR EKG CHANGES Vital Signs & Intake/Output Vital Signs & Intake/Output Vital Signs Date Time Temp Pulse Resp B/P B/P Pulse O2 O2 Flow FiO2 Mean Ox Delivery Rate 01/28 1025 98.2 86 18 126/63 96 Room Air 01/28 0755 97.0 68 18 132/65 94 Room Air 01/28 0747 97.0 68 18 132/65 94 Room Air 01/28 0000 93 Room Air 01/27 2155 95.4 90 18 127/56 93 Room Air ED Intake and Output 01/28 0000 01/27 1200 Intake Total 0 Output Total Balance 0 Intake, IV 0 Patient 115 lb Weight Weight Reported by Patient Measurement Method Allergies Coded Allergies: No Known Allergies (11/09/16) Triage Note: 81 YO FEMALE SENT IN BY DR HENDRICKSON FOR EKG CHANGES AND LIGHTHEADNESS. STATES THE LIGHTDEADED IS NOW GONE. DENIES CHEST PAIN. STATES SHE IS SOB "THATS NOT NEW FOR ME, IM ALWAYS SHORT OF BREATH" HPI: Ms. Rosario 81 YO F with PMH of PE,on blood thiners(pradaxa), DVT, COPD and hysterectomy presented with CC of lightheadedness this morning without aura. According to patient she was all right since this morning when she became lightheaded when she tried to get out of the bed. She said that she sat in the bed and then went to bath room where she was so lightheaded that had to sat there but she denied nausea, vominting, vision changes, headache, racing of heart or black out before that episode. She was not confused after that episode. Her took her to Dr. Hendrickson and ECG was done in the clinic. sent the patient to ED due to ischemic changes in EKG. Patient also reports that she becomes short of breath but that's her baseline. She denied fever, SOB, chest pain, numbness, tingling, paloitation, orthopnea, confusion, back pain and dysuria. (KUMAR SUAREZ,LEXIE) General Source: patient, family, old records, PCP Exam Limitations: no limitations Core Measure Meds Pre-Hospital xarelto Triage Nurses Notes Reviewed? yes (FLAVIO SUAREZ,AIRAM) Reconcile Medications Albuterol Sulfate 2.5 MG/3 ML (0.083 %) VIAL.NEB 3 ML INH Q4H PRN SHORTNESS OF BREATH Ferrous Sulfate 325 MG (65 MG IRON) TABLET 1 TAB PO TID SUPPLEMENT (Reported) Fluticasone/Vilanterol (Breo Ellipta 100-25 Mcg INH) 100 MCG-25 MCG/DOSE BLST.W.DEV 1 PUFF INH DAILY COPD (Reported) Metoprolol Succ XL (Toprol XL) 25 MG TAB 1 TAB PO DAILY HIGH BLOOD PRESSURE ( Reported) Rivaroxaban (Xarelto) 20 MG TABLET 1 TAB PO AT BEDTIME BLOOD THINNER ( Reported) (MIGUEL SUAREZ,JER) Past History Travel History Traveled to [place] past 21 day No Medical History Any Pertinent Medical History? 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 Hx Contributory? No (LEXIE HEATH MD) Review of Systems Review of Systems Constitutional: Reports: no symptoms. EENTM: Reports: no symptoms. Respiratory: Reports: no symptoms. Cardiovascular: Reports: syncope. GI: Reports: no symptoms. Genitourinary: Reports: no symptoms. Musculoskeletal: Reports: no symptoms. Neurological/Psychological: Reports: no symptoms. (LEXIE HEATH MD) Review of Systems Skin: Reports: no symptoms. All Other Systems: Reviewed and Negative (AIRAM MUNIZ MD) Physical Exam Physical Exam General Appearance: no apparent distress, alert, awake Head: atraumatic Eyes: Bilateral: normal appearance, PERRL, EOMI. Ears, Nose, Throat: hearing grossly normal Neck: normal inspection Respiratory: normal breath sounds Cardiovascular: regular rate/rhythm Gastrointestinal: normal bowel sounds Cranial Nerves: normal hearing, normal speech, PERRL (LEXIE HEATH MD) Physical Exam Back: normal inspection, normal range of motion Extremities: normal inspection, normal capillary refill, normal range of motion, no edema Psychiatric: awake, alert, oriented x 3 Coordination/Gait: normal finger to nose, normal gait Motor/Sensory: no motor/sensory deficits Reflexes: 2+: bicep (R), bicep (L). Skin: intact, normal color, warm/dry Lymphatic: no anterior cervical stephanie Core Measures ACS in differential dx? Yes ASA ordered for poss ACS? No-other contraindication CVA/TIA Diagnosis: No Severe Sepsis Present: No Septic Shock Present: No (FLAVIO SUAREZ,AIRAM) Progress Differential Diagnosis: drug induced syncope, orthostatic syncope, pulmonary embolus, TIA/CVA, ventricular tach/fib, ACS Plan of Care: Orders Procedure Date/time Status CBC WITHOUT DIFFERENTIAL 01/28 600 Complete BASIC ELECTROLYTES PLUS BUN&CR 01/28 06 Complete TROPONIN LEVEL 01/28 030 Complete EKG 01/28 030 Active Teach/Educate 01/28 024 Active Pain Treatment and Response 01/28 024 Active Nutritional Intake, Monitor 01/28 024 Active Isolation 01/28 024 Active Patient Care Conference 01/28 024 Active Discharge Patient 01/28 UNK Active MISTAKE 01/28 UNK Active Hemoccult 01/28 UNK Active Pathway - chart 01/27 2323 Active House Staff 01/27 2323 Active Patient Data 01/27 2323 Active Code Status 01/27 2323 Active Intake & Output 01/27 1845 Active MISTAKE 01/27 UNK Active Telemetry/Surfacer 01/27 UNK Active Laboratory Tests 01/28/17 0525: Anion Gap 8, Estimated GFR > 60, BUN/Creatinine Ratio 24.3, CBC w Diff NO MAN DIFF REQ, RBC 3.61 L, MCV 88.6, MCH 28.4, RDW 15.3 H, MPV 8.3, Gran % 51.0, Lymphocytes % 32.4, Monocytes % 11.1 H, Eosinophils % 4.7, Basophils % 0.8, Absolute Granulocytes 2.4, Absolute Lymphocytes 1.5, Absolute Monocytes 0.5, Absolute Eosinophils 0.2, Absolute Basophils 0, PUBS MCHC 32.1 L 01/28/17 0304: Troponin I < 0.01 01/27/17 2150: Troponin I < 0.01 According to history, physical exam and changes in EKG(ST segment depression in limb leads and left chest leads compare to previous EKG), we planned to order the labs and imaging studies. Dr. Muniz talked to the patient that she needs to stay in the hospital for observation due to changes in her EKG. Patient agreed witgh the plan of care. Her trop-T is negative(<0.01) and decided to admit the patient in telemetry floor for observation. I spoke to MOD and the hospitalist about the patient and informed them. The hospitalist asked me to get supervisor finishing room opinion first before the patient being admitted to tele. Then i called Dr. Denise and got his opinion. He asked me to keep the patient in the ED and if the second set of Trop-T turns out negative then discharge the patient. I informed my attending doctor about the opinion. (LEXIE HEATH MD) D/W DR FLORES AND CASE MANAGEMENT. WILL PLACE ON TELE, 23 HR OBSERVATION. (JER RIVERA MD) Pre-Hospital EKG: normal axis, normal intervals, normal p-waves, normal QRS complex, normal sinus rhythm, ST depression (inferolat), t wave inversions Initial ED EKG: normal axis, normal intervals, normal p-waves, normal QRS complex, normal sinus rhythm, ST depression (inferolat), twave inversions Prior EKG: changed Rhythm Strip: normal sinus rhythm Hand-Off Endorsed To: JER RIVERA MD Endorsed Time: 1940 Pending: labs, other (EKG) Comments: Discussed with Dr. Flores. Requests cardiology input prior to admission. Dr. Cervantes requests repeat troponin and no hospitalization at this time. (FLAVIO SUAREZ,AIRAM) Departure Departure Condition: Stable Referrals: PAULO HENDRICKSON MD (PCP/Family) Departure Forms: Customer Survey General Discharge Information (LEXIE HEATH MD) Departure Time of Disposition: 1800 Disposition: STILL A PATIENT Clinical Impression Primary Impression: Acute electrocardiogram changes Secondary Impressions: Lightheadedness Resident Co-Sign Statement Statement: ED Attending supervision documentation- x I saw and evaluated the patient. I have also reviewed all the pertinent lab results and diagnostic results. I agree with the findings and the plan of care as documented in the Resident's documentation. Acute onset of lightheadedness, nausea, constant, worse with exertion and improved with rest. New EKG changes at PCP, continue in ED. [] I have reviewed the ED Record and agree with the Resident's documentation. [] Additions or exceptions (if any) to the Resident's note and plan are summarized below: [] (FLAVIO SUAREZ,AIRAM) Departure Time of Disposition: 1946 Observation Note Spoke With: MEGGAN FLORES MD Physician Advisor Notified: PARKER MORE DO Place Patient In: Non-ED OBS Care Area Rationale for Observation: My rational for observation is as follows [TELE MONITOR, SERIAL EKG/TROPONIN, ECHOCARDIOGRAM, CARDIOLOGY CONSULTATION]. (MIGUEL SUAREZ,JER)
--- NOTE | 2017-01-27 18:13 | NUR ---
BLOOD DRAWN DIRECTED BY [facility]
--- NOTE | 2017-01-27 18:44 | NUR ---
PCXR DONE DINNER TRAY ORDERED PT DENIES CHEST PAIN OR SOB AT PRESENT PT PRESENT C/O LIGHTHEADEDNESS
--- NOTE | 2017-01-27 18:58 | NUR ---
DINNER TRAY PROVIDED
--- NOTE | 2017-01-27 21:52 | NUR ---
REPEAT EKG DONE BY [facility] BLOOD DRAWN DIRECTED BY THIS RN [address] PLACED IN LAC
--- NOTE | 2017-01-27 22:12 | History & Physical ---
RICKEY DUQUE MD 01/27/17 2211: General Information and HPI MD Statement: I have seen and personally examined FERNANDO DALE and documented this H&P. The patient is a 81 year old F who presented with a patient stated chief complaint of dizziness and EKG changes. Source of Information: patient, old records Exam Limitations: no limitations History of Present Illness: 81 year old female with past medical history of DVT/PE on xarelto, COPD, anemia and GI bleed presents with complaints of feeling lightheaded and EKG changes. Patient states symptoms starting after waking this morning. She felt lightheaded and nauseous and did not take any of her medications. She laid down to watch television and the nausea improved but still felt dizzy and also chills. She denies any other symptoms throughout the day. She went to Dr. Rebolledo's office for evaluation of dizziness and had negative orthostatic vital signs but was sent to ED for evaluation of ischemic EKG changes. Patient also states she has been mildly short of breath but this is her baseline. Allergies/Medications Allergies: Coded Allergies: No Known Allergies (11/09/16) Compliance With Home Meds: GOOD Past History Travel History Traveled to [place] past 21 day No Medical History Neurological: NONE EENT: NONE Cardiovascular: NONE Respiratory: COPD, pulmonary embolism Gastrointestinal: NONE Hepatic: NONE Renal: NONE Musculoskeletal: NONE Psychiatric: NONE Endocrine: NONE Blood Disorders: anemia, DVT Cancer(s): NONE SECURITY SCREENER/Reproductive: NONE Other Medical Hx: DVT, PE History of MRSA: No History of VRE: No History of CDIFF: No Surgical History Surgical History: hysterectomy Past Family/Social History Family History Relations & Conditions if any FATHER, , Age 50-60; Cause: Hepatic artery injury. Psychosocial History Who Do You Live With? spouse Services at Home: Oxygen Primary Language: Lao Functional Ability ADLs Independent: dressing, eating, toileting, bathing. Ambulation: independent IADLs Independent: shopping, housework, finances, food prep, telephone, transportation , medication admin. Review of Systems Review of Systems Constitutional: Reports: see HPI. Exam & Diagnostic Data Last 24 Hrs of Vital Signs/I&O Vital Signs Date Time Temp Pulse Resp B/P B/P Pulse O2 O2 Flow FiO2 Mean Ox Delivery Rate 01/275 95.4 90 18 127/56 93 Room Air 07/10 1921 98.4 99 20 115/57 94 Room Air 01/27 1856 92 Room Air 01/27 1628 98.4 79 18 156/76 92 Room Air Intake & Output 01/28 0800 01/28 0000 01/27 1600 Intake Total 0 Output Total Balance 0 Intake, IV 0 Patient 115 lb 115 lb Weight Weight Reported by Patient Measurement Method Physical Exam General Appearance Alert, Oriented X3, Cooperative, No Acute Distress Skin No Rashes, No Breakdown Skin Temp/Moisture Exam: Warm/Dry Cardiovascular Regular Rate, Normal S1, Normal S2, No Murmurs Lungs Clear to Auscultation, Normal Air Movement, diminished breath sounds b/l Abdomen Normal Bowel Sounds, Soft, No Tenderness, No Masses Neurological Normal Speech, Strength at 5/5 X4 Ext, Normal Tone Extremities No Edema, Normal Pulses, No Tenderness/Swelling Vascular Normal Pulses, Pulses Symmetrical Last 24 Hrs of Labs/Jamaal: Laboratory Tests 01/28/17 0304: Troponin I Pending 01/27/17 2150: Troponin I < 0.01 01/27/17 1709: Anion Gap 8, Estimated GFR > 60, BUN/Creatinine Ratio 24.3, Glucose 95, Calcium 9.3, Magnesium 2.2, Total Bilirubin 0.5, AST 29, ALT 37, Alkaline Phosphatase 79 , Troponin I < 0.01, Total Protein 6.5, Albumin 4.1, Globulin 2.4, Albumin/ Globulin Ratio 1.7, TSH &T3 &Free T4 Intrp 1.770, PT 12.0, INR 1.14, CBC w Diff NO MAN DIFF REQ, RBC 3.75 L, MCV 88.9, MCH 28.3, RDW 15.0 H, MPV 7.6, Gran % 61.4, Lymphocytes % 26.0, Monocytes % 9.3, Eosinophils % 2.5, Basophils % 0.8, Absolute Granulocytes 3.3, Absolute Lymphocytes 1.4, Absolute Monocytes 0.5, Absolute Eosinophils 0.1, Absolute Basophils 0, PUBS MCHC 31.8 L Diagnostic Data EKG Results inferolateral ST depressions and T wave inversions CXR Results no cardiopulm process Assessment/Plan Assessment: 81 year old female with past medical history of DVT/PE on xarelto, COPD, anemia and GI bleed presents with complaints of feeling lightheaded and EKG changes. 1. Lightheaded: Observation status Monitor on telemetry for arrhythmia Orthostatic vital signs Serial troponins/EKGs Cardiology consultation Recent echo 11/04 LVEF >60% Possible stress test Continue metoprolol 2. COPD: history of smoking, quit in october C evaluation Duonebs TID 3. PE/DVT: Continue Xarelto 4. GI bleed: Patient was given aspirin in ED Continue Xarelto, hold further aspirin for now Continue iron supplementation Heart healthy diet DVT ppx-on xarelto Full code As Ranked By This Provider Problem List: 1. GI bleed 2. Light-headed feeling Core Measures/Miscellaneous Acute Coronary Syndrome ACS Diagnosis: No Cerebrovascular Accident CVA/TIA Diagnosis: No Congestive Heart Failure CHF Diagnosis: No VTE (View Protocol) VTE Risk Factors: Acute medical illness, Age > 40, Previous VTE No [facility] VTE prophylaxis d/t: No contraindications No VTE Pharm Prophylaxis d/t: No contraindications VTE Diagnosis: No VTE Type: NONE VTE Confirmed by (Test): NONE Sepsis (View Protocol) Severe Sepsis Present: No Septic Shock Septic Shock Present: No Miscellaneous Documentation Attending Case Discussed With: MEGGAN SANCHEZ MD Primary Care Physician: PAULO REBOLLEDO MD Patient sees these Specialists cardio/pulm Level of Patient Care: Telemetry SEJAL JOSHI 01/28/17 0220: General Information and HPI Allergies/Medications Home Med list Albuterol Sulfate 2.5 MG/3 ML (0.083 %) VIAL.NEB 3 ML INH Q4H PRN SHORTNESS OF BREATH Ferrous Sulfate 325 MG (65 MG IRON) TABLET 1 TAB PO TID SUPPLEMENT (Reported) Fluticasone/Vilanterol (Breo Ellipta 100-25 Mcg INH) 100 MCG-25 MCG/DOSE BLST.W.DEV 1 PUFF INH DAILY COPD (Reported) Metoprolol Succ XL (Toprol XL) 25 MG TAB 1 TAB PO DAILY HIGH BLOOD PRESSURE ( Reported) Rivaroxaban (Xarelto) 20 MG TABLET 1 TAB PO AT BEDTIME BLOOD THINNER ( Reported) Resident Review Statement Resident Statement: examined this patient, discussed with quality internship, agreed with quality internship Other Findings: Patient is a 41-year-old female with past medical history significant for DVT, PE on 02, history of GI bleed, history of COPD, history of congestive heart failure came with chief complaint of dizziness with abnormal EKG at PCPs office this afternoon. According to patient she was dizzy while she was getting out of bed this morning and also she had some nausea which was there for almost 10 minutes but she didn't vomit. She was fine but after couple of hours she was again lightheaded and called her PCP where EKG was done and that showed inferolateral ST depressions and was sent to ER. Patient was complaining of shortness of breath but that was her baseline and she denied any worsening of her shortness of breath today. She denied any lightheadedness, chest pain, palpitations, headache, vision changes, any urinary or bowel complaints at this moment. Vital signs on admission were temperature 98.4, pulse 79, respiratory rate 80, blood pressure 156/76 and she was saturating 92% on room air. Labs were WBC count 5.3, hemoglobin 10.6, hematocrit 33.3, platelet count 252, INR 1.14, sodium 139, potassium 4.2, BUNs 8, creatinine 0.7, negative troponins, magnesium 2.2. TSH 1.77 Chest x-ray was negative for any acute cardiopulmonary pathology is EKG showed slight ST depression in inferolateral leads especially V3 4 and 5, Physical examination Alert and oriented 3 Head atraumatic Neck supple Chest clear to auscultate Heart S1-S2 normal, irregularly irregular heart rate, no added sounds Abdomen soft with no organomegaly Extremities showed no edema or cyanosis No neurological deficit noted Shafter Assessment and plan 81 year old female with history of DVT, PE on the Route toe, COPD, history of GI bleed came with lightheadedness and found to have EKG changes were sent in from PCPs office for further evaluation. Problem list 1. Lightheadedness with EKG changes most likely stable angina we will rule out and NSTEMI 2. History of shortness of breath most likely due to underlying COPD 3. History of GI bleed 4. History of PE, DVT on xarelto 5. History of anemia Plan 1. We will monitor patient on telemetry floor for 24 hours 2. Continuous telemetric monitoring 3. We will trend TROPS AND EKG 4. Cardiology evaluation in a.m. by Dr. Hill's group patient might need stress test 5. TRC and nebulization 6. Patient was given aspirin in ED and she had history of GI bleed on aspirin we will defer further aspirin administration on cardiology recommendations 7. Given her history of lightheadedness we will check orthostatics 8. We'll continue her home medications. 9. She had recent cardiogram in October 2016 with ejection fraction more than 60% . There is no need to repeat echo for now. Patient is full code Pharmacological DVT prophylaxis Heart healthy diet MEGGAN SANCHEZ 01/28/17 0645: Attending Review Statement Attending Statement Attending MD Statement: examined this patient, discuss w/resident/PA/COMMUNITY OUTREACH ADVOCATE, agreed w/resident/PA/COMMUNITY OUTREACH ADVOCATE, reviewed EMR data (avail), reviewed images, amended to note Attending Assessment/Plan: CC: Lightheaded PMH: COPD, recently diagnosed pulmonary embolism, diastolic heart failure Patient came to ER for persistent lightheadedness. Patient had that symptom in the morning, she usually gets lightheaded which is on and off but this time it persisted little longer than usual associated with nausea but did not throw up actually denies any diarrhea or constipation or actual loss of consciousness denies any worsening in her ear upper respiratory symptoms nasal congestion. Patient went to see her primary care physician, where she was found to have EKG changes with ST depression in lateral leads so she was suggested to go to ER. After arrival in ER patient's lightheadedness improved, denies any chest pain, palpitations, shortness of breath. Vitals: Afebrile, pulse 90s, RR 18, blood pressure 115/57, saturating well on room air Physical examination: A O 3, cooperative, no acute distress, neck supple, JVD normal, no lymphadenopathy, mucosa moist, no focal neurological deficit, no dependent edema, no obvious skin rashes or inflammation CVS: S1-S2, RRR. RS: Clear to auscultate bilaterally. Abdomen: Soft, NT, ND, bowel sounds present. Labs: Anemia which is chronic stable otherwise CBC, BMP, LFT, troponin unremarkable, INR 1.14 CXR:Stable appearing chest x-ray, no acute intrathoracic process is seen. EKG: Nonspecific ST-T wave changes A and P 81-year-old female with past medical history significant for PE, COPD, GI bleed presented in ER for an episode of lightheadedness without any associated symptoms was found to have ST-T wave changes in PCP office, so was sent to ER for further evaluation, patient does not have any positive troponins at this point but given her typical symptoms ANNE-MARIE should be ruled out + Rule out ACS + History of COPD, PE, GI bleed - Place in observation on telemetry - Trend serial EKGs troponin - Telemetry monitoring - Continue aspirin and rest of her home medications - Cardiology consult in a.m.
--- NOTE | 2017-01-27 22:27 | NUR ---
PT TRANSFERRED TO ROOM # 21 AND ENDORSED TO KRISSY ABEL
--- NOTE | 2017-01-27 22:38 | NUR ---
PT ASSISTED WITH REPOSITION IN BED. ALPS APPLIED
[2017-01-27] MEDS ORDERED: BREO ELLIPTA 11 EACH INH (23:30)
[2017-01-27] MEDS ORDERED: TOPROL XL25 M1 PO (23:31)
[2017-01-27] MEDS ORDERED: XARELTO20 M2 PO (23:32)
--- NOTE | 2017-01-28 00:36 | NUR ---
PT EVALUATED BY DR SANCHEZ. MEDICATED WITH 20 MG XERALTO AND 2 PUFF SYMBICORT
[2017-01-28 05:55] LABS: ABSOLUTE BASOPHIL COUNT 0 /CUMM (0.0-0.2); ABSOLUTE EOSINOPHIL COUNT 0.2 /CUMM (0.0-0.7); ABSOLUTE GRANULOCYTE CT 2.4 /CUMM (1.4-6.5); ABSOLUTE LYMPH COUNT 1.5 /CUMM (1.2-3.4); ABSOLUTE MONOCYTE COUNT 0.5 /CUMM (0.10-0.60); BASOPHIL % 0.8 % (0.0-2.0); EOSINOPHIL % 4.7 % (0-5); MEAN CORPUSCULAR HGB 28.4 PG (27.0-31.0); MEAN CORPUSCULAR HGB CONC 32.1 G/DL (33.0-37.0); MEAN CORPUSCULAR VOLUME 88.6 FL (81.0-99.0); MEAN PLATELET VOLUME 8.3 FL (7.4-10.4); PLATELET COUNT 223 /CUMM (130-400); RBC DISTRIBUTION WIDTH 15.3 % (11.5-14.5); RED BLOOD CELL CT 3.61 /CUMM (4.20-5.40); WHITE BLOOD CELL COUNT 4.6 /CUMM (4.8-10.8)
--- NOTE | 2017-01-28 07:17 | PN- Housestaff ---
Subjective Follow-up For: - lightheadedness Review of Systems Constitutional: Reports: see HPI. Objective Last 24 Hrs of Vital Signs/I&O Vital Signs Date Time Temp Pulse Resp B/P B/P Pulse O2 O2 Flow FiO2 Mean Ox Delivery Rate 01/28 0000 93 Room Air 01/27 2155 95.4 90 18 127/56 93 Room Air 01/27 1921 98.4 99 20 115/57 94 Room Air 01/27 1856 92 Room Air 01/27 1628 98.4 79 18 156/76 92 Room Air Intake & Output 01/28 0800 01/28 0000 01/27 1600 Intake Total 0 Output Total Balance 0 Intake, IV 0 Patient 115 lb 115 lb Weight Weight Reported by Patient Measurement Method Physical Exam General Appearance: No Acute Distress Current Medications: Current Medications Sig/Irma Start time Last Medication Dose Route Stop Time Status Admin Acetaminophen 650 MG Q6P PRN 01/27 2330 AC PO Acetaminophen/ 1 TAB Q6P PRN 01/27 2330 AC Hydrocodone Bitart PO Albuterol Sulfate 3 ML Q4H PRN 01/27 2330 AC INH Aspirin 0 .STK-MED ONE 01/27 1844 DC PO Aspirin 81 MG ONCE ONE 01/27 1800 DC PO 01/27 1801 Budesonide/ 2 PUF BID 01/27 2333 AC 01/28 Formoterol Fumarate INH 0034 Ferrous Sulfate 325 MG TID 01/28 1000 AC PO Metoprolol Succinate 25 MG DAILY 01/28 1000 AC PO Rivaroxaban 20 MG AT BEDTIME 01/27 2359 AC 01/28 PO 0034 Last 24 Hrs of Lab/Jamaal Results Last 24 Hrs of Labs/Mics: Laboratory Tests 01/28/17 0525: Anion Gap 8, Estimated GFR > 60, BUN/Creatinine Ratio 24.3, CBC w Diff NO MAN DIFF REQ, RBC 3.61 L, MCV 88.6, MCH 28.4, RDW 15.3 H, MPV 8.3, Gran % 51.0, Lymphocytes % 32.4, Monocytes % 11.1 H, Eosinophils % 4.7, Basophils % 0.8, Absolute Granulocytes 2.4, Absolute Lymphocytes 1.5, Absolute Monocytes 0.5, Absolute Eosinophils 0.2, Absolute Basophils 0, PUBS MCHC 32.1 L 01/28/17 0304: Troponin I < 0.01 07/10/17 2150: Troponin I < 0.01 01/27/17 1709: Anion Gap 8, Estimated GFR > 60, BUN/Creatinine Ratio 24.3, Glucose 95, Calcium 9.3, Magnesium 2.2, Total Bilirubin 0.5, AST 29, ALT 37, Alkaline Phosphatase 79 , Troponin I < 0.01, Total Protein 6.5, Albumin 4.1, Globulin 2.4, Albumin/ Globulin Ratio 1.7, TSH &T3 &Free T4 Intrp 1.770, PT 12.0, INR 1.14, CBC w Diff NO MAN DIFF REQ, RBC 3.75 L, MCV 88.9, MCH 28.3, RDW 15.0 H, MPV 7.6, Gran % 61.4, Lymphocytes % 26.0, Monocytes % 9.3, Eosinophils % 2.5, Basophils % 0.8, Absolute Granulocytes 3.3, Absolute Lymphocytes 1.4, Absolute Monocytes 0.5, Absolute Eosinophils 0.1, Absolute Basophils 0, PUBS MCHC 31.8 L
--- NOTE | 2017-01-28 07:21 | NUR ---
ASSUEMD CARE OF PT AT THIS TIME, PT AWOKEN FOR VITAL SIGNS AND AMBULATED TO AND FROM BATHROOM WITH STEADY GAIT. PT OFFERS NO COMPLAINTS. DENIES CHEST PAIN/SOB.
--- NOTE | 2017-01-28 07:29 | PN-Observation ---
SIMIN DAVID 01/28/17 0729: Observation Note Observation Note _ I have personally examined FERNANDO DALE. her disposition is uncertain at this time. Before a determination can be made, she requires continued observation for the following reasons [] - chest discomfort. - non specific ST changes. - lightheadeness. Assessment/Plan Assessment: Ms Dale is a 81 yr old woman with a history of PE( on xarelto dx'ed 11/04 ), COPD, Iron Def Anemia, GI bleed is being evaluated for lightheadedness, chest discomfort. She was seen at her PCP's office, and had some ST changes for which she was brought to the ED. [facility] At the time of presentation, vitals temp 98.4, VT 79, RR 18, BP 156/76, Pulse ox 92 RA. Lab findings indicated wbc 5.3, Hb 10.6 ( baseline 9,3 ), Orthostat vitals negative. Sodium 139, K 4.2, BUN 17, Sr cr 0.7, Cardiac enzymes x 3 negative. EKG revealed non specific ST changes in lateral leads, which normalized. Differential diagnosis: 1. Rule out ACS 2. Presyncope 3. Iron def anemia Below is the problem list and plan: 1. Chest discomfort- Serial EKGs, and cardiac enzymes negative. Dr. Sol consulted. Pt might need a stress test, as an opt patient. 2. Dizziness, lightheadedness- likely due to anemia. Reason unclear at this time. Orthostat vitals negative. Hemoccult was not done, but ordered. No change in h&h however, or history of gi bleed. No telemetry events s/o arrythmia. As per Dr. Sol, holter monitor connected recently, and would review results. Since acs was ruled out, and pt was asymptomatic, decision was made to dc the pt with a recommendation to see the pcp within a few days. Problem List: 1. Light-headed feeling 2. Acute electrocardiogram changes DVT/Prophylaxis: pharmacological Subjective Follow-up For: - lightheadedness - EKG changes, sp ST T wave changes Subjective: Pt was comfortoable. She was asymptomatic. vitals stable. Review of Systems Constitutional: Reports: see HPI. Objective Last 24 Hrs of Vital Signs/I&O Vital Signs Date Time Temp Pulse Resp B/P B/P Pulse O2 O2 Flow FiO2 Mean Ox Delivery Rate 01/28 0000 93 Room Air 01/27 2155 95.4 90 18 127/56 93 Room Air 01/27 1921 98.4 99 20 115/57 94 Room Air 01/27 1856 92 Room Air 01/27 1628 98.4 79 18 156/76 92 Room Air Intake & Output 01/28 0800 01/28 0000 01/27 1600 Intake Total 0 Output Total Balance 0 Intake, IV 0 Patient 115 lb 115 lb Weight Weight Reported by Patient Measurement Method Physical Exam General Appearance: Alert, Oriented X3, Cooperative, No Acute Distress Skin: No Rashes, No Breakdown, No Significant Lesion Skin Temp/Moisture Exam: Warm/Dry Sepsis Skin Exam (color): Normal for Ethnicity HEENT: Atraumatic, PERRLA, EOMI Neck: Supple, No JVD, No thryomegaly Lymphatic: Cervical nl Cardiovascular: Regular Rate, Normal S1, Normal S2, No Murmurs Lungs: Normal Air Movement Abdomen: Normal Bowel Sounds, Soft, No Tenderness Neurological: Normal Speech, Strength at 5/5 X4 Ext, Normal Tone, Sensation Intact, Cranial Nerves 3-12 NL Extremities: No Clubbing, No Cyanosis, No Edema, Normal Pulses Vascular: Pulses Symmetrical Sepsis Peripheral Pulse Location: Dorsalis Pedis Current Medications: Current Medications Sig/Irma Start time Last Medication Dose Route Stop Time Status Admin Acetaminophen 650 MG Q6P PRN 01/27 2330 AC PO Acetaminophen/ 1 TAB Q6P PRN 01/27 2330 AC Hydrocodone Bitart PO Albuterol Sulfate 3 ML Q4H PRN 01/27 2330 AC INH Aspirin 0 .STK-MED ONE 01/27 1844 DC PO Aspirin 81 MG ONCE ONE 01/27 1800 DC PO 01/27 1801 Budesonide/ 2 PUF BID 01/27 2333 AC 01/28 Formoterol Fumarate INH 0034 Ferrous Sulfate 325 MG TID 01/28 1000 AC PO Metoprolol Succinate 25 MG DAILY 01/28 1000 AC PO Rivaroxaban 20 MG AT BEDTIME 01/27 2359 AC 01/28 PO 0034 Last 24 Hrs of Labs/Mics: Laboratory Tests 01/28/17 0525: Anion Gap 8, Estimated GFR > 60, BUN/Creatinine Ratio 24.3, CBC w Diff NO MAN DIFF REQ, RBC 3.61 L, MCV 88.6, MCH 28.4, RDW 15.3 H, MPV 8.3, Gran % 51.0, Lymphocytes % 32.4, Monocytes % 11.1 H, Eosinophils % 4.7, Basophils % 0.8, Absolute Granulocytes 2.4, Absolute Lymphocytes 1.5, Absolute Monocytes 0.5, Absolute Eosinophils 0.2, Absolute Basophils 0, PUBS MCHC 32.1 L 01/28/17 0304: Troponin I < 0.01 01/27/17 2150: Troponin I < 0.01 01/27/17 1709: Anion Gap 8, Estimated GFR > 60, BUN/Creatinine Ratio 24.3, Glucose 95, Calcium 9.3, Magnesium 2.2, Total Bilirubin 0.5, AST 29, ALT 37, Alkaline Phosphatase 79 , Troponin I < 0.01, Total Protein 6.5, Albumin 4.1, Globulin 2.4, Albumin/ Globulin Ratio 1.7, TSH &T3 &Free T4 Intrp 1.770, PT 12.0, INR 1.14, CBC w Diff NO MAN DIFF REQ, RBC 3.75 L, MCV 88.9, MCH 28.3, RDW 15.0 H, MPV 7.6, Gran % 61.4, Lymphocytes % 26.0, Monocytes % 9.3, Eosinophils % 2.5, Basophils % 0.8, Absolute Granulocytes 3.3, Absolute Lymphocytes 1.4, Absolute Monocytes 0.5, Absolute Eosinophils 0.1, Absolute Basophils 0, PUBS MCHC 31.8 L ONUR PATTEN 01/28/17 1503: Addendum Addendum Patient observation for dizziness, cardioology cleared , serial cardiac enzymes negative. Patient stable for discharge. f/u o/p PCP in 1 week.
[2017-01-28 07:55] VITALS: BP 132/65
[2017-01-28 10:25] VITALS: BP 126/63
--- NOTE | 2017-01-28 10:38 | NUR ---
PT MEDICATED PER EMAR AT THIS TIME.
--- NOTE | 2017-01-28 10:52 | Patient Discharge Instructions ---
Discharge Instructions General Discharge Information You were seen/treated for: - lightheadedness - dizziness Special Instructions: - Please follow-up with your primary care doctor within 1-2 weeks of discharge. -Please follow up with her security operations manager within 1-2 weeks of discharge. Please discuss with him about a possible stress test that could be scheduled as an outpatient. Diet Recommended Diet: Heart Healthy Acute Coronary Syndrome Inclusion Criteria At DC or during hospital stay patient has or had the following: ACS DIAGNOSIS No Discharge Core Measures Meds if any: Prescribed or Continued at Discharge Meds if any: NOT Prescribed or Continued at Discharge Congestive Heart Failure Inclusion Criteria At DC or during hospital stay patient has or had the following: CHF DIAGNOSIS No Discharge Core Measures Meds if any: Prescribed or Continued at Discharge Meds if any: NOT Prescribed or Continued at Discharge Cerebrovascular accident Inclusion Criteria At DC or during hospital stay patient has or had the following: CVA/TIA Diagnosis No Discharge Core Measures Meds if any: Prescribed or Continued at Discharge Meds if any: NOT Prescribed or Continued at Discharge Venous thromboembolism Inclusion Criteria VTE Diagnosis No VTE Type NONE VTE Confirmed by (Test) NONE Discharge Core Measures - Per Current guidelines, there needs to be overlap - treatment for the first 5 days of Warfarin therapy. - If discharged on Warfarin prior to 5 days of - overlap therapy, the patient will need to be - assessed for post discharge needs including - *Post discharge parental anticoagulation - *Warfarin and/or parental anticoagulation education - *Follow up date to check INR post discharge At least 5 days overlap therapy as Inpatient No Meds if any: Prescribed or Continued at Discharge Note: Overlap Therapy is Warfarin and Anticoagulant Meds if any: NOT Prescribed or Continued at Discharge
--- NOTE | 2017-01-28 10:56 | NUR ---
CASE MANAGEMENT LM: MET WITH PATIENT TO OBTAIN SIGNATURE FOR MEDICARE OUTPATIENT OBSERVATION NOTICE FORM. PT EXPRESSED THAT SHE WAS UPSET BECAUSE SHE WAS TOLD SHE WAS ACTUALLY BEING ADMITTED TO THE HOSPITAL AND EXPRESSED CONCERNS OVER THE COST TO HER. SHE WAS ESPECIALLY UPSET BECAUSE SHE BELIEVES SHE WAS TOLD SHE WAS BEING ADMITTED AND NOT BEING BROUGHT INTO HOSPITAL IN OBSERVATION STATUS. DISCUSSED SAME WITH DR MORE WHO ADVISED ME TO TELL THE PATIENT THAT "IF SHE HAS HAD PROBLEMS OR CONCERNS WITH BILLING TO CALL [phone] AND WE WILL TRY TO STRAIGHTEN IT OUT". PHONE NUMBER GIVEN TO PATIENT AND PATIENT ADVISED OF DR MORE'S RESPONSE.
--- NOTE | 2017-01-28 11:02 | Cons- Cardiology ---
General Information and HPI Consulting Request Date of Consult: 01/28/17 Requested By: MEGGAN SANCHEZ MD Reason for Consult: Dizziness Source of Information: patient Exam Limitations: no limitations History of Present Illness: The patient is a 81-year-old female with a known history of chronic COPD, history of DVT/PE on Xarelto, now presents with dizziness. The patient was admitted in October 2016 with severe shortness of breath and hypotension. At that time she was found to have a pulmonary most and treated with Xarelto. Her echocardiogram demonstrated normal LV function but dilated right ventricle and severe pulmonary hypertension with a PA pressure 70 mmHg. She had elevated troponin secondary to demand ischemia. Patient states that she has been doing well but developed episode of dizziness yesterday. The symptoms persisted and she became increasingly concerned therefore presented to the emergency room for evaluation. She denied chest pain or shortness of breath. She states that she was a smoker but quit in October. Allergies/Medications Allergies: Coded Allergies: No Known Allergies (11/09/16) Home Med List: Albuterol Sulfate 2.5 MG/3 ML (0.083 %) VIAL.NEB 3 ML INH Q4H PRN SHORTNESS OF BREATH Ferrous Sulfate 325 MG (65 MG IRON) TABLET 1 TAB PO TID SUPPLEMENT (Reported) Fluticasone/Vilanterol (Breo Ellipta 100-25 Mcg INH) 100 MCG-25 MCG/DOSE BLST.W.DEV 1 PUFF INH DAILY COPD (Reported) Metoprolol Succ XL (Toprol XL) 25 MG TAB 1 TAB PO DAILY HIGH BLOOD PRESSURE ( Reported) Rivaroxaban (Xarelto) 20 MG TABLET 1 TAB PO AT BEDTIME BLOOD THINNER ( Reported) Current Medications: Current Medications Sig/Irma Start time Last Medication Dose Route Stop Time Status Admin Acetaminophen 650 MG Q6P PRN 01/27 2330 AC PO Acetaminophen/ 1 TAB Q6P PRN 01/27 2330 AC Hydrocodone Bitart PO Albuterol Sulfate 3 ML Q4H PRN 01/27 2330 AC INH Aspirin 0 .STK-MED ONE 01/27 1844 DC PO Aspirin 81 MG ONCE ONE 01/27 1800 DC PO 01/27 1801 Budesonide/ 2 PUF BID 01/27 2333 AC 01/28 Formoterol Fumarate INH 1014 Ferrous Sulfate 325 MG TID 01/28 1000 AC 01/28 PO 1014 Metoprolol Succinate 25 MG DAILY 01/28 1000 AC 01/28 PO 1014 Rivaroxaban 20 MG AT BEDTIME 01/27 2359 AC 01/28 PO 0034 Review of Systems Review of Systems: Eyes no blurred or double vision Ears no deafness or ringing Nose and throat no recurrent sinusitis Lungs per history of present illness Heart per history of present illness Abdomen no nausea vomiting Musculoskeletal occasional muscle and joint pains Psych no anxiety or depression Neuro without recurrent headache or seizures dizziness as per HPI Endocrine no heat or cold intolerance Past History Travel History Traveled to [place] past 21 day No Medical History Blood Transfusion Hx: Yes Neurological: NONE EENT: NONE Cardiovascular: NONE Respiratory: COPD, pulmonary embolism Gastrointestinal: NONE Hepatic: NONE Renal: NONE Musculoskeletal: NONE Psychiatric: NONE Endocrine: NONE Blood Disorders: anemia, DVT Cancer(s): NONE 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 Psychosocial History Who Do You Live With? spouse Services at Home: Oxygen Primary Language: [place] Smoking Status: Former Smoker Functional Ability ADLs Independent: dressing, eating, toileting, bathing. Ambulation: independent IADLs Independent: shopping, housework, finances, food prep, telephone, transportation , medication admin. Exam & Diagnostic Data Vital Signs and I&O Vital Signs Date Time Temp Pulse Resp B/P B/P Pulse O2 O2 Flow FiO2 Mean Ox Delivery Rate 01/28 1025 98.2 86 18 126/63 96 Room Air 01/28 0755 97.0 68 18 132/65 94 Room Air 01/28 0747 97.0 68 18 132/65 94 Room Air 01/28 0000 93 Room Air 01/27 2155 95.4 90 18 127/56 93 Room Air 01/27 1921 98.4 99 20 115/57 94 Room Air 01/27 1856 92 Room Air 01/27 1628 98.4 79 18 156/76 92 Room Air Intake & Output 01/28 1600 01/28 0800 01/28 0000 01/27 1600 01/27 0800 01/27 0000 Intake Total 0 Output Total Balance 0 Intake, IV 0 Patient 115 lb 115 lb Weight Weight Reported by Patient Measurement Method Physical Exam: Patient is a well-developed well-nourished female appearing in no acute distress HEENT is unremarkable Neck is supple there is no JVD Lungs few scattered rhonchi with decreased air entry bilaterally Heart regular rhythm S1 and S2 are normal no murmurs gallops or rubs Abdomen bowel sounds positive Extremities without edema Labs/Jamaal Results: Laboratory Tests 01/28 01/28 01/27 0525 0304 2150 Chemistry Sodium (137 - 145 mmol/L) 141 Potassium (3.5 - 5.1 mmol/L) 3.7 Chloride (98 - 107 mmol/L) 107 Carbon Dioxide (22 - 30 mmol/L) 26 Anion Gap (5 - 16) 8 BUN (7 - 17 mg/dL) 17 Creatinine (0.5 - 1.0 mg/dL) 0.7 Estimated GFR (>60 ml/min) > 60 BUN/Creatinine Ratio (7 - 25 %) 24.3 Troponin I (< 0.11 ng/ml) < 0.01 < 0.01 Hematology CBC w Diff NO MAN DIFF REQ WBC (4.8 - 10.8 /CUMM) 4.6 L RBC (4.20 - 5.40 /CUMM) 3.61 L Hgb (12.0 - 16.0 G/DL) 10.3 L Hct (37 - 47 %) 32.0 L MCV (81.0 - 99.0 FL) 88.6 MCH (27.0 - 31.0 PG) 28.4 RDW (11.5 - 14.5 %) 15.3 H Plt Count (130 - 400 /CUMM) 223 MPV (7.4 - 10.4 FL) 8.3 Gran % (42.2 - 75.2 %) 51.0 Lymphocytes % (20.5 - 51.1 %) 32.4 Monocytes % (1.7 - 9.3 %) 11.1 H Eosinophils % (0 - 5 %) 4.7 Basophils % (0.0 - 2.0 %) 0.8 Absolute Granulocytes (1.4 - 6.5 /CUMM) 2.4 Absolute Lymphocytes (1.2 - 3.4 /CUMM) 1.5 Absolute Monocytes (0.10 - 0.60 /CUMM) 0.5 Absolute Eosinophils (0.0 - 0.7 /CUMM) 0.2 Absolute Basophils (0.0 - 0.2 /CUMM) 0 PUBS MCHC (33.0 - 37.0 G/DL) 32.1 L 01/27 1709 Chemistry Sodium (137 - 145 mmol/L) 139 Potassium (3.5 - 5.1 mmol/L) 4.2 Chloride (98 - 107 mmol/L) 103 Carbon Dioxide (22 - 30 mmol/L) 27 Anion Gap (5 - 16) 8 BUN (7 - 17 mg/dL) 17 Creatinine (0.5 - 1.0 mg/dL) 0.7 Estimated GFR (>60 ml/min) > 60 BUN/Creatinine Ratio (7 - 25 %) 24.3 Glucose (65 - 99 mg/dL) 95 Calcium (8.4 - 10.2 mg/dL) 9.3 Magnesium (1.6 - 2.3 mg/dL) 2.2 Total Bilirubin (0.2 - 1.3 mg/dL) 0.5 AST (14 - 36 U/L) 29 ALT (9 - 52 U/L) 37 Alkaline Phosphatase (<127 U/L) 79 Troponin I (< 0.11 ng/ml) < 0.01 Total Protein (6.3 - 8.2 g/dL) 6.5 Albumin (3.5 - 5.0 g/dL) 4.1 Globulin (1.9 - 4.2 gm/dL) 2.4 Albumin/Globulin Ratio (1.1 - 2.2 %) 1.7 TSH &T3 &Free T4 Intrp (0.270 - 4.20 uIU/mL) 1.770 Coagulation PT (9.4 - 12.5 SEC) 12.0 INR (0.90 - 1.19) 1.14 Hematology CBC w Diff NO MAN DIFF REQ WBC (4.8 - 10.8 /CUMM) 5.3 RBC (4.20 - 5.40 /CUMM) 3.75 L Hgb (12.0 - 16.0 G/DL) 10.6 L Hct (37 - 47 %) 33.3 L MCV (81.0 - 99.0 FL) 88.9 MCH (27.0 - 31.0 PG) 28.3 RDW (11.5 - 14.5 %) 15.0 H Plt Count (130 - 400 /CUMM) 252 MPV (7.4 - 10.4 FL) 7.6 Gran % (42.2 - 75.2 %) 61.4 Lymphocytes % (20.5 - 51.1 %) 26.0 Monocytes % (1.7 - 9.3 %) 9.3 Eosinophils % (0 - 5 %) 2.5 Basophils % (0.0 - 2.0 %) 0.8 Absolute Granulocytes (1.4 - 6.5 /CUMM) 3.3 Absolute Lymphocytes (1.2 - 3.4 /CUMM) 1.4 Absolute Monocytes (0.10 - 0.60 /CUMM) 0.5 Absolute Eosinophils (0.0 - 0.7 /CUMM) 0.1 Absolute Basophils (0.0 - 0.2 /CUMM) 0 PUBS MCHC (33.0 - 37.0 G/DL) 31.8 L Diagnostic Data EKG Results Sinus rhythm PVC nonspecific ST-T wave changes prior tracing from November 2016 demonstrated T-wave inversions in V3 to 4 which are not present on the current tracing CXR Results IMPRESSION: Stable appearing chest x-ray, no acute intrathoracic process is seen. Assessment/Plan Assessment/Plan #1. Dizziness resolved no evidence for arrhythmia on telemetry monitoring troponins are negative #2. COPD with chronic shortness of breath without significant change #4. History of DVT/PE on Xarelto #5. Pulmonary hypertension with normal LV function Recommendations #1. I would recommend continuing current medications #2. I did discuss her with her the possibility of performing a stress test as an outpatient given her history and symptoms of shortness of breath to rule out ischemia. No further cardiac testing is planned as an inpatient. Thank you for allowing [facility] to participate in the care of your patient. Consult Acknowledgment - Thank you for your consult request.
--- NOTE | 2017-01-28 13:49 | NUR ---
PT REMAINS RESTING ON STRETCHER, ATE LUNCH TRAY AND PROVIDED WITH COFFEE PER REQUEST. PT DENIES CHEST PAIN/SOB. NO CHANGE IN PT CONDITION. WILL CTM
--- NOTE | 2017-01-28 13:57 | NUR ---
PT HAS BED ASSIGNMENT 180-2
--- NOTE | 2017-01-28 14:28 | NUR ---
REPORT GIVEN TO KYRA ON TELE PT WILL GO TO ROOM 180-2
--- NOTE | 2017-01-28 14:52 | NUR ---
RESIDENT AT BEDSIDE AND PER RESIDENT PT IS CLEARED FOR D/C AND IS NOT TO GO TO TELE.
== END 2017-01-28 14:59 ==
LOC: ERH 16:11 → ERHI 19:47 → EDBEDREQ 20:51 → ERHI 01-28 10:17 → ENRESERV 01-28 13:54 → ENTRNSPT 01-28 14:29 → ERHI 01-28 14:59 → EDTRNSPT 01-28 15:03 → CMPTRNSPT 01-28 15:32
PROVIDERS: Emergency Medicine; Internal Medicine; ADMIT Internal Medicine
DX: R42 Dizziness and giddiness (principal); R94.31 Abnormal electrocardiogram [ECG] [EKG]; D64.9 Anemia, unspecified; Z86.711 Personal history of pulmonary embolism; Z79.01 Long term (current) use of anticoagulants; J44.9 Chronic obstructive pulmonary disease, unspecified; Z87.891 Personal history of nicotine dependence
CPT/HCPCS: 6090; 82436; 93005; 93010; G0378; J3490